=== PATIENT | female | born 2000 | race Caucasian/White ===

== ENCOUNTER → 2025-03-24 | Outpatient (CLI) | payer OTHER, SELFPAY | END | disposition home or self-care (01) | LOC: LAB 11:34 | PROVIDERS: PCP Family Medicine; Referring Provider Obstetrics & Gynecology; Visit Provider Obstetrics & Gynecology | DX: Z34.90 Encounter for supervision of normal pregnancy, unspecified, unspecified trimester (principal) | CPT/HCPCS: 36415; 84702 ==

== ENCOUNTER → 2025-03-26 | Outpatient (CLI) | payer OTHER, SELFPAY ==
--- OUTSIDE RECORDS SUMMARY | 2025-03-26 12:16 | XMS RPT_ITS | CCD ---
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 Name Role Phone JARAD CEE Unavailable Unavailable REFERRED, SELF Unavailable Unavailable ATA BOYKIN Unavailable Unavailable MARIMPIETRI, BLOSSOM Unavailable Unavailable MARIMPIETRI, BLOSSOM Unavailable Unavailable ATA BOYKIN Unavailable Unavailable LELA KHANNA Unavailable Unavailable LELA KHANNA Unavailable Unavailable ATA BOYKIN Unavailable Unavailable Anthony Mckay Primary Care Provider Anthony Mckay Primary Care Provider [phone] Anthnoy Mckay DO E Primary Care Provider Unavailable Primary Care Provider Unavailmanjula e Wancasso DO Anthony E Primary Care Provider Deidra Otero Attending Unavailable Anthony Mckay Primary Care Unavailable PROVIDER, UNKNOWN Referring Unavailable Woody MCDUFFIE Anthony Jose Primary Care Provider Unavailable Primary Care Provider Unavailmanjula e Wancasso DO Anthony E Primary Care Provider Anthony Mckay DO E Primary Care Provider Unavailable Primary Care Provider Unavailmanjula e Unavailable Primary Care Provider UnavailAlivia Carlisle DO Primary Care Provider ASHKAN SLOAN Attending Unavailable PASHA PAULSON Attending Unavailable YOON MCCARTY Attending Unavailable ALIVIA DESAI Attending Unavailable ALIVIA DESAI Primary Care Unavailable LELA CHARLES Attending Unavailable ALIVIA DESAI Primary Care Unavailable FIONA FUNES Attending Unavailable DEIDRA OTERO Attending Unavailable FIONA FUNES Referring Unavailable FLY RODRIGUEZ Attending Unavailable Allergies Allergy Classification Reported Allergen(s) Allergy Type Date of Onset Reaction(s) Facility Penicillins (antibiotic) (2 sources) Amoxicillin Drug Allergy 2 [facility] (1 source) Seafood; Translations: [SEAFOOD] Propensity to adverse reactions to drug (disorder) 7 [facility] (1 source) NUT ALLERGY; Translations: [NUT ALLERGY] Propensity to adverse reactions to drug (disorder) 7 [facility] (20 sources) Peanut-Containi ng Drug Products Propensity to adverse reactions to drug 7 Anaphylaxis [place], [place] (6 sources) Other Propensity to adverse reactions 7 Anaphylaxis, Rash [place], [place] (20 sources) Amoxicillin; Translations: [AMOXICILLIN] Drug Allergy 2 Vomiting, Nausea And Vomiting [facility] (6 sources) peanut allergenic extract Drug Allergy 5 Rash [facility] NEGATED: Highlighted row has been ruled out!Unclassified (4 sources) Other Propensity to adverse reactions 7 Anaphylaxis, Rash [facility] Medications Current Medications Medication Drug Class(es) Dates Sig (Normalized) Sig (Original) adapalene 0.001 mg/mg / benzoyl peroxide 0.025 mg/mg topical gel (2 sources) Retinoid Start: 03-15-2021 Adapalene-Benzoyl Peroxide 0.1-2.5 % GEL [id number] 200 actuat albuterol 0.09 mg/actuat metered dose inhaler (12 sources) beta2-Adrenergic Agonist Start: 05-30-2022 take 2 puff(s) by inhalation every four hours as needed albuterol HFA (PROVENTIL HFA, VENTOLIN HFA) 90 mcg/actuation inhaler Indications: SOB (shortness of breath) Inhale 2 Puffs as instructed every 4 hours as needed. 8 g 05/30/2022 Active Start: 10-06-2016 take 2 puff(s) by in halation every four hours as needed PROAIR HFA 108 (90 Base) MCG/ACT inhaler Inhale 2 puffs into the lungs every 4 hours as needed 0 10/06/2016 Active Start: 10-06-2016 take 2 puff(s) by in halation every four hours as needed PROAIR HFA 108 (90 Base) MCG/ACT inhaler Inhale 2 puffs into the lungs every 4 hours as needed 0 10/06/2016 Active Start: 10-06-2016 PROAIR HFA 108 (90 Base) MCG/ACT inhaler Comment on above: Inhale 2 Puffs as in structed every 4 hours as needed. ALPRAZolam 0.25 mg disintegrating oral tablet (2 sources) Benzodiazepine Start: 08-25-2020 ALPRAZolam (NIRAVAM) dissolvable tablet 0.25 mg Start: 06-30-2020 ALPRAZolam (NI RAVAM) dissolvable tablet 0.25 mg betamethasone 3 mg/ml / betamethasone acetate 3 mg/ml injectable suspension (2 sources) Corticosteroid Start: 08-05-2023 End: 08-04-2023 betamethasone acetate-betamethasone sodium phosphate (Celestone) injection 12 mg Start: 08-05-2023 End: 08-04-2023 betamethasone acetate-betame thasone sodium phosphate (Celestone) injection 12 mg brompheniramine maleate 0.4 mg/ml / dextromethorphan hydrobromide 2 mg/ml / pseudoephedrine hydrochloride 6 mg/ml oral solution (3 sources) alpha-Adrenergic Agonist, Uncompetitive Z-koqwba-T-aspartate Receptor Antagonist, Sigma-1 Agonist Start: 03-26-2024 take 10 mL by mouth every eight hours as needed Gqpiaxuaiftgfoh-Tjlzglrez-JQ (BROMFED DM) 2-30-10 mg/5 mL syrup Indications: Upper respiratory infection with cough and congestion Take 10 mL by mouth every 8 hours as needed. 118 mL 03/26/2024 Active Start: 05-30-2022 End: 03-26-2024 take 10 mL by mouth four times daily as needed Dyvhmxmiexjhekq-Gaxptjhyr-DI (BROMFED DM ) 2-30-10 mg/5 mL syrup Indications: Viral upper respiratory tract infection with cough Take 10 mL by mouth four times daily as needed. 118 mL 05/30/2022 03/26/2024 Discontinued Comment on above: Take 10 mL by mouth four times daily as needed. cefdinir 300 mg oral capsule (1 source) Cephalosporin Antibacterial Start: End: take 1 capsule by mouth twice daily cefdinir (Omnicef) 300 MG capsule Indications: Fever, unspecified fever cause , Upper respiratory tract infection, unspecified type Take 1 capsule (300 mg) by mouth 2 times daily for 10 days. 20 capsule 06/05/2024 06/15/2024 Active clindamycin 10 mg/ml topical lotion (2 sources) Lincosamide Antibacterial Start: clindamycin (CLEOCIN T) 1 % lotion diphenhydrAMINE hydrochloride 25 mg oral tablet (12 sources) Histamine-1 Receptor Antagonist Start: End: diphenhydrAMINE (BENADryl) tablet/capsule 25 mg Start: 08-25-2020 End: 08-25-2020 diphenhydrAMINE (BENADRYL) i njection 12.5 mg Start: 06-30-2020 End: 06-30-2020 diphenhydrAMINE (BENADRYL) i njection 12.5 mg doxycycline hyclate 100 mg oral capsule (3 sources) Tetracycline-class Drug Start: 03-26-2024 End: 04-02-2024 take 1 capsule by mouth twice daily doxycycline hyclate (VIBRAMYCIN) 100 mg capsule Indications: Upper respiratory infection with cough and congestion , Penicillin allergy Take 1 capsule (100 mg) by mouth two times a day for 7 days. 14 capsule 03/26/2024 04/02/2024 Active Start: 06-02-2022 End: 06-09-2022 take 1 capsule by mouth twice daily doxycycline hyclate (VIBRAMYCIN) 100 mg capsule Take 1 capsule by mouth twice daily for 7 days. 14 capsule 0 06/02/2022 06/09/2022 Active Start: 06-25-2021 End: 07-05-2021 take 1 capsule by mouth twice daily doxycycline monohydrate (MONODOX) 100 mg capsule Indications: Acute non-recurrent maxillary sinusitis Take 1 capsule by mouth twice daily for 10 days. 20 capsule 0 06/25/2021 07/05/2021 Active Comment on above: Take 1 capsule by mo uth twice daily for 10 days. Take 1 capsule by mo uth twice daily for 7 days. drospirenone 3 mg / ethinyl estradiol 0.02 mg oral tablet (20 sources) Progestin, Estrogen Start: 04-13-2022 End: 08-13-2023 drospirenone-ethinyl estradiol (Andrew, Gianvi) 3-0.02 MG tablet Take 1 tablet by mouth in the morning. 84 tablet 4 05/17/2022 Active Start: 04-20-2021 take 1 tablet by ambar th once daily drospirenone-ethinyl estradiol (TIMOTHY 28) 3-0.03 MG TABS Indications: Encounter for surveillance of contraceptive pills Take 1 tablet by mouth daily 3 packet 4 04/20/2021 Active End: 03-26-2024 take 1 tablet by mouth once daily Drospirenone-Ethinyl Estradiol (ANDREW 28) 3-0.02 mg per tablet Take 1 tablet by mouth once daily. 03/26/2024 Discontinued take 1 tablet by ambar th once daily Drospirenone-Ethinyl Estradiol (ANDREW 28) 3-0.02 mg per tablet Take 1 tablet by mouth once daily. 0 Active Comment on above: Take 1 tablet by ambar th once daily. Dupilumab (DUPIXENT) 100 MG/0.67ML SOSY (2 sources) Dupilumab (DUPIX ENT) 100 MG/0.67ML SOSY Inject into the skin 0 Active 21 day ethinyl estradiol 0.448875 mg/hr / etonogestrel 0.005 mg/hr vaginal ring (1 source) Progestin, Estrogen Start: 04-16-2019 etonogestrel-ethinyl estradiol (NUVARING) 0.12-0.015 MG/24HR vaginal ring Indications: Encounter for initial prescription of vaginal ring hormonal contraceptive Place 1 each vaginally See Admin Instructions 1 Ring PV 3weeks out of 4. 3 each 3 04/16/2019 Active etonogestrel 68 mg drug implant (10 sources) Progestin Start: 12-05-2019 etonogestrel (NEXPLANON) implant 68 mg End: 03-26-2024 etonogestrel (NEXPLANON) 68 mg impl subdermal implant 68 mg by SUBDERMAL route. 03/26/2024 Discontinued Comment on above: 68 mg by SUBDERMAL r oute. 2 ml fentaNYL 0.05 mg/ml injection (4 sources) Opioid Agonist Start: 08-25-2020 fentaNYL (SUBLIMAZE) injection 50 mcg Start: 08-25-2020 fentaNYL (SUBL IMAZE) injection 25 mcg Start: 06-30-2020 fentaNYL (SUBL IMAZE) injection 50 mcg Start: 06-30-2020 fentaNYL (SUBL IMAZE) injection 25 mcg 1 ml hydrALAZINE hydrochloride 20 mg/ml injection (2 sources) Arteriolar Vasodilator Start: 08-25-2020 hydrALAZINE (APRESOLINE) injection 5 mg Start: 06-30-2020 hydrALAZINE (A PRESOLINE) injection 5 mg 1 ml HYDROmorphone hydrochloride 1 mg/ml cartridge (4 sources) Opioid Agonist Start: 08-25-2020 HYDROmorphone (DILAUDID) injection 0.5 mg Start: 08-25-2020 HYDROmorphone (DILAUDID) injection 0.25 mg Start: 06-30-2020 HYDROmorphone (DILAUDID) injection 0.5 mg Start: 06-30-2020 HYDROmorphone (DILAUDID) injection 0.25 mg labetalol hydrochloride 5 mg/ml injectable solution (2 sources) beta-Adrenergic Pepe Start: 08-25-2020 labetalol (NORMODYNE;TRANDATE) injection 5 mg Start: 06-30-2020 labetalol (NOR MODYNE;TRANDATE) injection 5 mg 10 ml lidocaine hydrochloride 10 mg/ml injection (2 sources) Antiarrhythmic, Amide Local Anesthetic Start: 08-25-2020 End: 08-25-2020 lidocaine PF 1 % injection 1 mL Start: 06-30-2020 End: 06-30-2020 lidocaine PF 1 % injection 1 mL 12 hr loratadine 5 mg / pseudoephedrine sulfate 120 mg extended release oral tablet (5 sources) alpha-Adrenergic Agonist Start: 06-05-2024 End: 06-19-2024 take 5-120 mg by mouth every twelve hours loratadine-pseudoephedrine ER (Claritin-D 12-hour) 5-120 MG 12 hr tablet Indications: Fever, unspecified fever cause , Upper respiratory tract infection, unspecified type Take 1 tablet by mouth 2 times daily for 14 days. Do not crush, chew, or split. 28 tablet 06/05/2024 Active 1 ml meperidine hydrochloride 25 mg/ml cartridge (2 sources) Opioid Agonist Start: 08-25-2020 meperidine (DEMEROL) injection 12.5 mg Start: 06-30-2020 meperidine (DE MEROL) injection 12.5 mg mometasone furoate 0.05 mg/actuat metered dose nasal spray (10 sources) Corticosteroid Start: 03-04-2011 mometasone (NA SONEX) 50 MCG/ACT nasal spray 2 sprays by Nasal route daily as needed 0 03/04/2011 Active Start: 03-04-2011 mometasone (NA SONEX) 50 MCG/ACT nasal spray by Nasal route 0 03/04/2011 Active montelukast 10 mg oral tablet (20 sources) Leukotriene Receptor Antagonist End: 03-26-2024 take 1 tablet by mouth once daily montelukast (Singulair) 10 MG tablet Take 10 mg by mouth Nightly. Active Comment on above: Take 10 mg by mouth daily at bedtime. 2 ml ondansetron 2 mg/ml injection (2 sources) Serotonin-3 Receptor Antagonist Start: 08-25-2020 End: 08-25-2020 ondansetron (ZOFRAN) injection 4 mg Start: 06-30-2020 End: 06-30-2020 ondansetron (ZOFRAN) injecti on 4 mg predniSONE 20 mg oral tablet (1 source) Start: 06-05-2024 End: 06-10-2024 take 2 tablets by mouth once daily predniSONE (Deltasone) 20 MG tablet Indications: Fever, unspecified fever cause , Upper respiratory tract infection, unspecified type Take 2 tablets (40 mg) by mouth daily for 5 days. 10 tablet 06/05/2024 06/10/2024 Active 1 ml promethazine hydrochloride 25 mg/ml injection (2 sources) Phenothiazine Start: 08-25-2020 End: 08-25-2020 promethazine (PHENERGAN) injection 6.25 mg Start: 06-30-2020 End: 06-30-2020 promethazine (PHENERGAN) inj ection 6.25 mg 3 ml sodium chloride 9 mg/ml injection (8 sources) Start: 08-25-2020 sodium chlorid e flush 0.9 % injection 10 mL Start: 08-25-2020 End: 08-25-2020 0.9 % sodium chloride bolus Start: 08-25-2020 0.9 % sodium c hloride infusion Start: 08-25-2020 sodium chlorid e flush 0.9 % injection 10 mL Start: 06-30-2020 0.9 % sodium c hloride infusion Start: 06-30-2020 sodium chlorid e flush 0.9 % injection 10 mL spironolactone 100 mg oral tablet (14 sources) Aldosterone Antagonist Start: 06-05-2019 spironolactone (ALDACTONE) 100 MG tablet Take 50 mg by mouth 2 times daily Acne-50 mg morning and 100mg nightly 0 06/05/2019 Active Start: 06-05-2019 spironolactone (ALDACTONE) 100 MG tablet Take 150 mg by mouth daily 0 06/05/2019 Active Start: 06-05-2019 spironolactone (ALDACTONE) 100 MG tablet End: 03-26-2024 take 1 tablet by mouth every eight hours as needed spironolactone (ALDACTONE) 50 mg tablet Take 50 mg by mouth three times daily as needed. 03/26/2024 Discontinued Comment on above: Take 50 mg by mouth three times daily as needed. traMADol hydrochloride 50 mg oral tablet (2 sources) Opioid Agonist Start: 08-25-2020 End: 08-28-2020 traMADol (ULTRAM) 50 MG tablet Indications: Fibroadenoma of left breast , Hypertrophic scar of skin Take 1 tablet by mouth every 6 hours as needed for Pain for up to 3 days. Intended supply: 3 days. Take lowest dose possible to manage pain 5 tablet 0 08/25/2020 08/28/2020 Active Start: 06-30-2020 End: 07-03-2020 take 1 tablet by mouth every four hours as needed for pain, then take 1 tablet by mouth as needed for pain traMADol (ULTRAM) 50 MG tablet Indications: Fibroadenoma of breast, left Take 1 tablet by mouth every 4 hours as needed for Pain for up to 3 days. Intended supply: 3 days. Take lowest dose possible to manage pain 7 tablet 0 06/30/2020 07/03/2020 Active Completed/Discontinued Medications Medication Drug Class(es) Dates Sig (Normalized) Sig (Original) acetaminophen 500 mg oral tablet (16 sources) Start: 04-21-2024 End: 04-22-2024 1,000 mg, Oral, Once, On 04/21/24 at 2350, For 1 dose, Maximum dose of acetaminophen is 4000 mg from all sources in 24 hours. Start: 08-11-2023 End: 08-13-2023 take 1 tablet by mouth every six hours as needed 650 mg, Oral, Every 6 hours PRN, other, pain (1-10), Starting on Mon08/11/23 at 2311, Give in addition to any other pain medication ordered at same time for any pain indication. Maximum dose of acetaminophen is 4000 mg from all sources in 24 hours. Alternate ibuprofen and acetaminophen every 3 hours. Give ibuprofen first in the sequence. Start: 08-11-2023 End: 08-11-2023 acetaminophen (Tylenol) tabl et 1,000 mg Start: 08-25-2020 End: 08-25-2020 acetaminophen (TYLENOL) tabl et 500 mg Start: 06-30-2020 End: 06-30-2020 acetaminophen (TYLENOL) tabl et 1,000 mg End: 08-13-2023 take 1 tablet by mouth every eight hours as needed for pain acetaminophen (Tylenol 8 Hour) 650 MG ER tablet Take 650 mg by mouth every 8 hours as needed for mild pain (1-3). Do not crush, chew, or split. 0 08/13/2023 Discontinued (Stop taking at discharge) benzethonium chloride 2 mg/ml / benzocaine 200 mg/ml topical spray (2 sources) Standardized Chemical Allergen Start: 08-11-2023 End: 08-13-2023 Topical, As needed, pain, , Starting on Mon08/11/23 at 2311, , Apply to perineal area. Patient is capable and may self administer at bedside. calcium chloride 0.0014 meq/ml / potassium chloride 0.004 meq/ml / sodium chloride 0.103 meq/ml / sodium lactate 0.028 meq/ml injectable solution (4 sources) Start: 08-11-2023 End: 08-11-2023 lactated ringers infusion Start: 08-25-2020 lactated ringe rs infusion Start: 06-30-2020 lactated ringe rs infusion ceFAZolin 2000 mg injection (1 source) Cephalosporin Antibacterial Start: 08-25-2020 End: 08-25-2020 ceFAZolin (ANCEF) 2000 mg in dextrose 4 % 100 mL IVPB (premix) ceFAZolin (ANCEF) 1,000 mg in dextrose 5 % 50 mL IVPB (add-vantage) (1 source) Start: 06-30-2020 End: 06-30-2020 ceFAZolin (ANCEF) 1,000 mg in dextrose 5 % 50 mL IVPB (add-vantage) chlorhexidine gluconate 40 mg/ml medicated liquid soap (2 sources) Start: 08-11-2023 End: 08-11-2023 chlorhexidine (Hibiclens) 4 % solution 1 Application docusate sodium 100 mg oral capsule (2 sources) Start: 08-11-2023 End: 08-13-2023 take 100 mg by mouth twice daily as needed for constipation 100 mg, Oral, 2 times daily PRN, constipation, Vaginal Delivery, Starting on Mon08/11/23 at 2311, Do not crush or break. Dupilumab (Dupixent) 100 MG/0.67ML solution prefilled syringe (16 sources) End: 08-13-2023 Dupilumab (Dupixent) 100 MG/0.67ML solution prefilled syringe Inject under the skin. 0 08/13/2023 Discontinued (Stop taking at discharge) Dupilumab (Dupix ent) 100 MG/0.67ML solution prefilled syringe Inject under the skin. 0 Active [id number] 0.1 ml EPINEPHrine 1 mg/ml auto-injector (20 sources) alpha-Adrenergic Agonist, beta-Adrenergic Agonist, Catecholamine End: 08-13-2023 EPINEPHrine (AUVI-Q) 0.1 mg/0.1mL IJ solution auto-injector injection Inject into the shoulder, thigh, or buttocks. 0 08/13/2023 Discontinued (Stop taking at discharge) EPINEPHrine (EPI PEN JR) 0.15 MG/0.3ML SOAJ Inject into the muscle as needed 0 Active erythromycin 0.005 mg/mg ophthalmic ointment (5 sources) Macrolide, Macrolide Antimicrobial Start: 08-31-2021 End: 03-26-2024 erythromycin (ROMYCIN) 5 mg/gram (0.5 %) ophthalmic ointment Indications: Hordeolum internum of right lower eyelid Use 1 application in the right eye three times daily. 1 g 08/31/2021 03/26/2024 Discontinued Comment on above: Use 1 application in the right eye three times daily. famotidine 20 mg oral tablet (4 sources) Histamine-2 Receptor Antagonist Start: 08-11-2023 End: 08-13-2023 take 20 mg by mouth twice daily as needed for gastroesophageal reflux disease 20 mg, Oral, 2 times daily PRN, heartburn, Starting on 08/11/23 at 2311, , Renal dose per pharmacy for peptic ulcer prophylaxis. Start: 08-25-2020 End: 08-25-2020 famotidine (PEPCID) tablet 2 0 mg Start: 06-30-2020 End: 06-30-2020 famotidine (PEPCID) tablet 2 0 mg ferrous sulfate 325 mg oral tablet (18 sources) Start: 08-12-2023 End: 08-13-2023 325 mg, Oral, 2 times daily with meals, First dose on 08/12/23 at 0800, , Start if Hgb less than 10. Hold oral ferrous sulfate dose if receiving IV iron sucrose (Venofer) End: 10-09-2023 take 1 tablet by mouth once daily at breakfast ferrous sulfate 325 (65 Fe) MG tablet Take 325 mg by mouth daily (with breakfast). 10/09/2023 Discontinued (Therapy completed) fexofenadine (1 source) Histamine-1 Receptor Antagonist End: 04-07-2022 Fexofenadine HCl (RICARDO PO) Take by mouth. 0 04/07/2022 Discontinued (Therapy completed) fluticasone propionate 0.05 mg/actuat metered dose nasal spray (7 sources) Corticosteroid Start: 03-26-2024 End: 08-01-2024 fluticasone (Flonase) 50 MCG/ACT nasal spray 1 spray twice a day. 03/26/2024 08/01/2024 Discontinued (Med list cleanup) Start: 05-30-2022 End: 03-26-2024 take 1 spray(s) nasal route twice daily fluticasone (FLONASE ALLERGY RELIEF) 50 mcg/actuation nasal spray Indications: Upper respiratory infection with cough and congestion Use 1 Devol in each nostril two times a day. 1 Each 03/26/2024 Active Comment on above: Use 1 Devol in each nostril twice daily. gabapentin 100 mg oral capsule (2 sources) Anti-epileptic Agent Start: 08-25-2020 End: 08-25-2020 gabapentin (NEURONTIN) capsule 100 mg Start: 06-30-2020 End: 06-30-2020 gabapentin (NEURONTIN) capsu le 100 mg gadobutrol (GADAVIST) injection 5.5 mL (1 source) Start: 12-16-2021 End: 12-16-2021 gadobutrol (GADAVIST) injection 5.5 mL hydrOXYzine pamoate 25 mg oral capsule (2 sources) Antihistamine Start: 08-11-2023 End: 08-11-2023 hydrOXYzine pamoate (Vistaril) capsule 25 mg ibuprofen 600 mg oral tablet (20 sources) Nonsteroidal Anti-inflammatory Drug Start: 08-11-2023 End: 08-01-2024 take 1 tablet by mouth every six hours as needed for pain ibuprofen 600 MG tablet Take 1 tablet (600 mg) by mouth every 6 hours as needed for moderate pain (4-6). 60 tablet 08/13/2023 08/01/2024 Discontinued (Med list cleanup) End: 08-13-2023 ibuprofen 200 MG tablet Take 400 mg by mouth. 0 08/13/2023 Discontinued (Stop taking at discharge) lanolin 1000 mg/ml topical cream (2 sources) Start: 08-11-2023 End: 08-13-2023 Topical, As needed, dry skin, nipple discomfort, Starting on Mon08/11/23 at 2311, , Apply to affected area. levocetirizine dihydrochloride 5 mg oral tablet (20 sources) Histamine-1 Receptor Antagonist End: 08-01-2024 take 1 tablet by mouth once daily levocetirizine (Xyzal) 5 MG tablet Take 5 mg by mouth Nightly. 08/01/2024 Discontinued Comment on above: Take 1 tablet by ambar once daily. levonorgestrel 0.691817 mg/hr intrauterine system (14 sources) Progestin, Progestin-containi ng Intrauterine Device Start: 10-10-2023 End: 10-10-2023 levonorgestrel (Mirena) 20 MCG/DAY IUD 1 each Start: 10-10-2023 End: 10-10-2023 1 each, IntraUTERine, Once, On 7/9/24 at 0800, For 1 dose Start: 09-10-2023 Mirena, 52 MG, 20 MCG/DAY IUD 09/10/2023 Active metoclopramide 10 mg oral tablet (2 sources) Dopamine-2 Receptor Antagonist Start: 07-19-2023 End: 07-19-2023 metoclopramide (Reglan) tablet 10 mg miSOPROStol (Cytotec) split tablet 25 mcg (2 sources) Start: 08-11-2023 End: 08-11-2023 take 1 tablet vaginal route every four hours miSOPROStol (Cytotec) split tablet 25 mcg nystatin 100 unt/mg / triamcinolone acetonide 0.001 mg/mg topical ointment (2 sources) Polyene Antifungal, Corticosteroid Start: 07-23-2024 End: 08-01-2024 nystatin-triamcinol one (Mycolog II) ointment Apply pea sized amount topically daily as needed to affected area 60 g 2 07/23/2024 08/01/2024 Discontinued (Med list cleanup) ondansetron ODT (Zofran-ODT) disintegrating tablet 4 mg (2 sources) Start: 08-11-2023 End: 08-13-2023 take 1 tablet by mouth every eight hours as needed for nausea and vomiting ondansetron ODT (Zofran-ODT) disintegrating tablet 4 mg oxytocin (Pitocin) 30 units in 500 mL infusion (4 sources) Start: 08-11-2023 End: 08-13-2023 oxytocin (Pitocin) 30 units in 500 mL infusion Start: 08-11-2023 End: 08-11-2023 oxytocin (Pitocin) 30 units in 500 mL infusion oxytocin (Pitocin) 30 units infusion - Pyxis ADS Override Pull (2 sources) Start: 08-11-2023 End: 08-11-2023 oxytocin (Pitocin) 30 units infusion - Pyxis ADS Override Pull Ioprnoch-Yqy-Cv-FA (PRE-BENITA PO) (20 sources) End: 06-05-2024 Cmsbtmup-Fxt-Ps-FA (PRE- PO) Take by mouth. 06/05/2024 Discontinued (Med list cleanup) Multivi t-Min-Fe-FA (PRE-BENITA PO) Take by mouth. Active Multivi t-Min-Fe-FA (PRE-BENITA PO) Take by mouth. 0 Active witch tiffany 500 mg/ml medicated pad (2 sources) Start: 08-11-2023 End: 08-13-2023 Topical, As needed, hemorrho ids, For perineal pain or discomfort, Starting on Mon08/11/23 at 2311, , Apply to perineal area. Patient is capable and may self administer at bedside. Problems Active Problems Problem Classification Problem Date Documented Date Episodic/Chronic Allergic reactions (1 source) Allergy to penicillin; Translations: [Allergy status to penicillin] 03-26-2024 Episodic Asthma (20 sources) Asthmatic bronchitis; Translations: [Unspecified asthma, uncomplicated] Onset: 08-14-2017 08-14-2017 Chronic Contraceptive and procreative management (19 sources) IUD contraception; Translations: [Presence of (intrauterine) contraceptive device] Onset: 12-10-2024 Resolved: 12-05-2019 06-07-2019 Episodic Genitourinary congenital anomalies (1 source) Congenital uterine anomaly; 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, unspecified] Chronic Immunizations and screening for infectious disease (4 sources) Patient encounter status; Translations: [Encounter for screening for infections with a predominantly sexual mode of transmission] 10-10-2023 Episodic Inflammation; infection of eye (except that caused by tuberculosis or sexually transmitteddisease) (1 source) Internal hordeolum of right lower eyelid; Translations: [Hordeolum internum right lower eyelid] Episodic Nonmalignant breast conditions (1 source) Lump in left breast; Translations: [Left breast mass] Nonspecific chest pain (1 source) Chest pain; Translations: [Chest pain, unspecified] Episodic Other and unspecified benign neoplasm (1 source) Fibroadenoma of left breast; Translations: [Benign neoplasm of left breast] Episodic Other and unspecified benign neoplasm (1 source) Fibroadenoma of left breast; Translations: [Fibroadenoma of breast, left] Other female genital disorders (2 sources) Malposition of uterus; Translations: [Malposition of uterus] Onset: 12-16-2021 Episodic Other inflammatory condition of skin (1 source) Pruritus of vulva; Translations: [Pruritus vulvae] 07-23-2024 Episodic Other lower respiratory disease (1 source) Dyspnea; Translations: [Shortness of breath] Episodic Other skin disorders (1 source) Hypertrophic scar; Translations: [Hypertrophic scar] Episodic Other upper respiratory disease (20 sources) Allergic rhinitis due to pollen; Translations: [Allergic rhinitis due to pollen] Onset: 08-14-2017 08-14-2017 Chronic Ovarian cyst (1 source) Cyst of right ovary; Translations: [Unspecified ovarian cyst, right side] 04-29-2024 Episodic Thyroid disorders (1 source) Thyroid nodule; Translations: [Left thyroid nodule] Chronic Unclassified (2 sources) Results; Translations: [Results] Onset: 04-29-2024 Past or Other Problems Problem Classification Problem Date Documented Date Episodic/Chronic Abdominal pain (9 sources) Pain in female pelvis; Translations: [Pelvic and perineal pain] Onset: 04-21-2024 Episodic Fever of unknown origin (3 sources) Fever; Translations: [Fever, unspecified] Onset: 06-05-2024 06-05-2024 Episodic Hypertension complicating ; childbirth and the puerperium (20 sources) Pre-eclampsia; Translations: [Unspecified pre-eclampsia, third trimester] Onset: 08-11-2023 Resolved: 08-13-2023 08-13-2023 Episodic Other inflammatory condition of skin (2 sources) Pruritus vulvae; Translations: [Pruritus vulvae] Onset: 07-23-2024 Episodic Other and delivery including normal (20 sources) Vaginal delivery; Translations: [Encounter for full-term uncomplicated delivery] Onset: 08-12-2023 08-12-2023 Episodic Other upper respiratory infections (6 sources) Acute maxillary sinusitis; Translations: [Acute maxillary sinusitis, unspecified] Onset: 06-05-2024 Episodic Unclassified (6 sources) Patient encounter status; Translations: [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 Will send via [employer] [facility] 36 What is it that she needs? Typically, natural cycle contraception would be tracking cycles. Is this for ovulation supplies? Where does she need this sent? [facility] 36on 12-11-2024 36 Name of caller: Maynor son LoGuidice Contact phone number: [phone] Relationship to Patient: patient Provider: Dr. Desai Practice: [facility] Chief Complaint/Reason for Call: Patient stated she needs for Dr. Desai to send over a Rx for natural cycle contraception subscription. Patient will need this prescribed for 12 unites, billing code is: [id number] and diagnosis code is: Z30.8. Patient will call back with the fax number. Please advise. Thank you. Best time of day caller can be reached: Any Patient advised that office/PCP has 24-48 business hours to return their call: Yes Normal [facility] Progress Noteon 12-10-2024 Progress Note Zunilda Logan LoGuidice 12/10/2024 Patient's last menstrual period was 11/20/2024 (exact date). Chief Complaint Patient presents with Contraception Iud removal HPI: The patient is requesting that her IUD be removed because They are going to start trying to get . She is not planning on becoming . The patient was counseled on the procedure. Risks, benefits and alternatives were reviewed. Medical History[1] Surgical History[2] Social History[3] MEDICATIONS: Current Medications[4] ALLERGIES: Allergies as of 12/10/2024 - Reviewed 12/10/2024 Allergen Reaction Noted Peanut-containing drug products Anaphylaxis 11/09/2016 Amoxicillin Nausea And Vomiting 06/25/2021 Peanut (diagnostic) Rash 06/05/2024 PHYSICAL EXAM: Vitals: 12/10/24 1452 BP: 128/72 Weight: 130 lb 6.4 oz (59.1 kg) CONSTITUTIONAL: Well developed, well nourished, well groomed. no acute distress RESPIRATORY: Normal effort NEUROLOGICAL: no gross motor or sensory deficits noted. . SKIN: intact, dry PSYCHIATRIC Normal mood and affect, A&O x3. : Normal external genitalia, normal urethra, normal perineum, normal glands, vagina normal, cervix normal. IUD strings are present. GI: Anus normal Procedure A consent was reviewed and obtained. The patient was positioned comfortably on the exam table. A speculum was placed without incident and the string was identified at the cervical portio.The string was grasped with a ring forcep and the IUD was removed without incident. Patient tolerated the procedure well. The patient was seen with total face to face time of 20 minutes. More than 50% of this visit was on counseling and education regarding family planning. She was also counseled on her preventative health maintenance recommendations and follow-up. ASSESSMENT/PLAN: Zunilda was seen today for contraception. Diagnoses and all orders for this visit: Encounter for IUD removal (Primary) - Remove IUD Follow up if symptoms worsen or fail to improve. [1] Past Medical History: Diagnosis Date Acne Asthmatic bronchitis without complication 2017 Chronic seasonal allergic rhinitis due to pollen 2018 Contraception, device intrauterine nuva ring Fibroadenoma of breast, left [2] Past Surgical History: Procedure Laterality Date BREAST BIOPSY Left 06/30/2020 Wire localized excisional biopsy of left breast mass (Dr. Ta) BREAST LUMPECTOMY Left 06/30/2020 mass removed on left breast COLONOSCOPY 01/27/2022 unremarkable ESOPHAGOGASTRODUODENOSC OPY 01/27/2022 erythema GE junction TONSILLECTOMY AND ADENOIDECTOMY (HISTORICAL) 2006 WISDOM TOOTH EXTRACTION 2020 [3] Social History Tobacco Use Smoking status: Never Smokeless tobacco: Never Vaping Use Vaping status: Never Used Substance Use Topics Alcohol use: Yes Comment: occasionally Drug use: No [4] Current Outpatient Medications Medication Sig Dispense Refill loratadine-pseudoephedr ine ER (Claritin-D 12-hour) 5-120 MG 12 hr tablet Take 1 tablet by mouth 2 times daily for 14 days. Do not crush, chew, or split. 28 tablet 0 Mirena, 52 MG, 20 MCG/DAY IUD montelukast (Singulair) 10 MG tablet Take 10 mg by mouth Nightly. No current facility-administered medications for this visit. Normal [facility] Office Visiton 08-01-2024 Follow-up visit [id number] Zunilda Sorensen 2000 F Date Provider Department Center 08/01/2024 ALIVIA BALTAZAR [facility] Family History Problem Relation Age of Onset Breast cancer Father's Sister Uterine cancer Neg Hx No Known Problems Mother Ovarian cancer Neg Hx Colon cancer Neg Hx No Known Problems Father Family Status - Relation Status Age at Father's Sister Alive Neg Hx Mother Alive Father Alive Maternal Grandfather Other Maternal Grandmother Other Notes: adopted Father's Brother Alive Level of Service:25579 [place] PERIODIC PREVENTIVE MED EST PATIENT 18-39 YRS Reason for Visit and Comments: Establish Care [42] Normal [facility] Progress Noteon 08-01-2024 Progress Note [facility] [address] [facility] [address] Visit type: Established Patient Reason for Visit: Establish Care Assessment and Plan Diagnoses and all orders for this visit: Well adult exam Encouraged avoidance of tobacco and alcohol, safe sexual practice. Healthy diet with plenty of fruits, vegetables, whole grains, and lean proteins. Exercise 3-5 times per week for 30-45 minutes. Wear seatbelts. Wear sunscreen. Reviewed age appropriate screening tests. No follow-ups on file. Subjective HPI Zunilda is a 23 yo wf with a past medical history of asthma who presents to establish care. 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 HENT: Negative for congestion, ear pain, hearing loss, postnasal drip, sore throat and trouble swallowing. Eyes: Negative for discharge, itching and visual disturbance. Respiratory: Negative for cough, shortness of breath and wheezing. Cardiovascular: Negative for chest pain, palpitations and leg swelling. Gastrointestinal: Negative for abdominal pain, constipation, diarrhea, nausea and vomiting. Endocrine: Negative for cold intolerance, heat intolerance, polydipsia, polyphagia and polyuria. Genitourinary: Negative for difficulty urinating, frequency, urgency, vaginal bleeding, vaginal discharge and vaginal pain. Musculoskeletal: Negative for arthralgias, back pain, joint swelling and myalgias. Skin: Negative for color change, rash and wound. Neurological: Negative for dizziness, tremors, seizures, speech difficulty, weakness, numbness and headaches. Hematological: Negative for adenopathy. Does not bruise/bleed easily. Psychiatric/Behavioral: Negative for agitation, decreased concentration, dysphoric mood and sleep disturbance. The patient is not nervous/anxious. Allergies Allergen Reactions Peanut-Containing Drug Products Anaphylaxis Amoxicillin Nausea And Vomiting Other reaction(s): Vomiting Peanut (Diagnostic) Rash Current Outpatient Medications: loratadine-pseudoephedr ine ER (Claritin-D 12-hour) 5-120 MG 12 hr tablet, Take 1 tablet by mouth 2 times daily for 14 days. Do not crush, chew, or split., Disp: 28 tablet, Rfl: 0 Mirena, 52 MG, 20 MCG/DAY IUD, , Disp: , Rfl: montelukast (Singulair) 10 MG tablet, Take 10 mg by mouth Nightly., Disp: , Rfl: Past Medical History: Diagnosis Date Acne Asthmatic bronchitis without complication 2017 Chronic seasonal allergic rhinitis due to pollen 2018 Contraception, device intrauterine nuva ring Fibroadenoma of breast, left Social History Socioeconomic History Marital status: Tobacco Use Smoking status: Never Smokeless tobacco: Never Vaping Use Vaping status: Never Used Substance and Sexual Activity Alcohol use: Yes Comment: occasionally Drug use: No Sexual activity: Yes Partners: Male control/protection: I.U.D. Social History Narrative Graduated [employer] in Mar 2022. She . 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 Overall Financial Resource Strain (CARDIA) Difficulty of Paying Living Expenses: Not hard at all Food Insecurity: No Food Insecurity (08/11/2023) Hunger Vital Sign Worried About Running Out of Food in the Last Year: Never true Ran Out of Food in the Last Year: Never true Transportation Needs: No Transportation Needs (08/11/2023) PRAPARE - Transportation Lack of Transportation (Medical): No Lack of Transportation (Non-Medical): No Physical Activity: Insufficiently Active (10/09/2023) Exercise Vital Sign Days of Exercise per Week: 3 days Minutes of Exercise per Session: 20 min Stress: No Stress Concern Present (10/09/2023) [employer] [place] [employer] - Occupational Stress Questionnaire Feeling of Stress : Not at all Social Connections: Socially Integrated (10/09/2023) Social Connection and Isolation Panel [NHANES] Frequency of Communication with Friends and Family: More than three times a week Frequency of Social Gatherings with Friends and Family: More than three times a week Attends Mandaen Services: More than 4 times per year Active Member of Clubs or Organizations: Yes Attends Club or Organization Meetings: More than 4 times per year Marital Status: Intimate Partner Violence: Not At Risk (08/11/2023) Humiliation, Afraid, Rape, and Kick questionnaire Fear of Current or Ex-Partner: No Emotionally Abused: No Physically Abused: No Sexually Abused: No Housing Stability: Low Risk (08/11/2023) Housing Stability Vital Sign Unable to Pay for Housing in the Last Year: No Number of Places Lived in (more content not included)... Normal [facility] Office Visiton 07-23-2024 Follow-up visit [id number] Zunilda Sorensen 2000 F Date Provider Department Center 07/23/2024 [id number] RICHARDS [facility] Family History Problem Relation Age of Onset Breast cancer Father's Sister Uterine cancer Neg Hx No Known Problems Mother Ovarian cancer Neg Hx Colon cancer Neg Hx No Known Problems Father Family Status - Relation Status Age at Father's Sister Alive Neg Hx Mother Alive Father Alive Maternal Grandfather Other Maternal Grandmother Other Notes: adopted Father's Brother Alive Level of Service:00395 [place] OFFICE/OUTPATIENT ESTABLISHED LOW MDM 20 MIN Reason for Visit and Comments: Vaginal Discharge [[id number]] Normal [facility] Progress Noteon 07-23-2024 Progress Note HPI: Here for 1 glo h hx of worsening itching in vulvar area. Affecting intimacy with her . Happens for 1-2 wks following intercourse. Itching so bad it bothers her during routine activities. REVIEW OF SYSTEMS: Gen: denies weight loss, fatigue, fevers/chills : see HPI PHYSICAL EXAM: Vitals: 07/23/24 1102 BP: 115/71 PHYSICAL EXAM: Gen: normal appearance, NAD Neuro: AAOx3 Psych: normal affect Abd: soft, NT, ND, no masses palpated External genitalia: normal, no lesions, no skin discoloration, normal introitus Urethral meatus: normal, no diverticulum or irritation present Vagina: normal, no lesions; +discharge Zunilda was seen today for vaginal discharge. Diagnoses and all orders for this visit: Vulvar itching - Sureswab(R) Adv Jyoti Vaginitis (CV), TMA ([facility]) - SureSwab(R) Adv Bacterial Vaginosis (BV), TMA ([facility]) Other orders - nystatin-triamcinolone (Mycolog II) ointment; Apply pea sized amount topically daily as needed to affected area PLAN: -rx for topical cream for external itching -swab for BV and yeast sent -all questions answered [facility] 36on 07-22-2024 36 S: Patient called [facility] clinical access center with complaint of vaginal discharge, itching . B: started 2 weeks ago A: Pt complains of dark brown vaginal discharge, itching, redness and discomfort. She denies abdominal pain or fever. R: appt at [address] [place] [address] Mccarty on 07/23. Pt advised to bring photo ID, insurance card, medications with them to their visit if possible. Home care advise given to patient: No Sexual [place], douches or medication intravaginally 48-72 hours before examination Covid/Flu questions: 1) Current symptoms consistent with Covid/Flu-no 2) Have you tested positive for Covid/Flu in last 10 days-no, has not taken a test 3) Known exposure to Covid/Flu in the last 10 days -no 4) Traveled out of the country in the last 10 days-no Reason for Disposition Genital area looks infected (e.g., draining sore, spreading redness) Protocols used: Vaginal [id number] [facility] 36on 06-05-2024 36 Discussed with braden rosenthal scheduling error was made. Rescheduled. Pt aware at check out she will need to schedule a new pt appointment with a PCP. [facility] 36 S: Patient spoke wit [facility] nurse regarding Fever x 3 days Provider: Prior Pt of Dr Mckay and Stiven Ku last visit 04/07/22 States she has seen Dr. Bonilla a few times since as well. Practice Name: [facility] B: Onset of symptoms/concern 3 days of fever A: Patient states sinus congestion and coughing with fevers for 3 days. Cough is productive at times and dry at times. Has been taking tylenol, mucinex, and claritin. Fever has been >100. States she has noticed some blood mixed in her sinuses. R: Appointment scheduled for today at 11:[address] Voss. Patient verbalizes understanding of care advice. No further needs at this time. Patient instructed to call back with new or worsening symptoms. Reason for Disposition SEVERE sinus pain (e.g., excruciating) Protocols used: Sinus Pain or [id number] Normal [facility] Office Visiton 06-05-2024 Follow-up visit [id number] Zunilda Sorensen 2000 F Date Provider Department Center 06/05/2024 [id number] PAULSON [facility] Family History Problem Relation Age of Onset Breast cancer Father's Sister Uterine cancer Neg Hx No Known Problems Mother Ovarian cancer Neg Hx Colon cancer Neg Hx No Known Problems Father Family Status - Relation Status Age at Father's Sister Alive Neg Hx Mother Alive Father Alive Maternal Grandfather Other Maternal Grandmother Other Notes: adopted Father's Brother Alive Level of Service:45813 [place] OFFICE/OUTPATIENT ESTABLISHED LOW MDM 20 MIN Reason for Visit and Comments: Cough [28] - Head congestion Normal [facility] POCT Influenza A/Bon 025 Rapid Influenza A Ag Negative Negativ e, Indeterminate [facility] Rapid Influenza B Ag Negative Negativ e, Indeterminate [facility] Progress Noteon 06-05-2024 Progress Note [facility] - [address] [facility] [address] Dept: [phone] Dept Loc: [phone] Visit type: Established Patient Reason for Visit: Cough (Head congestion) Assessment and Plan 1. Fever, unspecified fever cause - POCT Influenza A/B - cefdinir (Omnicef) 300 MG capsule; Take 1 capsule (300 mg) by mouth 2 times daily for 10 days., Starting Mon06/05/2024, Until 06/15/2024, Normal - predniSONE (Deltasone) 20 MG tablet; Take 2 tablets (40 mg) by mouth daily for 5 days., Starting Mon06/05/2024, Until 06/10/2024, Normal - loratadine-pseudoephedr ine ER (Claritin-D 12-hour) 5-120 MG 12 hr tablet; Take 1 tablet by mouth 2 times daily for 14 days. Do not crush, chew, or split., Starting Mon06/05/2024, Until Mon06/19/2024, Normal 2. Upper respiratory tract infection, unspecified type - cefdinir (Omnicef) 300 MG capsule; Take 1 capsule (300 mg) by mouth 2 times daily for 10 days., Starting Mon06/05/2024, Until 06/15/2024, Normal - predniSONE (Deltasone) 20 MG tablet; Take 2 tablets (40 mg) by mouth daily for 5 days., Starting Mon06/05/2024, Until 06/10/2024, Normal - loratadine-pseudoephedr ine ER (Claritin-D 12-hour) 5-120 MG 12 hr tablet; Take 1 tablet by mouth 2 times daily for 14 days. Do not crush, chew, or split., Starting Mon06/05/2024, Until Mon06/19/2024, Normal Patient is having been sick over a week now has a little bit of wheezing in the right base. Certainly does not appear septic or toxic in acute distress she states she has been sick for over a week now her son was positive for RSV. Certainly she could be dealing with RSV sequelae. Flu test was done here is negative. The fact she is been sick for over a week she was placed on antibiotic to cover sinuses as well as upper respiratory symptoms with sinusitis versus sinobronchitis plenty rest plenty fluids note for work offered declined follow-up if symptoms or not improving. Follow up eventually to schedule with PCP to re establish. Subjective Fever This is a recurrent problem. The current episode started in the past 7 days. The problem occurs daily. The maximum temperature noted was 100 to 100.9 F. Associated symptoms include congestion, coughing, ear pain and sleepiness. Pertinent negatives include no chest pain, diarrhea, headaches, nausea or vomiting. Risk factors: no contaminated food, no contaminated water, no hx of cancer, no immunosuppression, no occupational exposure, no recent sickness, no recent travel and no sick contacts this is a 23-year-old female with underlying history of asthma activity induced, who has not seen her primary care physician since September 2021, contacted the call center today for immediate same-day evaluation for concerns that she has had a fever and not feeling well for 3 days. Patient reports ongoing issues with coughing and sinus congestion. Fever that has been ongoing for past week, dayquil and nyquil and tylenol, stuffy and congested and drainage down back of throat. Son has been sick recently but is better now, with RSV. Review of Systems Constitutional: Positive for fatigue and fever. Negative for chills. HENT: Positive for congestion, ear pain and postnasal drip. Negative for sinus pressure. Respiratory: Positive for cough. Negative for shortness of breath. Cardiovascular: Negative for chest pain. Gastrointestinal: Negative for diarrhea, nausea and vomiting. Musculoskeletal: Negative for myalgias. Neurological: Negative for dizziness, light-headedness and headaches. All other systems reviewed and are negative. Allergies Allergen Reactions Peanut-Containing Drug Products Anaphylaxis Amoxicillin Nausea And Vomiting Other reaction(s): Vomiting Peanut (Diagnostic) Rash Current Outpatient Medications Medication Sig Dispense Refill fluticasone (Flonase) 50 MCG/ACT nasal spray 1 spray twice a day. ibuprofen 600 MG tablet Take 1 tablet (600 mg) by mouth every 6 hours as needed for moderate pain (4-6). 60 tablet 0 levocetirizine (Xyzal) 5 MG tablet Take 5 mg by mouth Nightly. Mirena, 52 MG, 20 MCG/DAY IUD montelukast (Singulair) 10 MG tablet Take 10 mg by mouth Nightly. cefdinir (Omnicef) 300 MG capsule Take 1 capsule (300 mg) by mouth 2 times daily for 10 days. 20 capsule 0 loratadine-pseudoephedr ine ER (Claritin-D 12-hour) 5-120 MG 12 hr tablet Take 1 tablet by mouth 2 times daily for 14 days. Do not crush, chew, or split. 28 tablet 0 predniSONE (Deltasone) 20 MG tablet Take 2 tablets (40 mg) by mouth daily for 5 days. 10 tablet 0 Dahuhekj-Lej-Io-FA (PRE- PO) Take by mouth. No current facility-administered medications for this visit. Past Medical History: Diagnosis Date Acne Asthmatic bronchitis without complication 2018 Chronic seasonal allergic rhinitis due to pollen 2018 Contraception, device intrauterine nuva ring Fibr (more content not included)... Normal [facility] Office Visiton 04-29-2024 Follow-up visit [id number] Saranjose juanelenaZunilda Ford 2000 F Date Provider Department Center 04/29/2024 [id number] RODRIGUEZ [facility] Family History Problem Relation Age of Onset Breast cancer Father's Sister Uterine cancer Neg Hx No Known Problems Mother Ovarian cancer Neg Hx Colon cancer Neg Hx No Known Problems Father Family Status - Relation Status Age at Father's Sister Alive Neg Hx Mother Alive Father Alive Maternal Grandfather Other Maternal Grandmother Other Notes: adopted Father's Brother Alive Level of Service:36611 [place] OFFICE/OUTPATIENT ESTABLISHED LOW MDM 20 MIN Reason for Visit and Comments: Results [95] Normal [facility] Progress Noteon 04-29-2024 Progress Note HPI: Pt being seen f or US follow up. Was seen a few weaks ago by Dr. Otero for annual and right pelvic pain with radiation down her leg. Had a severe episode that brought her to the ED and labwork was normal. TVUS showed a right simple appearing 3x2x1 cm ovarian cyst. Pain has been improved since ER visit. Denies abnormal discharge, fevers, chills, N/V. REVIEW OF SYSTEMS: Gen: denies weight loss, fatigue, fevers/chills : see HPI PHYSICAL EXAM: Vitals: 04/29/24 0914 BP: 110/72 Physical Exam Vitals and nursing note reviewed. Constitutional: Appearance: Normal appearance. HENT: Head: Normocephalic and atraumatic. Eyes: Extraocular Movements: Extraocular movements intact. Pulmonary: Effort: Pulmonary effort is normal. No respiratory distress. Abdominal: Palpations: Abdomen is soft. Tenderness: There is no abdominal tenderness. There is no guarding or rebound. Skin: General: Skin is warm and dry. Neurological: General: No focal deficit present. Mental Status: She is alert and oriented to person, place, and time. Psychiatric: Mood and Affect: Mood normal. Behavior: Behavior normal. Thought Content: Thought content normal. Zunilda was seen today for results. Diagnoses and all orders for this visit: Cyst of right ovary (Primary) - US pelvis transvaginal; Future Pelvic pain PLAN: - Discussed TVUS findings showing simple appearing 3x2x1 cm right ovarian cyst, no evidence of torsion, IUD in uterine cavity - Labwork in ED normal, discussed possible rupture of cyst causing episode of severe pain - Discussed could consider dx lap with possible cystectomy vs expectant management with repeat TVUS in 6 weeks, given pt feeling improved will expectantly manage at this time - Scheduled for repeat TVUS in 6 weeks, advised to call if severe pain returns - Recommend PRN tylenol, motrin and heating pads Normal [facility] PELVIS TRANSVAGINALon US PELVIS TRANSVAGINAL - Gynecological Report (Signed Final 04/25/2024 02:36 pm) - PATIENT INFO: ID #: [id number] : [birth year] (23 yrs)(F) Name: ZUNILDA Ford Visit Date: 04/24/2024 04:44 pm LOGUIDICE - PERFORMED BY: Attending: Yoon Mccarty MD Performed By: Cole Orellana [id number] Referred By: FIONA FUNES Location: [facility] [place], [place] [facility] - 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 This was followed up with MRI, and the uterus was found to be normal. - HISTORY: Age: 23 Menses: Unknown - Mirena IUD - HX COMMENTS: Pelvic pain. Hx ovarian cysts. Mirena IUD. Non latex cover used. - UTERUS: Uterus: Visualized Position: Anteverted Size (cm) L: 6.99 W: 4.91 H: 3.44 Description: Normal appearance - ENDOMETRIUM: Thickness(mm): 4.6 Comment: There appears to be a Mirena IUD located midline in the endometrial cavity within the uterine fundus. - CERVIX: Normal appearance - CUL-DE-SAC: No free fluid was visualized - RIGHT OVARY: Status: Visualized Size (cm) L: 4.69 W: 3.39 H: 1.96 Vol (ml): 16.32 Type: Simple cyst Size (cm) L: 3.56 W: 2.21 H: 1.67 Vol (ml): 6.88 - LEFT OVARY: Status: Visualized Size (cm) L: 2.51 W: 2.1 H: 1.81 Vol (ml): 5 - - Yoon Mccarty MD Electronically Signed Final Report 04/25/2024 02:36 pm - IMPRESSION: ? There appears to be a Mirena IUD located midline in the endometrial cavity within the uterine fundus. The endometrium measures 4.6 mm. The right ovary contains a simple appearing cyst. A small amount of free fluid is seen adjacent to the ovary. Patient is scheduled to see Dr. Fly Rodriguez on 04/29/2024 for follow up. *Ultrasound cannot detect all pelvic or LOGISTICS MANAGEMENT SPECIALIST abnormalities and normal findings cannot guarantee the absence of a problem.* Normal [facility] CBC W Auto Differential pane l (Bld)on 04-22-2024 Basophils (Bld) [#/Vol] 0.1 10*3/uL 0.0 - 0.2 10*3/uL [facility] Basophils/100 WBC (Bld) 0.7 % 0.0 - 2.0 % [facility] Eosinophils (Bld) [#/Vol] 0.3 10*3/uL 0.0 - 0.5 10*3/uL [employer] [facility] [facility] Eosinophils/100 WBC (Bld) 4.8 % 0.0 - 6.0 % [facility] Erythrocyte distribution width (RBC) [Ratio] 12 % 11.5 - 15.0 % [facility] Hematocrit (Bld) [Volume fraction] 39 % 35.0 - 47.0 % [facility] Hemoglobin (Bld) [Mass/Vol] 13.7 g/dL 11.7 - 16.0 g/dL [facility] Immature granulocytes (Bld) [#/Vol] 0 10*3/uL NINF - 0.1 10*3/uL [facility] Immature granulocytes/100 WBC (Bld) 0.1 % 0.0 - 2.0 % [facility] Interpretation and review of laboratory results Normal [facility] Lymphocytes (Bld) [#/Vol] 2.5 10*3/uL 1.0 - 4.3 10*3/uL [facility] Lymphocytes/100 WBC (Bld) 37.6 % 15.0 - 45.0 % [facility] MCH (RBC) [Entitic mass] 31.5 pg 26.0 - 34.0 pg [facility] MCHC (RBC) [Mass/Vol] 35.1 % 30.5 - 36.0 % [facility] MCV (RBC) [Entitic vol] 89.7 fL 77.0 - 99.0 fL [facility] Monocytes (Bld) [#/Vol] 0.6 10*3/uL 0.0 - 0.9 10*3/uL [facility] Monocytes/100 WBC (Bld) 8.9 % 5.0 - 13.0 % [facility] Neutrophils (Bld) [#/Vol] 3.2 10*3/uL 1.8 - 7.5 10*3/uL [facility] Neutrophils/100 WBC (Bld) 47.9 % 38.0 - 82.0 % [facility] Nucleated RBC/100 WBC (Bld) [Ratio] 0 % [facility] Platelet mean volume (Bld) [Entitic vol] 9.5 fL 9.0 - 12.7 fL [facility] Comment on above: MPV is a calculated measurement using platelet volume ratio Platelets (Bld) [#/Vol] 240 10*3/uL 140 - 440 10*3/uL [facility] RBC (Bld) [#/Vol] 4.35 10*6/uL 3.80 - 5.2 0 10*6/uL [facility] WBC (Bld) [#/Vol] 6.7 10*3/uL 3.6 - 10.7 10*3/uL [facility] CBC WITH AUTO DIFFERENTIALon 04-22-2024 Basophils (Bld) [#/Vol] 0.1 10*3/uL Normal 0.0-0.2 [facility] Comment on above: Performed By: #### L [id number] ####Coal Trimmer Machine Operator: CATA PRAJAPATI ([phone])[facility] ([facility])[address] [place] [address] [place] Basophils/100 WBC (Bld) 0.7 % Normal 0.0-2.0 [facility] Comment on above: Performed By: #### L [id number] ####Coal Trimmer Machine Operator: CATA PRAJAPATI ([phone])[facility] [place] (SWRL[place])[address] [place] [address] Eosinophils (Bld) [#/Vol] 0.3 10*3/uL Normal 0.0-0.5 [facility] Comment on above: Performed By: #### L [id number] ####Coal Trimmer Machine Operator: CATA PRAJAPATI ([phone])[facility] [place] [place] (SWRL[place])[address] [place] [address] Eosinophils/100 WBC (Bld) 4.8 % Normal 0.0-6.0 [facility] Comment on above: Performed By: #### L [id number] ####Coal Trimmer Machine Operator: CATA PRAJAPATI ([phone])[facility] ([place])[address] [place] [address] Erythrocyte distribution width (RBC) [Ratio] 12.0 % Normal 11.5-15.0 [facility] Comment on above: Performed By: #### L [id number] ####Coal Trimmer Machine Operator: CATA PRAJAPATI ([phone])[facility] ([place])[address] [place] [address] Hematocrit (Bld) [Volume fraction] 39.0 % Normal 35.0-47.0 [facility] Comment on above: Performed By: #### L [id number] ####Coal Trimmer Machine Operator: CATA PRAJAPATI ([phone])[facility] [place] ([place])[address] [place] [address] Hemoglobin (Bld) [Mass/Vol] 13.7 g/dL Normal 11.7-16.0 [facility] Comment on above: Performed By: #### L [id number] ####Coal Trimmer Machine Operator: CATA PRAJAPATI ([phone])[facility] [place] (SWRL[place])[address] [place] [address] IMMATURE GRANS % 0.1 % Normal 0.0-2.0 [facility] Comment on above: Performed By: #### L [id number] ####Coal Trimmer Machine Operator: CATA PRAJAPATI ([phone])[facility] [place] (SWRL[place])[address] [place] [address] IMMATURE GRANS ABSOLUTE 0.0 10*3/uL Normal <0.1 [facility] Comment on above: Performed By: #### L [id number] ####Coal Trimmer Machine Operator: CATA PRAJAPATI ([phone])[facility] [place] (SWRL[place])[address] [place] [address] [place] Lymphocytes (Bld) [#/Vol] 2.5 10*3/uL Normal 1.0-4.3 [facility] Comment on above: Performed By: #### L [id number] ####Coal Trimmer Machine Operator: CATA PRAJAPATI ([phone])[facility] [place] ([place])[address] [place] [address] [place] Lymphocytes/100 WBC (Bld) 37.6 % Normal 15.0-45.0 [facility] Comment on above: Performed By: #### L [id number] ####Coal Trimmer Machine Operator: CATA PRAJAPATI ([phone])[facility] [place] ([place])[address] [place] [address] MCH (RBC) [Entitic mass] 31.5 pg Normal 26.0-34.0 [facility] Comment on above: Performed By: #### L [id number] ####Coal Trimmer Machine Operator: CATA PRAJAPATI ([phone])[facility] [place] (SW[place])[address] [place] [address] MCHC 35.1 % Normal 30.5-36.0 [facility] Comment on above: Performed By: #### L [id number] ####Coal Trimmer Machine Operator: CATA PRAJAPATI ([phone])[facility] [place] (SW[place])[address] [place] [address] MCV (RBC) [Entitic vol] 89.7 fL Normal 77.0-99.0 [facility] Comment on above: Performed By: #### L [id number] ####Coal Trimmer Machine Operator: CATA PRAJAPATI ([phone])[facility] [place] ([place]RL[place])[address] [place] [address] Monocytes (Bld) [#/Vol] 0.6 10*3/uL Normal 0.0-0.9 [facility] Comment on above: Performed By: #### L [id number] ####Coal Trimmer Machine Operator: CATA PRAJAPATI ([phone])[facility] [place] ([place])[address] [place] [address] Monocytes/100 WBC (Bld) 8.9 % Normal 5.0-13.0 [facility] Comment on above: Performed By: #### L [id number] ####Coal Trimmer Machine Operator: CATA PRAJAPATI ([phone])[facility] [place] ([place])[address] [place] [address] NEUTROPHILS ABSOLUTE 3.2 10*3/uL Normal 1.8-7.5 [facility] Comment on above: Performed By: #### L [id number] ####Coal Trimmer Machine Operator: CATA PRAJAPATI ([phone])[facility] [place] ([place])[address] [place] [address] Neutrophils/100 WBC (Bld) 47.9 % Normal 38.0-82.0 [facility] Comment on above: Performed By: #### L [id number] ####Coal Trimmer Machine Operator: CATA PRAJAPATI ([id number])[facility] [place] ([place])[address] [place] [address] NRBC 0.0 /100 WBCs Normal 0.0-2.0 [facility] Comment on above: Performed By: #### L [id number] ####Coal Trimmer Machine Operator: CATA PRAJAPATI ([phone])[facility] [place] ([place])[address] [place] [address] Platelet mean volume (Bld) [Entitic vol] 9.5 fL Normal 9.0-12.7 [facility] Comment on above: Result Comment: MPV is a calculated measurement using platelet volume ratio Performed By: #### L [id number] ####Coal Trimmer Machine Operator: CATA PRAJAPATI ([phone])[facility] [place] ([place])[address] [place] [address] [place] Platelets (Bld) [#/Vol] 240 10*3/uL Normal 140-440 [facility] Comment on above: Performed By: #### L [id number] ####Coal Trimmer Machine Operator: CATA PRAJAPATI ([id number])[facility] [place] ([place])[address] [place] [address] RBC (Bld) [#/Vol] 4.35 10*6/uL Normal 3.80-5.20 [facility] Comment on above: Performed By: #### L [id number] ####Coal Trimmer Machine Operator: CATA PRAJAPATI ([id number])[facility] [place] ([place])[address] [place] [address] [place] WBC (Bld) [#/Vol] 6.7 10*3/uL Normal 3.6-10.7 [facility] Comment on above: Performed By: #### L [id number] ####Coal Trimmer Machine Operator: CATA PRAJAPATI ([phone])[facility] [place] ([place])[address] [place] [address] CHLAMYDIA/GONORRHEAon 2024 CHLAMYDIA/GONORRHEA NEISSERIA GONORRHOEA E DNA PROBE Reference Not Detected Not Detected CHLAMYDIA TRACHOMATIS DNA PROBE Reference Not Detected Not Detected ORDER COMMENTS: Methodology: real-time PCR This test is intended for medical purposes only and is not intended for the evaluation of suspected sexual abuse or for other forensic purposes. In certain contexts, culture may be required to meet applicable laws and regulations for diagnosis of C. trachomatis and N. gonorrhoeae infections. Per 2014 CDC recommmendations, this test does not include confirmation of positive results by an alternative nucleic acid target. A negative result does not exclude the possibility of infection. A result of invalid indicates that a new specimen should be collected if clinically indicated. Normal [facility] Comment on above: Performed By: #### L [id number] #### Coal Trimmer Machine Operator: CATA PRAJAPATI ([phone]) [facility] ([facility]) [address] [place] [address] COMPLETE URINALYSISon 2024 BACTERIA (#/HPF) IN URINE Few Abnormal Negative [facility] Comment on above: Performed By: #### L [id number] ####Coal Trimmer Machine Operator: CATA PRAJAPATI ([phone])[facility] [place] (RLAB)[address] [place] [address] BILIRUBIN, TOTAL PRESENCE IN URINE Negative Normal Negative [facility] Comment on above: Performed By: #### L [id number] ####Coal Trimmer Machine Operator: CATA PRAJAPATI ([phone])[facility] [place] (SWRLAB)[address] [place] [address] Clarity (U) Clear Normal Clear [facility] Comment on above: Performed By: #### L [id number] ####Coal Trimmer Machine Operator: CATA PRAJAPATI ([phone])[facility] [place] (RLAB)[address] [place] [address] Color (U) Light Yellow Normal Lt. Yellow [facility] Comment on above: Performed By: #### L [id number] ####Coal Trimmer Machine Operator: CATA [id number])[facility])[address] [place] [address] [place] GLUCOSE (MG/DL) IN URINE Normal Normal Normal (<70) [facility] Comment on above: Performed By: #### L [id number] ####Coal Trimmer Machine Operator: CATA PRAJAPATI ([phone])[facility] [place] ([place])[address] [place] [address] [place] HEMOGLOBIN PRESENCE IN URINE Negative Normal Negative [facility] Comment on above: Performed By: #### L [id number] ####Coal Trimmer Machine Operator: CATA PRAJAPATI ([phone])[facility] [place] (SWRL[place])[address] Ketones Ql (U) Negative Normal Negative [facility] Comment on above: Performed By: #### L [id number] ####Coal Trimmer Machine Operator: CATA PRAJAPATI ([phone])[facility] [place] ([place])[address] LEUKOCYTE ESTERASE PRESENCE IN URINE BY TEST STRIP 25 Malinda/uL Abnormal Negative [facility] Comment on above: Performed By: #### L [id number] ####Coal Trimmer Machine Operator: CATA PRAJAPATI ([phone])[facility] [place] ([place])[address] [place] [address] [place] NITRITE PRESENCE IN URINE Negative Normal Negative [facility] Comment on above: Performed By: #### L [id number] ####Coal Trimmer Machine Operator: CATA PRAJAPATI ([phone])[facility] [place] ([place])[address] [place] [address] [place] pH (U) 6.5 [pH] Normal 5.0-8.0 [facility] Comment on above: Performed By: #### L [id number] ####Coal Trimmer Machine Operator: CATA PRAJAPATI ([phone])[facility] [place] ([place])[address] [place] [address] [place] Protein (U) [Mass/Vol] Negative Normal Negative [facility] Comment on above: Performed By: #### L [id number] ####Coal Trimmer Machine Operator: CATA PRAJAPATI ([phone])[facility] [place] (SW[place])[address] [place] [address] [place] RBC (#/HPF) IN URINE SEDIMENT Negative Normal 0-2 [facility] Comment on above: Performed By: #### L [id number] ####Coal Trimmer Machine Operator: CATA PRAJAPATI ([phone])[facility] [place] (SWRL[place])[address] [place] [address] Specific gravity (U) [Rel density] 1.022 Normal 1.005-1.030 [facility] Comment on above: Performed By: #### L [id number] ####Coal Trimmer Machine Operator: CATA PRAJAPATI ([phone])[facility] [place] (SWRL[place])[address] [place] [address] Specimen volume (U) 12 mL Normal [facility] Comment on above: Performed By: #### L [id number] ####Coal Trimmer Machine Operator: CATA PRAJAPATI ([phone])[facility] [place] (SWRL[place])[address] [place] [address] [place] SQUAMOUS EPITHELIAL CELLS (#/HPF) IN URINE SEDIMENT 3-5 Normal 3-5 [facility] Comment on above: Performed By: #### L [id number] ####Coal Trimmer Machine Operator: CATA PRAJAPATI ([phone])[facility] [place] (SWRL[place])[address] [place] [address] [place] UROBILINOGEN (MG/DL) IN URINE Normal Normal Normal (0-1) [facility] Comment on above: Performed By: #### L [id number] ####Coal Trimmer Machine Operator: CATA PRAJAPATI ([phone])[facility] [place] (SWRL[place])[address] [place] [address] [place] WBC (LEUKOCYTE) (#/HPF) IN URINE SEDIMENT 3-5 Normal 0-5 [facility] Comment on above: Performed By: #### L [id number] ####Coal Trimmer Machine Operator: CATA PRAJAPATI ([phone])[facility] [place] ([place])[address] COMPREHENSIVE METABOLIC PANE Adama 04-22-2024 Albumin [Mass/Vol] 3.9 g/dL Normal 3.5-5.0 [facility] Comment on above: Performed By: #### L AB99, LAB17 ####Coal Trimmer Machine Operator: CATA PRAJAPATI ([phone])[facility] [place] ([place])[address] ALP [Catalytic activity/Vol] 82 U/L Normal 40-150 [facility] Comment on above: Performed By: #### L AB99, LAB17 ####Coal Trimmer Machine Operator: CATA PRAJAPATI ([phone])[facility] [place] ([place])[address] [place] [address] [place] ALT [Catalytic activity/Vol] 11 U/L Normal <30 [facility] Comment on above: Performed By: #### L AB99, LAB17 ####Coal Trimmer Machine Operator: CATA PRAJAPATI ([phone])[facility] [place] ([place])[address] Anion gap [Moles/Vol] 4 mmol/L Normal 3-13 [facility] Comment on above: Performed By: #### L AB99, LAB17 ####Coal Trimmer Machine Operator: CATA PRAJAPATI ([phone])[facility] [place] (SWRL[place])[address] [place] [address] [place] AST [Catalytic activity/Vol] 17 U/L Normal <34 [facility] Comment on above: Performed By: #### L AB99, LAB17 ####Coal Trimmer Machine Operator: CATA PRAJAPATI ([phone])[facility] [place] ([place])[address] Bilirubin [Mass/Vol] 0.2 mg/dL Normal <1.2 [facility] Comment on above: Performed By: #### L AB99, LAB17 ####Coal Trimmer Machine Operator: CATA PRAJAPATI ([phone])[facility] [place] ([place])[address] Calcium [Mass/Vol] 9.7 mg/dL Normal 8.4-10.2 [facility] Comment on above: Performed By: #### L AB99, LAB17 ####Coal Trimmer Machine Operator: CATA PRAJAPATI ([phone])[facility] [place] (SWRL[place])[address] Chloride [Moles/Vol] 109 mmol/L High 98-107 [facility] Comment on above: Performed By: #### L AB99, LAB17 ####Coal Trimmer Machine Operator: CATA PRAJAPATI ([phone])[facility] [place] (SWRLAB)[address] [place] [address] CO2 [Moles/Vol] 25 mmol/L Normal 22-29 [facility] Comment on above: Performed By: #### L AB99, LAB17 ####Coal Trimmer Machine Operator: CATA PRAJAPATI ([phone])[facility] [place] (SWRL[place])[address] [place] [address] Creatinine [Mass/Vol] 0.74 mg/dL Normal 0.57-1.11 [facility] Comment on above: Performed By: #### L AB99, LAB17 ####Coal Trimmer Machine Operator: CATA PRAJAPATI ([phone])[facility] [place] (SWRL[place])[address] [place] [address] GLOMERULAR FILTRATION RATE ML/MIN/1.73 SQ M.PREDICTED >90.0 Normal >60.0 [facility] Comment on above: Result Comment: Calc ulation based on the Chronic Kidney Disease Epidemiology Collaboration (CKD-EPI) equation refit without adjustment for race Performed By: #### L AB99, LAB17 ####Coal Trimmer Machine Operator: CATA PRAJAPATI ([phone])[facility] ([place])[address] [place] [address] [place] Glucose [Mass/Vol] 99 mg/dL Normal 74-100 [facility] Comment on above: Performed By: #### L 99, LAB17 ####Coal Trimmer Machine Operator: CATA PRAJAPATI ([phone])[facility] [place] (SWRLAB)[address] [place] [address] [place] Potassium [Moles/Vol] 3.7 mmol/L Normal 3.5-5.1 [facility] Comment on above: Result Comment: Plas ma potassium values may be up to 0.5 mmol/L lower than serum values. Performed By: #### L NATALIA, LAB17 ####Coal Trimmer Machine Operator: CATA PRAJAPATI ([phone])[facility] [place] (SW[place])[address] Protein [Mass/Vol] 7.0 g/dL Normal 6.4-8.3 [facility] Comment on above: Performed By: #### Logan MCCLELLAND99, LAB17 ####Coal Trimmer Machine Operator: CATA PRAJAPATI ([phone])[facility] [place] (SWRL[place])[address] [place] [address] [place] Sodium [Moles/Vol] 138 mmol/L Normal 136-145 [facility] Comment on above: Performed By: #### L 99, LAB17 ####Coal Trimmer Machine Operator: CATA PRAJAPATI ([phone])[facility] [place] (SWRL[place])[address] Urea nitrogen [Mass/Vol] 14 mg/dL Normal 8-21 [facility] Comment on above: Performed By: #### L AB99, LAB17 ####Coal Trimmer Machine Operator: CATA PRAJAPATI ([phone])[facility] [place] (SWRL[place])[address] Comprehensive metabolic 1998 panelon 04-22-2024 Albumin [Mass/Vol] 3.9 g/dL 3.5 - 5.0 g/dL [facility] ALP [Catalytic activity/Vol] 82 U/L 40 - 150 U/L [facility] ALT [Catalytic activity/Vol] 11 U/L NINF - 30 U/L [facility] Anion gap [Moles/Vol] 4 mmol/L 3 - 13 mmol/L [facility] AST [Catalytic activity/Vol] 17 U/L NINF - 34 U/L [facility] Bilirubin [Mass/Vol] 0.2 mg/dL NINF - 1.2 mg/dL [facility] Calcium [Mass/Vol] 9.7 mg/dL 8.4 - 10. 2 mg/dL [facility] Chloride [Moles/Vol] 109 mmol/L High 98 - 107 mmol/L [facility] CO2 [Moles/Vol] 25 mmol/L 22 - 29 mmol/L [facility] Creatinine [Mass/Vol] 0.74 mg/dL 0.57 - 1.11 mg/dL [facility] GFR/1.73 sq M.predicted (S/P/Bld) [Vol rate/Area] - PINF [facility] Comment on above: Calculation based on the Chronic Kidney Disease Epidemiology Collaboration (CKD-EPI) equation refit without adjustment for race Glucose [Mass/Vol] 99 mg/dL 74 - 100 mg/dL [facility] Interpretation and review of laboratory results Abnormal [facility] Potassium [Moles/Vol] 3.7 mmol/L 3.5 - 5.1 mmol/L [facility] Comment on above: Plasma potassium nicolasa ues may be up to 0.5 mmol/L lower than serum values. Protein [Mass/Vol] 7 g/dL 6.4 - 8.3 g/dL [facility] Sodium [Moles/Vol] 138 mmol/L 136 - 145 mmol/L [facility] Urea nitrogen [Mass/Vol] 14 mg/dL 8 - 21 mg/dL [facility] ED Nursing Noteon 04-22-2024 ED Nursing Note Pt instructed on juliann f swab for vaginitis panel. Normal [facility] HCG QUALITATIVE URINEon 04-04 Beta HCG ( test) Ql (U) Negative Normal Negative [facility] Comment on above: Result Comment: Plea se note: Very dilute urine specimens, as indicated by a low specific gravity, may not contain advertising sales representative levels of hCG. If is still suspected, a first morning urine specimen should be collected 48 hours later and tested. ORDER COMMENTS: is the most common reason for HCG in urine, although choriocarcinoma, hydatidiform mole, and certain nontrophoblastic malignancies also result in detectable urinary HCG levels. Sensitivity = 20mIU/mL. Performed By: #### L [id number] ####Coal Tr[employer] Machine Operator: CATA PRAJAPATI ([id number])[facility] ([facility])[address] [place] [address] LIPASEon 04-22-2024 Lipase [Catalytic activity/Vol] 35 U/L Normal <55 [facility] Comment on above: Performed By: #### L [id number], [id number] ####[employer] Tr[employer] Machine Operator: CATA PRAJAPATI ([id number])[facility] Specialty [employer] ([employer])[address] [place] [address] Laboratory - Chemistry and C hemistry - challengeon 04-22-2024 Lipase [Catalytic activity/Vol] 35 U/L NINF - 55 U/L [facility] Laboratory - Chemistry and C hemistry - challengeOrdered By: Swati Rice on 04-22-2024 Beta HCG ( test) Ql Negative Negative [facility] Comment on above: Please note: Very di lute urine specimens, as indicated by a low specific gravity, may not contain advertising sales representative levels of hCG. If is still suspected, a first morning urine specimen should be collected 48 hours later and tested. Beta HCG ( test) Ql (U) is the most common reason for HCG in urine, although choriocarcinoma, hydatidiform mole, and certain nontrophoblastic malignancies also result in detectable urinary HCG levels. Sensitivity = 20mIU/mL. [facility] Lipase [Catalytic activity/V ol]on 04-22-2024 Interpretation and review of laboratory results Normal [facility] No Panel Informationon 04-22 [place] [facility] No Panel InformationOrdered By: Swati Rice on 04-22-2024 [facility] Urinalysis complete panel (U )on 04-22-2024 Bacteria LM.HPF (Urine sed) [#/Area] Few Abnormal Negative /HPF [facility] Bilirubin Ql (U) Negative Negative mg/dL [facility] Clarity (U) Clear Clear [facility] Color (U) Light Yellow Lt. Yellow [facility] Epithelial cells.squamous LM.HPF (Urine sed) [#/Area] 3-5 [facility] Glucose Ql (U) Normal Normal (<70) mg/dL [facility] Hemoglobin Ql (U) Negative Negative mg/dL [facility] Interpretation and review of laboratory results Abnormal [facility] Ketones (U) [Mass/Vol] Negative Negative mg/dL [facility] Leukocyte esterase Test strip Ql (U) 25 Abnormal Negative Malinda/uL [facility] Nitrite Ql (U) Negative Negative [facility] th pH (U) 6.5 [pH] 5.0 - 8.0 pH [facility] Protein (U) [Mass/Vol] Negative Negative mg/dL [facility] RBC LM.HPF (Urine sed) [#/Area] Negative [facility] Specific gravity (U) [Rel density] 1.022 1.005 - 1.030 [facility] Urobilinogen (U) [Mass/Vol] Normal Normal (0-1) mg/dL [facility] Volume, Urine 12 mL [facility] WBC LM.HPF (Urine sed) [#/Area] 3-5 [facility] VAGINITIS PANEL MVP PCRon VAGINITIS PANEL MVP PCR BACTERIAL VAGINOSIS MVP PCR Reference Not Detected Not Detected JYOTI SPP MVP PCR Reference Not Detected Not Detected JYOTI GLABRATA/KRUSEI MVP PCR Reference Not Detected Not Detected TRICHOMONAS VAGINALIS MVP PCR Reference Not Detected Not Detected ORDER COMMENTS: Methodology: real-time PCR A negative result does not preclude a possible infection. This assay can detect the Jyoti species C. albicans, C. tropicalis, C. parapsilosis, and C. dubliniensis but does not differentiate among them. The assay also detects C. glabrata and C. krusei, but does not differentiate between them. Results should be interpreted in conjunction with other clinical data. This test has not been validated for use with specimens collected by patients at home. This test is intended for medical purposes only and is not valid for the evaluation of suspected sexual abuse or for other forensic purposes. Normal [facility] Comment on above: Performed By: #### L [id number] ####Coal Trimmer Machine Operator: CATA PRAJAPATI ([id number])[facility] ([address] ED Provider Noteon 5 ED Provider Note [facility] ED EMERGENCY DEPARTMENT ENCOUNTER Pt Name: Zunilda Sorensen Birthdate 2000 Date of evaluation: 04/21/2024 Provider: Ashkan Sloan MD CHIEF COMPLAINT Chief Complaint Patient presents with Pelvic Pain Sharp pain lower abd/ pelvis. Previous concern for IUD misplacement/ cyst. Has US scheduled for and follow up scheduled HISTORY OF PRESENT ILLNESS I wore proper PPE for the entirety of this encounter. Zunilda Sorensen is a 23 y.o. female who presents to the emergency department with suprapubic and diffuse abdominal pain since 10:30 PM. Noted some bloody vaginal discharge recently, but patient said that she thought it was her period. Notes she has an IUD and was told that she will be able to feel the string because it is looped up and very short. Patient says she is concerned about the placement of the IUD. She has no nausea, vomiting. Nursing Notes were reviewed. REVIEW OF SYSTEMS As above PAST MEDICAL HISTORY Past Medical History: Diagnosis Date Acne Asthmatic bronchitis without complication 2018 Chronic seasonal allergic rhinitis due to pollen 2018 Contraception, device intrauterine nuva ring Fibroadenoma of breast, left SURGICAL HISTORY Past Surgical History: Procedure Laterality Date BREAST BIOPSY Left 06/30/2020 Wire localized excisional biopsy of left breast mass (Dr. Ta) BREAST LUMPECTOMY Left 06/30/2020 mass removed on left breast COLONOSCOPY 01/27/2022 unremarkable ESOPHAGOGASTRODUODENOSC OPY 01/27/2022 erythema GE junction TONSILLECTOMY AND ADENOIDECTOMY (HISTORICAL) 2006 WISDOM TOOTH EXTRACTION 2020 CURRENT MEDICATIONS Previous Medications IBUPROFEN 600 MG TABLET Take 1 tablet (600 mg) by mouth every 6 hours as needed for moderate pain (4-6). LEVOCETIRIZINE (XYZAL) 5 MG TABLET Take 5 mg by mouth Nightly. MONTELUKAST (SINGULAIR) 10 MG TABLET Take 10 mg by mouth Nightly. RNIUQUBG-KJQ-UI-FA (PRE- PO) Take by mouth. ALLERGIES Peanut-containing drug products and Amoxicillin FAMILY HISTORY Family History Problem Relation Name Age of Onset Breast cancer Father's Sister Uterine cancer Neg Hx No Known Problems Mother Mayra Ovarian cancer Neg Hx Colon cancer Neg Hx No Known Problems Father Juliocesar SOCIAL HISTORY Social History Socioeconomic History Marital status: Tobacco Use Smoking status: Never Smokeless tobacco: Never Vaping Use Vaping status: Never Used Substance and Sexual Activity Alcohol use: Yes Comment: occasionally Drug use: No Sexual activity: Yes Partners: Male control/protection: I.U.D. Social History Narrative Graduated [employer] in Mar 2022. She is single, engaged to be in September. Social Drivers of Health Financial Resource Strain: Low Risk (05/14/2021) [facility] Overall Financial Resource Strain (CARDIA) Difficulty of Paying Living Expenses: Not hard at all Food Insecurity: No Food Insecurity (08/11/2023) Hunger Vital Sign Worried About Running Out of Food in the Last Year: Never true Ran Out of Food in the Last Year: Never true Transportation Needs: No Transportation Needs (08/11/2023) PRAPARE - Transportation Lack of Transportation (Medical): No Lack of Transportation (Non-Medical): No Physical Activity: Insufficiently Active (10/09/2023) Exercise Vital Sign Days of Exercise per Week: 3 days Minutes of Exercise per Session: 20 min Stress: No Stress Concern Present (10/09/2023) [employer] [place] [employer] - Occupational Stress Questionnaire Feeling of Stress : Not at all Social Connections: Socially Integrated (10/09/2023) Social Connection and Isolation Panel [NHANES] Frequency of Communication with Friends and Family: More than three times a week Frequency of Social Gatherings with Friends and Family: More than three times a week Attends Mandaen Services: More than 4 times per year Active Member of Clubs or Organizations: Yes Attends Club or Organization Meetings: More than 4 times per year Marital Status: Intimate Partner Violence: Not At Risk (08/11/2023) Humiliation, Afraid, Rape, and Kick questionnaire Fear of Current or Ex-Partner: No Emotionally Abused: No Physically Abused: No Sexually Abused: No Housing Stability: Low Risk (08/11/2023) Housing Stability Vital Sign Unable to Pay for Housing in the Last Year: No Number of Places Lived in the Last Year: 1 Unstable Housing in the Last Year: No SCREENINGS PHYSICAL EXAM ED Triage Vitals Temp Heart Rate Resp BP 04/21/24233704/21/24233404/21/24233404/21/242334 36.7 ?C (98.1 ?F) 76 14 124/76 SpO2 Temp Source Heart Rate Source Patient Position 04/21/24233404/21/242337 -- -- 100 % Oral BP Location FiO2 (%) -- -- Constitutional: No acute distress HEENT:Head: Atraumatic Eyes: Conjunctivae normal. CV: RRR (more content not included)... Normal [facility] Cytology Cervical or vaginal smear or scraping studyOrdered By: Isis Heck on 04-18-2024 Case Report Gynecologic Cytology Case: [id number] Authorizing Provider: Deidra Otero MD Collected: 04/16/2024 0809 Ordering Location: [facility] Obstetrics Received: 04/16/2024 1813 and Gynecology - [place] First Screen: Isis Heck, [facility] Specimen: ThinPrep, Pap, Cervical/Endocervical [facility] Case Screening Location [facility], [address] [place] [address]; CLIA: [id number]; Joint Commission: [id number]; CAP: [id number] [facility] Interpretation NEGATIVE FOR [place]QUAMOU S INTRAEPITHELIAL LESION OR MALIGNANCY. [facility] Other Findings Acute inflammatory cells. [facility] Specimen Adequacy The specimen is satisfactory for examination. Endocervical/transforma tion component present. [facility] Office Visiton 04-16-2024 Follow-up visit [id number] Zunilda Sorensen 2000 F Date Provider Department Center 04/16/2024 [id number] OTERO [facility] [place] [place] OB Offi Family History Problem Relation Age of Onset Breast cancer Father's Sister Uterine cancer Neg Hx No Known Problems Mother Ovarian cancer Neg Hx Colon cancer Neg Hx No Known Problems Father Family Status - Relation Status Age at Father's Sister Alive Neg Hx Mother Alive Father Alive Maternal Grandfather Other Maternal Grandmother Other Notes: adopted Father's Brother Alive Level of Service:18880 [place] PERIODIC PREVENTIVE MED EST PATIENT 18-39 YRS Reason for Visit and Comments: Annual Exam [83] - Annual exam Normal [facility] Progress Noteon 04-16-2024 Progress Note Zunilda Sorensen 04/16/[birth year]24 23 y.o. Chief Complaint Patient presents with Annual Exam Annual exam No LMP recorded (lmp unknown). Primary Care Physician: No primary care provider on file. The patient was seen and examined. She is here for her annual. Right sided pain couple of days Has ulsd ordered to check iud 10/24 mirena inserted Rare menses with iud Sp gardasil Pap 2021 wnl No std testing desired No urintaion issues Sp vaginal delivery 2023 Not Unsure age aunt with breast cancer HPI : Zunilda Sorensen is a 23 y.o. female ___ OB History Para Term AB Living 1 1 1 0 0 1 SAB IAB Ectopic Multiple Live Births 0 0 0 0 1 # Outcome Date GA Lbr Adalberto/2nd Weight Sex Type Anes PTL Lv 1 Term 08/11/23 37w0d / 00:27 6 lb 8.2 oz (2.955 kg) M Vag-Spont EPI N ALEX Past Medical History: Diagnosis Date Acne Asthmatic bronchitis without complication 2018 Chronic seasonal allergic rhinitis due to pollen 2018 Contraception, device intrauterine nuva ring Fibroadenoma of breast, left Past Surgical History: Procedure Laterality Date BREAST BIOPSY Left 06/30/2020 Wire localized excisional biopsy of left breast mass (Dr. Ta) BREAST LUMPECTOMY Left 06/30/2020 mass removed on left breast COLONOSCOPY 01/27/2022 unremarkable ESOPHAGOGASTRODUODENOSC OPY 01/27/2022 erythema GE junction TONSILLECTOMY AND ADENOIDECTOMY (HISTORICAL) 2006 WISDOM TOOTH EXTRACTION 2020 Family History Problem Relation Name Age of Onset Breast cancer Father's Sister Uterine cancer Neg Hx No Known Problems Mother Mayra Ovarian cancer Neg Hx Colon cancer Neg Hx No Known Problems Father Juliocesar Social History Socioeconomic History Marital status: Spouse name: Not on file Number of children: Not on file Years of education: Not on file Highest education level: Not on file Occupational History Not on file Tobacco Use Smoking status: Never Smokeless tobacco: Never Vaping Use Vaping status: Never Used Substance and Sexual Activity Alcohol use: Not Currently Drug use: No Sexual activity: Yes Partners: Male control/protection: I.U.D. Other Topics Concern Not on file Social History Narrative Graduated [employer] in Mar 2022. She is single, engaged to be in September. Social Drivers of Health Financial Resource Strain: Low Risk (05/14/2021) [facility] Overall Financial Resource Strain (CARDIA) Difficulty of Paying Living Expenses: Not hard at all Food Insecurity: No Food Insecurity (08/11/2023) Hunger Vital Sign Worried About Running Out of Food in the Last Year: Never true Ran Out of Food in the Last Year: Never true Transportation Needs: No Transportation Needs (08/11/2023) PRAPARE - Transportation Lack of Transportation (Medical): No Lack of Transportation (Non-Medical): No Physical Activity: Insufficiently Active (10/09/2023) Exercise Vital Sign Days of Exercise per Week: 3 days Minutes of Exercise per Session: 20 min Stress: No Stress Concern Present (10/09/2023) [employer] - Occupational Stress Questionnaire Feeling of Stress : Not at all Social Connections: Socially Integrated (10/09/2023) Social Connection and Isolation Panel [NHANES] Frequency of Communication with Friends and Family: More than three times a week Frequency of Social Gatherings with Friends and Family: More than three times a week Attends Mandaen Services: More than 4 times per year Active Member of Clubs or Organizations: Yes Attends Club or Organization Meetings: More than 4 times per year Marital Status: Intimate Partner Violence: Not At Risk (08/11/2023) Humiliation, Afraid, Rape, and Kick questionnaire Fear of Current or Ex-Partner: No Emotionally Abused: No Physically Abused: No Sexually Abused: No Housing Stability: Low Risk (08/11/2023) Housing Stability Vital Sign Unable to Pay for Housing in the Last Year: No Number of Places Lived in the Last Year: 1 Unstable Housing in the Last Year: No MEDICATIONS: Current Outpatient Medications Medication Sig Dispense Refill ibuprofen 600 MG tablet Take 1 tablet (600 mg) by mouth every 6 hours as needed for moderate pain (4-6). 60 tablet 0 levocetirizine (Xyzal) 5 MG tablet Take 5 mg by mouth Nightly. montelukast (Singulair) 10 MG tablet Take 10 mg by mouth Nightly. Iacnpaob-Hkc-Pa-FA (PRE- PO) Take by mouth. No current facility-administered medications for this visit. ALLERGIES: Allergies as of 04/16/2024 - Reviewed 04/16/2024 Allergen Reaction Noted Peanut-containing drug products Anaphylaxis 11/09/2016 Amoxicillin 06/25/2021 Gynecologic History: Menstrual History: No LMP recorded (lmp unknown). ___ (more content not included)... [facility] 36on 04-15-2024 36 Noted. Pt has appt scheduled today [facility] 36 S: Patient spoke elvin SIERRA nurse regarding abd pain and feels the IUD is out of place. B: Onset of symptoms this weekend. A: Having pain down the R leg and pelvis and back, can't feel the IUD, pressure and cramps, can not feel the string. Rates the pain s moderate and numbness in the R leg. R: Appointment scheduled by the office after speaking with them, address given to the patient, instructed to bring photo ID, insurance info and medication list to the appointment. Patient understands care advice. No further needs at this time. Patient instructed to call back with new or worsening symptoms. Reason for Disposition Constant pelvic pain lasting > 2 hours Protocols used: Pelvic Pain - ADULT-[place] [facility] 36 S: Patient spoke elvin SIERRA nurse regarding IUD concerns. B: Onset of symptoms/concern: yesterday A: Patient reports IUD feels out place, can't feel her strings R: Patient advised to keep appointment as scheduled tomorrow, verbalized understanding. No further needs at this time. Reason for Disposition Cannot feel IUD string or worried that IUD is not in right place (e.g., string longer than usual, can feel hard plastic of IUD) Protocols used: Contraception - IUD Symptoms and [id number] [facility] Office Visiton 04-15-2024 Follow-up visit [id number] Zunilda Sorensen 2000 F Date Provider Department Center 04/15/2024 FIONA GAYTAN [facility] OB Offi Family History Problem Relation Age of Onset Breast cancer Father's Sister Uterine cancer Neg Hx No Known Problems Mother Ovarian cancer Neg Hx Colon cancer Neg Hx No Known Problems Father Family Status - Relation Status Age at Father's Sister Alive Neg Hx Mother Alive Father Alive Maternal Grandfather Other Maternal Grandmother Other Notes: adopted Father's Brother Alive Level of Service:00040 [place] OFFICE/OUTPATIENT ESTABLISHED LOW MDM 20 MIN Reason for Visit and Comments: Follow-up [541969] - Mirena inserted 10/10/23 Patient having abdominal pain radiating down right leg [facility] Progress Noteon 04-15-2024 Progress Note Chief Complaint Patient presents with Follow-up Mirena inserted 10/10/23 Patient having abdominal pain radiating down right leg HPI No bleeding Some pain Pain R side ROS: Constitutional - denies fevers or chills Resp - denies CP or SOB CV - denies CP GI - denies nausea, vomiting - denies frequency and dysuria Past Medical History: Diagnosis Date Acne Asthmatic bronchitis without complication 2018 Chronic seasonal allergic rhinitis due to pollen 2018 Contraception, device intrauterine nuva ring Fibroadenoma of breast, left Past Surgical History: Procedure Laterality Date BREAST BIOPSY Left 06/30/2020 Wire localized excisional biopsy of left breast mass (Dr. Ta) BREAST LUMPECTOMY Left 06/30/2020 mass removed on left breast COLONOSCOPY 01/27/2022 unremarkable ESOPHAGOGASTRODUODENOSC OPY 01/27/2022 erythema GE junction TONSILLECTOMY AND ADENOIDECTOMY (HISTORICAL) 2006 WISDOM TOOTH EXTRACTION 2020 Allergies Allergen Reactions Peanut-Containing Drug Products Anaphylaxis Amoxicillin Other reaction(s): Vomiting @MEDCMED@ BP 104/62 Ht 1.499 m (4' 11) Wt 63.5 kg (140 lb) LMP (LMP Unknown) No BMI 28.28 kg/m? PE: Well developed, well nourished Normocephalic, atraumatic CV - normal rate Resp - normal effort Abd - soft, ND MS - no edema Neuro - Pt A&Ox3, NAD Skin - warn and dry Psych - normal affect and behavior Spec - IUD string seen Zunilda was seen today for follow-up. 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 Normal [facility] Progress Note Building Admin was rose marie mendez to the patient for exam. Patient accepted, medical director in room during exam Normal [facility] CNOVon 03-26-2024 CNOV Office Visit ([place] ) LEROYZUNILDA HOOD ([id number]) 1 F Date Time Provider Department 03/26/24 11:05 AM ELHAM MCKEON During your visit today, we recorded the following information about you: Temperature Pulse Respiration Blood pressure 98.1 degrees 91/minute 16/minute 111/77 Weight 61.4 kg Elham Mckeon APRN.[facility] 03/26/2024 11:31 AM Addendum (J06.9) Upper respiratory infection with cough and congestion (primary encounter diagnosis) Plan: doxycycline hyclate (VIBRAMYCIN) 100 mg capsule, fluticasone (FLONASE ALLERGY RELIEF) 50 mcg/actuation nasal spray, Brompheniramine-Pseudoe ph-DM (BROMFED DM) 2-30-10 mg/5 mL syrup (Z88.0) Penicillin allergy Plan: doxycycline hyclate (VIBRAMYCIN) 100 mg capsule Education on viral vs bacterial infections. Most viral infections will last 10 days, sometimes 14. It is possible to have back to back viral infections. An antibiotic will not treat a virus. -States symptoms for 2 weeks, pcn allergy, will rx doxycycline. Doxycycline twice a day for 7 days: -drink a full glass of water with each dose - do not take with milk/dairy products - avoid sun exposure - it raises your risk for burn - if you take calcium or iron supplements, do not take them while you take this, or take them at a different time of day - stay upright for 30 minutes after taking this medicine -Bromfed for cough/congestion. -Drink lots of fluids and get plenty of rest. -Vaporizers, cool mist humidifiers, warm showers, and warm fluids help open respiratory and sinus passages. Clean humidifiers daily. -OTC tylenol as directed on the bottle. May use OTC Ibuprofen if there is no underlying blood pressure/heart disease. -Saline nasal spray as needed. Flonase twice daily can help reduce inflammation through the sinus cavities. -Cough/deep breathing education, promote clearing of the airways and good lung expansion. -Make follow up with primary care for monitoring and resolution in symptoms. -Signs that warrant an ER evaluation: Sudden change/worsening in condition, lethargy, signs of dehydration, fever greater than 102 F that is not responding to Tylenol or ibuprofen (Motrin, Advil), drooling, difficulty swallowing, difficulty breathing, shortness of breath, chest pain, evidence of airway compromise (tripod position, neck extension, retractions), seizures, changes in mental status, or other concerns. Elham Mckeon APRN.[facility] 03/26/2024 11:36 AM Signed This note was created using Oxxyriter. Subjective Zunilda Sorensen is a 23 year old female. HPI by patient: Zunilda Caban is a 23 year old presenting to the office with the complaint of viral symptoms. Started approximately 2 weeks ago. Associated symptoms include cough, congestion, dental pain, ear pain, and headache. Covid Immunization Dates Overdue - Covid-19 Vaccine () Overdue since 12/03/2023 12/09/2020 Imm Admin: COVID-19 original vaccine, age 12+ yr, monovalent (PFIZER-BIONTECH - PURPLE TOP) 11/18/2020 Imm Admin: COVID-19 original vaccine, age 12+ yr, monovalent (PFIZER-BIONTECH - PURPLE TOP) Sick contacts: yes. Smoking history/second hand smoke: none. OTC not helping. No antibiotic use in the last 60 days. ALLERGIES Amoxicillin Vomiting No family history on file. Social History Tobacco Use Smoking status: Never Smokeless tobacco: Never Vaping Use Vaping status: Never Used Alcohol use: Never Drug use: Never Active Ambulatory Problems No Active Ambulatory Problems Resolved Ambulatory Problems No Resolved Ambulatory Problems Past Medical History: No date: Acne Review of Systems Constitutional: Negative. HENT: Positive for congestion, sinus pressure and sinus pain. Negative for ear pain and sore throat. Eyes: Negative. Respiratory: Positive for cough. Cardiovascular: Negative. Gastrointestinal: Negative. Endocrine: Negative. Genitourinary: Negative. Musculoskeletal: Negative. Skin: Negative. Neurological: Positive for headaches. Hematological: Negative. Objective BP 111/77 Pulse 91 Temp 36.7 ?C (98.1 ?F) Resp 16 Wt 61.4 kg (135 lb 5.8 oz) LMP 07/31/2021 (Approximate) SpO2 97% BMI 28.30 kg/m? Physical Exam Vitals reviewed. Constitutional: General: She is not in acute distress. Appearance: She is not ill-appearing, toxic-appearing or diaphoretic. HENT: Head: Normocephalic and atraumatic. Right Ear: Tympanic membrane, ear canal and external ear normal. Left Ear: Tympanic membrane, ear canal and external ear normal. Nose: Nose normal. Right Sinus: No maxillary sinus tenderness or frontal sinus tenderness. Left Sinus: No maxillary sinus tenderness or frontal sinus tenderness. Mouth/Throat: Mouth: Mucous membranes are moist. Pharynx: Oropharynx is clear. No oropharyngeal exudate or posterior oropharyngeal erythema. Cardiovascul (more content not included)... Normal [facility] HCG ( test) Ql (U)o n 10-10-2023 Beta HCG ( test) Ql (U) . [facility] Interpretation and review of laboratory results Normal [facility] NEGATIVE QC Pass [facility] POSITIVE QC Pass [facility] [facility] Preg Test, Ur Negative Negative [facility] ABO and Rh group Confirm Nom (Bld)on 08-11-2023 ABO group Nom (Bld) A [facility] [employer] [facility] Ql (RBC) Positive [facility] Blood type and Crossmatch pa barbara (Bld)on 08-11-2023 ABO group Nom (Bld) A [facility] Blood group antibody screen GEL Ql Negative [facility] [employer] D Ag Ql (RBC) Positive [facility] [employer] [facility] CBC panel Auto (Bld)on 08-10 Erythrocyte distribution width (RBC) [Ratio] 13.3 % 11.5 - 15.0 % [facility] Hematocrit (Bld) [Volume fraction] 30.2 % Low 35.0 - 47.0 % [facility] Hemoglobin (Bld) [Mass/Vol] 10.7 g/dL Low 11.7 - 16.0 g/dL [facility] Interpretation and review of laboratory results Abnormal [facility] MCH (RBC) [Entitic mass] 31.3 pg 26.0 - 34.0 pg [facility] MCHC (RBC) [Mass/Vol] 35.4 % 30.5 - 36.0 % [facility] MCV (RBC) [Entitic vol] 88.3 fL 77.0 - 99.0 fL [facility] Platelet mean volume (Bld) [Entitic vol] 9.8 fL 9.0 - 12.7 fL [facility] Platelets (Bld) [#/Vol] 201 10*3/uL 140 - 440 10*3/uL [facility] RBC (Bld) [#/Vol] 3.42 10*6/uL Low 3.80 - 5.2 0 10*6/uL [facility] WBC (Bld) [#/Vol] 6.8 10*3/uL 3.6 - 10.7 10*3/uL [facility] Comprehensive metabolic 1998 panelon 08-11-2023 Albumin [Mass/Vol] 3.5 g/dL 3.5 - 5.0 g/dL [facility] ALP [Catalytic activity/Vol] 92 U/L 38 - 126 U/L [facility] ALT [Catalytic activity/Vol] 15 U/L 0 - 34 U/L [facility] Anion gap [Moles/Vol] 7 mmol/L 3 - 13 mmol/L [facility] AST [Catalytic activity/Vol] 23 U/L 15 - 46 U/L [facility] Bilirubin [Mass/Vol] 0.3 mg/dL 0.2 - 1.3 mg/dL [facility] Calcium [Mass/Vol] 9.1 mg/dL 8.4 - 10. 4 mg/dL [facility] Chloride [Moles/Vol] 108 mmol/L High 98 - 107 mmol/L [facility] CO2 [Moles/Vol] 19 mmol/L Low 22 - 30 mmol/L [facility] Creatinine [Mass/Vol] 0.46 mg/dL Low 0.52 - 1.04 mg/dL [facility] GFR/1.73 sq M.predicted MDRD (S/P/Bld) [Vol rate/Area] - PINF [facility] Comment on above: Calculation based on the Chronic Kidney Disease Epidemiology Collaboration (CKD-EPI) equation refit without adjustment for race Glucose [Mass/Vol] 91 mg/dL 70 - 100 mg/dL [facility] Interpretation and review of laboratory results Abnormal [facility] Potassium [Moles/Vol] 3.6 mmol/L 3.5 - 5.1 mmol/L [facility] Protein [Mass/Vol] 6.3 g/dL 6.3 - 8.2 g/dL [facility] Sodium [Moles/Vol] 134 mmol/L Low 135 - 145 mmol/L [facility] Urea nitrogen [Mass/Vol] 9 mg/dL 7 - 17 mg/dL [facility] CBC panel Auto (Bld)on 08-03 Erythrocyte distribution width (RBC) [Ratio] 13.3 % 11.5 - 15.0 % [facility] Hematocrit (Bld) [Volume fraction] 30.2 % Low 35.0 - 47.0 % [facility] Hemoglobin (Bld) [Mass/Vol] 10.4 g/dL Low 11.7 - 16.0 g/dL [facility] Interpretation and review of laboratory results Abnormal [facility] MCH (RBC) [Entitic mass] 30.8 pg 26.0 - 34.0 pg [facility] MCHC (RBC) [Mass/Vol] 34.4 % 30.5 - 36.0 % [facility] MCV (RBC) [Entitic vol] 89.3 fL 77.0 - 99.0 fL [facility] Platelet mean volume (Bld) [Entitic vol] 9.6 fL 9.0 - 12.7 fL [facility] Platelets (Bld) [#/Vol] 208 10*3/uL 140 - 440 10*3/uL [facility] RBC (Bld) [#/Vol] 3.38 10*6/uL Low 3.80 - 5.2 0 10*6/uL [facility] WBC (Bld) [#/Vol] 7.3 10*3/uL 3.6 - 10.7 10*3/uL [facility] Comprehensive metabolic 1998 panelon 08-04-2023 Albumin [Mass/Vol] 3.5 g/dL 3.5 - 5.0 g/dL [facility] ALP [Catalytic activity/Vol] 111 U/L 38 - 126 U/L [facility] ALT [Catalytic activity/Vol] 14 U/L 0 - 34 U/L [facility] Anion gap [Moles/Vol] 7 mmol/L 3 - 13 mmol/L [facility] AST [Catalytic activity/Vol] 24 U/L 15 - 46 U/L [facility] Bilirubin [Mass/Vol] 0.2 mg/dL 0.2 - 1.3 mg/dL [facility] Calcium [Mass/Vol] 8.8 mg/dL 8.4 - 10. 4 mg/dL [facility] Chloride [Moles/Vol] 107 mmol/L 98 - 107 mmol/L [facility] CO2 [Moles/Vol] 18 mmol/L Low 22 - 30 mmol/L [facility] Creatinine [Mass/Vol] 0.39 mg/dL Low 0.52 - 1.04 mg/dL [facility] GFR/1.73 sq M.predicted MDRD (S/P/Bld) [Vol rate/Area] - PINF [facility] Comment on above: Calculation based on the Chronic Kidney Disease Epidemiology Collaboration (CKD-EPI) equation refit without adjustment for race Glucose [Mass/Vol] 91 mg/dL 70 - 100 mg/dL [facility] Interpretation and review of laboratory results Abnormal [facility] Potassium [Moles/Vol] 3.5 mmol/L 3.5 - 5.1 mmol/L [facility] Protein [Mass/Vol] 6.2 g/dL Low 6.3 - 8.2 g/dL [facility] Sodium [Moles/Vol] 133 mmol/L Low 135 - 145 mmol/L [facility] Urea nitrogen [Mass/Vol] 8 mg/dL 7 - 17 mg/dL [facility] Creatinine (U) [Mass/Vol]on 08-04-2023 CREATININE, URINE 31.1 mg/dL No [facility] Laboratory - Urinalysison Protein (U) [Mass/Vol] 12 mg/dL 0 - 12 mg/dL [facility] No Panel Informationon 08-03 Interpretation and review of laboratory results Normal [facility] CBC panel Auto (Bld)on 07-18 Erythrocyte distribution width (RBC) [Ratio] 13.1 % 11.5 - 15.0 % [facility] Hematocrit (Bld) [Volume fraction] 30.9 % Low 35.0 - 47.0 % [facility] Hemoglobin (Bld) [Mass/Vol] 10.7 g/dL Low 11.7 - 16.0 g/dL [facility] Interpretation and review of laboratory results Abnormal [facility] MCH (RBC) [Entitic mass] 31.4 pg 26.0 - 34.0 pg [facility] MCHC (RBC) [Mass/Vol] 34.6 % 30.5 - 36.0 % [facility] MCV (RBC) [Entitic vol] 90.6 fL 77.0 - 99.0 fL [facility] Platelet mean volume (Bld) [Entitic vol] 9.5 fL 9.0 - 12.7 fL [facility] Platelets (Bld) [#/Vol] 196 10*3/uL 140 - 440 10*3/uL [facility] RBC (Bld) [#/Vol] 3.41 10*6/uL Low 3.80 - 5.2 0 10*6/uL [facility] WBC (Bld) [#/Vol] 7.2 10*3/uL 3.6 - 10.7 10*3/uL [facility] Comprehensive metabolic 1998 panelon 07-19-2023 Albumin [Mass/Vol] 3.5 g/dL 3.5 - 5.0 g/dL [facility] ALP [Catalytic activity/Vol] 77 U/L 38 - 126 U/L [facility] ALT [Catalytic activity/Vol] 16 U/L 0 - 34 U/L [facility] Anion gap [Moles/Vol] 7 mmol/L 3 - 13 mmol/L [facility] AST [Catalytic activity/Vol] 21 U/L 15 - 46 U/L [facility] Bilirubin [Mass/Vol] 0.2 mg/dL 0.2 - 1.3 mg/dL [facility] Calcium [Mass/Vol] 9.4 mg/dL 8.4 - 10. 4 mg/dL [facility] Chloride [Moles/Vol] 107 mmol/L 98 - 107 mmol/L [facility] CO2 [Moles/Vol] 18 mmol/L Low 22 - 30 mmol/L [facility] Creatinine [Mass/Vol] 0.43 mg/dL Low 0.52 - 1.04 mg/dL [facility] GFR/1.73 sq M.predicted MDRD (S/P/Bld) [Vol rate/Area] - PINF [facility] Comment on above: Calculation based on the Chronic Kidney Disease Epidemiology Collaboration (CKD-EPI) equation refit without adjustment for race Glucose [Mass/Vol] 90 mg/dL 70 - 100 mg/dL [facility] Interpretation and review of laboratory results Abnormal [facility] Potassium [Moles/Vol] 3.6 mmol/L 3.5 - 5.1 mmol/L [facility] Protein [Mass/Vol] 6.4 g/dL 6.3 - 8.2 g/dL [facility] Sodium [Moles/Vol] 131 mmol/L Low 135 - 145 mmol/L [facility] Urea nitrogen [Mass/Vol] 9 mg/dL 7 - 17 mg/dL [facility] Creatinine (U) [Mass/Vol]on 07-19-2023 CREATININE, URINE 30.1 mg/dL No [facility] Laboratory - Urinalysison Protein (U) [Mass/Vol] 11 mg/dL 0 - 12 mg/dL [facility] No Panel Informationon 07-18 Interpretation and review of laboratory results Normal [facility] Respiratory pathogens DNA an d RNA panel COLLINS+non-probe (Nph)on 07-19-2023 Adenovirus Not detected Not Detected [facility] th B. pertussis DNA COLLINS+probe Ql (Unsp spec) Not detected Not Detected [facility] Bordetella parapertussis Not detected Not Detected [facility] Chlamydia pneumoniae Not detected Not Detected [facility] Coronavirus 229E Not detected Not Detected [facility] Coronavirus HKU1 Not detected Not Detected [facility] Coronavirus NL63 Not detected Not Detected [facility] Coronavirus OC43 Not detected Not Detected [facility] FLUAV RNA COLLINS+non-probe Ql (Nph) Not detected Not Detected [facility] FLUBV RNA COLLINS+non-probe Ql (Nph) Not detected Not Detected [facility] Human Metapneumovirus Not detected Not Detected [facility] Human Rhinovirus/Enterovir us Not detected Not Detected [facility] Interpretation and review of laboratory results Normal [facility] Mycoplasma pneumoniae Not detected Not Detected [facility] Parainfluenza 1 Not detected Not Detected [facility] Parainfluenza 2 Not detected Not Detected [facility] Parainfluenza 3 Not detected Not Detected [facility] Parainfluenza 4 Not detected Not Detected [facility] Respiratory Syncytial Virus Not detected Not Detected [facility] SARS-CoV-2 (COVID-19) RNA COLLINS+non-probe Ql (Nph) Not detected Not Detected [facility] Methodology: Multipl ex PCR [facility] MRI Pelvis w/ + w/o Contrast on 12-16-2021 MRI Pelvis w/ + w/o Contrast Patient Name: ZUNILDA PRO [facility] ACCESSION EXAM DATE/TIME PROCEDURE ORDERING PROVIDER [id number] 12/16/2021 10:52 EDT MRI Pelvis w/ + w/o MD BRANDEN, DEIDRA Jolly IRVIN CPT code 85549 Reason For Exam (MRI Pelvis w/ + w/o Contrast) Congenital malformation of uterus and cervix, unspecified Report CLINICAL INFORMATION: Uterine anomaly. Pelvic pain. Multiecho and multiplane are images of the pelvis are provided prior to IV contrast. After the administration of 5.5 mm IV Gadavist contrast, images are repeated. There are no comparison studies. FINDINGS: The uterus is anteverted and normal in size measuring 8 x 3 x 4 cm. No uterine parenchymal masses are appreciated. The endometrial lining is not overly thickened. The cervical length is normal. The ovaries are not enlarged. No significant cysts are present. No free fluid is seen within the pelvis. After IV contrast, there is no abnormal enhancement. IMPRESSION: 1. Anteverted uterus. 2. No discrete uterine anomalies appreciated. 3. No free fluid. Report Dictated on Final Dictated: 12/18/2021 12:28 pm Dictating Physician: MD DEUTSCH JEFFREY Signed Date and Time: 12/18/2021 12:39 pm Signed by: MD DEUTSCH JEFFREY Transcribed Date and Time: 12/18/2021 12:28 Normal [facility] ECHO Complete 2D W Doppler W Coloron 10-13-2021 TRANSTHORACIC ECHOCARDIOGRAM PATIENT: Zunilda Pro STUDY DATE: 10/13/2021 : 2000 AGE: 21 HT/WT: 149.9 cm (59 54.9 kg in) (120.7 lb) GENDER: F BP: 121 / 66 LOCATION: [facility] PATIENT Outpatient [facility] STATUS: *ORDERING PHYSICIAN: * Anthony Mckay *READING PHYSICIAN: * Abdirahman Pisano, *TECHNICAL PROJECT MANAGER: * Coral Castañeda MD -- INDICATIONS: Chest pain/pressure; abnormal EKG.. -- CONCLUSIONS SUMMARY: Normal echocardiogram. -- STUDY DATA: Complete transthoracic echocardiogram. Procedure: Image quality was fair. M-mode, complete 2D, complete spectral Doppler, and color flow Doppler images were acquired and archived for permanent storage and are available for subsequent review. Study status: Routine. Patient status: Outpatient. -- FINDINGS LEFT VENTRICLE: The cavity size is normal. Wall thickness is normal. Systolic function is normal. The estimated ejection fraction is 54%. There are no regional wall motion abnormalities. The transmitral flow pattern is normal. The tissue Doppler parameters are normal. Left ventricular diastolic function parameters are normal. RIGHT VENTRICLE: The cavity size is normal. Systolic function is normal. Right ventricular systolic pressure is within the normal range. VENTRICULAR SEPTUM: There is no evidence of a ventricular septal defect. LEFT ATRIUM: The atrium is normal in size. RIGHT ATRIUM: The atrium is normal in size. ATRIAL SEPTUM: Color Doppler shows no shunt. MITRAL VALVE: Structurally normal valve. Doppler: There is no significant regurgitation. The peak diastolic gradient is 3 mm Hg. AORTIC VALVE: Structurally normal valve. Trileaflet. Doppler: There is no regurgitation. The peak systolic gradient is 8 mm Hg. The peak systolic velocity is 1.4 m/sec. TRICUSPID VALVE: Structurally normal valve. Doppler: There is trivial, less than 1+ regurgitation. PULMONIC VALVE: Structurally normal valve. Doppler: There is mild, 1+ regurgitation. AORTA: The aorta is normal. PULMONARY ARTERY: Main pulmonary artery: Normal. PERICARDIUM: There is no pericardial effusion. SYSTEMIC VEINS: Inferior vena cava: The vessel is normal. The IVC collapses by greater than 50% with inspiration. -- Measurements Value Reference Ascending aorta ID, A-P, S 2.5 cm Ascending aorta ID/bsa, A-P, S 1.7 cm/m^2 Left ventricle Value Reference LV ID, ED 4.1 cm 3.8 - 5.2 LV ID, ES 2.4 cm 2.2 - 3.5 LV ID/bsa, ED 2.7 cm/m^2 2.3 - 3.1 LV ID/bsa, ES 1.6 cm/m^2 1.3 - 2.1 LV PW thickness, ED 0.9 cm 0.6 - 0.9 LV PW/LV ID ratio, ED 0.22 LV wall mass 104 g 66 - 150 LV wall mass/bsa 68 g/m^2 44 - 88 Stroke volume/bsa, 1-p A2C 21.2 ml/m^2 LV end-diastolic volume, 1-p A4C 60 ml 48 - 140 LV end-systolic volume, 1-p A4C 32 ml 12 - 60 LV end-diastolic volume, 2-p 58 ml 46 - 106 LV end-systolic volume, 2-p 26 ml 14 - 42 LV ejection fraction, 2-p 54 % 54 - 74 LV E/e', lateral 4.8 LV E/e', medial 6.1 LV E/e', average 5.4 Ventricular septum Value Reference IVS thickness, ED 0.8 cm 0.6 - 0.9 LVOT Value Reference LVOT mean velocity, S 0.8 m/sec LVOT peak gradient, S 7 mm Hg Aortic valve Value Reference Aortic valve peak velocity, S 1.4 m/sec Aortic peak gradient, S 8 mm Hg Left atrium Value Reference LA volume/bsa, ES, 2-p 23 ml/m^2 16 - 34 Mitral valve Value Reference Mitral E-wave peak (more content not included)... [facility] Abdirahman Pisano MD - 10/13/2021 TRANSTHORACIC ECHOCARDIOGRAM PATIENT: Zunilda Pro STUDY DATE: 10/13/2021 : 2000 AGE: 21 HT/WT: 149.9 cm (59 54.9 kg in) (120.7 lb) GENDER: F BP: 121 / 66 LOCATION: [facility] PATIENT Outpatient [facility] STATUS: *ORDERING PHYSICIAN: * Anthony Mckay *READING PHYSICIAN: * Abdirahman Pisano, *TECHNICAL PROJECT MANAGER: * Coral Castañeda MD -- INDICATIONS: Chest pain/pressure; abnormal EKG.. -- CONCLUSIONS SUMMARY: Normal echocardiogram. -- STUDY DATA: Complete transthoracic echocardiogram. Procedure: Image quality was fair. M-mode, complete 2D, complete spectral Doppler, and color flow Doppler images were acquired and archived for permanent storage and are available for subsequent review. Study status: Routine. Patient status: Outpatient. -- FINDINGS LEFT VENTRICLE: The cavity size is normal. Wall thickness is normal. Systolic function is normal. The estimated ejection fraction is 54%. There are no regional wall motion abnormalities. The transmitral flow pattern is normal. The tissue Doppler parameters are normal. Left ventricular diastolic function parameters are normal. RIGHT VENTRICLE: The cavity size is normal. Systolic function is normal. Right ventricular systolic pressure is within the normal range. VENTRICULAR SEPTUM: There is no evidence of a ventricular septal defect. LEFT ATRIUM: The atrium is normal in size. RIGHT ATRIUM: The atrium is normal in size. ATRIAL SEPTUM: Color Doppler shows no shunt. MITRAL VALVE: Structurally normal valve. Doppler: There is no significant regurgitation. The peak diastolic gradient is 3 mm Hg. AORTIC VALVE: Structurally normal valve. Trileaflet. Doppler: There is no regurgitation. The peak systolic gradient is 8 mm Hg. The peak systolic velocity is 1.4 m/sec. TRICUSPID VALVE: Structurally normal valve. Doppler: There is trivial, less than 1+ regurgitation. PULMONIC VALVE: Structurally normal valve. Doppler: There is mild, 1+ regurgitation. AORTA: The aorta is normal. PULMONARY ARTERY: Main pulmonary artery: Normal. PERICARDIUM: There is no pericardial effusion. SYSTEMIC VEINS: Inferior vena cava: The vessel is normal. The IVC collapses by greater than 50% with inspiration. -- Measurements Value Reference Ascending aorta ID, A-P, S 2.5 cm Ascending aorta ID/bsa, A-P, S 1.7 cm/m^2 Left ventricle Value Reference LV ID, ED 4.1 cm 3.8 - 5.2 LV ID, ES 2.4 cm 2.2 - 3.5 LV ID/bsa, ED 2.7 cm/m^2 2.3 - 3.1 LV ID/bsa, ES 1.6 cm/m^2 1.3 - 2.1 LV PW thickness, ED 0.9 cm 0.6 - 0.9 LV PW/LV ID ratio, ED 0.22 LV wall mass 104 g 66 - 150 LV wall mass/bsa 68 g/m^2 44 - 88 Stroke volume/bsa, 1-p A2C 21.2 ml/m^2 LV end-diastolic volume, 1-p A4C 60 ml 48 - 140 LV end-systolic volume, 1-p A4C 32 ml 12 - 60 LV end-diastolic volume, 2-p 58 ml 46 - 106 LV end-systolic volume, 2-p 26 ml 14 - 42 LV ejection fraction, 2-p 54 % 54 - 74 LV E/e', lateral 4.8 LV E/e', medial 6.1 LV E/e', average 5.4 Ventricular septum Value Reference IVS thickness, ED 0.8 cm 0.6 - 0.9 LVOT Value Reference LVOT mean velocity, S 0.8 m/sec LVOT peak gradient, S 7 mm Hg Aortic valve Value Reference Aortic valve peak velocity, S 1.4 m/sec Aortic peak gradient, S 8 mm Hg Left atrium Value Reference LA volume/bsa, ES, 2-p 23 ml/m^2 16 - 34 Mitral valve Value Reference Mitral E-wave peak velocity 0.9 m/sec Mitral A-wave peak velocity 0.6 m/sec Mitral deceleration time 248 ms Mitral peak gradient, D 3 mm Hg Mitral E/A ratio, peak 1.4 Tricuspid valve Value Reference Tricuspid regurg peak velocity 2.1 m/sec <=2.8 Tricuspid peak RV-RA gradient 18 mm Hg Systemic veins Value Reference Estimated RAP 3 mm Hg Right ventricle Value Reference TAPSE, 2D 2.1 cm 1.7 - 3.1 RV pressure, S, DP 21 mm Hg RV s', lateral 11.7 cm/sec 6.0 - 13.4 Pulmonic valve Value Reference Pulmonic peak gradient, S 4 mm Hg Legend: (L) and (H) kandis values outside specified reference range. Electronically signed by Abdirahman Pisano MD 10/13/2021 17:07 Prior Signatures: [employer] Work Phone: ECHO Complete 2D W Doppler W ColorOrdered By: Abdirahman Pisano on 10-13-2021 [employer] Work Phone: Echo Complete w/wo Contrasto n 10-13-2021 Echo Complete w/wo Contrast Patient Name: ZUNILDA PRO Ultrasound ACCESSION EXAM DATE/TIME PROCEDURE ORDERING PROVIDER [id number] 10/13/2021 16:58 EDT Echo Complete w/wo DO MCKAY PAUL E. Contrast Reason For Exam (Echo Complete w/wo Contrast) . Report TRANSTHORACIC ECHOCARDIOGRAM PATIENT: Zunilda Pro STUDY DATE: 10/13/2021 : 2000 AGE: 21 HT/WT: 149.9 cm (59 54.9 kg in) (120.7 lb) GENDER: F BP: 121 / 66 LOCATION: [facility] PATIENT Outpatient [facility] STATUS: *ORDERING PHYSICIAN: * Anthony Mckay *READING PHYSICIAN: * Abdirahman Pisano, *TECHNICAL PROJECT MANAGER: * Coral Castañeda MD -- INDICATIONS: Chest pain/pressure; abnormal EKG.. -- CONCLUSIONS SUMMARY: Normal echocardiogram. -- STUDY DATA: Complete transthoracic echocardiogram. Procedure: Image quality was fair. M-mode, complete 2D, complete spectral Doppler, and color flow Doppler images were acquired and archived for permanent storage and are available for subsequent review. Study status: Routine. Patient status: Outpatient. -- FINDINGS LEFT VENTRICLE: The cavity size is normal. Wall thickness is normal. Systolic function is normal. The estimated ejection fraction is 54%. There are no regional wall motion abnormalities. The transmitral flow pattern is normal. The tissue Doppler parameters are normal. Left ventricular diastolic function parameters are normal. RIGHT VENTRICLE: The cavity size is normal. Systolic function is normal. Right ventricular systolic pressure is within the normal range. VENTRICULAR SEPTUM: There is no evidence of a ventricular septal defect. LEFT ATRIUM: The atrium is normal in size. RIGHT ATRIUM: The atrium is normal in size. ATRIAL SEPTUM: Color Doppler shows no shunt. MITRAL VALVE: Structurally normal valve. Doppler: There is no significant regurgitation. The peak diastolic gradient is 3 mm Hg. Ultrasound Report AORTIC VALVE: Structurally normal valve. Trileaflet. Doppler: There is no regurgitation. The peak systolic gradient is 8 mm Hg. The peak systolic velocity is 1.4 m/sec. TRICUSPID VALVE: Structurally normal valve. Doppler: There is trivial, less than 1+ regurgitation. PULMONIC VALVE: Structurally normal valve. Doppler: There is mild, 1+ regurgitation. AORTA: The aorta is normal. PULMONARY ARTERY: Main pulmonary artery: Normal. PERICARDIUM: There is no pericardial effusion. SYSTEMIC VEINS: Inferior vena cava: The vessel is normal. The IVC collapses by greater than 50% with inspiration. -- Measurements Value Reference Ascending aorta ID, A-P, S 2.5 cm Ascending aorta ID/bsa, A-P, S 1.7 cm/m^2 Left ventricle Value Reference LV ID, ED 4.1 cm 3.8 - 5.2 LV ID, ES 2.4 cm 2.2 - 3.5 LV ID/bsa, ED 2.7 cm/m^2 2.3 - 3.1 LV ID/bsa, ES 1.6 cm/m^2 1.3 - 2.1 LV PW thickness, ED 0.9 cm 0.6 - 0.9 LV PW/LV ID ratio, ED 0.22 LV wall mass 104 g 66 - 150 LV wall mass/bsa 68 g/m^2 44 - 88 Stroke volume/bsa, 1-p A2C 21.2 ml/m^2 LV end-diastolic volume, 1-p A4C 60 ml 48 - 140 LV end-systolic volume, 1-p A4C 32 ml 12 - 60 LV end-diastolic volume, 2-p 58 ml 46 - 106 LV end-systolic volume, 2-p 26 ml 14 - 42 LV ejection fraction, 2-p 54 % 54 - 74 LV E/e', lateral 4.8 LV E/e', medial 6.1 LV E/e', average 5.4 Ventricular septum Value Reference IVS thickness, ED 0.8 cm 0.6 - 0.9 LVOT Value Reference LVOT mean velocity, S 0.8 m/sec LVOT peak gradient, S 7 mm Hg Aortic valve Value Reference Aortic valve peak velocity, S 1.4 m/sec Aortic peak gradient, S 8 mm Hg Left atrium Value Reference LA volume/bsa, ES, 2-p 23 ml/m^2 16 - 34 Mitral valve Value Reference Mitral E-wave peak velocity 0.9 m/sec Mitral A-wave peak velocity 0.6 m/sec Mitral deceleration time 248 ms Mitral peak gradient, D 3 mm Hg Mitral E/A ratio, peak 1.4 Tricuspid valve Value Reference Ultrasound Report Tricuspid regurg peak velocity 2.1 m/sec <=2.8 Tricuspid peak RV-RA gradient 18 mm Hg Systemic veins Value Reference Estimated RAP 3 mm Hg Right ventricle Value Reference TAPSE, 2D 2.1 cm 1.7 - 3.1 RV pressure, S, DP 21 mm Hg RV s', lateral 11.7 cm/sec 6.0 - 13.4 Pulmonic valve Value Reference Pulmonic peak gradient, S 4 mm Hg Legend: (L) and (H) kandis values outside specified reference range (more content not included)... [facility] OPERATIVE REPORTOrdered By: gee Prieto on 08-25-2020 [employer] Work Phone: , urine POCTOrdered By: Rissa Ta on 08-25-2020 Beta HCG ( test) Ql (U) Negative Negative [employer] Work Phone: [phone] HCG ( test) Ql (U) [id number] [employer] Phone: [phone] Interpretation and review of laboratory results Normal [employer] Work Phone: [phone] Negative QC Pass/Fail Pass [employer] Work Phone: [phone] Positive QC Pass/Fail Pass [employer] Work Phone: [employer] Work Phone: [phone] , urineon 1 Beta HCG ( test) Ql (U) Negative Negative NA [employer] Work Phone: Comment on above: Please note: Very di lute urine specimens, as indicated by a low specific gravity, may not contain advertising sales representative levels of hCG. If is still suspected, a first morning urine specimen should be collected 48 hours later and tested. is the most common reason for HCG in urine, although choriocarcinoma, hydatidiform mole, and certain nontropho- blastic malignancies also result in detectable urinary HCG levels. Sensitivity = 20mIU/mL. Test Performed by [facility], [address] [place] [id number] [facility] Work Phone: US BREAST LOCALIZATION PREOP PLACEMENT Lefton 06-30-2020 [facility]: [id number] Ul[facility]ound ACCESSION EXAM DATE/TIME PROCEDURE ORDERING PROVIDER [id number] 06/30/2020 09:41 EDT US P-O Plcmt Tapan TA MD, RISSA Lauren RT CPT code 71463 Reason For Exam (US P-O Plcmt Ndl Lcl Wire RT) N60.22 Report PROCEDURE: US P-O PLCMT LOC DEV BREAST INITIAL: LEFT BREAST - JUNE 30, 2020 - REASON FOR EXAMINATION: Left breast fibroadenoma. CONSENT: The patient presents for Ultrasound guided localization for a tissue marker identified in the left breast. Prior to the procedure red rules were performed which included patient name, date of , and procedure type. Risks, benefits and alternatives were explained to the patient and informed consent was obtained. PROCEDURE: The patient's prior imaging was reviewed. I washed my hands and wore sterile gloves. The patient was scanned and the mass in the left breast was redemonstrated at 2:00, 2 cm from the nipple. The patient was prepped in the usual sterile fashion. 6mL of 1% Lidocaine was administered for local anesthesia. A 5 cm Kopans wire localization system was advanced to the targeted tissue marker and documented in satisfactory position with Ultrasound guidance. The localization wire was deployed. A postprocedure mammogram was deferred given the patient's young age of 19 years. The patient tolerated the procedure without immediate complications. The patient is scheduled for surgery with Dr. Rissa Ta. IMPRESSION: Technically successful Ultrasound localization of the left breast. RECOMMENDATION: Treatment plan. . Ultrasound Report Report Dictated on --- Final --- Signed Date and Time: 06/30/2020 10:18 am Signed by: MD VERONIKA, DONAL OSWALD Work Phone: [place], [facility] Incoming Radiology Results From [facility] - 06/30/2020 1:31 PM EDT Patient Name: ZUNILDA PRO Ultrasound ACCESSION EXAM DATE/TIME PROCEDURE ORDERING PROVIDER [id number] 06/30/2020 09:41 EDT US P-O Plcpa Tapan TA MD, RISSA Lauren RT CPT code 10104 Reason For Exam (US P-O Plcmt Ndl Lcl Wire RT) N60.22 Report PROCEDURE: US P-O PLCMT LOC DEV BREAST INITIAL: LEFT BREAST - JUNE 30, 2020 - REASON FOR EXAMINATION: Left breast fibroadenoma. CONSENT: The patient presents for Ultrasound guided localization for a tissue marker identified in the left breast. Prior to the procedure red rules were performed which included patient name, date of , and procedure type. Risks, benefits and alternatives were explained to the patient and informed consent was obtained. PROCEDURE: The patient's prior imaging was reviewed. I washed my hands and wore sterile gloves. The patient was scanned and the mass in the left breast was redemonstrated at 2:00, 2 cm from the nipple. The patient was prepped in the usual sterile fashion. 6mL of 1% Lidocaine was administered for local anesthesia. A 5 cm Kopans wire localization system was advanced to the targeted tissue marker and documented in satisfactory position with Ultrasound guidance. The localization wire was deployed. A postprocedure mammogram was deferred given the patient's young age of 19 years. The patient tolerated the procedure without immediate complications. The patient is scheduled for surgery with Dr. Rissa Ta. IMPRESSION: Technically successful Ultrasound localization of the left breast. RECOMMENDATION: Treatment plan. . Ultrasound Report Report Dictated on --- Final --- Signed Date and Time: 06/30/2020 10:18 am Signed by: MD VERONIKA, DONAL OSWALD Work Phone: US GUIDED LEFT BREAST BIOPSY on 04-01-2020 Patient Name: ZUNILDA PRO Ultrasound ACCESSION EXAM DATE/TIME PROCEDURE ORDERING PROVIDER [id number] 04/01/2020 10:22 EST US BX Breast 1st Lesion CYNDY MITCHELL Image LT CPT code 74939 A4648 Reason For Exam (US BX Breast 1st Lesion Image LT) Unspecified lump in the left breast, unspecified quadrant Report PROCEDURE: US BX BREAST 1ST LESION IMAGE LT: LEFT BREAST - APRIL 01, 2020 - Prior study comparison: March 30, 2020, left breast US breast limited left performed at [facility]. REASON FOR EXAMINATION: Left breast mass. CONSENT: The patient presents for ultrasound-guided core biopsy of the left breast. Prior to the procedure red rules were performed which included patient name, date of , and procedure type. Risks, benefits and alternatives were explained to the patient and informed consent was obtained. The patient's prior imaging was reviewed. PROCEDURE: An audible time out was performed. I washed my hands and wore sterile gloves. The patient was scanned and the lesion in the 2:00 position was redemonstrated. The patient was prepped in the usual sterile fashion. 10 mL of 1% Lidocaine was administered for local anesthesia. A gareth was made in the skin and a 14-gauge BARD core biopsy device was advanced into the lesion with ultrasound guidance. 4 core specimens were obtained. Following the procedure a Tumark X-shaped tissue marker was deployed at the site of biopsy. Hemostasis was obtained by holding manual pressure. The patient tolerated the procedure without immediate complications. Home-going instructions were given and the patient was discharged in good condition. IMPRESSION: Technically successful US guided biopsy of the left breast. Pathology results and recommendation will be provided as an addendum to this report following the receipt of the pathology report from the lab. Report Dictated on Ultrasound Report PATHOLOGY RESULTS: PENDING --- Final --- Signed Date and Time: 04/01/2020 11:34 am Signed by: MD VER[facility]IK[facility], [facility], [facility] Incoming Radiology Results From [facility] - 04/01/2020 2:18 PM EST Patient Name: ZUNILDA PRO Ultrasound ACCESSION EXAM DATE/TIME PROCEDURE ORDERING PROVIDER [id number] 04/01/2020 10:22 EST US BX Breast 1st Lesion CYNDY MITCHELL Image LT CPT code 66176 A4648 Reason For Exam (US BX Breast 1st Lesion Image LT) Unspecified lump in the left breast, unspecified quadrant Report PROCEDURE: US BX BREAST 1ST LESION IMAGE LT: LEFT BREAST - APRIL 01, 2020 - Prior study comparison: March 30, 2020, left breast US breast limited left performed at [facility]. REASON FOR EXAMINATION: Left breast mass. CONSENT: The patient presents for ultrasound-guided core biopsy of the left breast. Prior to the procedure red rules were performed which included patient name, date of , and procedure type. Risks, benefits and alternatives were explained to the patient and informed consent was obtained. The patient's prior imaging was reviewed. PROCEDURE: An audible time out was performed. I washed my hands and wore sterile gloves. The patient was scanned and the lesion in the 2:00 position was redemonstrated. The patient was prepped in the usual sterile fashion. 10 mL of 1% Lidocaine was administered for local anesthesia. A gareht was made in the skin and a 14-gauge BARD core biopsy device was advanced into the lesion with ultrasound guidance. 4 core specimens were obtained. Following the procedure a Tumark X-shaped tissue marker was deployed at the site of biopsy. Hemostasis was obtained by holding manual pressure. The patient tolerated the procedure without immediate complications. Home-going instructions were given and the patient was discharged in good condition. IMPRESSION: Technically successful US guided biopsy of the left breast. Pathology results and recommendation will be provided as an addendum to this report following the receipt of the pathology report from the lab. Report Dictated on Ultrasound Report PATHOLOGY RESULTS: PENDING --- Final --- Signed Date and Time: 04/01/2020 11:34 am Signed by: MD BANDA KERISTEN L [place], [place] MG Cancer Risk Survey - Patient Name: ZUNILDA PRO Mammography ACCESSION EXAM DATE/TIME PROCEDURE ORDERING PROVIDER [id number] 03/30/2020 08:45 EST [facility] Cancer Risk Survey DO SANCHEZ MEGHAN W Reason For Exam ([facility] Cancer Risk Survey) breast lump Report Cancer Risk Assessment: This risk assessment is based on patient provided information collected in a risk survey taken by the patient. Lifetime breast cancer risk: 14.62% - If greater than or equal to 20%, consider annual mammogram and annual screening Breast MRI or follow up in high risk clinic. Is the patient at elevated risk based on the HBOC criteria? No (Hereditary Breast and Ovarian Cancer) - If yes, consider genetic counseling and testing with high risk follow up. HNPCC mutation risk (Wright Syndrome): 1% - if greater than or equal to 5%, consider genetic counseling, testing and screening colonoscopy. Report Dictated on --- Final --- Dictated: 03/30/2020 8:56 am Dictating Physician: MD BANDA KERISTEN L Signed Date and Time: 03/30/2020 8:56 am Signed by: MD BANDA KERISTEN L [place], [place] Jesse, [facility]coming [facility] 03[facility]30/2020 8:58 AM EST Patient Name: ZUNILDA PRO Mammography ACCESSION EXAM DATE/TIME PROCEDURE ORDERING PROVIDER [id number] 03/30/2020 08:45 EST [facility] Cancer Risk Survey DO SANCHEZ MEGHAN W Reason For Exam ([facility] Cancer Risk Survey) breast lump Report Cancer Risk Assessment: This risk assessment is based on patient provided information collected in a risk survey taken by the patient. Lifetime breast cancer risk: 14.62% - If greater than or equal to 20%, consider annual mammogram and annual screening Breast MRI or follow up in high risk clinic. Is the patient at elevated risk based on the HBOC criteria? No (Hereditary Breast and Ovarian Cancer) - If yes, consider genetic counseling and testing with high risk follow up. HNPCC mutation risk (Wright Syndrome): 1% - if greater than or equal to 5%, consider genetic counseling, testing and screening colonoscopy. Report Dictated on --- Final --- Dictated: 03/30/2020 8:56 am Dictating Physician: MD BANDA KERISTEN L Signed Date and Time: 03/30/2020 8:56 am Signed by: MD BANDA KERISTEN L [place], [place] US BREAST LIMITED LEFTon Patient Name: ZUNILDA PRO Ultrasound ACCESSION EXAM DATE/TIME PROCEDURE ORDERING PROVIDER [id number] 03/30/2020 08:45 EST US Breast Limited Left DO SANCHEZ MEGHAN W CPT code 69063 Reason For Exam (US Breast Limited Left) breast lump Report REASON FOR EXAM: clinical finding. INDICATED PROBLEM: Indicated problem(s): left breast palpable abnormality. PROCEDURE: US BREAST LIMITED LEFT: MARCH 30, 2020 - No prior studies available for comparison. . FINDINGS: Diagnostic left breast ultrasound was performed for evaluation of a palpable mass in the left breast. Targeted scanning at the site of palpable concern at 2:00, 2 cm from nipple, reveals a 2.3 x 1.7 x 1.1 cm irregular hypervascular hypoechoic mass with increased through-transmission. Some of the margins are indistinct. Ultrasound-guided biopsy is recommended. Right axillary surveillance reveals no abnormally enlarged or thickened lymph nodes. IMPRESSION: Ultrasound-guided biopsy is recommended for an irregular palpable left breast mass at 2:00 measuring 2.3 cm. ASSESSMENT: Category 4 Suspicious RECOMMENDATION: Surgical consultation and ultrasound guided core biopsy of the left breast. I discussed the results and recommendations with the patient at the conclusion of the exam. Our nurse Navigator will notify the office of the referring clinician and facilitate scheduling of the surgical consultation and biopsy. . Ultrasound Report Report Dictated on --- Final --- Signed Date and Time: 03/30/2020 8:56 am Signed by: MD VERONIKA, [place], [place] Jesse [facility] Incoming Radiology Results From [facility] - 03/30/2020 10:10 AM EST [facility]: [id number] Ultrasound ACCESSION EXAM DATE/TIME PROCEDURE ORDERING PROVIDER [id number] 03/30/2020 08:45 EST US Breast Limited Left DO SANCHEZ MEGHAN W CPT code 72442 Reason For Exam (US Breast Limited Left) breast lump Report REASON FOR EXAM: clinical finding. INDICATED PROBLEM: Indicated problem(s): left breast palpable abnormality. PROCEDURE: US BREAST LIMITED LEFT: MARCH 30, 2020 - No prior studies available for comparison. . FINDINGS: Diagnostic left breast ultrasound was performed for evaluation of a palpable mass in the left breast. Targeted scanning at the site of palpable concern at 2:00, 2 cm from nipple, reveals a 2.3 x 1.7 x 1.1 cm irregular hypervascular hypoechoic mass with increased through-transmission. Some of the margins are indistinct. Ultrasound-guided biopsy is recommended. Right axillary surveillance reveals no abnormally enlarged or thickened lymph nodes. IMPRESSION: Ultrasound-guided biopsy is recommended for an irregular palpable left breast mass at 2:00 measuring 2.3 cm. ASSESSMENT: Category 4 Suspicious RECOMMENDATION: Surgical consultation and ultrasound guided core biopsy of the left breast. I discussed the results and recommendations with the patient at the conclusion of the exam. Our nurse Navigator will notify the office of the referring clinician and facilitate scheduling of the surgical consultation and biopsy. . Ultrasound Report Report Dictated on --- Final --- Signed Date and Time: 03/30/2020 8:56 am Signed by: MD BANDA KERISTEN L [place], [place] US THYROIDon 06-14-2019 Patient Name: ZUNILDA PRO ---Ultrasound--- Exam Date/Time 06/14/2019 10:33:37 EDT Exam US Parathyroid Ordering Physician DO BONILLA EUGENE F. Accession Number [id number] CPT4 Codes 62786 () Reason For Exam eval left lesion Report THYROID ULTRASOUND CLINICAL INDICATION: Left thyroid nodule Grayscale and color Doppler sonographic images of the thyroid were obtained. COMPARISON: None FINDINGS: The right thyroid lobe measures 0.9 x 1.2 x 4.3 cm. The left thyroid lobe measures 1.1 x 1.2 x 3.7 cm. The isthmus is approximately 1 mm in thickness. No discrete nodules are identified within the thyroid gland. IMPRESSION: Normal thyroid ultrasound. No evidence of a left thyroid nodule is identified, as questioned. Report Dictated on Workstation: [id number] --- Final --- Dictating Physician: MD PEREZ JONATHAN R Signed Date and Time: 06/14/2019 3:41 pm Signed by: MD PEREZ JONATHAN R Transcribed Date and Time: 06/14/2019 3:42 [place], [place] [facility], [facility] Incoming Radiology Results From [facility] - 06/14/2019 3:42 PM EDT Patient Name: ZUNILDA PRO ---Ultrasound--- Exam Date/Time 06/14/2019 10:33:37 EDT Exam US Parathyroid Ordering Physician DO BONILLA EUGENE MisaelAlfred Accession Number [id number] CPT4 Codes 15168 () Reason For Exam eval left lesion Report THYROID ULTRASOUND CLINICAL INDICATION: Left thyroid nodule Grayscale and color Doppler sonographic images of the thyroid were obtained. COMPARISON: None FINDINGS: The right thyroid lobe measures 0.9 x 1.2 x 4.3 cm. The left thyroid lobe measures 1.1 x 1.2 x 3.7 cm. The isthmus is approximately 1 mm in thickness. No discrete nodules are identified within the thyroid gland. IMPRESSION: Normal thyroid ultrasound. No evidence of a left thyroid nodule is identified, as questioned. Report Dictated on Workstation: [id number] --- Final --- Dictating Physician: MD PEREZ JONATHAN R Signed Date and Time: 06/14/2019 3:41 pm Signed by: MD PEREZ JONATHAN R Transcribed Date and Time: 06/14/2019 3:42 [place], [place] CT C-SPINE WO CONTRASTon CT C-SPINE WO CONTRAST Patient Name: ZUNILDA PRO STUDY: CT C-SPINE WO CONTRAST; 01/26/2019 2:05 pm INDICATION: BEATTY, visual disturbance, CHI. COMPARISON: None. ACCESSION NUMBER(S): [id number] ORDERING CLINICIAN: MACO CLEMENTE TECHNIQUE: Axial CT images of the cervical spine are obtained. Axial, coronal and sagittal reconstructions are provided for review. FINDINGS: Fractures: There is no evidence for an acute fracture of the cervical spine. Vertebral Alignment: Within normal limits. Craniocervical Junction: The odontoid process and craniocervical junction are intact. Vertebrae/Disc Spaces: The cervical vertebral body heights are intact and the disc spaces are preserved. Prevertebral/Paraspinal Soft Tissues: The prevertebral and paraspinal soft tissues are unremarkable. IMPRESSION: No evidence for an acute fracture or subluxation of the cervical spine. Electronically signed by: JAILYN TORRES MD [facility] CT HEAD WO CONTRASTon 2018 CT HEAD WO CONTRAST Patient Name: ZUNILDA PRO STUDY: CT HEAD WO CONTRAST; 01/26/2019 2:05 pm INDICATION: BEATTY, visual disturbance, CHI. COMPARISON: None. ACCESSION NUMBER(S): [id number] ORDERING CLINICIAN: MACO CLEMENTE TECHNIQUE: Noncontrast axial CT scan of head was performed. Angled reformats in brain and bone windows were generated. The images were reviewed in bone, brain, blood and soft tissue windows. FINDINGS: CSF Spaces: The ventricles, sulci and basal cisterns are within normal limits for patient's age. There is no extraaxial fluid collection. Parenchyma: The abad-white differentiation is intact. There is no mass effect or midline shift. There is no intracranial hemorrhage. Calvarium: The calvarium is unremarkable. Paranasal sinuses and mastoids: Visualized paranasal sinuses and mastoids are clear. IMPRESSION: No CT evidence for acute intracranial abnormality. If symptoms persist, further evaluation with MRI can be performed as clinically warranted. Electronically signed by: JALIYN TORRES MD [facility] Provider Note - ED v2on 01-02 Provider Note - ED v2 Provider Note - ED v2: Chart Review: ED NOTES ED NOTES: HPI: 18-year-old female presents to the emergency department concern for headache status post head injury last night When she was sitting on an ottoman when she fell backwards and hit the back of her head on the ground. No loss of consciousness but she did have a headache afterward as well as felt slightly dizzy. He reports that sometimes the room appeared to be spinning. No blurred vision or double vision. Reports that she went to bed and woke up this morning and she still a headache. The dizziness improved. No visual disturbances. Admits to nausea and vomiting. She noticed that her right pupil is larger than the left and when she called the nursing line who referred her here for evaluation. Denies paresthesias or weakness. No loss of bowel or bladder control. This pain in the neck as well. No other injury sustained. No medications taken for pain REVIEW OF SYSTEMS: Review of systems is otherwise negative unless stated above or in history of present illness. 10 systems reviewed and otherwise negative. PMH: Reviewed and noncontributory PSH: Reviewed and noncontributory Social History: Reviewed. Allergies reviewed. PHYSICAL EXAM: GENERAL: Vitals noted, no distress. Alert and oriented x 3. Non-toxic. HEAD: Normocephalic, atraumatic. No step-offs palpated over the scalp /skull. EYES: Pupils equal, round and reactive to light bilaterally, extraocular eye movements are intact bilaterally, sclera are anicteric, no nystagmus. ENT: Posterior oropharynx pink and moist, uvula is midline, no exudate or erythema. TMs without effusion, normal light reflex, no erythema or edema of the external acoustic meatus or mastoid process bilaterally. Moncada or raccoon sign negative, without hemotympanum. NECK: Normal range of motion in flexion, extension, and lateral rotation. No meningismus. No palpable cervical lymphadenopathy, trachea midline. Diffuse tenderness of the C-spine midline and paravertebral muscles bilaterally. Remainder of neck exam deferred and placed in c-collar. CARDIAC: Regular rate and rhythm. No murmurs rubs or gallops. No JVD. Radial pulses 2+ bilaterally, PULMONARY: Lungs clear bilaterally with good aeration. No wheezes rales or rhonchi. No respiratory distress. EXTREMITIES: Patient exhibits good range of motion in all 4 extremities and good muscular tone. SKIN: Warm and dry, capillary refill is less than 2 seconds, no cyanosis or pallor. NEURO: Cranial nerves II through XII intact, motor and sensory function of the upper and lower extremities is intact, proprioception and cerebellar function are within normal limits, no ataxia, dysarthria, or aphasia. Normal gait. Romberg negative. MEDICAL DECISION MAKING: Patient seen and examined by myself. Patient placed in C-spine immobilization. CT head and cervical spine showed no acute abnormality. Etiology. She is neurologically intact without deficit. No significant pupillary change in size bilaterally and normal reaction to light. She is maintaining her secretions well. GCS 15. Alert and oriented 4. Following commands. Suspect mild concussion. She'll avoid any activities at least for the head injury and avoid bright lights and screen time. She'll avoid any stressful physical or mental exertion over the next few days. She will stay well hydrated call primary care a days for surgery symptoms. Patient agreed understood and she was given rashes for approximately 5 for symptomatic relief for her suspected neck strain. Discharged stable condition. Final impression Closed head injury Neck strain HISTORY OF PRESENTING ILLNESS ZUNILDA is a 18 year old Female and was seen by me at 26-Jan-2019 12:47 for a chief complaint of head injury (fell last night, had blurred vision then, no LOC)(1). Triage Information: Most recent Vital Sign Value Date Temp (F): 99.2 01-26-2019 12:26 Temp (C): 37.3 01-26-2019 12:26 Heart Rate (beats/min): 100 01-26-2019 12:26 Respirations (breaths/min): 16 01-26-2019 12:26 SpO2 (%): 100 01-26-2019 12:26 BP Systolic (mm Hg): 135 01-26-2019 12:26 BP Diastolic (mm Hg): 85 01-26-2019 12:26 PAST MEDICAL HISTORY ATTESTATION: I have reviewed and confirmed nurse's/medic's notes for patient's medications, allergies, medical history, and surgical history ALLERGIES/INTOLERANCES: No Known Allergies HEALTH HISTORY: No documented data. OUTPATIENT MEDICATIONS: Home Medications Review Status for Reconciliation: Not Done Med Status: Patient Currently Takes Medications Drug Name: cyclobenzaprine 10 mg oral tablet Instructions: 1 tab(s) orally every 8 hours as needed for muscle spasms. Do not drive after taking. Drug Name: naproxen 500 mg oral tablet Instructions: 1 tab(s) orally every 12 hours with food as needed for pain. SIGNIFICANT EVENTS: No documented data. FITTER WELDER: Is : no(1) Is : no(1) CLINICAL IMPRESSION Diagnosis/Annotation: ED Dx Name:Closed head injury Code:S09.90XA Dispostion: discharged ATTESTATION Attestation: Supervising physician on site, available for consultation, non-participatory in the evaluation of the care of this patient. CRITICAL CARE TIME Is this a critically ill patient: no Electronic Signatures: Maco Clemente (PAC) (Signed 26-Jan-2019 14:39) Authored: Provider Note - ED v2 Mele Zamarripa) (Signed 26-Jan-2019 15:59) Co-Signer: Provider Note - ED v2 Last Updated: 26-Jan-2019 15:59 by Mele Zamarripa) References: 1. Data Referenced From Triage - ED 26-Jan-2019 12:[address] [facility] Risk Screen - Adult Emergenc yon 01-26-2019 Risk Screen - Adult Emergency Preferred Language: Preferred Language: Preferred Language for Discussing Health Care (patient/designee)Corey godinez Advanced Directives: Advance Directive/DNRno Family Violence Adult: Abuse Screen: Are you or have you been threatened or abused physically, emotionally, or sexually by anyoneno Learning Assessment (Patient): Learning Assessment (Patient): Patient is Able to be Assessed for Learningyes Factors Influencing Readiness to Learnacuteness of illness Factors that Impact Ability to Learnnone Devices/Methods Used to Communicatenone Learning Preferencesaudio; individual instruction; verbal instruction Cultural Considerationsnone Developmental Considerationsnone Mandaen Considerationsnone Learning Assessment (Other Learner): Learning Assessment (Other Learner): Other learner availableno Pressure Injury/TB/Substance: Pressure Injury: Do you have a coughno Substance Use Current or Former Historynever: Cigarette/Tobacco, e-Cigarette/Vaping, Alcohol, Street Drugs Admission Risk Screen: Significant IndicatorsComplete CAGE: CAGE: Is this an injured patient at a Trauma Center ([facility]/[place]/[facility] [place] [facility]/[place]): yes C: Have you ever felt you needed to Cut down on your drinking: no A: Have people Annoyed you by criticizing your drinking: no G: Have you ever felt Guilty about drinking: no E: Have you ever felt you needed a drink first thing in the morning (Eye-supervisor major appliance assembly) to steady your nerves or to get rid of hangover: no Electronic Signatures: Cata Scott (LYNNETTE) (Signed 26-Jan-2019 12:30) Authored: Preferred Language, Advanced Directives, Family Violence Adult, Learning Assessment (Patient), Learning Assessment (Other Learner), Pressure Injury/TB/Substance, CAGE Last Updated: 26-Jan-2019 12:30 by Cata Scott (LYNNETTE) Normal [facility] Triage - EDon 01-26-2019 Triage - ED Quick Triage: Are You no Are You Currently Breastfeedingno Chart Review: CHIEF COMPLAINT ZUNILDA PRO is a Female patient with a chief complaint of head injury (fell last night, had blurred vision then, no LOC). Triage Date/Time: 26-Jan-2019 12:26 Pain Rating (0-10): 5 = Moderate Pain location: posterior head Vital Signs: Temperature: 99.2F ( 37.3C) taken temporal Blood Pressure: 135/85 Mean: Heart Rate: 100 Respiratory Rate: 16 Pulse Oximetry: 100% on room air, no respiratory support. Height: 4 feet 11.00 inches. 149.8 CM Weight: 105.0 pounds. Calculated 47.6 kg. Calculated BMI (kg/m2): 21.212 Calculated BSA (m2) 1.41 Mascot Coma Scale: Best Eye Response: (E4) spontaneous Best Motor Response: (M6) obeys commands Best Verbal Response: (V5) oriented Mike Score: 15 Cough lasting greater than 3 weeks: no Travel outside of [facility]: no Allergies: no FITTER WELDER History: control Patient has homicidal thoughts: no JYOTI: 4 Risk Screens Suicide Risk Screen In the Past Month: Have you wished you were or wished you could go to sleep and not wake up no In the Past Month: Have you had any actual thoughts of killing yourself no In Your Lifetime: Have you ever done anything, started to do anything, or prepared to do anything to end your life no Mathew Fall Scale Screening Has the patient fallen before (or is the patient in the ED as a result of a fall) has had a fall Does the patient have an impaired gait does not have impaired gait Is the patient cognitively impaired not cognitively impaired Mathew Fall Scale History of falling (immediate or previous) yes (25) Secondary Diagnosis no (0) Intravenous Therapy/ Heparin/Saline Lock no (0 Gait/Transferring normal/bedrest/wheelcha ir (0) Ambulatory Aids none/bedrest/nurse assist (0) Mental Status oriented to own ability (0) Mathew Fall Risk Score: 25 Interventions: Moderate Risk 25 - 44 interventions: patient accompanied to diagnostic/treatment areas PAIN Pain Scale Used: BERT Pain Rating (0-10): 5 = Moderate ARRIVAL INFORMATION Means of Arrival: Ambulatory Mode of Arrival: private vehicle Arrival From: home Accompanied By: self Language: Spoken Language Preferred: Gambian Reading Language Preferred: Gambian 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 The airway is open and patent. Breathing spontaneous and unlabored with clear breath sounds bilaterally. Circulation is normal with good peripheral pulses. Skin is warm and dry and color is normal for race. TRAVEL HISTORY Travel Exposure History: NO travel to International locations in the past 30 days Past Medical History: Past Medical History Reviewedyes Electronic Signatures: Lindsay Gutierrez (LYNNETTE) (Signed 26-Jan-2019 12:28) Authored: Triage, Past Medical History Cata Scott) (Signed 26-Jan-2019 12:31) Authored: Triage Last Updated: 26-Jan-2019 12:31 by Cata Scott (LYNNETTE) Normal [place] Progress Noteon 11-09-2016 Project Engineer Authentication Interface Message Text NewReason for Visit:Chief ComplaintPatient presents with Hip Pain New Patient Left Pelvis PainAllergies: Nut allergy and Seafood.Medications:Out patient Encounter Prescriptions as of 11/09/2016Medication Sig Dispense Refill PROAIR HFA 108 (90 Base) MCG/ACT inhaler mometasone (ELOCON) 0.1 % solution FABIOR 0.1 % FOAM Levocetirizine Dihydrochloride (XYZAL PO) Take by mouth daily Tazarotene (TAZORAC) 0.05 % CREA EPINEPHrine (EPIPEN IJ) Inject as directed drospirenone-ethinyl estradiol (TIMOTHY) 3-0.03 MG per tablet Take by mouthdaily montelukast (SINGULAIR) 10 MG tablet Take 10 mg by mouth daily. ibuprofen (MOTRIN) 200 MG tablet Take 400 mg by mouth every 8 hours as neededfor Pain. Take with meals. mometasone (NASONEX) 50 MCG/ACT nasal spray use each nostril as needed. fexofenadine (RICARDO) 30 MG tablet Take by mouth as needed. [DISCONTINUED] LORYNA 3-0.02 MG tablets ondansetron (ZOFRAN) 4 MG tablet Take 1 Tab (4 mg) by mouth every 8 hours asneeded for Nausea 10 Tab 0No facility-administered encounter medications on file as of 11/09/2016.History of Present Illness (Location, Quality, Severity, Duration, Timing,Context. 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 Started out of nowhere during hill repeats on firstday of cross country practice. Tried to stretch, didn't help; didn't finishworkout. Had been doing some straw boss running leading into that day but nothingintense. Has been running but shortened workouts since; will do less reps. Noprior injury. Worse with sprinting. Overall improvingSchool: [employer] (11th grade)Current Activities: cross country;lacrosseDate of Injury:11/01/16Injured body part: pelvisInjured side: leftInjured location: lateral (Iliac Crest)Injury type: painMechanism of Injury: running;overuseActivity in which injured: cross training (1st day of Cross Country- pretty hardfast work out, pain progressed with reps)Symptoms: pain;numbness/tingling; weaknessPertinent negatives:swelling/effu colton;deformity;discolor ation;locking/catching; popping/clicking;giving out/instability;crepitu s;night painPrevious Imaging/Testing: was not doneAny Prior Treatments: a HEP;rest/activity restriction# Previous injuries: 0Back to play: has returned to modified participationPain at worst: 6/10Aggravated factors: prolonged running;prolonged walking;other (fast work out,walking to sprinting, distance running)Relieving factors: HEP;restHours of activity per week: (6 days per week, 30 miles per week on sidewalks &roads)Dominant Hand: right handedReview of System:Review of SystemsConstitutional: Negative for chills, fatigue, fever and weight loss.HENT: Negative for congestion and sore throat.Eyes: Positive for wears glasses. Negative for pain and visual disturbance.Respiratory : Negative for cough, shortness of breath and wheezing.Cardiovascular : Negative for chest pain, palpitations and leg swelling.Gastrointestin al: Negative for abdominal pain, blood in stool, indigestion andirritable bowel syndrome.Genitourinary: Negative for dysuria and menstrual problem.Musculoskeletal : Negative for joint pain, joint swelling and myalgias.Skin: Negative for color change, rash and wound.Neurological: Negative for seizures, syncope, weakness, light-headedness andheadaches.Endocrine: Negative for cold intolerance, heat intolerance and polydipsia.Hem/Lymph: Negative for adenopathy and bruises/bleeds easily.Psychiatric/Beha vioral: Negative for depressed mood. The patient is notnervous/anxious.Phys ical Exam:Physical ExamConstitutional: She appears well-developed and well-nourished. She is active.Cardiovascular: Intact distal pulses.Neurological: She is alert.Skin: Skin is warm.Psychiatric: She has a normal mood and affect.BP 108/59 (BP Site: Left Arm, Patient Position: Sitting, BP Cuff Size: Adult) Pulse 61 Ht (!) 148.2 cm Wt 47.3 kg LMP 10/15/2016 (Approximate) BMI21.52 kg/o0Fjrch Exam:Left Hip ExamTendernessThe patient is experiencing ASIS tenderness, iliac crest tenderness, hip flexorstenderness, lateral tenderness and ITB tenderness.Range of MotionExtension: normalFlexion: 120 (decreased active hip flexion; pain with full passive flexion)abnormalInterna l Rotation: normalExternal Rotation: normalAbduction: normalAdduction: normalMuscle StrengthAdduction: 4/5/5Flexion: 5/5 (pain with resisted flexion)/5TestsFABER: negativeOber: positiveFADIR: negativeComments: Glute med 4/5 bilat, core strength 3/5Right Hip ExamTendernessThe patient is experiencing no tenderness.Range of MotionThe patient has normal right hip ROM.Muscle StrengthAdduction: 4/5/5Flexion: 5/5/5TestsFABER: negativeOber: negativeFADIR: negativeLeft Knee ExamMuscle StrengthFlexion: 5/5Extension: 5/5Right Knee ExamMuscle StrengthFlexion: 5/5Extension: 5/5Radiographic Studies:NoneAssessment and Plan:Zunilda was seen today for hip pain.Diagnoses and all orders for this visit:Strain of hip flexor, left, initial encounter- Referral to Physical TherapyIT band syndrome, leftIf no visit by next visit, likely check xr to assess for growth platPatient Instructions:Patient InstructionsEDUCATION HANDOUTS PROVIDEDRun your fastest 5k training planACTIVITY RECOMMENDModified Participation (pain free) Functional progression by PTPATIENT INSTRUCTIONSPhysical Therapy as ordered.Ice as often as 20 minutes every hourAleve one pill twice daily with food, for 7-10 daysFOLLOW UP VISITFour weeksMadison Audra Pro and parent/guardian understand(s) and is/are in agreementwith the assessment and plan. Zunilda Pro's symptoms change or worsen,please call our office for earlier re-evaluation.I personally performed cueto portions of the history and physical examination ofthis patient and discussed the management plan with the fellow. I agree with thefindings as stated above. I reviewed the fellow's note and agree with thedocumented findings and plan of care, except as noted. . Normal [facility] Vital Signs Date Time Vital Sign Value Performing Clinician Facility 12-10-2024 14:52-0400 Body mass index (BMI) [Ratio] 26.34 kg/m2 LelaScanbuyN - Energy Automation System Work Phone: [facility] 12-10-2024 14:52-0400 Body weight 59.15 kg Lela [place] GLUING MACHINE FEEDER - CNRadio Waves Work Phone: [facility] 12-10-2024 14:52-0400 Diastolic blood pressure 72 mm[Hg] Lela [place] GLUING MACHINE FEEDER - CNRadio Waves Work Phone: [facility] 12-10-2024 14:52-0400 Systolic blood pressure 128 mm[Hg] Lela [place] GLUING MACHINE FEEDER - CNRadio Waves Work Phone: [facility] 08-01-2024 08:08-0400 Body height 149.9 cm Alivia Desai Tailor Made Oil Work Phone: [facility] 08-01-2024 08:08-0400 Body mass index (BMI) [Ratio] 26.86 kg/m2 Alivia Desai DO Work Phone: [facility] 08-01-2024 08:08-0400 Body temperature 98.4 [degF] Alivia Desai DO Work Phone: [facility] 08-01-2024 08:08-0400 Body weight 60.33 kg Alivia Desai DO Work Phone: [facility] 08-01-2024 08:08-0400 Diastolic blood pressure 74 mm[Hg] Alivia Desai DO Work Phone: [facility] 08-01-2024 08:08-0400 Heart rate 75 /min Alivia Desai DO Work Phone: [facility] 08-01-2024 08:08-0400 SaO2% (BldA) [Mass fraction] 98 % Alivia Desai DO Work Phone: [facility] 08-01-2024 08:08-0400 Systolic blood pressure 115 mm[Hg] Aliviasvetlana Desai DO Work Phone: [facility] 07-23-2024 11:02-0400 Body height 149.9 cm Yoon Mccarty MD Work Phone: [facility] 07-23-2024 11:02-0400 Body mass index (BMI) [Ratio] 27.27 kg/m2 Yoon Mccarty MD Work Phone: [facility] 07-23-2024 11:02-0400 Body weight 61.24 kg Yoon Mccarty MD Work Phone: [facility] 07-23-2024 11:02-0400 Diastolic blood pressure 71 mm[Hg] Yoon Mccarty MD Work Phone: [facility] 07-23-2024 11:02-0400 Systolic blood pressure 115 mm[Hg] Yoon Mccarty MD Work Phone: [facility] 06-05-2024 13:06-0500 Body height 149.9 cm Pasha WEAVER-C Work Phone: [facility] 06-05-2024 13:06-0500 Body mass index (BMI) [Ratio] 27.35 kg/m2 Pasha Paulson PA-C Work Phone: [facility] 06-05-2024 13:06-0500 Body temperature 99.1 [degF] Pasha Paulson PA-C Work Phone: [facility] 06-05-2024 13:06-0500 Body weight 61.42 kg aPsha Paulson PA-C Work Phone: [facility] 06-05-2024 13:06-0500 Diastolic blood pressure 80 mm[Hg] Pasha WEAVER-C Work Phone: [facility] 06-05-2024 13:06-0500 Heart rate 97 /min Pasha WEAVER-C Work Phone: [facility] 06-05-2024 13:06-0500 SaO2% (BldA) [Mass fraction] 98 % Pasha WEAVER-C Work Phone: [facility] 06-05-2024 13:06-0500 Systolic blood pressure 110 mm[Hg] Pasha WEAVER-C Work Phone: [facility] 04-29-2024 09:14-0500 Body height 149.9 cm Fly Eppson DO Work Phone: [facility] 04-29-2024 09:14-0500 Body mass index (BMI) [Ratio] 27.47 kg/m2 Fly Rodriguez DO Work Phone: [facility] 04-29-2024 09:14-0500 Body weight 61.69 kg Fly Rodriguez DO Work Phone: [facility] 04-29-2024 09:14-0500 Diastolic blood pressure 72 mm[Hg] Fly Rodriguez DO Work Phone: [facility] 04-29-2024 09:14-0500 Systolic blood pressure 110 mm[Hg] Fly Rodriguez DO Work Phone: [facility] 04-21-2024 23:38-0500 Body temperature 98.1 [degF] Ashkan Sloan MD Work Phone: [facility] 04-21-2024 23:35-0500 Body height 149.9 cm Ashkan Sloan MD Work Phone: [facility] 04-21-2024 23:35-0500 Body mass index (BMI) [Ratio] 26.66 kg/m2 Ashkan Sloan MD Work Phone: [facility] 04-21-2024 23:35-0500 Body weight 59.88 kg Ashkan Sloan MD Work Phone: [facility] 04-21-2024 23:35-0500 Diastolic blood pressure 76 mm[Hg] Ashkan Sloan MD Work Phone: [facility] 04-21-2024 23:35-0500 Heart rate 76 /min Ashkan Sloan MD Work Phone: [facility] 04-21-2024 23:35-0500 Respiratory rate 14 /min Ashkan Sloan MD Work Phone: [facility] 04-21-2024 23:35-0500 SaO2% (BldA) [Mass fraction] 100 % Ashkan Sloan MD Work Phone: [facility] 04-21-2024 23:35-0500 Systolic blood pressure 124 mm[Hg] Ashkan Sloan MD Work Phone: [facility] 04-16-2024 07:43-0500 Body height 149.9 cm Deidra Otero MD Work Phone: [facility] 04-16-2024 07:43-0500 Body mass index (BMI) [Ratio] 27.67 kg/m2 Deidra Otero MD Work Phone: [facility] 04-16-2024 07:43-0500 Body weight 62.14 kg Deidra Otero MD Work Phone: [facility] 04-16-2024 07:43-0500 Diastolic blood pressure 72 mm[Hg] Deidra Otero MD Work Phone: [facility] 04-16-2024 07:43-0500 Heart rate 73 /min Deidra Otero MD Work Phone: [facility] 04-16-2024 07:43-0500 Systolic blood pressure 115 mm[Hg] Deidra Otero MD Work Phone: [facility] 04-15-2024 15:09-0500 Body height 149.9 cm Fiona Funes MD Work Phone: [facility] 04-15-2024 15:09-0500 Body mass index (BMI) [Ratio] 28.28 kg/m2 Fiona Funes MD Work Phone: [facility] 04-15-2024 15:09-0500 Body weight 63.5 kg Fiona Funes MD Work Phone: [facility] 04-15-2024 15:09-0500 Diastolic blood pressure 62 mm[Hg] Fiona Funes MD Work Phone: [facility] 04-15-2024 15:09-0500 Systolic blood pressure 104 mm[Hg] Fiona Funes MD Work Phone: [facility] 03-26-2024 11:21-0500 Body mass index (BMI) [Ratio] 28.3 kg/m2 Elham Mckeon GLUING MACHINE FEEDER.CAREER SERVICES OFFICER Work Phone: [facility] 03-26-2024 11:21-0500 Body temperature 98.1 [degF] Elham Mckeon GLUING MACHINE FEEDER.CAREER SERVICES OFFICER Work Phone: [facility] 03-26-2024 11:21-0500 Body weight 61.4 kg Elham Mckeon GLUING MACHINE FEEDER.CAREER SERVICES OFFICER Work Phone: [facility] 03-26-2024 11:21-0500 Diastolic blood pressure 77 mm[Hg] Elham Mckeon GLUING MACHINE FEEDER.CAREER SERVICES OFFICER Work Phone: [facility] 03-26-2024 11:21-0500 Heart rate 91 /min Elham Mckeon GLUING MACHINE FEEDER.CAREER SERVICES OFFICER Work Phone: [facility] 03-26-2024 11:21-0500 Respiratory rate 16 /min Leham Mckeon GLUING MACHINE FEEDER.CAREER SERVICES OFFICER Work Phone: [facility] 03-26-2024 11:21-0500 SaO2% (BldA) [Mass fraction] 97 % Elham Mckeon GLUING MACHINE FEEDER.CAREER SERVICES OFFICER Work Phone: [facility] 03-26-2024 11:21-0500 Systolic blood pressure 111 mm[Hg] Elham Mckeon GLUING MACHINE FEEDER.CAREER SERVICES OFFICER Work Phone: [facility] 11-14-2023 07:36-0400 Body mass index (BMI) [Ratio] 28.32 kg/m2 Lela Charles GLUING MACHINE FEEDER - CNM Work Phone: [facility] 11-14-2023 07:36-0400 Body weight 63.59 kg Lelaephraim Montenegrok GLUING MACHINE FEEDER - CNM Work Phone: [facility] 11-14-2023 07:36-0400 Diastolic blood pressure 67 mm[Hg] Lela Lank GLUING MACHINE FEEDER - CNM Work Phone: [facility] 11-14-2023 07:36-0400 Heart rate 76 /min Lelaephraim Montenegrok GLUING MACHINE FEEDER - CNM Work Phone: [facility] 11-14-2023 07:36-0400 Systolic blood pressure 114 mm[Hg] Lelaephraim Montenegrok GLUING MACHINE FEEDER - CNM Work Phone: [facility] 10-10-2023 07:38-0400 Body height 149.9 cm Lelaephraim Montenegrok GLUING MACHINE FEEDER - CNM Work Phone: [facility] 10-10-2023 07:38-0400 Body mass index (BMI) [Ratio] 28.48 kg/m2 Lelaephraim Montenegrok GLUING MACHINE FEEDER - CNM Work Phone: [facility] 10-10-2023 07:38-0400 Body weight 63.96 kg Lelaephraim Montenegrok GLUING MACHINE FEEDER - CNM Work Phone: [facility] 10-10-2023 07:38-0400 Diastolic blood pressure 64 mm[Hg] Lelaephraim Montenegrok GLUING MACHINE FEEDER - CNM Work Phone: [facility] 10-10-2023 07:38-0400 Heart rate 79 /min Lelaephraim Montenegrok GLUING MACHINE FEEDER - CNM Work Phone: [facility] 10-10-2023 07:38-0400 Systolic blood pressure 113 mm[Hg] Lela Montenegrok GLUING MACHINE FEEDER - CNM Work Phone: [facility] 09-21-2023 10:10-0400 Body height 149.9 cm Luz Marina [place] PA-C Work Phone: [facility] 09-21-2023 10:10-0400 Body mass index (BMI) [Ratio] 28.48 kg/m2 Luz Marina [place] PA-C Work Phone: [facility] 09-21-2023 10:10-0400 Body weight 63.96 kg Luz Marina [place] PA-C Work Phone: [facility] 09-21-2023 10:10-0400 Diastolic blood pressure 72 mm[Hg] Luz Marina [place] PA-C Work Phone: [facility] 09-21-2023 10:10-0400 Heart rate 64 /min Luz Marina [place] PA-C Work Phone: [facility] 09-21-2023 10:10-0400 Systolic blood pressure 119 mm[Hg] Luz Marina [place] PA-C Work Phone: [facility] 08-22-2023 09:33-0400 Body height 149.9 cm Lela Arciniegalak GLUING MACHINE FEEDER - CNM Work Phone: [facility] 08-22-2023 09:33-0400 Body mass index (BMI) [Ratio] 28.48 kg/m2 Lela Arciniegalak GLUING MACHINE FEEDER - CNM Work Phone: [facility] 08-22-2023 09:33-0400 Body weight 63.96 kg Lela Arciniegalak GLUING MACHINE FEEDER - CNM Work Phone: [facility] 08-22-2023 09:33-0400 Diastolic blood pressure 78 mm[Hg] Lela Sedlak GLUING MACHINE FEEDER - CNM Work Phone: [facility] 08-22-2023 09:33-0400 Systolic blood pressure 118 mm[Hg] Lela Arciniegalak GLUING MACHINE FEEDER - CNM Work Phone: [facility] 08-13-2023 07:25-0400 Body temperature 98.01 [degF] Steffanie Arevalo MD Work Phone: [facility] 08-13-2023 07:25-0400 Diastolic blood pressure 71 mm[Hg] Steffanie Arevalo MD Work Phone: [facility] 08-13-2023 07:25-0400 Heart rate 70 /min Summer Viktoriya Arevalo MD Work Phone: [facility] 08-13-2023 07:25-0400 Respiratory rate 20 /min Summer Viktoriya Arevalo MD Work Phone: [facility] 08-13-2023 07:25-0400 SaO2% (BldA) [Mass fraction] 98 % Steffanie Arevalo MD Work Phone: [facility] 08-13-2023 07:25-0400 Systolic blood pressure 113 mm[Hg] Steffanie Arevalo MD Work Phone: [facility] 08-11-2023 11:30-0400 Body height 149.9 cm Steffanie Arevalo MD Work Phone: [facility] 08-11-2023 11:30-0400 Body mass index (BMI) [Ratio] 32.32 kg/m2 Steffanie Arevalo MD Work Phone: [facility] 08-11-2023 11:30-0400 Body weight 72.58 kg Steffanie Arevalo MD Work Phone: [facility] 08-04-2023 12:37-0400 Diastolic blood pressure 86 mm[Hg] Steffanie Arevalo MD Work Phone: [facility] 08-04-2023 12:37-0400 Heart rate 110 /min Steffanie Arevalo MD Work Phone: [facility] 08-04-2023 12:37-0400 Systolic blood pressure 126 mm[Hg] Steffanie Arevalo MD Work Phone: [facility] 08-02-2023 15:35-0400 Diastolic blood pressure 80 mm[Hg] Steffanie Arevalo MD Work Phone: [facility] 08-02-2023 15:35-0400 Heart rate 100 /min Steffanie Arevalo MD Work Phone: [facility] 08-02-2023 15:35-0400 Systolic blood pressure 127 mm[Hg] Steffanie Arevalo MD Work Phone: [facility] 08-02-2023 15:32-0400 Body height 149.9 cm Steffanie Arevalo MD Work Phone: [facility] 08-02-2023 15:32-0400 Body mass index (BMI) [Ratio] 31.91 kg/m2 Steffanie Arevalo MD Work Phone: [facility] 08-02-2023 15:32-0400 Body temperature 98.49 [degF] Steffanie Arevalo MD Work Phone: [facility] 08-02-2023 15:32-0400 Body weight 71.67 kg Steffanie Arevalo MD Work Phone: [facility] 08-02-2023 15:32-0400 Respiratory rate 20 /min Steffanie Arevalo MD Work Phone: [facility] 07-19-2023 17:10-0400 Diastolic blood pressure 78 mm[Hg] Steffanie Arevalo MD Work Phone: [facility] 07-19-2023 17:10-0400 Heart rate 80 /min Steffanie Arevalo MD Work Phone: [facility] 07-19-2023 17:10-0400 Systolic blood pressure 101 mm[Hg] Steffanie Arevalo MD Work Phone: [facility] 07-19-2023 15:44-0400 Body height 149.9 cm Steffanie Arevalo MD Work Phone: [facility] 07-19-2023 15:44-0400 Body temperature 99.1 [degF] Steffanie Arevalo MD Work Phone: [facility] 07-19-2023 15:44-0400 Respiratory rate 18 /min Steffanie Arevalo MD Work Phone: [facility] 07-19-2023 15:44-0400 SaO2% (BldA) [Mass fraction] 100 % Steffanie Arevalo MD Work Phone: [facility] 05-30-2022 15:32-0500 Body temperature 98.6 [degF] Elham Mckeon GLUING MACHINE FEEDER.CAREER SERVICES OFFICER Work Phone: [facility] 05-30-2022 15:32-0500 Body weight 57.61 kg Elham Mckeon GLUING MACHINE FEEDER.CAREER SERVICES OFFICER Work Phone: [facility] 05-30-2022 15:32-0500 Diastolic blood pressure 92 mm[Hg] Elham Mckeon GLUING MACHINE FEEDER.CAREER SERVICES OFFICER Work Phone: [facility] 05-30-2022 15:32-0500 Heart rate 90 /min Elham Mckeon GLUING MACHINE FEEDER.CAREER SERVICES OFFICER Work Phone: [facility] 05-30-2022 15:32-0500 SaO2% (BldA) [Mass fraction] 100 % Elham Mckeon GLUING MACHINE FEEDER.CAREER SERVICES OFFICER Work Phone: [facility] 05-30-2022 15:32-0500 Systolic blood pressure 142 mm[Hg] Elham Mckeon GLUING MACHINE FEEDER.CAREER SERVICES OFFICER Work Phone: [facility] 05-17-2022 16:14-0500 Body height 148 cm Deidra Otero MD Work Phone: [facility] 05-17-2022 16:14-0500 Body mass index (BMI) [Ratio] 26.15 kg/m2 Deidra Otero MD Work Phone: [facility] 05-17-2022 16:14-0500 Body weight 57.24 kg Deidra Otero MD Work Phone: [facility] 02-14-2023 16:14-0500 Diastolic blood pressure 77 mm[Hg] Deidra Otero MD Work Phone: [facility] 05-17-2022 16:14-0500 Heart rate 73 /min Deidra Otero MD Work Phone: [facility] 05-17-2022 16:14-0500 Systolic blood pressure 132 mm[Hg] Deidra Otero MD Work Phone: [facility] 04-07-2022 07:24-0500 Body height 149.9 cm Lana Tokie GLUING MACHINE FEEDER - MELTER SUPERVISOR OXYGEN FURNACE Work Phone: [facility] 04-07-2022 07:24-0500 Body mass index (BMI) [Ratio] 24.88 kg/m2 Lana Tokie GLUING MACHINE FEEDER - MELTER SUPERVISOR OXYGEN FURNACE Work Phone: [facility] 04-07-2022 07:24-0500 Body temperature 97.5 [degF] Lana Tokie GLUING MACHINE FEEDER - MELTER SUPERVISOR OXYGEN FURNACE Work Phone: [facility] 04-07-2022 07:24-0500 Body weight 55.88 kg Lana Tokie GLUING MACHINE FEEDER - MELTER SUPERVISOR OXYGEN FURNACE Work Phone: [facility] 04-07-2022 07:24-0500 Diastolic blood pressure 66 mm[Hg] Lana Tokie GLUING MACHINE FEEDER - MELTER SUPERVISOR OXYGEN FURNACE Work Phone: [facility] 04-07-2022 07:24-0500 Heart rate 67 /min Lana Tokie GLUING MACHINE FEEDER - MELTER SUPERVISOR OXYGEN FURNACE Work Phone: [facility] 04-07-2022 07:24-0500 SaO2% (BldA) [Mass fraction] 99 % Lana Tokie GLUING MACHINE FEEDER - MELTER SUPERVISOR OXYGEN FURNACE Work Phone: [facility] 04-07-2022 07:24-0500 Systolic blood pressure 102 mm[Hg] Lana Tokie GLUING MACHINE FEEDER - MELTER SUPERVISOR OXYGEN FURNACE Work Phone: [facility] 08-31-2021 12:51-0400 Body temperature 98.71 [degF] Alfreda Overton PA-C Work Phone: [place] [id number] 12:51-0400 Body weight 54.02 kg Alfreda Slabaugh PA-C Work Phone: [facility] 08-31-2021 12:51-0400 Diastolic blood pressure 60 mm[Hg] Alfreda Slabaugh PA-C Work Phone: [facility] 08-31-2021 12:51-0400 Heart rate 68 /min Alfreda Slabaugh PA-C Work Phone: [facility] 08-31-2021 12:51-0400 Respiratory rate 12 /min Alfreda Slabaugh PA-C Work Phone: [facility] 08-31-2021 12:51-0400 SaO2% (BldA) [Mass fraction] 99 % Alfreda Slabaugh PA-C Work Phone: [facility] 08-31-2021 12:51-0400 Systolic blood pressure 126 mm[Hg] Alfreda Slabaugh PA-C Work Phone: [facility] 06-25-2021 15:52-0400 Body height 147.3 cm Alfreda Slabaugh PA-C Work Phone: [facility] 06-25-2021 15:52-0400 Body weight 53.75 kg Alfreda Slabaugh PA-C Work Phone: [facility] 06-25-2021 15:52-0400 Diastolic blood pressure 57 mm[Hg] Alfreda Slabaugh PA-C Work Phone: [facility] 06-25-2021 15:52-0400 Heart rate 77 /min Alfreda Slabaugh PA-C Work Phone: [facility] 06-25-2021 15:52-0400 SaO2% (BldA) [Mass fraction] 100 % Alfreda Slabaugh PA-C Work Phone: [facility] 06-25-2021 15:52-0400 Systolic blood pressure 110 mm[Hg] Alfreda Slabaugh PA-C Work Phone: [facility] 08-25-2020 18:15-0400 Body temperature 98.01 [degF] Rissa Ta MD Work Phone: [facility] Work Phone: 08-25-2020 18:15-0400 Diastolic blood pressure 71 mm[Hg] Rissa Ta MD Work Phone: [facility] Work Phone: 08-25-2020 18:15-0400 Heart rate 75 /min Rissa Ta MD Work Phone: [facility] Work Phone: 08-25-2020 18:15-0400 Respiratory rate 16 /min Rissa Ta MD Work Phone: [facility] Work Phone: 08-25-2020 18:15-0400 SaO2% (BldA) [Mass fraction] 100 % Rissa Ta MD Work Phone: [facility] Work Phone: 08-25-2020 18:15-0400 Systolic blood pressure 107 mm[Hg] Rissa Ta MD Work Phone: [facility] Work Phone: 08-25-2020 12:40-0400 Body height 149.9 cm Rissa Ta MD Work Phone: [facility] Work Phone: 08-25-2020 12:40-0400 Body mass index (BMI) [Ratio] 21.21 kg/m2 Rissa Ta MD Work Phone: [facility] Work Phone: 08-25-2020 12:40-0400 Body weight 47.63 kg Rissa Ta MD Work Phone: [facility] Work Phone: 08-19-2020 09:49-0400 Body height 149.9 cm Rissa Ta MD Work Phone: [facility] Work Phone: 08-19-2020 09:49-0400 Body mass index (BMI) [Ratio] 21.21 kg/m2 Rissa Ta MD Work Phone: [facility] Work Phone: 08-19-2020 09:49-0400 Body weight 47.63 kg Rissa Ta MD Work Phone: [facility] Work Phone: 06-30-2020 18:15-0400 BP Diastolic 74 mm[Hg] Rissa TAMAYOA Work Phone: 06-30-2020 18:15-0400 BP Systolic 116 mm[Hg] Rissa TAMAYOA Work Phone: 06-30-2020 18:15-0400 Pulse (Heart Rate) 90 /min Rissatomy TAMAYOA Work Phone: 06-30-2020 18:15-0400 Pulse Oximetry 99 % Rissa OSAWLD Work Phone: 06-30-2020 18:15-0400 Respiratory Rate 16 /min Rissa OSWALD Work Phone: 06-30-2020 17:13-0400 Body Temperature 98.71 [degF] Rissa TAMAYOA Work Phone: 06-19-2020 08:58-0400 Body Temperature 98.01 [degF] Rissa TAMAYOA Work Phone: 06-19-2020 08:58-0400 BP Diastolic 64 mm[Hg] Rissa TAMAYOA Work Phone: 06-19-2020 08:58-0400 BP Systolic 100 mm[Hg] Rissa TAMAYOA Work Phone: 06-19-2020 08:58-0400 Pulse (Heart Rate) 70 /min Rissa TAMAYOA Work Phone: 06-19-2020 08:58-0400 Pulse Oximetry 100 % Rissa OSWALD Work Phone: 06-19-2020 08:58-0400 Respiratory Rate 16 /min Rissa OSWALD Work Phone: 06-19-2020 08:45-0400 BMI (Body Mass Index) 22.28 kg/m2 Rissa OSWALD Work Phone: 06-19-2020 08:45-0400 Body weight 48.35 kg Rissa OSWALD Work Phone: 06-19-2020 08:45-0400 Height 147.3 cm Rissa OSWALD Work Phone: Encounters Encounter Date Encounter Type Care Provider Facility Start: 12-10-2024 End: 12-10-2024 ambulatory LELA SEDLAK [facility] Start: 12-10-2024 End: 12-10-2024 Patient encounter procedure Lela Charles GLUING MACHINE FEEDER - CNM Work Phone: [facility] [place] Comment on above: Encounter for IUD re moval (Primary Dx) Start: 08-01-2024 End: 08-01-2024 ambulatory ALIVIASVETLANA DESAI [facility] Start: 08-01-2024 End: 08-01-2024 Encounter for general adult medical examination without abnormal findings ALIVIA DESAI [facility] Start: 08-01-2024 End: 08-01-2024 Patient encounter status Alivia Desai DO Work Phone: [facility] Work Phone: Start: 08-01-2024 End: 08-01-2024 Periodic preventive med est patient 18-39 yrs Alivia Desai DO Work Phone: [facility] [place] Comment on above: Well adult exam (Monae cole Dx) Start: 07-23-2024 End: 07-23-2024 Office outpatient visit 15 minutes Yoon Mccarty MD Work Phone: [facility] Obstetrics [facility] Gynecology [facility] Comment on above: Vulvar itching Start: 07-23-2024 End: 07-23-2024 ambulatory YOON MCCARTY [facility] Start: 07-22-2024 End: 07-23-2024 ambulatory Lakshmi Palmer RN [facility] Clinical Communication Start: 07-22-2024 End: 07-23-2024 Patient encounter procedure Lakshmi Palmer RN [facility] Start: 06-05-2024 End: 06-05-2024 ambulatory PASHA PAULSON [facility] Start: 06-05-2024 End: 06-05-2024 Office outpatient visit 15 minutes Pasha Paulson PA-C Work Phone: [facility] [place] Comment on above: Fever, unspecified f ever cause (Primary Dx); Upper respiratory tract infection, unspecified type Start: 04-29-2024 End: 04-29-2024 Office outpatient visit 15 minutes Fly Rodriguez DO Work Phone: [facility] Obstetrics [facility] Gynecology [facility] Comment on above: Cyst of right ovary (Primary Dx); Pelvic pain Start: 04-29-2024 End: 04-29-2024 ambulatory FLY RODRIGUEZ [facility] Start: 04-24-2024 End: 04-24-2024 ambulatory FIONA FUNES [facility] Start: 04-21-2024 End: 04-22-2024 Emergency department patient visit Ashkan Sloan MD Work Phone: [facility] ED Comment on above: Pelvic pain (Primary Dx) Start: 04-16-2024 End: 04-16-2024 ambulatory DEIDRA [facility] Start: 04-16-2024 End: 04-16-2024 Encounter for gynecological examination (general) (routine) without abnormal findings [facility] Start: 04-16-2024 End: 04-16-2024 Patient encounter procedure Deidra Otero MD Work Phone: [facility] Work Phone: Start: 04-16-2024 End: 04-16-2024 Periodic preventive med est patient 18-39 yrs Deidra Otero MD Work Phone: [facility] [place] Comment on above: Women's annual routi ne gynecological examination (Primary Dx); Pelvic pain in female Start: 04-15-2024 End: 04-15-2024 Office outpatient visit 15 minutes Fiona Funes MD Work Phone: [facility] [place] Comment on above: Pelvic pain (Primary Dx) Start: 04-15-2024 End: 04-15-2024 ambulatory Yumiko Morales RN [facility] Communication Start: 04-15-2024 End: 04-15-2024 Patient encounter procedure Yumiko Morales RN [facility] Start: 03-26-2024 End: 03-26-2024 ambulatory Facility:[facility] Start: 03-26-2024 End: 03-26-2024 Office outpatient visit 25 minutes Elham Mckeon APRN.CNP Work Phone: [facility] Comment on above: Upper respiratory in fection with cough and congestion (Primary Dx); Penicillin allergy Start: 11-14-2023 End: 11-14-2023 Office outpatient visit 15 minutes Lela Charles APRN - [place] Work Phone: [facility]etrics [facility] Gynecology Comment on above: IUD check up (Primar y Dx) Start: 10-10-2023 End: 10-10-2023 Patient encounter procedure Lela Charles APRN - [place] Work Phone: [facility] Gynecology Comment on above: Encounter for IUD in sertion (Primary Dx); Screen for STD (sexually transmitted disease) Start: 09-21-2023 End: 09-21-2023 care visit Luz Marina Leigh PA-C Work Phone: [facility] Comment on above: Encounter for routin e follow-up (Primary Dx) Start: 08-23-2023 Telephone encounter Fly Valentin MA [facility]necology Start: 08-22-2023 Telephone encounter Lela Charles APRN - [place] Work Phone: [facility] Comment on above: Hold on Mirena Proce ss (08/22/23 Pt calling to advise the office /provider to PLEASE put on HOLD Mirena Process until she thinks more about it pt will call back to give a ok to process pls advise [facility]); Contraception Start: 08-22-2023 End: 08-22-2023 care visit Lela Charles GLUING MACHINE FEEDER - CNM Work Phone: [facility]etrics [facility] Gynecology Comment on above: care and examination (Primary Dx) Start: 08-11-2023 End: 08-13-2023 Evaluation and management of inpatient Steffanie Arevalo MD Work Phone: [facility] Start: 08-04-2023 End: 08-04-2023 Subsequent hospital visit by physician Steffanie Arevalo MD Work Phone: [facility] Start: 08-02-2023 End: 08-02-2023 Subsequent hospital visit by physician Steffanie Arevalo MD Work Phone: [facility] Start: 07-19-2023 End: 07-19-2023 Subsequent hospital visit by physician Steffanie Arevalo MD Work Phone: [facility] Start: 07-11-2023 Refanil Otero MD Work Phone: [facility] Start: 07-06-2022 ambulatory Brina moulton RN [facility] Clinical Communication Start: 07-06-2022 Patient encounter procedure Brina Wade RN [facility] Communication Start: 05-30-2022 End: 05-30-2022 Patient encounter procedure Elham Mckeon APRN.CNP Work Phone: [facility] Comment on above: Viral upper respirat ory tract infection with cough (Primary Dx); SOB (shortness of breath) Start: 05-27-2022 ambulatory Jaki conway RN [facility] Communication Start: 05-27-2022 Patient encounter procedure Jaki Jean RN [facility] Communication Start: 05-17-2022 End: 05-17-2022 Patient encounter procedure Deidra Otero MD Work Phone: [facility] Start: 05-17-2022 End: 05-17-2022 Periodic preventive med est patient 18-39 yrs Deidra Otero MD Work Phone: [facility] Comment on above: Well woman exam with routine gynecological exam (Primary Dx); Pelvic pain in female Start: 05-11-2022 Refill Deidra Otero MD Work Phone: [facility] Clinical Communication Start: 04-13-2022 Refill Sherif Myers LPN [facility] Clinical Communication Start: 04-07-2022 End: 04-07-2022 Patient encounter procedure 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 Phone: [facility] Start: 04-07-2022 End: 04-07-2022 Periodic preventive med est patient 18-39 yrs 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 Phone: [facility] Comment on above: Annual physical exam (Primary Dx); Chronic seasonal allergic rhinitis due to pollen Start: 12-16-2021 ambulatory Deidra Oswald [facility] Start: 12-16-2021 End: 12-16-2021 Subsequent hospital visit by physician Deidra Otero MD Work Phone: [facility] MRI Comment on above: Uterine anomaly; Pelvic pain in female Start: 10-13-2021 End: 10-13-2021 Subsequent hospital visit by physician Anthony Mckay DO Work Phone: [facility] Comment on above: Chest pain, unspecif ied type Start: 08-31-2021 End: 08-31-2021 Patient encounter procedure Alfreda Overton PA-C Work Phone: [place] [facility] Comment on above: Hordeolum internum o f right lower eyelid (Primary Dx) Start: 06-25-2021 End: 06-25-2021 Patient encounter procedure Alfreda Overton PA-C Work Phone: [facility] Comment on above: Acute non-recurrent maxillary sinusitis (Primary Dx) Start: 08-25-2020 End: 08-25-2020 Subsequent hospital visit by physician Rissa Ta MD Work Phone: [facility] General Surgery Comment on above: Fibroadenoma of left breast (Primary Dx); Hypertrophic scar of skin Start: 08-19-2020 End: 08-19-2020 Subsequent hospital visit by physician Rissa Ta MD Work Phone: [facility] Pre-Admit Testing Comment on above: Arrived Start: 06-30-2020 End: 06-30-2020 Subsequent hospital visit by physician Rissa Ta Work Phone: [facility] General Surgery Comment on above: Fibroadenoma of teto st, left (Primary Dx) Start: 06-30-2020 End: 06-30-2020 Subsequent hospital visit by physician Rissa Ta Work Phone: [facility] Comment on above: Arrived Start: 06-19-2020 End: 06-19-2020 Subsequent hospital visit by physician Rissa Ta Work Phone: [facility] Pre-Admit Testing Comment on above: Arrived Start: 04-01-2020 End: 04-01-2020 Subsequent hospital visit by physician Cyndy Mitchell Work Phone: [facility] Comment on above: Left breast mass Start: 03-30-2020 End: 03-30-2020 Subsequent hospital visit by physician Marion Sanchez Work Phone: [facility] Comment on above: Arrived Start: 06-14-2019 End: 06-14-2019 Subsequent hospital visit by physician Cam Bonilla Work Phone: [facility] Comment on above: Left thyroid nodule Start: 11-16-2016 End: 11-17-2016 Ambulatory LELA KHANNA [facility] Start: 11-14-2016 End: 11-15-2016 Ambulatory JOSEPH BEATTY [facility] Start: 11-09-2016 End: 11-09-2016 Ambulatory JARAD CEE [facility] End: 03-09-2019 Patient encounter status Rissa Ta MD Work Phone: [facility] Procedures Date Procedure Procedure Detail Performing Clinician Start: 06-05-2024 Iaadiadoo influenza Blayne Paulson PA-C Work Phone: Start: 06-05-2024 Adult depression scr eening assessment Pasha Paulson PA-C Work Phone: Start: 04-22-2024 Comprehensive metabo lic panel Ashkan Sloan MD Work Phone: Start: 04-22-2024 Urinalysis complete panel - Urine Ashkan Sloan MD Work Phone: Start: 04-22-2024 Urine test visual color cmprsn meths Ashkan Sloan MD Work Phone: Start: 04-22-2024 Urnls dip stick/tabl et reagent auto microscopy Ashkan Sloan MD Work Phone: Start: 04-16-2024 Cytp cerv/vag auto t hin layer prep mnl screen Deidra Otero MD Work Phone: Start: 04-16-2024 Microscopic observat ion [Identifier] in Cervix by Cyto stain Deidra Otero MD Work Phone: Start: 10-10-2023 Urine test visual color cmprsn meths Lela Charles GLUING MACHINE FEEDER - CNM Work Phone: Start: 08-11-2023 ABO and Rh group [Ty pe] in Blood by Confirmatory method Jessenia Link MD Work Phone: Start: 08-11-2023 Blood typing serologic abo Jessenia Link MD Work Phone: Start: 08-11-2023 Comprehensive metabo lic panel Jessenia Link MD Work Phone: Start: 08-11-2023 OXYGEN THERAPY Jessenia ann MD Work Phone: Start: 08-11-2023 Adult depression scr eening assessment Steffanie Arevalo MD Work Phone: Start: 08-04-2023 Comprehensive metabo lic panel Ming Pickett DO Work Phone: Start: 07-19-2023 Respiratory pathogen s DNA and RNA panel - Nasopharynx by COLLINS with non-probe detection Brittany López DO Work Phone: Start: 07-19-2023 Comprehensive metabo lic panel Brittany López DO Work Phone: Start: 10-13-2021 Echo tthrc r-t 2d w/wom-mode compl spec&colr d Anthony Mckay DO Work Phone: Start: 10-05-2021 Microscopic observat ion [Identifier] in Cervix by Cyto stain Anthony Wanfadi DO Work Phone: Start: 08-25-2020 OPERATIVE REPORT 3m Sca nning Start: 08-25-2020 Urine test visual color cmprsn meths Gary Whitney MD Work Phone: Start: 06-30-2020 OPERATIVE REPORT 3m Sca nning Start: 06-30-2020 Urine test visual color cmprsn methriccardo Qureshi Work Phone: Start: 06-30-2020 Perq breast loc connei ce placemt 1st lesio us imag Rissa Ta Work Phone: Start: 04-01-2020 US GUIDED LEFT BREAS T BIOPSY Cyndy Mitchell Work Phone: Start: 03-30-2020 MG CANCER RISK SURVEY M mikhail Sanchez Work Phone: Start: 03-30-2020 Us breast uni real t veronika with image limited Marion Sanchez Work Phone: Start: 06-14-2019 Us soft tissue head & neck real time imge docm Cam Douglas Shamekaally Work Phone: Plan of Treatment Date Care Activity Detail Author Start: 08-28-2075 RSV Immunization for Adults (1 - 1-dose 75+ series) RSV Immunization for Adults (1 - 1-dose 75+ series) [facility] Start: 2060 RSV Immunization age d 60 or older (1 - 1-dose 60+ series) RSV Immunization aged 60 or older (1 - 1-dose 60+ series) [facility] Start: 2050 Zoster Vaccines (1 of 2) Zoste r Vaccines (1 of 2) [facility] Start: 2050 Shingles Vaccine (1 of 2) Shingles Vaccine (1 of 2) [place], [place] Start: 04-16-2027 Screening for malign ant neoplasm of cervix Pap Smear [facility] Start: 08-04-2025 End: 08-04-2025 Patient encounter procedure 08/04/2025 8:00 AM EDT Office Visit [facility] - [address] [place] [address] Alivia Desai, [address] [place] [address] [address] [place], [place] [id number] [facility] [place] Start: 06-05-2025 Depression Screening Depression Scre ening [facility] Start: 04-22-2025 Screening for Chlamy morgan trachomatis Chlamydia and Gonorrhea Screening [facility] Start: 12-02-2024 COVID-19 Vaccine ( season) COVID-19 Vaccine ( season) [facility] Start: 12-02-2024 Influenza vaccination [facility] Start: 10-09-2024 Screening for Chlamy morgan trachomatis Chlamydia and Gonorrhea Screening [facility] Start: 10-05-2024 Screening for malign ant neoplasm of cervix Pap smear [facility] Start: 09-11-2024 End: 09-11-2024 Patient encounter procedure 09/11/2024 2:00 PM EDT Office Visit [facility] - [address] [place] [address] Alivia Desai, [address] [place], [place] [id number] [facility] Start: 08-10-2024 Depression Screening Depression Scre ening [facility] Start: 08-01-2024 End: 08-01-2024 Patient encounter procedure 08/01/2024 8:00 AM EDT Office Visit [facility] [address] [place] [address] Alivia Desai DO [address] [place] [address] [facility] Start: 05-28-2024 End: 05-28-2024 Patient encounter procedure [facility] [place] Start: 04-29-2024 End: 04-29-2025 US Pelvis transvaginal US pelvis transvaginal Imaging Routine Cyst of right ovary Expected: 04/29/2024, Expires: 04/29/2025 [facility] Work Phone: Comment on above: Expected: 04/29/2024 , Expires: 04/29/2025 Start: 04-29-2024 End: 04-29-2024 Patient encounter procedure 04/29/2024 9:15 AM EST Office Visit [facility] [place] [address] [place] [address] [place] [phone] Fly Rodriguez, DO [address] [place] [address] [facility] [place] Start: 04-25-2024 End: 04-25-2024 Patient encounter procedure 04/25/2024 3:00 PM EST Office Visit [facility] [place] [address] [place] [phone] [facility] [place] Start: 04-25-2024 End: 04-25-2024 Professional / ancillary services management 04/25/2024 3:00 PM EST Ancillary Procedure [facility] [place] [address] [place] [address] [place] [phone] [facility] - [place] Start: 04-24-2024 End: 04-24-2024 Professional / ancillary services management 04/24/2024 4:00 PM EST Ancillary Procedure [facility] [place] [address] [place] [address] [place] [id number] [facility] Gy[facility] Start: 04-16-2024 End: 04-16-2024 Patient encounter procedure [facility] Start: 04-15-2024 End: 04-15-2025 US Pelvis transvaginal US pelvis transvaginal Imaging Routine Pelvic pain Expected: 04/15/2024, Expires: 04/15/2025 [facility] Work Phone: Comment on above: Expected: 04/15/2024 , Expires: 04/15/2025 Start: 12-03-2023 Covid-19 Vaccine ( season) Covid-19 Vaccine ( season) [facility] Start: 12-03-2023 Influenza vaccination [facility] Start: 11-14-2023 End: 11-14-2023 Patient encounter procedure 11/14/2023 7:30 AM EDT Office Visit [facility] Obstetrics & Gynecology [address] [place] [place] [id number] Lela Charles APRN - CNM [address] [place] [address], [address] [place], [place] [id number] [facility]s [facility]cology Start: 10-03-2023 End: 10-03-2023 Patient encounter procedure 10/03/2023 9:30 AM EDT Procedure Visit [facility]cology [address] [place] [place] [phone] Lela Charles APRN - CNM [address] [place], [address] [place] [address] [facility] Start: 09-21-2023 End: 09-21-2023 ambulatory [facility] Start: 08-15-2023 End: 08-15-2023 Patient encounter procedure 08/15/2023 11:15 AM EDT Office Visit [facility] [address] [address] [place] [id number] Deidra Otero MD [address] [place] [address] [facility] Start: 05-30-2023 End: 05-30-2023 Patient encounter procedure 05/30/2023 Office Visit Obstetrics and Gynecology Deidra Otero MD [address], [address] [place] [address] [facility] Start: 04-10-2023 End: 04-10-2023 Patient encounter procedure 04/10/2023 Office Visit Family Medicine Lana Ku, GLUING MACHINE FEEDER - MELTER SUPERVISOR [employer]URNACE [address], [place] [id number] [facility] Start: 04-07-2023 COVID-19 Vaccine (3 - Booster for Pfizer series) COVID-19 Vaccine (3 - Booster for Pfizer series) [facility] Comment on above: Postponed from 02/03 (Patient Refused) Start: 04-07-2023 Hepatitis C screening Hepatitis C Sc reening [facility] Comment on above: Postponed from 08/27 (Patient Refused) Start: 04-07-2023 HIV screening HIV Screening [facility] Comment on above: Postponed from 08/27 (Patient Refused) Start: 09-01-2023 COVID-19 Vaccine (3 - 3-24 season) COVID-19 Vaccine ( season) [facility] Start: 12-02-2022 Influenza vaccination Influenz a Vaccine (Season Ended) [facility] Start: 10-05-2022 Screening for Chlamy [place] trachomatis [facility] Start: 05-30-2022 End: 06-13-2022 Radiologic exam chest 2 views XR CHEST 2V FRONTAL/LAT Radiology STAT Viral upper respiratory tract infection with cough Expected: 05/30/2022, Expires: 06/13/2022 [facility] Work Phone: Comment on above: Expected: 05/30/2022 , Expires: 06/13/2022 Start: 05-17-2022 End: 05-17-2022 Patient encounter procedure 05/17/2022 Office Visit Obstetrics and Gynecology Deidra Otero MD [address] [place] [address] [facility] Start: 05-14-2022 Depression Screen Depression Screen [facility] Start: 04-12-2022 End: 04-12-2022 Patient encounter procedure 04/12/2022 Office Visit Obstetrics and Gynecology Deidra Otero MD [address] [place] [address] [facility] Start: 04-03-2022 DEPRESSION ASSESSMENT DEPRESSION ASS [facility] Start: 01-14-2022 End: 01-14-2022 Patient encounter procedure 01/14/2022 Office Visit Obstetrics and Gynecology Deidra Otero MD [address] [place] [address] [facility] Start: 12-02-2021 Influenza vaccination [facility] Start: 11-20-2021 DTaP/Tdap/Td vaccine (7 - Td or Tdap) DTaP/Tdap/Td vaccine (7 - Td or Tdap) [facility] Start: 11-20-2021 DTaP/Tdap/Td vaccine (7 - Td) DTaP/Tdap/Td vaccine (7 - Td) [place] Start: 11-20-2021 DTaP/Tdap/Td Vaccine s (7 - Td or Tdap) DTaP/Tdap/Td Vaccines (7 - Td or Tdap) [facility] Start: 11-20-2021 Urine microalbumin profile DTaP,Tdap,Td Vaccine (7 - Td or Tdap) [facility] Start: 11-05-2021 End: 11-05-2021 Patient encounter procedure 11/05/2021 Office Visit Obstetrics and Gynecology Deidra Otero MD [address] [place] [address] [facility] Start: 10-25-2021 End: 10-25-2021 Patient encounter procedure 10/25/2021 Procedure visit Obstetrics and Gynecology [facility] Start: 2021 PAP TESTING PAP TESTING [facility] Start: 2021 Screening for malign ant neoplasm of cervix Cervical Cancer Screening [facility] Start: 05-29-2021 Creatinine measurement Creatinine mo nitoring [facility] Work Phone: Start: 05-29-2021 Potassium monitoring Potassium monit oring [facility] Work Phone: Start: 05-11-2021 COVID-19 VACCINE (3 - Booster for Pfizer series) COVID-19 VACCINE (3 - Booster for Pfizer series) [facility] Start: 02-03-2021 COVID-19 VACCINE (3 - Booster for Pfizer series) COVID-19 VACCINE (3 - Booster for Pfizer series) [facility] Start: 12-02-2020 Influenza vaccination Flu vacc ine (Season Ended) [facility] Work Phone: Start: 09-29-2020 End: 09-29-2020 Office Visit 09/29/2020 Office Visit Breast Clinic / Breast Center Cyndy Mitchell, ADAMA - CAREER SERVICES OFFICER [address] [address] [phone] [facility] [place] Start: 09-07-2020 End: 09-07-2020 Patient encounter procedure 09/07/2020 Office Visit Breast Clinic / Breast Center Rissa Ta MD [address] [place] [address] [phone] [facility] Start: 08-25-2020 End: 08-25-2020 Patient encounter procedure 08/25/2020 Appointment General Surgery Rissa Ta MD [address] [place] [address] [phone] [facility] General Surgery Start: 07-13-2020 End: 07-13-2020 Office Visit 07/13/2020 Office Visit Breast Clinic / Breast Center Rissa Ta MD [address] [facility] [address] [place] [address] [phone] [facility] [place] Start: 06-30-2020 End: 06-30-2020 Appointment 06/30/2020 Appointment General Surgery Rissa Ta MD [address] [place] [address] [phone] [facility] General Surgery Start: 06-30-2020 End: 06-30-2020 Appointment 06/30/2020 Appointment Radiology Rissa Ta MD [address] [place] [address] [phone] [facility] Start: 04-01-2020 End: 04-01-2020 Appointment 04/01/2020 Appointment Radiology [facility] Start: 01-16-2020 End: 01-16-2020 Office Visit 01/16/2020 Office Visit Obstetrics and Gynecology Cecy Ayoub, ADAMA - CAREER SERVICES OFFICER [address] [place] [address] [place] [address] [phone] [facility] Start: 12-03-2019 Influenza vaccination Flu vaccine (# 1) [place], [place] Start: 08-28-2019 Pneumococcal Vaccine : Pediatrics (0 to 5 Years) and At-Risk Patients (6 to 49 Years) (1 of 2 - PCV) Pneumococcal Vaccine: Pediatrics (0 to 5 Years) and At-Risk Patients (6 to 49 Years) (1 of 2 - PCV) [facility] Start: 08-28-2019 Urine microalbumin profile DTAP,TDAP,TD (1 - Tdap) [facility] Start: 2018 Anxiety Screening Anxiety Screening [facility] Start: 2018 CHLAMYDIA SCREENING (18-24) CHLAMYDIA SCREENING (18-24) [facility] Start: 2018 Depression Screening Depression Scre ening [facility] Start: 2018 GC (GONORRHEA) SCREE KACY (1824) GC (GONORRHEA) SCREENING (18-24) [facility] Start: 2018 HEPATITIS C SCREENING HEPATITIS C SC REENING [facility] Start: 2018 Hepatitis C screening S [facility] Start: 2018 HIV SCREENING HIV SCREENING [facility] Start: 2018 HIV screening HIV Screening [facility] Start: 2018 Screening for Chlamy morgan trachomatis Chlamydia Screening () [facility] Start: 2016 Chlamydia screen Chlamydia screen [place], [place] Start: 2016 COVID-19 Vaccine (1) COVID-19 Vaccin e (1) [facility] Work Phone: Start: 2016 Meningococcal B Vacc ine: Consider Based On Risk (1 of 2 - Patient Seeks Protection) Meningococcal B Vaccine: Consider Based On Risk (1 of 2 - Patient Seeks Protection) [facility] Start: 2016 Screening for Chlamy morgan trachomatis Chlamydia screen [place], [place] Start: 08-28-2015 HIV screen HIV screen [place], [place] Start: 08-28-2015 HIV screening HIV screen [facility] Start: 2014 PEDS TO ADULT TRANSI TION ANNUAL ASSESSMENT PEDS TO ADULT TRANSITION ANNUAL ASSESSMENT [facility] Start: 2012 Adult depression screening assessment DEPRESSION SCREENING [facility] Start: 2012 COVID-19 Vaccine (1) COVID-19 Vaccin e (1) [facility] Work Phone: Start: 2012 PEDS TO ADULT TRANSI TION INITIAL DISCUSSION PEDS TO ADULT TRANSITION INITIAL DISCUSSION [facility] Start: 08-28-2011 HPV VACCINE (1 - 2-d ose series) HPV VACCINE (1 - 2-dose series) [facility] Start: 2010 MENINGOCOCCAL B: Consider based on risk (1 of 2 - Risk Bexsero 2-dose series) MENINGOCOCCAL B: Consider based on risk (1 of 2 - Risk Bexsero 2-dose series) [facility] Start: 2006 Pneumococcal 0-64 ye ars Vaccine (1 - PCV) Pneumococcal 0-64 years Vaccine (1 - PCV) [facility] Start: 2006 Pneumococcal 0-64 ye ars Vaccine (1 of 1 - PPSV23) Pneumococcal 0-64 years Vaccine (1 of 1 - PPSV23) [place] Start: 2006 Pneumococcal 0-64 ye ars Vaccine (1 of 2 - PPSV23) Pneumococcal 0-64 years Vaccine (1 of 2 - PPSV23) [facility] Work Phone: Start: 2006 Pneumococcal Vaccine : Pediatrics (0 to 5 Years) and At-Risk Patients (6 to 64 Years) (1 of 2 - PCV) Pneumococcal Vaccine: Pediatrics (0 to 5 Years) and At-Risk Patients (6 to 64 Years) (1 of 2 - PCV) [facility] Start: 2000 Creatinine measurement Creatinine mo nitoring [place], [place] Start: 2000 Creatinine monitoring [place] Start: 2000 HEPATITIS B (1 of 3 - 3-dose series) HEPATITIS B (1 of 3 - 3-dose series) [facility] Start: 2000 Hepatitis C screening Hepatitis C sc reen [place], [place] Start: 2000 HIV screening HIV Screening [facility] Start: 2000 Lipid panel Lipid Panel [facility] Start: 2000 Potassium monitoring Potassium monit [place], [place] End: 04-21-2024 Bacterial vaginosis and vaginitis rRNA panel - Vaginal fluid by Probe [facility] Work Phone: Comment on above: Once (Lab) for 1 Occ urrences starting 04/21/2024 until 04/21/2024 End: 06-30-2020 Blood glucose - POCT Blood glucose - POCT Point of Care Testing STAT One Time for 1 Occurrences starting 06/30/2020 until 06/30/2020 [employer] Work Phone: Comment on above: One Time for 1 Occur rences starting 06/30/2020 until 06/30/2020 End: 06-30-2020 Creatinine [Mass/Vol] Creatinine, serum Lab STAT One Time for 1 Occurrences starting 06/30/2020 until 06/30/2020 [employer] Work Phone: Comment on above: One Time for 1 Occur rences starting 06/30/2020 until 06/30/2020 End: 08-25-2020 Creatinine [Mass/volume] in Serum or Plasma Creatinine, serum Lab STAT One Time for 1 Occurrences starting 08/25/2020 until 08/25/2020 [employer] Work Phone: Comment on above: One Time for 1 Occur rences starting 08/25/2020 until 08/25/2020 Insert IUD Insert IUD Proce colten Routine Encounter for IUD insertion Ordered: 10/10/2023 [employer] Work Phone: Comment on above: Ordered: 10/10/2023 End: 06-30-2020 Intermittent pulse oximetry Pulse Oximetry Spot Check Respiratory Care Routine One Time for 1 Occurrences starting 06/30/2020 until 06/30/2020 [employer] Work Phone: Comment on above: One Time for 1 Occur rences starting 06/30/2020 until 06/30/2020 End: 08-25-2020 Intermittent pulse oximetry Pulse Oximetry Spot Check Respiratory Care Routine One Time for 1 Occurrences starting 08/25/2020 until 08/25/2020 [employer] Work Phone: Comment on above: One Time for 1 Occur rences starting 08/25/2020 until 08/25/2020 End: 12-16-2021 MRI PELVIS W WO CONTRAST [employer] Work Phone: Comment on above: 1 Occurrences starti ng 12/16/2021 until 12/16/2021 Neisseria gonorrhoea e DNA [Presence] in Cervical mucus by COLLINS with probe detection Chlamydia/Gonorrhea Microbiology Routine Screen for STD (sexually transmitted disease) Ordered: 10/10/2023 [employer] Comment on above: Ordered: 10/10/2023 End: 04-21-2024 Neisseria gonorrhoeae DNA [Presence] in Cervical mucus by COLLINS with probe detection [employer] Comment on above: Once (Lab) for 1 Occ urrences starting 04/21/2024 until 04/21/2024 Oxygen therapy [Mini [facility] Data Set] [employer] Work Phone: Comment on above: Daily until disconti nued starting 06/30/2020 Daily until disconti nued starting 08/25/2020 Phase I & II - meter ed glucose [employer] Work Phone: Comment on above: As Needed until disc ontinued starting 06/30/2020 As Needed until disc ontinued starting 08/25/2020 End: 06-30-2020 Potassium w/ Reflex to Magnesium Potassium w/ Reflex to Magnesium Lab Routine One Time for 1 Occurrences starting 06/30/2020 until 06/30/2020 [employer] Work Phone: Comment on above: One Time for 1 Occur rences starting 06/30/2020 until 06/30/2020 End: 08-25-2020 Potassium w/ Reflex to Magnesium Potassium w/ Reflex to Magnesium Lab Routine One Time for 1 Occurrences starting 08/25/2020 until 08/25/2020 [employer] Work Phone: Comment on above: One Time for 1 Occur rences starting 08/25/2020 until 08/25/2020 End: 08-25-2020 , urine , urine Lab Routine One Time for 1 Occurrences starting 08/25/2020 until 08/25/2020 [employer] Work Phone: Comment on above: One Time for 1 Occur rences starting 08/25/2020 until 08/25/2020 End: 06-30-2020 Protime-INR Protime-INR Lab STAT One Time for 1 Occurrences starting 06/30/2020 until 06/30/2020 [facility] Work Phone: Comment on above: One Time for 1 Occur rences starting 06/30/2020 until 06/30/2020 End: 08-25-2020 Protime-INR Protime-INR Lab STAT One Time for 1 Occurrences starting 08/25/2020 until 08/25/2020 [employer] Work Phone: Comment on above: One Time for 1 Occur rences starting 08/25/2020 until 08/25/2020 Remove IUD Remove IUD Proce dures Routine Encounter for IUD removal Ordered: 12/10/2024 [employer] Work Phone: Comment on above: Ordered: 12/10/2024 SARS-CoV-2 (COVID-19 ) RNA [Presence] in Respiratory specimen by COLLINS with probe detection 2019 CORONAVIRUS Microbiology Routine Viral upper respiratory tract infection with cough 05/30/2022 3:58 PM EST [facility] Work Phone: Spirometry panel [employer] Work Phone: Comment on above: Every 2hr while awak e until discontinued starting 06/30/2020 Q1H PRN until discon tinued starting 06/30/2020 Every 2hr while awak e until discontinued starting 08/25/2020 Q1H PRN until discon tinued starting 08/25/2020 SureSwab(R) Adv Bacterial Vaginosis (BV), [facility] ([facility]) SureSwab(R) Adv Bacterial Vaginosis (BV), [facility] ([facility]) Microbiology Routine Vulvar itching Ordered: 07/23/2024 [employer] Comment on above: Ordered: 07/23/2024 SURESWAB(R) ADV CAND KEYUR VAGINITIS (CV), [facility] ([facility]) Sureswab(R) Adv Jyoti Vaginitis (CV), [facility] ([facility]) Lab Routine Vulvar itching Ordered: 07/23/2024 [employer] Work Phone: Comment on above: Ordered: 07/23/2024 End: 04-01-2020 Surgical Pathology Surgical Pathology Lab STAT Once for 1 Occurrences starting 04/01/2020 until 04/01/2020 [place], [place] Comment on above: Once for 1 Occurrenc es starting 04/01/2020 until 04/01/2020 Surgical Pathology Surgical Path ology Lab STAT 04/01/2020 10:08 AM [place], [place] End: 06-30-2020 SURGICAL SPECIMEN IMAGE SURGICAL SPECIMEN IMAGE Imaging Routine Once for 1 Occurrences starting 06/30/2020 until 06/30/2020 [facility] Work Phone: Comment on above: Once for 1 Occurrenc es starting 06/30/2020 until 06/30/2020 SURGICAL SPECIMEN IMAGE SURGICAL SPECIMEN IMAGE Imaging Routine 06/30/2020 3:29 PM EDT [facility] Work Phone: Immunizations Immunization Date Immunization Notes Care Provider [facility] 08-11-2023 measles, mumps and rubella virus vaccine Steffanie Arevalo MD Work Phone: [facility] 02-01-2021 influenza, injectabl e, quadrivalent, contains preservative Anthony Mckay DO Work Phone: [facility] Work Phone: 02-01-2021 influenza virus vacc ine, unspecified formulation Lanatomy Ku GLUING MACHINE FEEDER - MELTER SUPERVISOR [employer]CE Work Phone: [facility] 12-09-2020 Pfizer SARS-CoV-2 Vaccination Lanatomy Ku GLUING MACHINE FEEDER - MELTER SUPERVISOR [employer]CE Work Phone: [facility] 11-18-2020 Pfizer SARS-CoV-2 Vaccination Lana 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[employer]NACE Work Phone: [facility] 02-07-2019 influenza, injectabl e, quadrivalent, preservative free [place], [place] 02-07-2019 tuberculin skin test ; purified protein derivative solution, intradermal [place], [place] 10-31-2017 meningococcal oligosaccharide (groups A, C, Y and W-135) diphtheria toxoid conjugate vaccine (MCV4O) [place], [place] 08-05-2016 Human Papillomavirus 9-valent vaccine [facility] 10-21-2015 hepatitis A vaccine, pediatric/adolescent dosage, 2 dose schedule 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 Phone: [facility] 10-21-2015 hepatitis A vaccine, unspecified formulation [facility] , [place] 10-21-2014 hepatitis A vaccine, pediatric/adolescent dosage, 2 dose schedule Lana Mora NP Work Phone: [facility] 10-21-2014 hepatitis A vaccine, unspecified formulation [facility] [place] 10-21-2014 HPV, unspecified formulation Anthony Mckay DO Work Phone: [facility] Work Phone: 10-21-2014 human papilloma viru s vaccine, quadrivalent [facility], [place] 12-14-2012 human papilloma viru s vaccine, quadrivalent [facility], [place] 09-25-2012 human papilloma viru s vaccine, quadrivalent [facility], [place] 11-21-2011 meningococcal polysaccharide (groups A, C, Y and W-135) diphtheria toxoid conjugate vaccine (MCV4P) [facility], [place] 11-21-2011 tetanus toxoid, redu roseann diphtheria toxoid, and acellular pertussis vaccine, adsorbed [facility], [place] 11-19-2010 influenza nasal, unspecified formulation [facility] , [place] 11-19-2010 influenza virus vacc ine, live, attenuated, for intranasal use [facility] Work Phone: 11-19-2010 influenza, live, intranasal, quadrivalent Anthony Blascasso DO Work Phone: [facility] 11-19-2010 varicella virus vaccine [facility], [place] 12-31-2008 influenza nasal, unspecified formulation [facility] [place] 12-31-2008 influenza virus vacc ine, live, attenuated, for intranasal use [facility] Work Phone: 12-31-2008 influenza, live, intranasal, quadrivalent Anthony Blascasso DO Work Phone: [facility] Work Phone: 12-17-2007 influenza nasal, unspecified formulation [facility] [place] 12-17-2007 influenza virus vacc ine, live, attenuated, for intranasal use Rissa Ta [facility] Work Phone: 12-17-2007 influenza, live, intranasal, quadrivalent Anthony Mckay DO Work Phone: [facility] Work Phone: 01-24-2005 diphtheria, tetanus toxoids and acellular pertussis vaccine [facility], [place] 01-24-2005 diphtheria, tetanus toxoids and acellular pertussis vaccine, unspecified formulation Anthony Mckay DO Work Phone: [facility] Work Phone: 01-24-2005 poliovirus vaccine, inactivated [facility], [place] 09-24-2004 measles, mumps and rubella virus vaccine [facility], [place] 01-29-2003 influenza virus vacc ine, unspecified formulation Lana 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[employer] Work Phone: [facility] Work Phone: 01-29-2003 influenza virus vacc ine, whole virus Anthony Mckay DO Work Phone: [facility] Work Phone: 01-29-2003 influenza, injectabl e, quadrivalent, contains preservative [facility], [place] 05-24-2002 poliovirus vaccine, inactivated [facility], [place] 12-20-2001 diphtheria, tetanus toxoids and acellular pertussis vaccine [facility], [place] 12-20-2001 diphtheria, tetanus toxoids and acellular pertussis vaccine, unspecified formulation Anthony Mckay DO Work Phone: [facility] Work Phone: 12-20-2001 haemophilus influenz ae type b vaccine, PRP-T conjugate [facility], [place] 09-06-2001 measles, mumps and rubella virus vaccine [facility], [place] 09-06-2001 varicella virus vaccine [facility], [place] 06-23-2001 hepatitis B vaccine, pediatric or pediatric/adolescent dosage Anthony Mckay DO Work Phone: [facility] Work Phone: 06-23-2001 hepatitis B vaccine, unspecified formulation [facility] , [place] 06-23-2001 pneumococcal conjuga te vaccine, 7 valent [facility], [place] 02-26-2001 diphtheria, tetanus toxoids and acellular pertussis vaccine [facility], [place] 02-26-2001 diphtheria, tetanus toxoids and acellular pertussis vaccine, unspecified formulation Anthony Mckay DO Work Phone: [facility] Work Phone: 02-26-2001 haemophilus influenz ae type b vaccine, PRP-T conjugate [facility], [place] 2000 diphtheria, tetanus toxoids and acellular pertussis vaccine [facility], [place] 2000 diphtheria, tetanus toxoids and acellular pertussis vaccine, unspecified formulation Anthony Mckay DO Work Phone: [facility] Work Phone: 2000 haemophilus influenz ae type b vaccine, PRP-T conjugate [facility], [place] 2000 pneumococcal conjuga te vaccine, 7 valent [facility], [place] 2000 poliovirus vaccine, inactivated [facility], [place] 2000 diphtheria, tetanus toxoids and acellular pertussis vaccine [facility], [place] 2000 diphtheria, tetanus toxoids and acellular pertussis vaccine, unspecified formulation Anthony Mckay DO Work Phone: [facility] Work Phone: 2000 haemophilus influenz ae type b vaccine, PRP-T conjugate [facility], [place] 2000 hepatitis B vaccine, pediatric or pediatric/adolescent dosage Anthony Mckay DO Work Phone: [employer] Work Phone: 2000 hepatitis B vaccine, unspecified formulation [facility] , [place] 2000 pneumococcal conjuga te vaccine, 7 valent [facility], [place] 2000 poliovirus vaccine, inactivated [facility], [place] 2000 hepatitis B vaccine, pediatric or pediatric/adolescent dosage Anthony Mckay DO Work Phone: [facility] Work Phone: 2000 hepatitis B vaccine, unspecified formulation [facility] , [place] NEGATED: Highlighted row has not occurred!08-12-2023 tetanus toxoid, reduced diphtheria toxoid, and acellular pertussis vaccine, adsorbed Summer Viktoriya Arevalo MD Work Phone: [facility] [employer] Comment on above: Deferred: Patient Re fused Payers Date Payer Category Payer Unknown [id number] 2022 Commercial Managed C are - HMO [id number] 2022 Private Health Insurance CIGNA CIGNA [id number] 2022-Present [address] [place] [address] Commercial [id number] 2022 Private Health Insurance [id number] 2019 Unknown MMO MMO [employer] [id number] 2019-Present [phone] [address] [place] [address] PPO [id number] 2019 Unknown 2018 Unknown [employer] M [employer] M[employer]UAL [address] xxxxxxxxxxxx 2018-Present [phone] [address] [place] [address] xxxxxxxxxxxx [id number] 2018 Unknown [id number] 2000 Unknown [id number] Private Health Insurance [id number] Social History Date Type Detail Facility Start: 06-07-2019 End: 05-30-2022 Tobacco smoking status NHIS Never smoker [facility] Start: 06-07-2019 End: 12-10-2024 Alcohol intake Current drinker of alcohol (finding) [place], [place] Start: 06-07-2019 End: 05-14-2021 History SDOH [employer] Phone 5 [place] Start: 06-07-2019 History SDOH Social Connections [employer] [address] [place], [place] Start: 06-07-2019 End: 12-18-2019 History SDOH Social Connections Membership 1 [place] Start: 06-07-2019 History SDOH Social Connections Meetings 3 [place] Start: 06-07-2019 History SDOH Physical Activity MPS 7 [place], [place] Start: 2000 Sex Assigned At Not on file [place] Start: 03-30-2020 End: 05-30-2022 Tobacco use and exposure Never used [place] Start: 03-24-2020 Alcohol Comment occassionally [place] Start: 06-15-2021 End: 05-17-2022 Exposure to SARS-CoV-2 (event) Not sure [place] Start: 2000 Sex Assigned At Female [employer] Phone: Start: 08-19-2020 End: 04-16-2024 Alcohol intake Ex-drinker (finding) [employer] Phone: Start: 06-25-2021 End: 05-30-2022 Alcohol intake Lifetime non-drinker (finding) [facility] Start: 05-17-2022 End: 09-21-2023 History of Social function [facility] Start: 05-17-2022 End: 09-21-2023 Tobacco use panel [facility] Start: 12-09-2022 [facility] Has the [employer], oil, or water company threatened to shut off services in your home in past 12Mo No [facility] (I/We) worried wheth er (my/our) food would run out before (I/we) got money to buy more. Never true [facility] In the past 12 month s, has lack of transportation kept you from medical appointments or from getting medications? No [facility] The thought of ramonita [place] myself has occurred to me Never [facility] Do you belong to any clubs or organizations such as islam groups, unions, fraternal or athletic groups, or school groups? Yes [facility] Are you now , , , , never or living with a partner? [facility] Do you feel stress - tense, restless, nervous, or anxious, or unable to sleep at night because your mind is troubled all the time - these days [OSQ] Not at all [facility] Start: 11-01-2021 Sex Female (finding) [facility] Start: 04-21-2024 Alcohol Comment occasionally [facility] Clinical Notes 08-25-2020 to 12-10-2024 Llea Charles APRN - [place] - 12/10/2024 2:45 PM Armando Desai DO - 08/01/2024 8:00 AM Yeimi Mccarty MD - 07/23/2024 11:00 AM Caro Paulson PA-C - 06/05/2024 1:00 PM ESTInstructions Note Date & Type Note Facility 12-10-2024 History of Presen t illness Narrative Zunilda Sorensen 12/10/2024 Patient's last menstrual period was 11/20/2024 (exact date). Chief Complaint Patient presents with Contraception Iud removal HPI: The patient is requesting that her IUD be removed because They are going to start trying to get . She is not planning on becoming . The patient was counseled on the procedure. Risks, benefits and alternatives were reviewed. Medical History[1] Surgical History[2] Social History[3] MEDICATIONS: Current Medications[4] ALLERGIES: Allergies as of 12/10/2024 - Reviewed 12/10/2024 Allergen Reaction Noted Peanut-containing drug products Anaphylaxis 11/09/2016 Amoxicillin Nausea And Vomiting 06/25/2021 Peanut (diagnostic) Rash 06/05/2024 PHYSICAL EXAM: Vitals: 12/10/24 1452 BP: 128/72 Weight: 130 lb 6.4 oz (59.1 kg) CONSTITUTIONAL: Well developed, well nourished, well groomed. no acute distress RESPIRATORY: Normal effort NEUROLOGICAL: no gross motor or sensory deficits noted. . SKIN: intact, dry PSYCHIATRIC Normal mood and affect, A&O x3. : Normal external genitalia, normal urethra, normal perineum, normal glands, vagina normal, cervix normal. IUD strings are present. GI: Anus normal Procedure A consent was reviewed and obtained. The patient was positioned comfortably on the exam table. A speculum was placed without incident and the string was identified at the cervical portio.The string was grasped with a ring forcep and the IUD was removed without incident. Patient tolerated the procedure well. The patient was seen with total face to face time of 20 minutes. More than 50% of this visit was on counseling and education regarding family planning. She was also counseled on her preventative health maintenance recommendations and follow-up. ASSESSMENT/PLAN: Zunilda was seen today for contraception. Diagnoses and all orders for this visit: Encounter for IUD removal (Primary) - Remove IUD Follow up if symptoms worsen or fail to improve. [1] Past Medical History: Diagnosis Date Acne Asthmatic bronchitis without complication 2018 Chronic seasonal allergic rhinitis due to pollen 2018 Contraception, device intrauterine nuva ring Fibroadenoma of breast, left [2] Past Surgical History: Procedure Laterality Date BREAST BIOPSY Left 06/30/2020 Wire localized excisional biopsy of left breast mass (Dr. Ta) BREAST LUMPECTOMY Left 06/30/2020 mass removed on left breast COLONOSCOPY 01/27/2022 unremarkable ESOPHAGOGASTRODUODENOSCOPY 01/27/2022 erythema GE junction TONSILLECTOMY AND ADENOIDECTOMY (HISTORICAL) 2006 WISDOM TOOTH EXTRACTION 2020 [3] Social History Tobacco Use Smoking status: Never Smokeless tobacco: Never Vaping Use Vaping status: Never Used Substance Use Topics Alcohol use: Yes Comment: occasionally Drug use: No [4] Current Outpatient Medications Medication Sig Dispense Refill loratadine-pseudoephedrine ER (Claritin-D 12-hour) 5-120 MG 12 hr tablet Take 1 tablet by mouth 2 times daily for 14 days. Do not crush, chew, or split. 28 tablet 0 Mirena, 52 MG, 20 MCG/DAY IUD montelukast (Singulair) 10 MG tablet Take 10 mg by mouth Nightly. No current facility-administered medications for this visit. documented in this encounter [facility] 08-01-2024 History of Presen t illness Narrative Images from the original note were not included. [facility] - [address] [facility] [address] Visit type: Established Patient Reason for Visit: Establish Care Assessment and Plan Diagnoses and all orders for this visit: Well adult exam Encouraged avoidance of tobacco and alcohol, safe sexual practice. Healthy diet with plenty of fruits, vegetables, whole grains, and lean proteins. Exercise 3-5 times per week for 30-45 minutes. Wear seatbelts. Wear sunscreen. Reviewed age appropriate screening tests. No follow-ups on file. Vanna Mauro is a 23 yo wf with a past medical history of asthma who presents to establish care. 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 HENT: Negative for congestion, ear pain, hearing loss, postnasal drip, sore throat and trouble swallowing. Eyes: Negative for discharge, itching and visual disturbance. Respiratory: Negative for cough, shortness of breath and wheezing. Cardiovascular: Negative for chest pain, palpitations and leg swelling. Gastrointestinal: Negative for abdominal pain, constipation, diarrhea, nausea and vomiting. Endocrine: Negative for cold intolerance, heat intolerance, polydipsia, polyphagia and polyuria. Genitourinary: Negative for difficulty urinating, frequency, urgency, vaginal bleeding, vaginal discharge and vaginal pain. Musculoskeletal: Negative for arthralgias, back pain, joint swelling and myalgias. Skin: Negative for color change, rash and wound. Neurological: Negative for dizziness, tremors, seizures, speech difficulty, weakness, numbness and headaches. Hematological: Negative for adenopathy. Does not bruise/bleed easily. Psychiatric/Behavioral: Negative for agitation, decreased concentration, dysphoric mood and sleep disturbance. The patient is not nervous/anxious. Allergies Allergen Reactions Peanut-Containing Drug Products Anaphylaxis Amoxicillin Nausea And Vomiting Other reaction(s): Vomiting Peanut (Diagnostic) Rash Current Outpatient Medications: loratadine-pseudoephedrine ER (Claritin-D 12-hour) 5-120 MG 12 hr tablet, Take 1 tablet by mouth 2 times daily for 14 days. Do not crush, chew, or split., Disp: 28 tablet, Rfl: 0 Mirena, 52 MG, 20 MCG/DAY IUD, , Disp: , Rfl: montelukast (Singulair) 10 MG tablet, Take 10 mg by mouth Nightly., Disp: , Rfl: Past Medical History: Diagnosis Date Acne Asthmatic bronchitis without complication 2018 Chronic seasonal allergic rhinitis due to pollen 2018 Contraception, device intrauterine nuva ring Fibroadenoma of breast, left Social History Socioeconomic History Marital status: Tobacco Use Smoking status: Never Smokeless tobacco: Never Vaping Use Vaping status: Never Used Substance and Sexual Activity Alcohol use: Yes Comment: occasionally Drug use: No Sexual activity: Yes Partners: Male control/protection: I.U.D. Social History Narrative Graduated [employer] in Mar 2022. She . 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 Overall Financial Resource Strain (CARDIA) Difficulty of Paying Living Expenses: Not hard at all Food Insecurity: No Food Insecurity (08/11/2023) Hunger Vital Sign Worried About Running Out of Food in the Last Year: Never true Ran Out of Food in the Last Year: Never true Transportation Needs: No Transportation Needs (08/11/2023) PRAPARE - Transportation Lack of Transportation (Medical): No Lack of Transportation (Non-Medical): No Physical Activity: Insufficiently Active (10/09/2023) Exercise Vital Sign Days of Exercise per Week: 3 days Minutes of Exercise per Session: 20 min Stress: No Stress Concern Present (10/09/2023) [employer] [place] [employer] - Occupational Stress Questionnaire Feeling of Stress : Not at all Social Connections: Socially Integrated (10/09/2023) Social Connection and Isolation Panel [NHANES] Frequency of Communication with Friends and Family: More than three times a week Frequency of Social Gatherings with Friends and Family: More than three times a week Attends Mandaen Services: More than 4 times per year Active Member of Clubs or Organizations: Yes Attends Club or Organization Meetings: More than 4 times per year Marital Status: Intimate Partner Violence: Not At Risk (08/11/2023) Humiliation, Afraid, Rape, and Kick questionnaire Fear of Current or Ex-Partner: No Emotionally Abused: No Physically Abused: No Sexually Abused: No Housing Stability: Low Risk (08/11/2023) Housing Stability Vital Sign Unable to Pay for Housing in the Last Year: No Number of Places Lived in the Last Year: 1 Unstable Housing in the Last Year: No Past Surgical History: Procedure Laterality Date BREAST BIOPSY Left 06/30/2020 Wire localized excisional biopsy of left breast mass (Dr. Ta) BREAST LUMPECTOMY Left 06/30/2020 mass removed on left breast COLONOSCOPY 01/27/2022 unremarkable ESOPHAGOGASTRODUODENOSCOPY 01/27/2022 erythema GE junction TONSILLECTOMY AND ADENOIDECTOMY (HISTORICAL) 2006 WISDOM TOOTH EXTRACTION 2020 Past Surgical History: Procedure Laterality Date BREAST BIOPSY Left 06/30/2020 Wire localized excisional biopsy of left breast mass (Dr. Ta) BREAST LUMPECTOMY Left 06/30/2020 mass removed on left breast COLONOSCOPY 01/27/2022 unremarkable ESOPHAGOGASTRODUODENOSCOPY 01/27/2022 erythema GE junction TONSILLECTOMY AND ADENOIDECTOMY (HISTORICAL) 2006 WISDOM TOOTH EXTRACTION 2020 Family History Problem Relation Name Age of Onset Breast cancer Father's Sister Uterine cancer Neg Hx No Known Problems Mother Mayra Ovarian cancer Neg Hx Colon cancer Neg Hx No Known Problems Father Juliocesar Objective BP 115/74 Pulse 75 Temp 36.9 C (98.4 F) Ht 4' 11 (1.499 m) Wt 133 lb (60.3 kg) SpO2 98% BMI 26.86 kg/m Physical Exam Vitals and nursing note reviewed. Constitutional: General: She is not in acute distress. Appearance: Normal appearance. She is not ill-appearing. HENT: Head: Normocephalic and atraumatic. Right Ear: Tympanic membrane, ear canal and external ear normal. Left Ear: Tympanic membrane, ear canal and external ear normal. Nose: Nose normal. Mouth/Throat: Mouth: Mucous membranes are dry. Eyes: Extraocular Movements: Extraocular movements intact. Conjunctiva/sclera: Conjunctivae normal. Pupils: Pupils are equal, round, and reactive to light. Cardiovascular: Rate and Rhythm: Normal rate and regular rhythm. Heart sounds: No murmur heard. No friction rub. Pulmonary: Effort: Pulmonary effort is normal. No respiratory distress. Breath sounds: Normal breath sounds. No stridor. No wheezing, rhonchi or rales. Chest: Chest wall: No tenderness. Abdominal: General: Abdomen is flat. Bowel sounds are normal. There is no distension. Palpations: Abdomen is soft. There is no mass. Tenderness: There is no abdominal tenderness. There is no guarding or rebound. Hernia: No hernia is present. Musculoskeletal: General: Normal range of motion. Cervical back: Normal range of motion and neck supple. Right lower leg: No edema. Left lower leg: No edema. Skin: General: Skin is warm and dry. Neurological: General: No focal deficit present. Mental Status: She is alert and oriented to person, place, and time. Psychiatric: Mood and Affect: Mood normal. Behavior: Behavior normal. Thought Content: Thought content normal. Judgment: Judgment normal. Data Reviewed POCT: Labs: Imaging/Testing: Chart Clean Up: Medications Discontinued During This Encounter Medication Reason fluticasone (Flonase) 50 MCG/ACT nasal spray Med list cleanup nystatin-triamcinolone (Mycolog II) ointment Med list cleanup ibuprofen 600 MG tablet Med list cleanup levocetirizine (Xyzal) 5 MG tablet Alivia Desai DO 08/01/2024 9:02 AM documented in this encounter [facility] 07-23-2024 History of Presen t illness Narrative HPI: Here for 1 month hx of worsening itching in vulvar area. Affecting intimacy with her . Happens for 1-2 wks following intercourse. Itching so bad it bothers her during routine activities. REVIEW OF SYSTEMS: Gen: denies weight loss, fatigue, fevers/chills : see HPI PHYSICAL EXAM: Vitals: 07/23/24 1102 BP: 115/71 PHYSICAL EXAM: Gen: normal appearance, NAD Neuro: AAOx3 Psych: normal affect Abd: soft, NT, ND, no masses palpated External genitalia: normal, no lesions, no skin discoloration, normal introitus Urethral meatus: normal, no diverticulum or irritation present Vagina: normal, no lesions; +discharge Zunilda was seen today for vaginal discharge. Diagnoses and all orders for this visit: Vulvar itching - Sureswab(R) Adv Jyoti Vaginitis (CV), TMA ([facility]) - SureSwab(R) Adv Bacterial Vaginosis (BV), TMA ([facility]) Other orders - nystatin-triamcinolone (Mycolog II) ointment; Apply pea sized amount topically daily as needed to affected area PLAN: -rx for topical cream for external itching -swab for BV and yeast sent -all questions answered documented in this encounter [facility] 07-22-2024 Telephone encounter Note S: Patient called the clinical access center with complaint of vaginal discharge, itching . B: started 2 weeks ago A: Pt complains of dark brown vaginal discharge, itching, redness and discomfort. She denies abdominal pain or fever. R: appt at [address] [place] [address] Mccarty on 07/23. Pt advised to bring photo ID, insurance card, medications with them to their visit if possible. Home care advise given to patient: No Sexual [place], douches or medication intravaginally 48-72 hours before examination Covid/Flu questions: 1) Current symptoms consistent with Covid/Flu-no 2) Have you tested positive for Covid/Flu in last 10 days-no, has not taken a test 3) Known exposure to Covid/Flu in the last 10 days -no 4) Traveled out of the country in the last 10 days-no Reason for Disposition Genital area looks infected (e.g., draining sore, spreading redness) Protocols used: Vaginal [id number] [facility] 07-22-2024 Miscellaneous Notes S: Patient called the clinical access center with complaint of vaginal discharge, itching . B: started 2 weeks ago A: Pt complains of dark brown vaginal discharge, itching, redness and discomfort. She denies abdominal pain or fever. R: appt at [address] [place] [address] Mccarty on 07/23. Pt advised to bring photo ID, insurance card, medications with them to their visit if possible. Home care advise given to patient: No Sexual [place], douches or medication intravaginally 48-72 hours before examination Covid/Flu questions: 1) Current symptoms consistent with Covid/Flu-no 2) Have you tested positive for Covid/Flu in last 10 days-no, has not taken a test 3) Known exposure to Covid/Flu in the last 10 days -no 4) Traveled out of the country in the last 10 days-no Reason for Disposition Genital area looks infected (e.g., draining sore, spreading redness) Protocols used: Vaginal [id number] documented in this encounter [facility] 06-05-2024 History of Presen t illness Narrative Images from the original note were not included. [facility] - [address] [facility] [address] Dept: [phone] Dept Loc: [phone] Visit type: Established Patient Reason for Visit: Cough (Head congestion) Assessment and Plan 1. Fever, unspecified fever cause - POCT Influenza A/B - cefdinir (Omnicef) 300 MG capsule; Take 1 capsule (300 mg) by mouth 2 times daily for 10 days., Starting Mon06/05/2024, Until 06/15/2024, Normal - predniSONE (Deltasone) 20 MG tablet; Take 2 tablets (40 mg) by mouth daily for 5 days., Starting Mon06/05/2024, Until Mon06/10/2024, Normal - loratadine-pseudoephedrine ER (Claritin-D 12-hour) 5-120 MG 12 hr tablet; Take 1 tablet by mouth 2 times daily for 14 days. Do not crush, chew, or split., Starting Mon06/05/2024, Until Mon06/19/2024, Normal 2. Upper respiratory tract infection, unspecified type - cefdinir (Omnicef) 300 MG capsule; Take 1 capsule (300 mg) by mouth 2 times daily for 10 days., Starting Mon06/05/2024, Until 06/15/2024, Normal - predniSONE (Deltasone) 20 MG tablet; Take 2 tablets (40 mg) by mouth daily for 5 days., Starting Mon06/05/2024, Until Mon06/10/2024, Normal - loratadine-pseudoephedrine ER (Claritin-D 12-hour) 5-120 MG 12 hr tablet; Take 1 tablet by mouth 2 times daily for 14 days. Do not crush, chew, or split., Starting Mon06/05/2024, Until Mon06/19/2024, Normal Patient is having been sick over a week now has a little bit of wheezing in the right base. Certainly does not appear septic or toxic in acute distress she states she has been sick for over a week now her son was positive for RSV. Certainly she could be dealing with RSV sequelae. Flu test was done here is negative. The fact she is been sick for over a week she was placed on antibiotic to cover sinuses as well as upper respiratory symptoms with sinusitis versus sinobronchitis plenty rest plenty fluids note for work offered declined follow-up if symptoms or not improving. Follow up eventually to schedule with PCP to re establish. Subjective Fever This is a recurrent problem. The current episode started in the past 7 days. The problem occurs daily. The maximum temperature noted was 100 to 100.9 F. Associated symptoms include congestion, coughing, ear pain and sleepiness. Pertinent negatives include no chest pain, diarrhea, headaches, nausea or vomiting. Risk factors: no contaminated food, no contaminated water, no hx of cancer, no immunosuppression, no occupational exposure, no recent sickness, no recent travel and no sick contacts this is a 23-year-old female with underlying history of asthma activity induced, who has not seen her primary care physician since September 2021, contacted the call center today for immediate same-day evaluation for concerns that she has had a fever and not feeling well for 3 days. Patient reports ongoing issues with coughing and sinus congestion. Fever that has been ongoing for past week, dayquil and nyquil and tylenol, stuffy and congested and drainage down back of throat. Son has been sick recently but is better now, with RSV. Review of Systems Constitutional: Positive for fatigue and fever. Negative for chills. HENT: Positive for congestion, ear pain and postnasal drip. Negative for sinus pressure. Respiratory: Positive for cough. Negative for shortness of breath. Cardiovascular: Negative for chest pain. Gastrointestinal: Negative for diarrhea, nausea and vomiting. Musculoskeletal: Negative for myalgias. Neurological: Negative for dizziness, light-headedness and headaches. All other systems reviewed and are negative. Allergies Allergen Reactions Peanut-Containing Drug Products Anaphylaxis Amoxicillin Nausea And Vomiting Other reaction(s): Vomiting Peanut (Diagnostic) Rash Current Outpatient Medications Medication Sig Dispense Refill fluticasone (Flonase) 50 MCG/ACT nasal spray 1 spray twice a day. ibuprofen 600 MG tablet Take 1 tablet (600 mg) by mouth every 6 hours as needed for moderate pain (4-6). 60 tablet 0 levocetirizine (Xyzal) 5 MG tablet Take 5 mg by mouth Nightly. Mirena, 52 MG, 20 MCG/DAY IUD montelukast (Singulair) 10 MG tablet Take 10 mg by mouth Nightly. cefdinir (Omnicef) 300 MG capsule Take 1 capsule (300 mg) by mouth 2 times daily for 10 days. 20 capsule 0 loratadine-pseudoephedrine ER (Claritin-D 12-hour) 5-120 MG 12 hr tablet Take 1 tablet by mouth 2 times daily for 14 days. Do not crush, chew, or split. 28 tablet 0 predniSONE (Deltasone) 20 MG tablet Take 2 tablets (40 mg) by mouth daily for 5 days. 10 tablet 0 [id number] (PRE- PO) Take by mouth. No current facility-administered medications for this visit. Past Medical History: Diagnosis Date Acne Asthmatic bronchitis without complication 2017 Chronic seasonal allergic rhinitis due to pollen 2018 Contraception, device intrauterine nuva ring Fibroadenoma of breast, left Social History Tobacco Use Smoking status: Never Smokeless tobacco: Never Substance Use Topics Alcohol use: Yes Comment: occasionally Past Surgical History: Procedure Laterality Date BREAST BIOPSY Left 06/30/2020 Wire localized excisional biopsy of left breast mass (Dr. Ta) BREAST LUMPECTOMY Left 06/30/2020 mass removed on left breast COLONOSCOPY 01/27/2022 unremarkable ESOPHAGOGASTRODUODENOSCOPY 01/27/2022 erythema GE junction TONSILLECTOMY AND ADENOIDECTOMY (HISTORICAL) 2006 WISDOM TOOTH EXTRACTION 2020 Family History Problem Relation Name Age of Onset Breast cancer Father's Sister Uterine cancer Neg Hx No Known Problems Mother Mayra Ovarian cancer Neg Hx Colon cancer Neg Hx No Known Problems Father Juliocesar Objective BP 110/80 Pulse 97 Temp 37.3 C (99.1 F) (Temporal) Ht 4' 11 (1.499 m) Wt 135 lb 6.4 oz (61.4 kg) SpO2 98% BMI 27.35 kg/m Physical Exam Vitals reviewed. Constitutional: General: She is not in acute distress. Appearance: Normal appearance. She is not ill-appearing or toxic-appearing. HENT: Right Ear: Tympanic membrane and ear canal normal. Left Ear: Tympanic membrane and ear canal normal. Mouth/Throat: Mouth: Mucous membranes are moist. Pharynx: No oropharyngeal exudate or posterior oropharyngeal erythema. Eyes: General: No scleral icterus. Conjunctiva/sclera: Conjunctivae normal. Pupils: Pupils are equal, round, and reactive to light. Cardiovascular: Rate and Rhythm: Normal rate and regular rhythm. Heart sounds: Normal heart sounds. No murmur heard. Pulmonary: Effort: Pulmonary effort is normal. No respiratory distress. Breath sounds: Wheezing present. Musculoskeletal: Cervical back: Normal range of motion and neck supple. No rigidity or tenderness. Lymphadenopathy: Cervical: No cervical adenopathy. Skin: General: Skin is warm and dry. Neurological: Mental Status: She is alert. Psychiatric: Mood and Affect: Mood normal. Data Reviewed and Summarized Labs: Imaging/Testing: Pasha Paulson PA-C 06/05/2024 Please note that portions of this note may have been completed with voice recognition software. Documentation reviewed prior to signing but minor errors in chief embalmer may have occurred. documented in this encounter [facility] 04-29-2024 History of Presen t illness Narrative HPI: Pt being seen for US follow up. Was seen a few weaks ago by Dr. Otero for annual and right pelvic pain with radiation down her leg. Had a severe episode that brought her to the ED and labwork was normal. TVUS showed a right simple appearing 3x2x1 cm ovarian cyst. Pain has been improved since ER visit. Denies abnormal discharge, fevers, chills, N/V. REVIEW OF SYSTEMS: Gen: denies weight loss, fatigue, fevers/chills : see HPI PHYSICAL EXAM: Vitals: 04/29/24 0914 BP: 110/72 Physical Exam Vitals and nursing note reviewed. Constitutional: Appearance: Normal appearance. HENT: Head: Normocephalic and atraumatic. Eyes: Extraocular Movements: Extraocular movements intact. Pulmonary: Effort: Pulmonary effort is normal. No respiratory distress. Abdominal: Palpations: Abdomen is soft. Tenderness: There is no abdominal tenderness. There is no guarding or rebound. Skin: General: Skin is warm and dry. Neurological: General: No focal deficit present. Mental Status: She is alert and oriented to person, place, and time. Psychiatric: Mood and Affect: Mood normal. Behavior: Behavior normal. Thought Content: Thought content normal. Zunilda was seen today for results. Diagnoses and all orders for this visit: Cyst of right ovary (Primary) - US pelvis transvaginal; Future Pelvic pain PLAN: - Discussed TVUS findings showing simple appearing 3x2x1 cm right ovarian cyst, no evidence of torsion, IUD in uterine cavity - Labwork in ED normal, discussed possible rupture of cyst causing episode of severe pain - Discussed could consider dx lap with possible cystectomy vs expectant management with repeat TVUS in 6 weeks, given pt feeling improved will expectantly manage at this time - Scheduled for repeat TVUS in 6 weeks, advised to call if severe pain returns - Recommend PRN tylenol, motrin and heating pads documented in this encounter [facility] 04-22-2024 Emergency department Note Pt instructed on self swab for vaginitis panel. [facility] 04-22-2024 Emergency department Note Pt instructed on self swab for vaginitis panel. [facility] ED EMERGENCY DEPARTMENT ENCOUNTER Pt Name: Zunilda Sorensen Birthdate 2000 Date of evaluation: 04/21/2024 Provider: Ashkan Sloan MD CHIEF COMPLAINT Chief Complaint Patient presents with Pelvic Pain Sharp pain lower abd/ pelvis. Previous concern for IUD misplacement/ cyst. Has US scheduled for and follow up scheduled HISTORY OF PRESENT ILLNESS I wore proper PPE for the entirety of this encounter. Zunilda Sorensen is a 23 y.o. female who presents to the emergency department with suprapubic and diffuse abdominal pain since 10:30 PM. Noted some bloody vaginal discharge recently, but patient said that she thought it was her period. Notes she has an IUD and was told that she will be able to feel the string because it is looped up and very short. Patient says she is concerned about the placement of the IUD. She has no nausea, vomiting. Nursing Notes were reviewed. REVIEW OF SYSTEMS As above PAST MEDICAL HISTORY Past Medical History: Diagnosis Date Acne Asthmatic bronchitis without complication 2018 Chronic seasonal allergic rhinitis due to pollen 2018 Contraception, device intrauterine nuva ring Fibroadenoma of breast, left SURGICAL HISTORY Past Surgical History: Procedure Laterality Date BREAST BIOPSY Left 06/30/2020 Wire localized excisional biopsy of left breast mass (Dr. Ta) BREAST LUMPECTOMY Left 06/30/2020 mass removed on left breast COLONOSCOPY 01/27/2022 unremarkable ESOPHAGOGASTRODUODENOSCOPY 01/27/2022 erythema GE junction TONSILLECTOMY AND ADENOIDECTOMY (HISTORICAL) 2006 WISDOM TOOTH EXTRACTION 2020 CURRENT MEDICATIONS Previous Medications IBUPROFEN 600 MG TABLET Take 1 tablet (600 mg) by mouth every 6 hours as needed for moderate pain (4-6). LEVOCETIRIZINE (XYZAL) 5 MG TABLET Take 5 mg by mouth Nightly. MONTELUKAST (SINGULAIR) 10 MG TABLET Take 10 mg by mouth Nightly. [id number] (PRE-BENITA PO) Take by mouth. ALLERGIES Peanut-containing drug products and Amoxicillin FAMILY HISTORY Family History Problem Relation Name Age of Onset Breast cancer Father's Sister Uterine cancer Neg Hx No Known Problems Mother Mayra Ovarian cancer Neg Hx Colon cancer Neg Hx No Known Problems Father Juliocesar SOCIAL HISTORY Social History Socioeconomic History Marital status: Tobacco Use Smoking status: Never Smokeless tobacco: Never Vaping Use Vaping status: Never Used Substance and Sexual Activity Alcohol use: Yes Comment: occasionally Drug use: No Sexual activity: Yes Partners: Male control/protection: I.U.D. Social History Narrative Graduated [employer] in Mar 2022. She is single, engaged to be in September. Social Drivers of Health Financial Resource Strain: Low Risk (05/14/2021) Received from [facility] Overall Financial Resource Strain (CARDIA) Difficulty of Paying Living Expenses: Not hard at all Food Insecurity: No Food Insecurity (08/11/2023) Hunger Vital Sign Worried About Running Out of Food in the Last Year: Never true Ran Out of Food in the Last Year: Never true Transportation Needs: No Transportation Needs (08/11/2023) PRAPARE - Transportation Lack of Transportation (Medical): No Lack of Transportation (Non-Medical): No Physical Activity: Insufficiently Active (10/09/2023) Exercise Vital Sign Days of Exercise per Week: 3 days Minutes of Exercise per Session: 20 min Stress: No Stress Concern Present (10/09/2023) [employer] - Occupational Stress Questionnaire Feeling of Stress : Not at all Social Connections: Socially Integrated (10/09/2023) Social Connection and Isolation Panel [NHANES] Frequency of Communication with Friends and Family: More than three times a week Frequency of Social Gatherings with Friends and Family: More than three times a week Attends Mandaen Services: More than 4 times per year Active Member of Clubs or Organizations: Yes Attends Club or Organization Meetings: More than 4 times per year Marital Status: Intimate Partner Violence: Not At Risk (08/11/2023) Humiliation, Afraid, Rape, and Kick questionnaire Fear of Current or Ex-Partner: No Emotionally Abused: No Physically Abused: No Sexually Abused: No Housing Stability: Low Risk (08/11/2023) Housing Stability Vital Sign Unable to Pay for Housing in the Last Year: No Number of Places Lived in the Last Year: 1 Unstable Housing in the Last Year: No SCREENINGS PHYSICAL EXAM ED Triage Vitals Temp Heart Rate Resp BP 04/21/24233704/21/24233404/21/24233404/21/242334 36.7 C (98.1 F) 76 14 124/76 SpO2 Temp Source Heart Rate Source Patient Position 04/21/24233404/21/242337 -- -- 100 % Oral BP Location FiO2 (%) -- -- Constitutional: No acute distress HEENT:Head: Atraumatic Eyes: Conjunctivae normal. CV: RRR RESP: CTAB, good respiratory effort, no increased wob GI: Abdomen soft, minimal diffuse tenderness, non-distended, +BS, no guarding or rebound tenderness MSK: Normal bulk and tone, no gross deformity BACK: No CVA tenderness EXTR: Warm and well perfused, no edema SKIN: No rash/bruising/erythema PSYCH: Appropriate affect, cooperative behavior NEURO: Alert, face symmetric, no slurred speech DIAGNOSTIC RESULTS Interpretation per the Radiologist below, if available at the time of this note: No orders to display LABS: Labs Reviewed COMPREHENSIVE METABOLIC PANEL - Abnormal Result Value SODIUM 138 POTASSIUM 3.7 CHLORIDE 109 (*) CARBON DIOXIDE 25 ANION GAP 4 UREA NITROGEN 14 CREATININE 0.74 GLUCOSE 99 CALCIUM 9.7 AST (SGOT) 17 ALT 11 ALKALINE PHOSPHATASE 82 ALBUMIN 3.9 BILIRUBIN, TOTAL 0.2 TOTAL PROTEIN 7.0 eGFR >90.0 COMPLETE URINALYSIS - Abnormal Color, Urine Light Yellow Clarity, Urine Clear pH, Urine 6.5 Leukocytes, Urine 25 (*) Nitrite, Urine Negative Protein, Urine Negative Glucose, Urine Normal Bilirubin, Urine Negative Ketones, Urine Negative Urobilinogen, Urine Normal Blood, Urine Negative Volume, Urine 12 mL RBC, Urine Negative WBC, Urine 3-5 Squamous Epithelial, Urine 3-5 Bacteria, Urine Few (*) SPECIFIC GRAVITY OF URINE (NUMERIC) 1.022 CBC WITH AUTO DIFFERENTIAL - Normal Auto WBC 6.7 RBC 4.35 Hemoglobin 13.7 Hematocrit 39.0 MCV 89.7 MCH 31.5 MCHC 35.1 RDW 12.0 Platelets 240 MPV 9.5 nRBC 0.0 Neutrophils Relative 47.9 Lymphocytes Relative 37.6 Monocytes Relative 8.9 Eosinophils Relative 4.8 Basophils Relative 0.7 Immature Grans % 0.1 Neutrophils Absolute 3.2 Lymphocytes Absolute 2.5 Monocytes Absolute 0.6 Eosinophils Absolute 0.3 Basophils Absolute 0.1 Immature Grans Absolute 0.0 LIPASE - Normal LIPASE 35 VAGINITIS PANEL MVP PCR CHLAMYDIA/GONORRHEA COMPLETE URINALYSIS WITH REFLEX TO CULTURE Narrative: The following orders were created for panel order Urinalysis Complete with reflex to Culture. Procedure Abnormality Status --------- ------ Complete Urinalysis[[id number]] Abnormal Final result Please view results for these tests on the individual orders. HCG QUALITATIVE URINE HCG,URINE QUAL Negative Narrative: is the most common reason for HCG in urine, although choriocarcinoma, hydatidiform mole, and certain nontrophoblastic malignancies also result in detectable urinary HCG levels. Sensitivity = 20mIU/mL. EMERGENCY DEPARTMENT COURSE and DIFFERENTIAL DIAGNOSIS/MDM: Vitals: Vitals: 04/21/24 2335 04/21/24 2338 BP: 124/76 Pulse: 76 Resp: 14 Temp: 36.7 C (98.1 F) TempSrc: Oral SpO2: 100% Weight: 59.9 kg (132 lb) Height: 1.499 m (4' 11) Medications ketorolac (Toradol) injection 15 mg (15 mg IntraVENous Not Given 04/22/24 0050) acetaminophen (Tylenol) tablet 1,000 mg (1,000 mg Oral Given 04/22/24 0050) I personally saw the patient and performed a substantive portion of the visit including all aspects of the medical decision making. Patient appears nontoxic and vital signs are normal. I ordered Tylenol 1 g p.o. and Toradol 15 mg IV for pain. I recommended CT abdomen pelvis to the patient but she refused. Also discussed transferring to [facility] for an ultrasound to rule out torsion but the patient also declined because she said that she felt significantly improved. I do overall have a very low suspicion for torsion given the patient's pain was diffuse rather than on 1 side of the abdomen though cannot really rule it out. Patient was concerned that her IUD might have migrated. I recommended pelvic exam check to see if the strings in place and/or CT abdomen pelvis the patient declined both. Patient said that she was seen by [facility] this week and was told that they saw the string however I do not see that in the [facility] note in the chart and I did discuss this with the patient. The urinalysis has some leuk esterase and few bacteria but no nitrates and essentially no WBCs so I doubt UTI. test is negative. CBC with no leukocytosis. CMP is normal. Lipase is normal. I have no concern for acute surgical abdominal emergency. Patient discharged home in good condition. Diagnoses as of 04/22/24102 Pelvic pain PROCEDURES: Unless otherwise noted below, none Procedures Patients symptoms are consistent with sepsis, severe sepsis, or septic shock (If yes use .sepsiscoremeasure): no FINAL IMPRESSION 1. Pelvic pain DISPOSITION/PLAN Discharge 04/22/2024 12:59:45 AM PATIENT REFERRED TO: Your OBGYN and primary care provider Schedule an appointment as soon as possible for a visit DISCHARGE MEDICATIONS: New Prescriptions No medications on file (Please note: Portions of this note were completed with a voice recognition program. Efforts were made to edit the dictations but occasionally words and phrases are mis-transcribed.) Ashkan Sloan MD LAST Emergency Medicine Physician Acute [facility] Ashkan Sloan MD 04/22/24102 documented in this encounter [facility] 04-22-2024 Hospital Discharg e instructions Ashkan Sloan MD - 04/22/2024 1:00 AM EST You were seen in the Emergency Department for pelvic pain. Your lab tests were overall reassuring. We recommended getting a CAT scan or a ultrasound but you declined. You can return at any time to get this imaging done. You should definitely come back to the ER if your pain worsens. You can take Tylenol and/or Motrin as needed for pain at home. Return to the Emergency Department if you have: - Severe pain - High fever (102F) - Any other symptoms that concern you Please sign up for MyChart and review all results from your visit today. Please follow up with your primary care provider with any questions or concerns about your results today. Thank you for choosing [facility] for your care. Sincerely, Ashkan Sloan MD documented in this encounter [facility] 04-21-2024 Physician Emergency department Note [facility] ED EMERGENCY DEPARTMENT ENCOUNTER Pt Name: Zunilda Sorensen Birthdate 2000 Date of evaluation: 04/21/2024 Provider: Ashkan Sloan MD CHIEF COMPLAINT Chief Complaint Patient presents with Pelvic Pain Sharp pain lower abd/ pelvis. Previous concern for IUD misplacement/ cyst. Has US scheduled for and follow up scheduled HISTORY OF PRESENT ILLNESS I wore proper PPE for the entirety of this encounter. Zunilda Sorensen is a 23 y.o. female who presents to the emergency department with suprapubic and diffuse abdominal pain since 10:30 PM. Noted some bloody vaginal discharge recently, but patient said that she thought it was her period. Notes she has an IUD and was told that she will be able to feel the string because it is looped up and very short. Patient says she is concerned about the placement of the IUD. She has no nausea, vomiting. Nursing Notes were reviewed. REVIEW OF SYSTEMS As above PAST MEDICAL HISTORY Past Medical History: Diagnosis Date Acne Asthmatic bronchitis without complication 2018 Chronic seasonal allergic rhinitis due to pollen 2018 Contraception, device intrauterine nuva ring Fibroadenoma of breast, left SURGICAL HISTORY Past Surgical History: Procedure Laterality Date BREAST BIOPSY Left 06/30/2020 Wire localized excisional biopsy of left breast mass (Dr. Ta) BREAST LUMPECTOMY Left 06/30/2020 mass removed on left breast COLONOSCOPY 01/27/2022 unremarkable ESOPHAGOGASTRODUODENOSCOPY 01/27/2022 erythema GE junction TONSILLECTOMY AND ADENOIDECTOMY (HISTORICAL) 2006 WISDOM TOOTH EXTRACTION 2020 CURRENT MEDICATIONS Previous Medications IBUPROFEN 600 MG TABLET Take 1 tablet (600 mg) by mouth every 6 hours as needed for moderate pain (4-6). LEVOCETIRIZINE (XYZAL) 5 MG TABLET Take 5 mg by mouth Nightly. MONTELUKAST (SINGULAIR) 10 MG TABLET Take 10 mg by mouth Nightly. [id number] (PRE- PO) Take by mouth. ALLERGIES Peanut-containing drug products and Amoxicillin FAMILY HISTORY Family History Problem Relation Name Age of Onset Breast cancer Father's Sister Uterine cancer Neg Hx No Known Problems Mother Mayra Ovarian cancer Neg Hx Colon cancer Neg Hx No Known Problems Father Juliocesar SOCIAL HISTORY Social History Socioeconomic History Marital status: Tobacco Use Smoking status: Never Smokeless tobacco: Never Vaping Use Vaping status: Never Used Substance and Sexual Activity Alcohol use: Yes Comment: occasionally Drug use: No Sexual activity: Yes Partners: Male control/protection: I.U.D. Social History Narrative Graduated [employer] in Mar 2022. She is single, engaged to be in September. Social Drivers of Health Financial Resource Strain: Low Risk (05/14/2021) Received from [facility] Overall Financial Resource Strain (CARDIA) Difficulty of Paying Living Expenses: Not hard at all Food Insecurity: No Food Insecurity (08/11/2023) Hunger Vital Sign Worried About Running Out of Food in the Last Year: Never true Ran Out of Food in the Last Year: Never true Transportation Needs: No Transportation Needs (08/11/2023) PRAPARE - Transportation Lack of Transportation (Medical): No Lack of Transportation (Non-Medical): No Physical Activity: Insufficiently Active (10/09/2023) Exercise Vital Sign Days of Exercise per Week: 3 days Minutes of Exercise per Session: 20 min Stress: No Stress Concern Present (10/09/2023) [employer] - Occupational Stress Questionnaire Feeling of Stress : Not at all Social Connections: Socially Integrated (10/09/2023) Social Connection and Isolation Panel [NHANES] Frequency of Communication with Friends and Family: More than three times a week Frequency of Social Gatherings with Friends and Family: More than three times a week Attends Mandaen Services: More than 4 times per year Active Member of Clubs or Organizations: Yes Attends Club or Organization Meetings: More than 4 times per year Marital Status: Intimate Partner Violence: Not At Risk (08/11/2023) Humiliation, Afraid, Rape, and Kick questionnaire Fear of Current or Ex-Partner: No Emotionally Abused: No Physically Abused: No Sexually Abused: No Housing Stability: Low Risk (08/11/2023) Housing Stability Vital Sign Unable to Pay for Housing in the Last Year: No Number of Places Lived in the Last Year: 1 Unstable Housing in the Last Year: No SCREENINGS PHYSICAL EXAM ED Triage Vitals Temp Heart Rate Resp BP 04/21/24233704/21/24233404/21/24233404/21/242334 36.7 C (98.1 F) 76 14 124/76 SpO2 Temp Source Heart Rate Source Patient Position 04/21/24233404/21/242337 -- -- 100 % Oral BP Location FiO2 (%) -- -- Constitutional: No acute distress HEENT:Head: Atraumatic Eyes: Conjunctivae normal. CV: RRR RESP: CTAB, good respiratory effort, no increased wob GI: Abdomen soft, minimal diffuse tenderness, non-distended, +BS, no guarding or rebound tenderness MSK: Normal bulk and tone, no gross deformity BACK: No CVA tenderness EXTR: Warm and well perfused, no edema SKIN: No rash/bruising/erythema PSYCH: Appropriate affect, cooperative behavior NEURO: Alert, face symmetric, no slurred speech DIAGNOSTIC RESULTS Interpretation per the Radiologist below, if available at the time of this note: No orders to display LABS: Labs Reviewed COMPREHENSIVE METABOLIC PANEL - Abnormal Result Value SODIUM 138 POTASSIUM 3.7 CHLORIDE 109 (*) CARBON DIOXIDE 25 ANION GAP 4 UREA NITROGEN 14 CREATININE 0.74 GLUCOSE 99 CALCIUM 9.7 AST (SGOT) 17 ALT 11 ALKALINE PHOSPHATASE 82 ALBUMIN 3.9 BILIRUBIN, TOTAL 0.2 TOTAL PROTEIN 7.0 eGFR >90.0 COMPLETE URINALYSIS - Abnormal Color, Urine Light Yellow Clarity, Urine Clear pH, Urine 6.5 Leukocytes, Urine 25 (*) Nitrite, Urine Negative Protein, Urine Negative Glucose, Urine Normal Bilirubin, Urine Negative Ketones, Urine Negative Urobilinogen, Urine Normal Blood, Urine Negative Volume, Urine 12 mL RBC, Urine Negative WBC, Urine 3-5 Squamous Epithelial, Urine 3-5 Bacteria, Urine Few (*) SPECIFIC GRAVITY OF URINE (NUMERIC) 1.022 CBC WITH AUTO DIFFERENTIAL - Normal Auto WBC 6.7 RBC 4.35 Hemoglobin 13.7 Hematocrit 39.0 MCV 89.7 MCH 31.5 MCHC 35.1 RDW 12.0 Platelets 240 MPV 9.5 nRBC 0.0 Neutrophils Relative 47.9 Lymphocytes Relative 37.6 Monocytes Relative 8.9 Eosinophils Relative 4.8 Basophils Relative 0.7 Immature Grans % 0.1 Neutrophils Absolute 3.2 Lymphocytes Absolute 2.5 Monocytes Absolute 0.6 Eosinophils Absolute 0.3 Basophils Absolute 0.1 Immature Grans Absolute 0.0 LIPASE - Normal LIPASE 35 VAGINITIS PANEL MVP PCR CHLAMYDIA/GONORRHEA COMPLETE URINALYSIS WITH REFLEX TO CULTURE Narrative: The following orders were created for panel order Urinalysis Complete with reflex to Culture. Procedure Abnormality Status --------- ------ Complete Urinalysis[[id number]] Abnormal Final result Please view results for these tests on the individual orders. HCG QUALITATIVE URINE HCG,URINE QUAL Negative Narrative: is the most common reason for HCG in urine, although choriocarcinoma, hydatidiform mole, and certain nontrophoblastic malignancies also result in detectable urinary HCG levels. Sensitivity = 20mIU/mL. EMERGENCY DEPARTMENT COURSE and DIFFERENTIAL DIAGNOSIS/MDM: Vitals: Vitals: 04/21/24 2335 04/21/24 2338 BP: 124/76 Pulse: 76 Resp: 14 Temp: 36.7 C (98.1 F) TempSrc: Oral SpO2: 100% Weight: 59.9 kg (132 lb) Height: 1.499 m (4' 11) Medications ketorolac (Toradol) injection 15 mg (15 mg IntraVENous Not Given 04/22/24 0050) acetaminophen (Tylenol) tablet 1,000 mg (1,000 mg Oral Given 04/22/24 0050) I personally saw the patient and performed a substantive portion of the visit including all aspects of the medical decision making. Patient appears nontoxic and vital signs are normal. I ordered Tylenol 1 g p.o. and Toradol 15 mg IV for pain. I recommended CT abdomen pelvis to the patient but she refused. Also discussed transferring to [facility] for an ultrasound to rule out torsion but the patient also declined because she said that she felt significantly improved. I do overall have a very low suspicion for torsion given the patient's pain was diffuse rather than on 1 side of the abdomen though cannot really rule it out. Patient was concerned that her IUD might have migrated. I recommended pelvic exam check to see if the strings in place and/or CT abdomen pelvis the patient declined both. Patient said that she was seen by [facility] this week and was told that they saw the string however I do not see that in the FITTER WELDER note in the chart and I did discuss this with the patient. The urinalysis has some leuk esterase and few bacteria but no nitrates and essentially no WBCs so I doubt UTI. test is negative. CBC with no leukocytosis. CMP is normal. Lipase is normal. I have no concern for acute surgical abdominal emergency. Patient discharged home in good condition. Diagnoses as of 04/22/24102 Pelvic pain PROCEDURES: Unless otherwise noted below, none Procedures Patients symptoms are consistent with sepsis, severe sepsis, or septic shock (If yes use .sepsiscoremeasure): no FINAL IMPRESSION 1. Pelvic pain DISPOSITION/PLAN Discharge 04/22/2024 12:59:45 AM PATIENT REFERRED TO: Your OBGYN and primary care provider Schedule an appointment as soon as possible for a visit DISCHARGE MEDICATIONS: New Prescriptions No medications on file (Please note: Portions of this note were completed with a voice recognition program. Efforts were made to edit the dictations but occasionally words and phrases are mis-transcribed.) Ashkan Sloan MD LAST Emergency Medicine Physician [facility] Ashkan Sloan MD 04/22/24102 [facility] 04-18-2024 Note Gynecologic cytology smear evaluation is subject to false positive and false negative interpretation as evidenced by published data. Your patient's Pap test results should thus be interpreted in conjunction with their clinical history and physical examination. [facility] 04-16-2024 History of Presen t illness Narrative Zunidla Sorensen 04/16/[birth year]24 23 y.o. Chief Complaint Patient presents with Annual Exam Annual exam No LMP recorded (lmp unknown). Primary Care Physician: No primary care provider on file. The patient was seen and examined. She is here for her annual. Right sided pain couple of days Has ulsd ordered to check iud 10/24 mirena inserted Rare menses with iud Sp gardasil Pap 2021 wnl No std testing desired No urintaion issues Sp vaginal delivery 2023 Not Unsure age aunt with breast cancer HPI : Zunilda Sorensen is a 23 y.o. female OB History Para Term AB Living 1 1 1 0 0 1 SAB IAB Ectopic Multiple Live Births 0 0 0 0 1 # Outcome Date GA Lbr Adalberto/2nd Weight Sex Type Anes PTL Lv 1 Term 08/11/23 37w0d / 00:27 6 lb 8.2 oz (2.955 kg) M Vag-Spont EPI N ALEX Past Medical History: Diagnosis Date Acne Asthmatic bronchitis without complication 2018 Chronic seasonal allergic rhinitis due to pollen 2018 Contraception, device intrauterine nuva ring Fibroadenoma of breast, left Past Surgical History: Procedure Laterality Date BREAST BIOPSY Left 06/30/2020 Wire localized excisional biopsy of left breast mass (Dr. Ta) BREAST LUMPECTOMY Left 06/30/2020 mass removed on left breast COLONOSCOPY 01/27/2022 unremarkable ESOPHAGOGASTRODUODENOSCOPY 01/27/2022 erythema GE junction TONSILLECTOMY AND ADENOIDECTOMY (HISTORICAL) 2006 WISDOM TOOTH EXTRACTION 2020 Family History Problem Relation Name Age of Onset Breast cancer Father's Sister Uterine cancer Neg Hx No Known Problems Mother Mayra Ovarian cancer Neg Hx Colon cancer Neg Hx No Known Problems Father Juliocesar Social History Socioeconomic History Marital status: Spouse name: Not on file Number of children: Not on file Years of education: Not on file Highest education level: Not on file Occupational History Not on file Tobacco Use Smoking status: Never Smokeless tobacco: Never Vaping Use Vaping status: Never Used Substance and Sexual Activity Alcohol use: Not Currently Drug use: No Sexual activity: Yes Partners: Male control/protection: I.U.D. Other Topics Concern Not on file Social History Narrative Graduated [employer] in Mar 2022. She is single, engaged to be in September. Social Drivers of Health Financial Resource Strain: Low Risk (05/14/2021) Received from [facility] Overall Financial Resource Strain (CARDIA) Difficulty of Paying Living Expenses: Not hard at all Food Insecurity: No Food Insecurity (08/11/2023) Hunger Vital Sign Worried About Running Out of Food in the Last Year: Never true Ran Out of Food in the Last Year: Never true Transportation Needs: No Transportation Needs (08/11/2023) PRAPARE - Transportation Lack of Transportation (Medical): No Lack of Transportation (Non-Medical): No Physical Activity: Insufficiently Active (10/09/2023) Exercise Vital Sign Days of Exercise per Week: 3 days Minutes of Exercise per Session: 20 min Stress: No Stress Concern Present (10/09/2023) [employer] - Occupational Stress Questionnaire Feeling of Stress : Not at all Social Connections: Socially Integrated (10/09/2023) Social Connection and Isolation Panel [NHANES] Frequency of Communication with Friends and Family: More than three times a week Frequency of Social Gatherings with Friends and Family: More than three times a week Attends Mandaen Services: More than 4 times per year Active Member of Clubs or Organizations: Yes Attends Club or Organization Meetings: More than 4 times per year Marital Status: Intimate Partner Violence: Not At Risk (08/11/2023) Humiliation, Afraid, Rape, and Kick questionnaire Fear of Current or Ex-Partner: No Emotionally Abused: No Physically Abused: No Sexually Abused: No Housing Stability: Low Risk (08/11/2023) Housing Stability Vital Sign Unable to Pay for Housing in the Last Year: No Number of Places Lived in the Last Year: 1 Unstable Housing in the Last Year: No MEDICATIONS: Current Outpatient Medications Medication Sig Dispense Refill ibuprofen 600 MG tablet Take 1 tablet (600 mg) by mouth every 6 hours as needed for moderate pain (4-6). 60 tablet 0 levocetirizine (Xyzal) 5 MG tablet Take 5 mg by mouth Nightly. montelukast (Singulair) 10 MG tablet Take 10 mg by mouth Nightly. Kztafhoq-Roz-Za-FA (PRE- PO) Take by mouth. No current facility-administered medications for this visit. ALLERGIES: Allergies as of 04/16/2024 - Reviewed 04/16/2024 Allergen Reaction Noted Peanut-containing drug products Anaphylaxis 11/09/2016 Amoxicillin 06/25/2021 Gynecologic History: Menstrual History: No LMP recorded (lmp unknown). Review of Systems Constitutional: Negative for fatigue, fever and unexpected weight change. HENT: Negative for congestion and sore throat. Eyes: Negative for discharge and visual disturbance. Respiratory: Negative for cough and shortness of breath. Cardiovascular: Negative for chest pain and leg swelling. Gastrointestinal: Negative for abdominal pain, constipation, diarrhea, nausea and vomiting. Genitourinary: Positive for pelvic pain. Negative for dysuria. Musculoskeletal: Negative for arthralgias and back pain. Skin: Negative for rash. Neurological: Negative for weakness and headaches. Psychiatric/Behavioral: Negative for dysphoric mood. The patient is not nervous/anxious. PHYSICAL Exam: : Vitals: 04/16/24 0743 BP: 115/72 Pulse: 73 Weight: 137 lb (62.1 kg) Height: 4' 11 (1.499 m) Physical Exam Constitutional: General: She is not in acute distress. Appearance: Normal appearance. HENT: Head: Normocephalic and atraumatic. Right Ear: External ear normal. Left Ear: External ear normal. Nose: Nose normal. Eyes: Conjunctiva/sclera: Conjunctivae normal. Neck: Thyroid: No thyromegaly. Cardiovascular: Rate and Rhythm: Normal rate. Pulmonary: Effort: Pulmonary effort is normal. No respiratory distress. Chest: Breasts: Right: No mass, nipple discharge, skin change or tenderness. Left: No mass, nipple discharge, skin change or tenderness. Abdominal: General: There is no distension. Palpations: Abdomen is soft. Tenderness: There is no abdominal tenderness. Genitourinary: General: Normal vulva. Pubic Area: No rash. Labia: Right: No rash or lesion. Left: No rash or lesion. Vagina: No vaginal discharge or bleeding. Cervix: No cervical motion tenderness. Uterus: Not enlarged and not tender. Adnexa: Right: No mass or tenderness. Left: No mass or tenderness. Rectum: Normal. Musculoskeletal: General: No swelling. Normal range of motion. Cervical back: Normal range of motion. Right lower leg: No edema. Left lower leg: No edema. Skin: General: Skin is warm and dry. Neurological: Mental Status: She is alert and oriented to person, place, and time. Mental status is at baseline. Psychiatric: Mood and Affect: Mood normal. Behavior: Behavior normal. ASSESSMENT: 23 y.o. Annual Diagnosis Plan 1. Women's annual routine gynecological examination Pap Smear 2. Pelvic pain in female Chief Complaint Patient presents with Annual Exam Annual exam Past Medical History: Diagnosis Date Acne Asthmatic bronchitis without complication 2018 Chronic seasonal allergic rhinitis due to pollen 2018 Contraception, device intrauterine nuva ring Fibroadenoma of breast, left Hereditary Breast,Ovarian, Colon and Uterine Cancer screening Done. Tobacco & Secondary smoke risks reviewed; instructedon cessation and avoidance PLAN: Follow up for as scheduled foundry worker general ulsd and fu. Repeat Annual every 1 year PAP guidelines reviewed with pt Pt declined STD testing control reviewed with pt Gardasil counseling provided Routine health maintenance per patients PCP. No orders of the defined types were placed in this encounter. documented in this encounter [facility] 04-15-2024 History of Presen t illness Narrative Building Admin was offered to the patient for exam. Patient accepted, medical director in room during exam Chief Complaint Patient presents with Follow-up Mirena inserted 10/10/23 Patient having abdominal pain radiating down right leg HPI No bleeding Some pain Pain R side ROS: Constitutional - denies fevers or chills Resp - denies CP or SOB CV - denies CP GI - denies nausea, vomiting - denies frequency and dysuria Past Medical History: Diagnosis Date Acne Asthmatic bronchitis without complication 2018 Chronic seasonal allergic rhinitis due to pollen 2018 Contraception, device intrauterine nuva ring Fibroadenoma of breast, left Past Surgical History: Procedure Laterality Date BREAST BIOPSY Left 06/30/2020 Wire localized excisional biopsy of left breast mass (Dr. Ta) BREAST LUMPECTOMY Left 06/30/2020 mass removed on left breast COLONOSCOPY 01/27/2022 unremarkable ESOPHAGOGASTRODUODENOSCOPY 01/27/2022 erythema GE junction TONSILLECTOMY AND ADENOIDECTOMY (HISTORICAL) 2006 WISDOM TOOTH EXTRACTION 2020 Allergies Allergen Reactions Peanut-Containing Drug Products Anaphylaxis Amoxicillin Other reaction(s): Vomiting @MEDCMED@ BP 104/62 Ht 1.499 m (4' 11) Wt 63.5 kg (140 lb) LMP (LMP Unknown) No BMI 28.28 kg/m PE: Well developed, well nourished Normocephalic, atraumatic CV - normal rate Resp - normal effort Abd - soft, ND MS - no edema Neuro - Pt A&Ox3, NAD Skin - warn and dry Psych - normal affect and behavior Spec - IUD string seen Zunilda was seen today for follow-up. 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 documented in this encounter [facility] 04-15-2024 Telephone encounter Note S: Patient spoke with CAC nurse regarding IUD concerns. B: Onset of symptoms/concern: yesterday A: Patient reports IUD feels out place, can't feel her strings R: Patient advised to keep appointment as scheduled tomorrow, verbalized understanding. No further needs at this time. Reason for Disposition Cannot feel IUD string or worried that IUD is not in right place (e.g., string longer than usual, can feel hard plastic of IUD) Protocols used: Contraception - IUD Symptoms and Rnbodgwrq-GZBWU-XO [facility] 04-15-2024 Miscellaneous Notes S: Patient spoke with CAC nurse regarding IUD concerns. B: Onset of symptoms/concern: yesterday A: Patient reports IUD feels out place, can't feel her strings R: Patient advised to keep appointment as scheduled tomorrow, verbalized understanding. No further needs at this time. Reason for Disposition Cannot feel IUD string or worried that IUD is not in right place (e.g., string longer than usual, can feel hard plastic of IUD) Protocols used: Contraception - IUD Symptoms and Ywqqsbnty-UHQOJ-GW documented in this encounter [facility] 03-26-2024 Note HNO ID: [id number] Author: ELHAM MCKEON APRN.CAREER SERVICES OFFICER Service: ? Author Type: Nurse Practitioner Type: Progress Notes Filed: 03/26/2024 11:36 Note Text: This note was created using Oxxyriter. Subjective Zunilda Sorensen is a 23 year old female. HPI by patient: Zunilda Caban is a 23 year old presenting to the office with the complaint of viral symptoms. Started approximately 2 weeks ago. Associated symptoms include cough, congestion, dental pain, ear pain, and headache. Covid Immunization Dates Overdue - Covid-19 Vaccine ( season) Overdue since 12/03/2023 12/09/2020 Imm Admin: COVID-19 original vaccine, age 12+ yr, monovalent (PFIZER-BIONTECH - PURPLE TOP) 11/18/2020 Imm Admin: COVID-19 original vaccine, age 12+ yr, monovalent (PFIZER-BIONTECH - PURPLE TOP) Sick contacts: yes. Smoking history/second hand smoke: none. OTC not helping. No antibiotic use in the last 60 days. ALLERGIES Amoxicillin Vomiting No family history on file. Social History Tobacco Use Smoking status: Never Smokeless tobacco: Never Vaping Use Vaping status: Never Used Alcohol use: Never Drug use: Never Active Ambulatory Problems No Active Ambulatory Problems Resolved Ambulatory Problems No Resolved Ambulatory Problems Past Medical History: No date: Acne Review of Systems Constitutional: Negative. HENT: Positive for congestion, sinus pressure and sinus pain. Negative for ear pain and sore throat. Eyes: Negative. Respiratory: Positive for cough. Cardiovascular: Negative. Gastrointestinal: Negative. Endocrine: Negative. Genitourinary: Negative. Musculoskeletal: Negative. Skin: Negative. Neurological: Positive for headaches. Hematological: Negative. Objective BP 111/77 Pulse 91 Temp 36.7 ?C (98.1 ?F) Resp 16 Wt 61.4 kg (135 lb 5.8 oz) LMP 07/31/2021 (Approximate) SpO2 97% BMI 28.30 kg/m? Physical Exam Vitals reviewed. Constitutional: General: She is not in acute distress. Appearance: She is not ill-appearing, toxic-appearing or diaphoretic. HENT: Head: Normocephalic and atraumatic. Right Ear: Tympanic membrane, ear canal and external ear normal. Left Ear: Tympanic membrane, ear canal and external ear normal. Nose: Nose normal. Right Sinus: No maxillary sinus tenderness or frontal sinus tenderness. Left Sinus: No maxillary sinus tenderness or frontal sinus tenderness. Mouth/Throat: Mouth: Mucous membranes are moist. Pharynx: Oropharynx is clear. No oropharyngeal exudate or posterior oropharyngeal erythema. Cardiovascular: Rate and Rhythm: Normal rate and regular rhythm. Pulmonary: Effort: Pulmonary effort is normal. Breath sounds: Normal breath sounds. Lymphadenopathy: Head: Right side of head: No submandibular or tonsillar adenopathy. Left side of head: No submandibular or tonsillar adenopathy. Cervical: No cervical adenopathy. Psychiatric: Behavior: Behavior is cooperative. Assessment and Plan (J06.9) Upper respiratory infection with cough and congestion (primary encounter diagnosis) Plan: doxycycline hyclate (VIBRAMYCIN) 100 mg capsule, fluticasone (FLONASE ALLERGY RELIEF) 50 mcg/actuation nasal spray, Bwmfilspcqyboii-Gmkasalzl-QI (BROMFED DM) 2-30-10 mg/5 mL syrup (Z88.0) Penicillin allergy Plan: doxycycline hyclate (VIBRAMYCIN) 100 mg capsule Education on viral vs bacterial infections. Most viral infections will last 10 days, sometimes 14. It is possible to have back to back viral infections. An antibiotic will not treat a virus. -States symptoms for 2 weeks, pcn allergy, will rx doxycycline. Doxycycline twice a day for 7 days: -drink a full glass of water with each dose - do not take with milk/dairy products - avoid sun exposure - it raises your risk for burn - if you take calcium or iron supplements, do not take them while you take this, or take them at a different time of day - stay upright for 30 minutes after taking this medicine -Bromfed for cough/congestion. -Drink lots of fluids and get plenty of rest. -Vaporizers, cool mist humidifiers, warm showers, and warm fluids help open respiratory and sinus passages. Clean humidifiers daily. -OTC tylenol as directed on the bottle. May use OTC Ibuprofen if there is no underlying blood pressure/heart disease. -Saline nasal spray as needed. Flonase twice daily can help reduce inflammation through the sinus cavities. -Cough/deep breathing education, promote clearing of the airways and good lung expansion. -Make follow up with primary care for monitoring and resolution in symptoms. -Signs that warrant an ER evaluation: Sudden change/worsening in condition, lethargy, signs of dehydration, fever greater than 102 F that is not responding to Tylenol or ibuprofen (Motrin, Advil), drooling, difficulty swallowing, difficulty breathing, shortness of breath, chest pain, evidence of airway compromise (tripod position, neck extension, r (more content not included)... [facility] 03-26-2024 History of Presen t illness Narrative This note was created using Oxxyriter. Subjective Zunilda Sorensen is a 23 year old female. HPI by patient: Zunilda Caban is a 23 year old presenting to the office with the complaint of viral symptoms. Started approximately 2 weeks ago. Associated symptoms include cough, congestion, dental pain, ear pain, and headache. Covid Immunization Dates Overdue - Covid-19 Vaccine ( season) Overdue since 12/03/2023 12/09/2020 Imm Admin: COVID-19 original vaccine, age 12+ yr, monovalent (PFIZER-BIONTECH - PURPLE TOP) 11/18/2020 Imm Admin: COVID-19 original vaccine, age 12+ yr, monovalent (PFIZER-BIONTECH - PURPLE TOP) Sick contacts: yes. Smoking history/second hand smoke: none. OTC not helping. No antibiotic use in the last 60 days. ALLERGIES Amoxicillin Vomiting No family history on file. Social History Tobacco Use Smoking status: Never Smokeless tobacco: Never Vaping Use Vaping status: Never Used Alcohol use: Never Drug use: Never Active Ambulatory Problems No Active Ambulatory Problems Resolved Ambulatory Problems No Resolved Ambulatory Problems Past Medical History: No date: Acne Review of Systems Constitutional: Negative. HENT: Positive for congestion, sinus pressure and sinus pain. Negative for ear pain and sore throat. Eyes: Negative. Respiratory: Positive for cough. Cardiovascular: Negative. Gastrointestinal: Negative. Endocrine: Negative. Genitourinary: Negative. Musculoskeletal: Negative. Skin: Negative. Neurological: Positive for headaches. Hematological: Negative. Objective BP 111/77 Pulse 91 Temp 36.7 C (98.1 F) Resp 16 Wt 61.4 kg (135 lb 5.8 oz) LMP 07/31/2021 (Approximate) SpO2 97% BMI 28.30 kg/m Physical Exam Vitals reviewed. Constitutional: General: She is not in acute distress. Appearance: She is not ill-appearing, toxic-appearing or diaphoretic. HENT: Head: Normocephalic and atraumatic. Right Ear: Tympanic membrane, ear canal and external ear normal. Left Ear: Tympanic membrane, ear canal and external ear normal. Nose: Nose normal. Right Sinus: No maxillary sinus tenderness or frontal sinus tenderness. Left Sinus: No maxillary sinus tenderness or frontal sinus tenderness. Mouth/Throat: Mouth: Mucous membranes are moist. Pharynx: Oropharynx is clear. No oropharyngeal exudate or posterior oropharyngeal erythema. Cardiovascular: Rate and Rhythm: Normal rate and regular rhythm. Pulmonary: Effort: Pulmonary effort is normal. Breath sounds: Normal breath sounds. Lymphadenopathy: Head: Right side of head: No submandibular or tonsillar adenopathy. Left side of head: No submandibular or tonsillar adenopathy. Cervical: No cervical adenopathy. Psychiatric: Behavior: Behavior is cooperative. Assessment and Plan (J06.9) Upper respiratory infection with cough and congestion (primary encounter diagnosis) Plan: doxycycline hyclate (VIBRAMYCIN) 100 mg capsule, fluticasone (FLONASE ALLERGY RELIEF) 50 mcg/actuation nasal spray, Fovtawtoelcygvv-Atxkuhdmq-XW (BROMFED DM) 2-30-10 mg/5 mL syrup (Z88.0) Penicillin allergy Plan: doxycycline hyclate (VIBRAMYCIN) 100 mg capsule Education on viral vs bacterial infections. Most viral infections will last 10 days, sometimes 14. It is possible to have back to back viral infections. An antibiotic will not treat a virus. -States symptoms for 2 weeks, pcn allergy, will rx doxycycline. Doxycycline twice a day for 7 days: -drink a full glass of water with each dose - do not take with milk/dairy products - avoid sun exposure - it raises your risk for burn - if you take calcium or iron supplements, do not take them while you take this, or take them at a different time of day - stay upright for 30 minutes after taking this medicine -Bromfed for cough/congestion. -Drink lots of fluids and get plenty of rest. -Vaporizers, cool mist humidifiers, warm showers, and warm fluids help open respiratory and sinus passages. Clean humidifiers daily. -OTC tylenol as directed on the bottle. May use OTC Ibuprofen if there is no underlying blood pressure/heart disease. -Saline nasal spray as needed. Flonase twice daily can help reduce inflammation through the sinus cavities. -Cough/deep breathing education, promote clearing of the airways and good lung expansion. -Make follow up with primary care for monitoring and resolution in symptoms. -Signs that warrant an ER evaluation: Sudden change/worsening in condition, lethargy, signs of dehydration, fever greater than 102 F that is not responding to Tylenol or ibuprofen (Motrin, Advil), drooling, difficulty swallowing, difficulty breathing, shortness of breath, chest pain, evidence of airway compromise (tripod position, neck extension, retractions), seizures, changes in mental status, or other concerns. The patient will pursue further outpatient evaluation with the primary care physician or another Urgent Care/Express Care as outlined in the after visit summary. The patient is agreeable to this plan of care and follow-up instructions have been explained in detail. The patient has received these instructions in written format and have expressed an understanding of the after visit summary. Medical Decision Making: Level: 4 - Moderate I spent a total of 20 minutes on the date of the service which included preparing to see the patient, nckw-hi-kfmz patient care, completing clinical documentation, obtaining and/or reviewing separately obtained history, performing a medically appropriate examination, counseling and educating the patient/family/caregiver, and ordering medications, tests, or procedures. documented in this encounter [facility] 03-26-2024 Instructions Ehlam Mckeon APRN.PEPE - 03/26/2024 11:10 AM EST (J06.9) Upper respiratory infection with cough and congestion (primary encounter diagnosis) Plan: doxycycline hyclate (VIBRAMYCIN) 100 mg capsule, fluticasone (FLONASE ALLERGY RELIEF) 50 mcg/actuation nasal spray, Zuocozgsstwxnnb-Yxcmopnil-BH (BROMFED DM) 2-30-10 mg/5 mL syrup (Z88.0) Penicillin allergy Plan: doxycycline hyclate (VIBRAMYCIN) 100 mg capsule Education on viral vs bacterial infections. Most viral infections will last 10 days, sometimes 14. It is possible to have back to back viral infections. An antibiotic will not treat a virus. -States symptoms for 2 weeks, pcn allergy, will rx doxycycline. Doxycycline twice a day for 7 days: -drink a full glass of water with each dose - do not take with milk/dairy products - avoid sun exposure - it raises your risk for burn - if you take calcium or iron supplements, do not take them while you take this, or take them at a different time of day - stay upright for 30 minutes after taking this medicine -Bromfed for cough/congestion. -Drink lots of fluids and get plenty of rest. -Vaporizers, cool mist humidifiers, warm showers, and warm fluids help open respiratory and sinus passages. Clean humidifiers daily. -OTC tylenol as directed on the bottle. May use OTC Ibuprofen if there is no underlying blood pressure/heart disease. -Saline nasal spray as needed. Flonase twice daily can help reduce inflammation through the sinus cavities. -Cough/deep breathing education, promote clearing of the airways and good lung expansion. -Make follow up with primary care for monitoring and resolution in symptoms. -Signs that warrant an ER evaluation: Sudden change/worsening in condition, lethargy, signs of dehydration, fever greater than 102 F that is not responding to Tylenol or ibuprofen (Motrin, Advil), drooling, difficulty swallowing, difficulty breathing, shortness of breath, chest pain, evidence of airway compromise (tripod position, neck extension, retractions), seizures, changes in mental status, or other concerns. documented in this encounter [facility] 11-14-2023 History of Presen t illness Narrative Chief Complaint Patient presents with Follow-up 6wk Mirena String check, have felt her strings, needs have them cut her partner can feel them No LMP recorded. History: Past Medical History: Diagnosis Date Acne Asthmatic bronchitis without complication 2017 Chronic seasonal allergic rhinitis due to pollen 2018 Contraception, device intrauterine nuva ring Fibroadenoma of breast, left Past Surgical History: Procedure Laterality Date BREAST BIOPSY Left 06/30/2020 Wire localized excisional biopsy of left breast mass (Dr. Ta) BREAST LUMPECTOMY Left 06/30/2020 mass removed on left breast COLONOSCOPY 01/27/2022 unremarkable ESOPHAGOGASTRODUODENOSCOPY 01/27/2022 erythema GE junction TONSILLECTOMY AND ADENOIDECTOMY (HISTORICAL) 2006 WISDOM TOOTH EXTRACTION 2020 Family History Problem Relation Name Age of Onset Breast cancer Father's Sister Uterine cancer Neg Hx No Known Problems Mother Mayra Ovarian cancer Neg Hx Colon cancer Neg Hx No Known Problems Father Juliocesar Social History Socioeconomic History Marital status: Tobacco Use Smoking status: Never Smokeless tobacco: Never Vaping Use Vaping status: Never Used Substance and Sexual Activity Alcohol use: Not Currently Drug use: No Sexual activity: Yes Partners: Male control/protection: I.U.D. Social History Narrative Graduated [employer] in Mar 2022. She is single, engaged to be in September. Social Determinants of Health Financial Resource Strain: Low Risk (05/14/2021) Received from [facility] Overall Financial Resource Strain (CARDIA) Difficulty of Paying Living Expenses: Not hard at all Food Insecurity: No Food Insecurity (08/11/2023) Hunger Vital Sign Worried About Running Out of Food in the Last Year: Never true Ran Out of Food in the Last Year: Never true Transportation Needs: No Transportation Needs (08/11/2023) PRAPARE - Transportation Lack of Transportation (Medical): No Lack of Transportation (Non-Medical): No Physical Activity: Insufficiently Active (10/09/2023) Exercise Vital Sign Days of Exercise per Week: 3 days Minutes of Exercise per Session: 20 min Stress: No Stress Concern Present (10/09/2023) [employer] [place] [employer] - Occupational Stress Questionnaire Feeling of Stress : Not at all Social Connections: Socially Integrated (10/09/2023) Social Connection and Isolation Panel [NHANES] Frequency of Communication with Friends and Family: More than three times a week Frequency of Social Gatherings with Friends and Family: More than three times a week Attends Mandaen Services: More than 4 times per year Active Member of Clubs or Organizations: Yes Attends Club or Organization Meetings: More than 4 times per year Marital Status: Intimate Partner Violence: Not At Risk (08/11/2023) Humiliation, Afraid, Rape, and Kick questionnaire Fear of Current or Ex-Partner: No Emotionally Abused: No Physically Abused: No Sexually Abused: No Housing Stability: Low Risk (08/11/2023) Housing Stability Vital Sign Unable to Pay for Housing in the Last Year: No Number of Places Lived in the Last Year: 1 Unstable Housing in the Last Year: No Allergies: Allergies Allergen Reactions Peanut-Containing Drug Products Anaphylaxis Amoxicillin Other reaction(s): Vomiting Medications: Current Outpatient Medications on File Prior to Visit Medication Sig Dispense Refill levocetirizine (Xyzal) 5 MG tablet Take 5 mg by mouth Nightly. montelukast (Singulair) 10 MG tablet Take 10 mg by mouth Nightly. Xxzumbjr-Pzd-[id number]-FA (PRE-BENITA PO) Take by mouth. ibuprofen 600 MG tablet Take 1 tablet (600 mg) by mouth every 6 hours as needed for moderate pain (4-6). 60 tablet 0 No current facility-administered medications on file prior to visit. HPI: Pt here for iud check. Has had spotting since iud was placed. She is able to feel strings. Would like them trimmed because her partner reports that they are poking him during intercourse. HPI ROS: Review of Systems Constitutional: Negative for activity change, appetite change and unexpected weight change. HENT: Negative for drooling and facial swelling. Gastrointestinal: Negative for abdominal distention, abdominal pain, constipation, diarrhea, nausea and vomiting. Genitourinary: Negative for menstrual problem, pelvic pain and vaginal bleeding. Skin: Negative for color change, pallor, rash and wound. Psychiatric/Behavioral: Negative for agitation, behavioral problems and confusion. Physical exam: BP 114/67 (BP Location: Left arm, Patient Position: Sitting, BP Cuff Size: Adult) Pulse 76 Wt 140 lb 3.2 oz (63.6 kg) Yes BMI 28.32 kg/m Physical Exam Constitutional: Appearance: She is well-developed. HENT: Head: Normocephalic and atraumatic. Pulmonary: Effort: Pulmonary effort is normal. No respiratory distress. Genitourinary: Pubic Area: No rash or pubic lice. Labia: Right: No rash, tenderness, lesion or injury. Left: No rash, tenderness, lesion or injury. Vagina: No signs of injury and foreign body. No vaginal discharge, erythema, tenderness or bleeding. Cervix: No cervical motion tenderness, discharge or friability. Uterus: Not deviated, not enlarged, not fixed and not tender. Adnexa: Right: No mass, tenderness or fullness. Left: No mass, tenderness or fullness. Comments: IUD strings visible. IUD not palpable. Strings trimmed to 3 cm. Musculoskeletal: General: Normal range of motion. Cervical back: Normal range of motion and neck supple. Skin: General: Skin is warm and dry. Neurological: Mental Status: She is alert and oriented to person, place, and time. Psychiatric: Behavior: Behavior normal. Thought Content: Thought content normal. Judgment: Judgment normal. Assessment and Plan: Zunilda was seen today for follow-up. Diagnoses and all orders for this visit: IUD check up (Primary) Follow up for Annual exam. documented in this encounter [facility] 10-10-2023 History of Presen t illness Narrative IUD Insertion Note IUD Checklist Completed with negative responses; HPI: The patient is requesting that a Mirena IUD be inserted. The patient was counseled on the procedure. Risks, benefits and alternatives were reviewed. The side effect profile of the IUD was reviewed. A consent was reviewed and obtained. The patient was counseled on the need for string checks after her menses and coital activity. She is to notify the office if she can not locate the IUD string at anytime. She is aware that she will need a speculum exam and possibly an ultrasound to confirm the proper orientation of the IUD. She has no other chief complaint today. Cultures Completed and were obtained today. The patient was positioned comfortably on the exam table. After a bi-manual exam; the uterus was found to be retroverted. There was no cervical motion tenderness or adnexal masses. The bladder was smooth, non-tender and without palpable masses. A sterile speculum was placed without incident.The site was then cleansed with betadine and the uterus was sounded to 8 cm. The Mirena IUD was opened and loaded into the delivery system. The wand was inserted to just past the internal portio and the button was retracted to the first line. The wand was held in place for 10 seconds and then the button was retracted to its final position while the IUD was moved to the fundus. The string was trimmed in standard fashion to 4cm. Post procedure restrictions were reviewed and given to the patient. She was instructed to use barrier protection for sexually transmitted disease prevention as well as string checks/timing. The patient tolerated the procedure without difficulty. She was instructed to abstain for two weeks and use rupal-pads for the first 8 weeks. She is to notify the office or go to the nearest Emergency Department if she experiences Abdominal Pain, Temperatures more than 101 F, Odiferous Vaginal Discharge, Dizziness or Shortness of breath. ASSESSMENT: IUD Insertion Diagnosis Plan 1. Encounter for IUD insertion levonorgestrel (Mirena) 20 MCG/DAY IUD 1 each Insert IUD 2. Screen for STD (sexually transmitted disease) Chlamydia/Gonorrhea @[email or web address]@ Family Planning reports that she has never smoked. She has never used smokeless tobacco. PLAN: Family Planning Counseling Completed Barrier Recommendations Removal of the Mirena IUD will be in 7 years on 10/09/2030 Return to office in 6 weeks IUD check. No tampons; rupal-pads only x 8 weeks reviewed documented in this encounter [facility] 10-10-2023 Miscellaneous Notes Addended by: SAMIA FIGUEROA on: 10/10/2023 09:44 AM Modules accepted: Orders documented in this encounter [facility] 10-10-2023 Note Addended by: SAMIA FIGUEROA on: 10/10/2023 09:44 AM Modules accepted: Orders [facility] 10-10-2023 Note Addended by: SAMIA FIGUEROA on: 10/10/2023 09:44 AM Modules accepted: Orders [facility] 10-10-2023 Note Addended by: SAMIA FIGUEROA on: 10/10/2023 09:44 AM Modules accepted: Orders [facility] 10-10-2023 Note Addended by: SAMIA FIGUEROA on: 10/10/2023 09:44 AM Modules accepted: Orders [facility] 09-21-2023 History of Presen t illness Narrative VISIT Zunilda Sorensen is a 23 y.o. female Presents today for routine visit S/P Vaginal, Spontaneous Delivery on 08/11/23 of male (Curtis) who is doing well. Patient is breast and bottle feeding without any problems. She denies any breast lumps, redness, edema or signs of infection on the breast. Patient denies any symptoms of depression or anxiety. SUBJECTIVE: Patient had a Vaginal, Spontaneous Delivery. Denies problems with voiding, BM's, eating or drinking. Patient is breast and bottle feeding. Patient's bleeding is: staining only. Patient is not sexually active. Patient plans IUD for contraception. depression screening: negative REVIEW OF SYSTEMS: Review of Systems Constitutional: Negative for chills and fever. Gastrointestinal: Negative for abdominal pain, nausea and vomiting. Genitourinary: Negative for decreased urine volume, difficulty urinating, dysuria, flank pain, frequency, genital sores, hematuria, menstrual problem, pelvic pain, urgency, vaginal bleeding, vaginal discharge and vaginal pain. Skin: Negative for color change and rash. All other systems reviewed and are negative. PHYSICAL EXAM: BP 119/72 Pulse 64 Ht 4' 11 (1.499 m) Wt 141 lb (64 kg) LMP 11/25/2022 Yes Comment: Also bottle feeding BMI 28.48 kg/m Physical Exam Vitals reviewed. Constitutional: General: She is not in acute distress. Appearance: Normal appearance. She is not ill-appearing or toxic-appearing. HENT: Head: Normocephalic and atraumatic. Pulmonary: Effort: Pulmonary effort is normal. No respiratory distress. Neurological: Mental Status: She is alert. Mental status is at baseline. Psychiatric: Mood and Affect: Mood normal. Behavior: Behavior normal. Judgment: Judgment normal. ASSESSMENT/PLAN: Zunilda was seen today for care. Diagnoses and all orders for this visit: Encounter for routine follow-up (Primary) Signs and symptoms of breast and uterine infection discussed. Advised patient to contact the office with signs of infection. To ER with any thoughts of harming herself, baby or others. RTO on 10/02 for IUD placement. Contact the office with any questions or concerns prior to next scheduled visit. Patient agrees with plan of care. Follow up in about 2 weeks (around 10/05/2023) for IUD insertion. Luz Marina Leigh PA-C documented in this encounter [facility] 09-06-2023 Miscellaneous Notes Name of caller: Zunilda Contact phone number: [phone] Relationship to Patient: patient Provider: Melvin Practice: [facility] Chief Complaint/Reason for Call: Patient would like to move forward now with getting the Mirena ordered. Please advise. Best time of day caller can be reached: Any Patient advised that office/PCP has 24-48 business hours to return their call: No Called [facility]. Unable to locate pt's Rx. Mychart mssg sent to pt Name of caller: Zunilda Loguidielena Contact phone number: [phone] Relationship to Patient: patient Provider: Lela Charles CNM Practice: [facility] location Chief Complaint/Reason for Call: 08/22/23 Pt calling to advise the office /provider to PLEASE put on HOLD Mirena Process until she thinks more about it pt will call back to give a ok to process pls advise Best time of day caller can be reached: PM Patient advised that office/PCP has 24-48 business hours to return their call: Yes documented in this encounter [facility] 09-06-2023 Telephone encounter Note Name of caller: Zunilda Contact phone number: [phone] Relationship to Patient: patient Provider: [facility]vin Practice: [facility] Chief Complaint/Reason for Call: Patient would like to move forward now with getting the Mirena ordered. Please advise. Best time of day caller can be reached: Any Patient advised that office/PCP has 24-48 business hours to return their call: No [facility] 08-23-2023 Telephone encounter Note Called [facility]. Unable to locate pt's Rx. Parallelshart mssg sent to pt [facility] 08-23-2023 Telephone encounter Note Called and spoke to Azra at [facility]. Unable to located pt's Rx. Mychart mssg sent [facility] 08-23-2023 Miscellaneous Notes Called and spoke to Azra at [facility]. Unable to located pt's Rx. Mychart mssg sent documented in this encounter [facility] 08-22-2023 Telephone encounter Note Name of caller: Zunilda Sorensen Contact phone number: [phone] Relationship to Patient: patient Provider: Lela Charles CNM Practice: [place] [facility] tech location Chief Complaint/Reason for Call: 08/22/23 Pt calling to advise the office /provider to PLEASE put on HOLD Mirena Process until she thinks more about it pt will call back to give a ok to process pls advise Best time of day caller can be reached: PM Patient advised that office/PCP has 24-48 business hours to return their call: Yes [facility] 08-22-2023 History of Presen t illness Narrative Subjective: Zunilda Sorensen is a 22 y.o. female who presents 2 weeks post following a spontaneous vaginal delivery. IOL for PEC. I have fully reviewed the and intrapartum course. The delivery was at 37 gestational weeks. Outcome: . Anesthesia: epidural. course has been uncomplicated. Baby's course has been doing well without problems. Baby is feeding breast. Bleeding thin lochia. Bowel function is normal. Bladder function is normal. Patient is not sexually active. Contraception method is Mirena iud, will order today . depression screening: negative Patient's medications, allergies, past medical, surgical, social and family histories were reviewed and updated as appropriate. Review of Systems Pertinent items are noted in HPI. Objective: LMP 11/25/2022 General: alert, appears stated age, and cooperative Breasts: Lungs: Heart: Abdomen: Vulva: Vagina: Cervix: Corpus: Adnexa: Rectal Exam: Assessment: 2 wk exam. Pap smear not done at today's visit. Plan: Contraception: Mirena ordered today Follow up: 4 weeks documented in this encounter [facility] 08-13-2023 History of Presen t illness Narrative Nutrition rescreen completed. Patient assigned a level 1. MIGUEL Fox Images from the original note were not included. VAGINAL DELIVERY POST DAY # 2 Zunilda Sorensen, 22 y.o. This patient was seen & examined today. Her was complicated by: Patient Active Problem List Diagnosis Chronic seasonal allergic rhinitis due to pollen Asthmatic bronchitis without complication Preeclampsia, third trimester Vaginal delivery Today she is doing well without any chief complaint. Her lochia is light. She denies Headache, Chest Pain, Vision Changes, and Shortness of Breath. She is ambulating well. She is tolerating solids. Vital Signs: Vitals: 08/11/23 2132 08/11/23 2250 08/12/23 0805 08/12/231958 BP: 122/85 113/78 132/82 118/80 BP Location: Right arm Left arm Patient Position: Sitting Pulse: 93 92 83 80 Resp: 18 20 16 Temp: 37 C (98.6 F) 36.7 C (98 F) 36.7 C (98.1 F) TempSrc: Temporal Temporal Temporal SpO2: 97% 98% 98% Weight: Height: Physical Exam: GENERAL APPEARANCE: alert, well appearing, in no apparent distress ABDOMEN : benign non-tender, without masses or organomegaly palpable EXTREMITIES: no redness or tenderness in the calves or thighs, trace edema NEUROLOGIC: alert, oriented, normal speech, no focal findings or movement disorder noted UTERUS : normal size, well involuted, firm, non-tender Lab: Lab Results Component Value Date HGB 10.7 (L) 08/11/2023 Lab Results Component Value Date HCT 30.2 (L) 08/11/2023 A Antibody Screen: No results found for: LABANTI No results found for: RUBELLAIGG LABOR DELIVERY ??? SCD's ONLY (labor through ambulation) SCD's PLUS Prophylactic Anticoagulation until discharge SCD's PLUS Prophylactic Anticoagulation for 6 weeks SCD's PLUS Therapeutic Anticoagulation for 6 weeks Vaginal Delivery [] BMI ? 40 kg/m2 Delivery All patients Vaginal Delivery [] BMI ? 40 kg/m2 AND [] Antepartum hospitalization ? 72 hours within the past month Delivery 1 Major Risk Factor: [] BMI ? 35 kg/m2 [] Low Risk Thrombophilia [] PPH+RBCs, IR, or operation [] Infection+Antibiotics [] Antepartum hospitalization ? 72 hours within the past month [] PMH: Sickle Cell, SLE, Cardiac Dz, Active IBD, Active Cancer, Nephrotic Syndrome OR 2 Minor Risk Factors: [] Multiple gestation [] Age > 40 [] PPH ? 1,000cc [] (+)FMH of VTE [] Smoker [] Preeclampsia [] BMI ? 40 kg/m2 AND [] Low Risk Thrombophilia OR ANY OF THE FOLLOWING: [] High Risk Thrombophilia without prior VTE [] Low Risk Thrombophilia with (+)FMH of VTE [] Any single prior VTE ANY OF THE FOLLOWING: [] Already on LMWH/UFH [] Multiple prior VTE [] High Risk Thrombophilia with prior VTE Low Risk Thrombophilia: FVL (heterozygous), Prothrombin (heterozygous), Protein C, Protein S High Risk Thrombophilia: FVL (homozygous), Prothrombin (homozygous), FVL+Prothrombin (heterozygous), Antithrombin III, APLS Assessment/Plan: Zunilda Sorensen is PPD # 2 s/p Care - Doing well, VSS - Male - breast feeding - Contraception: Per Private Attending - Encourage ambulation - VTE Prophylaxis: Not Indicated PreEwoSF - Met criteria prior to admission - PreE labs wnl - Bps NT Overnight - ASX this AM Asthma - Mild intermittent - No hospitalizations or intubations - ASX this AM Disposition: Plan for BP check within 72hr of discharge. Based on my clinical assessment, this patient is safe for self discharge (does not need transport by wheelchair) if she so chooses. Provider's Name: MD Vannessa Ramirez MD 08/13/2023, 6:04 AM Associated attestation - Jessenia Martinez DO - 08/13/2023 12:38 PM EDT Hospital Care (Independent): I independently saw and evaluated the patient. I agree with the findings and plan of care as documented in the resident's note. Images from the original note were not included. VAGINAL DELIVERY POST DAY # 1 Zunilda Sorensen, 22 y.o. This patient was seen & examined today. Her was complicated by: Patient Active Problem List Diagnosis Chronic seasonal allergic rhinitis due to pollen Asthmatic bronchitis without complication Preeclampsia, third trimester Vaginal delivery Today she is doing well without any chief complaint. Her lochia is light. She denies Headache, Chest Pain, Vision Changes, and Shortness of Breath. She is ambulating well. She is tolerating solids. Vital Signs: Vitals: 08/11/23203108/11/23204608/11/23213108/11/23 2250 BP: 122/78 124/71 122/85 113/78 BP Location: Right arm Pulse: 93 88 93 92 Resp: 18 Temp: 37 C (98.6 F) TempSrc: Temporal SpO2: 97% Weight: Height: Physical Exam: GENERAL APPEARANCE: alert, well appearing, in no apparent distress ABDOMEN : benign non-tender, without masses or organomegaly palpable EXTREMITIES: no redness or tenderness in the calves or thighs, trace edema NEUROLOGIC: alert, oriented, normal speech, no focal findings or movement disorder noted UTERUS : normal size, well involuted, firm, non-tender Lab: Lab Results Component Value Date HGB 10.7 (L) 08/11/2023 Lab Results Component Value Date HCT 30.2 (L) 08/11/2023 A Antibody Screen: No results found for: LABANTI No results found for: RUBELLAIGG LABOR DELIVERY ??? SCD's ONLY (labor through ambulation) SCD's PLUS Prophylactic Anticoagulation until discharge SCD's PLUS Prophylactic Anticoagulation for 6 weeks SCD's PLUS Therapeutic Anticoagulation for 6 weeks Vaginal Delivery [] BMI ? 40 kg/m2 Delivery All patients Vaginal Delivery [] BMI ? 40 kg/m2 AND [] Antepartum hospitalization ? 72 hours within the past month Delivery 1 Major Risk Factor: [] BMI ? 35 kg/m2 [] Low Risk Thrombophilia [] PPH+RBCs, IR, or operation [] Infection+Antibiotics [] Antepartum hospitalization ? 72 hours within the past month [] PMH: Sickle Cell, SLE, Cardiac Dz, Active IBD, Active Cancer, Nephrotic Syndrome OR 2 Minor Risk Factors: [] Multiple gestation [] Age > 40 [] PPH ? 1,000cc [] (+)FMH of VTE [] Smoker [] Preeclampsia [] BMI ? 40 kg/m2 AND [] Low Risk Thrombophilia OR ANY OF THE FOLLOWING: [] High Risk Thrombophilia without prior VTE [] Low Risk Thrombophilia with (+)FMH of VTE [] Any single prior VTE ANY OF THE FOLLOWING: [] Already on LMWH/UFH [] Multiple prior VTE [] High Risk Thrombophilia with prior VTE Low Risk Thrombophilia: FVL (heterozygous), Prothrombin (heterozygous), Protein C, Protein S High Risk Thrombophilia: FVL (homozygous), Prothrombin (homozygous), FVL+Prothrombin (heterozygous), Antithrombin III, APLS Assessment/Plan: Zunilda Bulldielena is PPD # 1 s/p Care - Doing well, VSS - Male - breast feeding - Contraception: Per Private Attending - Encourage ambulation - VTE Prophylaxis: Not Indicated PreEwSF - Met criteria prior to admission - PreE labs wnl - Bps NT overnight - ASX this AM Asthma - Mild intermittent - No hospitalizations or intubations - ASX this AM Disposition: Plan for BP check within 72hr of discharge. Based on my clinical assessment, this patient is safe for self discharge (does not need transport by wheelchair) if she so chooses. Provider's Name: MD Vannessa Ramirez MD 08/12/2023, 5:23 AM Associated attestation - Jessenia Martinez DO - 08/12/2023 7:23 AM EDT Hospital Care (Independent): I independently saw and evaluated the patient. I agree with the findings and plan of care as documented in the resident's note. Images from the original note were not included. Labor Progress Note Date: 08/11/2023 Time: 9:44 AM Subjective: Zunilda Sorensen is a 22 y.o. female at 37w0d admitted for IOL-PreEwoSF Complications: PreEwoSF Asthma SVE on admission: /-3 GBS: []Pos [x]Neg []Unknown Cx:unchanged FHP: defer FHT: Cat I [place]:none 60cc FB and cytotec placed at this time. Patient tolerated well. Cat I with moderate variability and spon accels. Continue to monitor. Cat I for rare variable deceleration. FHT overall reassuring for normal baseline, moderate variability, spontaneous accels. Bps NT, continue to monitor. FB out at this time, notified by RN. Regular dose pitocin ordered, plan to start when able, titrating per protocol. CCM. /-3. AROM for clear fluid at this time. Dr. Pérez Avery updated. FHT Cat I with normal baseline, moderate variability, spontaneous accels, and no decels. Patient otherwise augmented. Bps NT, continue to monitor. CCM 5-/-2. Comfortable with epidural. Will do peanut ball both left and right and then sit up in queens chair. Cat I with moderate variability and spon accels. Called to room by RN who states patient is feeling increased pressure. SVE 9/90/+1 with small lip posteriorly. Patient comfortable with epidural, will recheck in 30-60 minutes. FHT Cat II for rare late deceleration, overall reassuring with moderate variability, accelerations present. Dr. Hua updated, states she will make her way in. Patient is unaugmented at this time. Continue to monitor, CCM. Stephanie Miranda, DO 08/11/2023 6:04 PM Patient complete. . See labor and delivery note. Stephanie Miranda, DO 08/11/2023 7:53 PM documented in this encounter [facility] 08-13-2023 [facility] Dis[facility] mirtha Wade RN - 08/13/2023 12:46 PM EDT Images from the original note were not included. Thank you for allowing us to care of you at [facility]. This time can be one of many emotional ups and downs and many changes in your life. In these first weeks try to take good care of yourself because you will likely feel very tired. It may take 4 to 6 weeks to feel like yourself again, and possibly longer if you had a . FOLLOW-UP: Your follow-up care is a cueto part of your treatment and safety. Follow-up with your OB providerin 4 weeks or as specified by your OB provider. If you had high blood pressure, visit your OB provider within 3-5 days after being home. Most women's blood pressure will return to pre- levels after delivery. However, some patients continue to have problems with their blood pressure, and some even get worse. Very high blood pressure can lead to seizures or stroke which can be life threatening. If ordered by your provider, take your blood pressure at home and call your OB provider if you have a high reading. Your OB provider can write you a prescription for a blood pressure monitor if you do not have one. Be sure to make and go to all appointments, and call your OB provider if you are having problems. It's also a good idea to know your test results and keep a list of the medicines you take. BLEEDING Vaginal bleeding will decrease in amount over the next few weeks. Bleeding may orange picker machine operator and then decrease again around 7-10 days . Use pads instead of tampons for the bloody flow that may last as long as 2 weeks. You will notice that as your activity increases, your flow may increase. Call your provider if you are saturating one maxi pad in an hour & passing large clots for 3 hours or more. ACTIVITY NO SEXUAL activity for 6 weeks or until advised by your OB provider; Nothing in vagina: intercourse, tampons, or douching. Begin to think about your reproductive life plan. Talk to your OB provider about if and when you would like to get in the future. The recommendation for safe spacing is 18-24 months. Showering is okay; NO tub baths, swimming, or hot tubs. Gradually increase your activity. Resume exercise regimen only after advised by your )OB provider. Avoid lifting anything heavier than ten pounds or a gallon of milk for six weeks. Avoid driving 1 week for vaginal delivery and 2 weeks for section, or longer if you are on prescription pain medicine unless otherwise instructed by your OB provider. Rise slowly from a lying to sitting and then a standing position. Climb stairs carefully. You may feel tired or have a lack of energy. You may continue your vitamin to replenish nutrients post-delivery. Nap when whenever you can to catch up on sleep. EMOTIONS You may feel álvarez, sad, teary, & overwhelmed for the first 2 weeks ; however, feelings of depression may occur any time within the first year after delivery. Contact your OB provider if you feel you may be showing signs of depression, or have thoughts of harming yourself or or anyone.. WOUND CARE For Vaginal Delivery: Shower daily, and cleanse your perineum (bottom) with mild soap from front to back. Use the plastic squirt bottle until bleeding stops each time you use the restroom instead of wiping with toilet paper. Ease soreness of hemorrhoids and the area between your vagina and rectum with ice compresses or witch tiffany pads. If used, stitches will dissolve in 4-6 weeks on their own. You may use a sitz bath or soak in a clean tub with drain open and water running for comfort. Kegel exercises will help restore bladder control. To do these tighten your muscles as if you were stopping your urine flow. Hold for a few seconds and then relax. Do these throughout the day. For Section Delivery: Keep your incision clean and dry. If you had steri-strips you may remove these once they start falling off. If you have maya they need to be removed 3-10 daysafter delivery. If you have steri-strips, remove after 7 - 10 days. Do not wear clothing that irritates the incision line. If your incision is in a crease that is not dry, use a hair-dryer to dry the area 3 times a day. If you develop fever, shaking chills, redness, swelling, drainage or discharge from your wound, or if your wound looks like it is coming apart call your provider immediately. BREAST CARE If you develop a warm, red, tender area on your breast or develop a fever contact your OB provider. If your breasts become engorged ask your provider because treatment can vary according to your needs. DIET & CONSTIPATION Eat a well-balanced diet focusing on foods high in fiber and protein such as: whole grain cereals and breads, fruits and vegetables and legumes (eg, beans, lentils) Drink 8-10 glasses of fluids daily, especially water. Limit caffeine. To avoid constipation you may take a mild [id number] stool softener (such as colace) as recommended by your OB provider. SWELLING Try to keep your legs elevated when you are sitting or lying down. Stay hydrated and take walks. If you had high blood pressure, weigh yourself at the same time each day. Write down your weight and take the record to your OB provider appointment. MEDICATIONS Take all medications prescribed for you exactly as ordered. Don't take any drugs not prescribed to you or over the counter medicines unless recommended by your provider. Don't smoke. WHEN TO CALL THE OB PROVIDER Signs of infection, including fever and chills Increased bleeding: soaking more than one pad an hour or passing clots the size of an egg or larger. Wounds that become red, swollen or drain pus Vaginal discharge that smells foul New pain, swelling, or tenderness in your legs Pain that you can't control with the medications you've been given Pain, burning, urgency or frequency of urination, or persistent bleeding in the urine Cough, shortness of breath, or serious difficulty catching your breath Chest pain or pain in the upper right area of your belly Headache (very painful) or vision changes like blurry or double vision, seeing spots or 'auras' Swelling that is worse or weight gain of more than 3 pounds in 3 days Depression, suicidal thoughts, or feelings of harming someone else Breasts that are hot, red and accompanied by fever Any cracking or bleeding from the nipple or areola (the dark-colored area of the breast) SAVE YOUR LIFE: Get Care for these POST- Warning Signs: Call 911 if you have: Pain in chest Obstructed breathing or shortness of breath Seizures Thoughts of hurting yourself or your baby Call your healthcare provider if you have: (if you can't reach your healthcare provider, call 911 or go to an emergency room) Bleeding, soaking through one pad/hour, or blood clots the size of an egg or bigger Incision that is not healing Red or swollen leg, that is painful or warm to touch Temperature of 100.4 F or higher Headache that does not get better, even after taking medicine, or bad headache with vision changes. Contact your healthcare provider and tell them: I delivered on 08/11/2023 and I am having ____(specific warning signs) In case of an emergency, call 911 immediately. documented in this encounter [facility] 08-13-2023 Hospital course Narrative [facility] Delivery Discharge Summary Admission on 08/11/2023 7:49 AM Reason for admission: IOL for PreE Intrapartum Course: Uncomplicated, progressed to Surgical Operations & Procedures: Date of delivery: 08/11/23 Delivery Type: Vaginal, Spontaneous Delivery Anesthesia: Epidural anesthesia Laceration(s): none Delivery Complications: none EBL: 200 cc Delivery Blood Loss 08/11/23 0738 - 08/12/23 1938 Quantitative Blood Loss (mL) Hospital Encounter 200 mL Total 200 mL Pertinent Findings & Procedures: Information for the patient's : Bobby Sorensen [[id number]] male 2955 g (6 lb 8.2 oz) Apgars: Information for the patient's : Bobby Sorensen [[id number]] Course: Uncomplicated Infant: male Blood Type/Rh: A Antibody Screen: No results found for: LABANTI Rubella: No results found for: RUBELLAIGG Contraception: none : yes VTE Prophylaxis: Not Indicated Meds: Medication List CHANGE how you take these medications ibuprofen 600 MG tablet Take 1 tablet (600 mg) by mouth every 6 hours as needed for moderate pain (4-6). What changed: medication strength how much to take when to take this reasons to take this CONTINUE taking these medications ferrous sulfate 325 (65 Fe) MG tablet levocetirizine 5 MG tablet Commonly known as: Xyzal montelukast 10 MG tablet Commonly known as: Singulair PRE-BENITA PO STOP taking these medications acetaminophen 650 MG ER tablet Commonly known as: Tylenol 8 Hour diphenhydrAMINE 25 MG tablet Commonly known as: BENADryl drospirenone-ethinyl estradiol 3-0.02 MG tablet Commonly known as: Joann Russo Dupixent 100 MG/0.67ML solution prefilled syringe Generic drug: Dupilumab EPINEPHrine 0.1 mg/0.1mL solution auto-injector injection Commonly known as: Auvi-Q Where to Get Your Medications These medications were sent to [facility] - [address] [address] ibuprofen 600 MG tablet Activity: Activity as tolerated Diet: Regular diet Follow up Care: Follow up appointment in one week at [facility] Condition on discharge: Stable Discharge to: Home Discharge date: 08/13/23 Discharge Dx: Vaginal Delivery Preeclampsia without severe features, resolved Asthma Anemia Instructions to Patient:: Pelvic Rest (no intercourse, tampons, douching, etc) x 6 weeks Specific discharge instruction printed Preeclampsia, third trimester [O14.93] Patient Active Problem List Diagnosis Chronic seasonal allergic rhinitis due to pollen Asthmatic bronchitis without complication Vaginal delivery Comments: Home care, Follow-up care reviewed. Signs and symptoms of mastitis and Post Depression were reviewed. The patient is to notify her physician if any of these occur. JESSENIA AVERY DO on 08/13/2023 at 12:41 PM documented in this encounter [facility] 08-13-2023 Obstetrics Note Follow up visit, parents feel good about how baby has progressed with feedings. Baby is latching to both breasts now, no nipple shield needed. Good swallows heard. Discussed the pumping plan now that baby is feeding well. Discussed possible engorgement given her dense breast and the possibility of further shield use until that resolves. Shown section of Taking Care of Yourself and Baby' Booklet. Reviewed baby-led, cue based feedings (8-12x/day), how to know baby is getting enough, output parameters and milk storage guidelines. Discussed engorgement, plugged ducts and mastitis. Patient encouraged to seek help RUDY for any concerns. phone number and [facility] information shared from booklet. Mom voiced understanding. No further questions. [facility] 08-13-2023 Miscellaneous Notes Follow up visit, parents feel good about how baby has progressed with feedings. Baby is latching to both breasts now, no nipple shield needed. Good swallows heard. Discussed the pumping plan now that baby is feeding well. Discussed possible engorgement given her dense breast and the possibility of further shield use until that resolves. Shown section of Taking Care of Yourself and Baby' Booklet. Reviewed baby-led, cue based feedings (8-12x/day), how to know baby is getting enough, output parameters and milk storage guidelines. Discussed engorgement, plugged ducts and mastitis. Patient encouraged to seek help RUDY for any concerns. phone number and [facility] information shared from booklet. Mom voiced understanding. No further questions. Follow up visit, mom is attempting to latch baby. Left nipple does not protrude as well, baby having difficulty. 20mm nipple shield given and demonstrated how to apply. latched well, swallows noted. Baby latched to the rt breast without the shield, latched and swallowed well. Hospital pump set up and explained, mom will pump after each feeding to bridge gaps and support supply while using a shield. Follow up visit with mom, baby is cueing in skin to skin. Assisted mom to position infant in cross cradle, belly to belly. Mom has dense breast tissue, short nipples that protrude with stimulation. is eager to eat, nipple to nose and waited for baby to gape. Infant latched deeply with a wide gape. Rhythmic and sustained suck swallow pattern. Baby nursed for 10 min, placed back skin to skin. Reviewed feeding cues with parents, they will call again when baby cues. Reviewed feeding patterns, feeding cues, signs of milk transfer. Request from industrial staff nurse to assist with latch; 37 wk . Mom has small, firm muscular breasts with dimpled nipples, more so on the right. Infant placed grjw-[id number] with mom. Mom and Dad shown cross cradle hold. sleepy at breast but will suckle on gloved hasmukh. Mom shown how to hand express colostrum; mom and dad massaging colostrum onto baby's gums. Mom encouraged to continue skin -to-skin, to attemt to BF every 2-3 hrs. D/W RN. Suggested to RN that mom start pumping sooner than 24 hrs. Images from the original note were not included. Vaginal Delivery Note Department of Obstetrics and Gynecology Patient: Zunilda Sorensen : 2000 Date of delivery: 08/11/2023 Pre-operative Diagnosis: Zunilda Sorensen at 37w0d 1. Term 2. PreEwoSF 3. Asthma Post-operative Diagnosis: Live Born male Delivering Inside Sales Advertising Executive & Dock Superintendent(s): Dr. Hua; Dr. Miranda Information: Information for the patient's : Bobby Sorensen [[id number]] Information for the patient's : Bobby Sorensen [[id number]] Description: normal Meconium Noted: No Anesthesia: epidural anesthesia Complications: None Application and Delivery: Zunilda Sorensen at 37w0d admitted for IOL-PreEwoSF. Her labor course consisted of 1 cytotec, 60cc leon balloon, Pitocin, and AROM with clear fluid. She quickly made change to complete and felt the urge to push. She was known to be GBS negative and received no prophylaxis. After pushing with contractions for just over 30 minutes, the head delivered Cephalic, right occiput anterior over an intact perineum. A nuchal cord was not present. The anterior, then posterior shoulder delivered easily and atraumatically followed by the rest of the infant. The was placed on the maternal abdomen and attended by the RN for evaluation. The was stimulated and dried. The cord was clamped and cut. The delivery of the placenta was spontaneous and appeared intact. Pitocin was started. The vagina was swept of all clots and debris. The perineum and vagina were evaluated. No lacerations were found. All counts were correct. Mother and baby tolerated procedure well. No uterotonics were required during delivery. EBL: 200ml VTE Prophylaxis: Not Indicated LABOR DELIVERY ??? SCD's ONLY (labor through ambulation) SCD's PLUS Prophylactic Anticoagulation until discharge SCD's PLUS Prophylactic Anticoagulation for 6 weeks SCD's PLUS Therapeutic Anticoagulation for 6 weeks Vaginal Delivery [] BMI ? 40 kg/m2 Delivery All patients Vaginal Delivery [] BMI ? 40 kg/m2 AND [] Antepartum hospitalization ? 72 hours within the past month Delivery 1 Major Risk Factor: [] BMI ? 35 kg/m2 [] Low Risk Thrombophilia [] PPH+RBCs, IR, or operation [] Infection+Antibiotics [] Antepartum hospitalization ? 72 hours within the past month [] PMH: Sickle Cell, SLE, Cardiac Dz, Active IBD, Active Cancer, Nephrotic Syndrome OR 2 Minor Risk Factors: [] Multiple gestation [] Age > 40 [] PPH ? 1,000cc [] (+)FMH of VTE [] Smoker [] Preeclampsia [] BMI ? 40 kg/m2 AND [] Low Risk Thrombophilia OR ANY OF THE FOLLOWING: [] High Risk Thrombophilia without prior VTE [] Low Risk Thrombophilia with (+)FMH of VTE [] Any single prior VTE ANY OF THE FOLLOWING: [] Already on LMWH/UFH [] Multiple prior VTE [] High Risk Thrombophilia with prior VTE Low Risk Thrombophilia: FVL (heterozygous), Prothrombin (heterozygous), Protein C, Protein S High Risk Thrombophilia: FVL (homozygous), Prothrombin (homozygous), FVL+Prothrombin (heterozygous), Antithrombin III, APLS Delivery Summary: Specimen: Cord blood Blood Type and Rh: A Rubella Immunity Status: No results found for: RUBELLASADIE Coleman DO Ruth 08/11/2023, 7:56 PM Associated attestation - Jessenia Martinez DO - 08/11/2023 7:59 PM EDT Procedures or Surgery: I was present for all cueto elements of the procedure or surgery as described in the resident note. 22 year old admitted for induction of labor at 37 weeks. 1 Para 0. PreEwoSF. Asthma. documented in this encounter [facility] 08-12-2023 Obstetrics Note Follow up visit, mom is attempting to latch baby. Left nipple does not protrude as well, baby having difficulty. 20mm nipple shield given and demonstrated how to apply. latched well, swallows noted. Baby latched to the rt breast without the shield, latched and swallowed well. Hospital pump set up and explained, mom will pump after each feeding to bridge gaps and support supply while using a shield. [facility] 08-12-2023 Obstetrics Note Follow up visit with mom, baby is cueing in skin to skin. Assisted mom to position in cross cradle, belly to belly. Mom has dense breast tissue, short nipples that protrude with stimulation. is eager to eat, nipple to nose and waited for baby to gape. Infant latched deeply with a wide gape. Rhythmic and sustained suck swallow pattern. Baby nursed for 10 min, placed back skin to skin. Reviewed feeding cues with parents, they will call again when baby cues. Reviewed feeding patterns, feeding cues, signs of milk transfer. [facility] 08-12-2023 Obstetrics Note Request from industrial staff nurse to assist with latch; 37 wk . Mom has small, firm muscular breasts with dimpled nipples, more so on the right. Infant placed [id number] with mom. Mom and Dad shown cross cradle hold. Infant sleepy at breast but will suckle on gloved hasmukh. Mom shown how to hand express colostrum; mom and dad massaging colostrum onto baby's gums. Mom encouraged to continue skin -to-skin, to attemt to BF every 2-3 hrs. D/W RN. Suggested to RN that mom start pumping sooner than 24 hrs. [facility] 08-11-2023 Labor and deliver y summary note Images from the original note were not included. Vaginal Delivery Note Department of Obstetrics and Gynecology Patient: Zunilda Sorensen : 2000 Date of delivery: 08/11/2023 Pre-operative Diagnosis: Zunilda Sorensen at 37w0d 1. Term 2. PreEwoSF 3. Asthma Post-operative Diagnosis: Live Born male Delivering Inside Sales Advertising Executive & Dock Superintendent(s): Dr. Hua; Dr. Miranda Information: Information for the patient's : Bobby Sorensen [[id number]] Information for the patient's : Bobby Sorensen [[id number]] Description: normal Meconium Noted: No Anesthesia: epidural anesthesia Complications: None Application and Delivery: Zunilda Sorensen at 37w0d admitted for IOL-PreEwoSF. Her labor course consisted of 1 cytotec, 60cc leon balloon, Pitocin, and AROM with clear fluid. She quickly made change to complete and felt the urge to push. She was known to be GBS negative and received no prophylaxis. After pushing with contractions for just over 30 minutes, the head delivered Cephalic, right occiput anterior over an intact perineum. A nuchal cord was not present. The anterior, then posterior shoulder delivered easily and atraumatically followed by the rest of the . The infant was placed on the maternal abdomen and attended by the RN for evaluation. The infant was stimulated and dried. The cord was clamped and cut. The delivery of the placenta was spontaneous and appeared intact. Pitocin was started. The vagina was swept of all clots and debris. The perineum and vagina were evaluated. No lacerations were found. All counts were correct. Mother and baby tolerated procedure well. No uterotonics were required during delivery. EBL: 200ml VTE Prophylaxis: Not Indicated LABOR DELIVERY ??? SCD's ONLY (labor through ambulation) SCD's PLUS Prophylactic Anticoagulation until discharge SCD's PLUS Prophylactic Anticoagulation for 6 weeks SCD's PLUS Therapeutic Anticoagulation for 6 weeks Vaginal Delivery [] BMI ? 40 kg/m2 Delivery All patients Vaginal Delivery [] BMI ? 40 kg/m2 AND [] Antepartum hospitalization ? 72 hours within the past month Delivery 1 Major Risk Factor: [] BMI ? 35 kg/m2 [] Low Risk Thrombophilia [] PPH+RBCs, IR, or operation [] Infection+Antibiotics [] Antepartum hospitalization ? 72 hours within the past month [] PMH: Sickle Cell, SLE, Cardiac Dz, Active IBD, Active Cancer, Nephrotic Syndrome OR 2 Minor Risk Factors: [] Multiple gestation [] Age > 40 [] PPH ? 1,000cc [] (+)FMH of VTE [] Smoker [] Preeclampsia [] BMI ? 40 kg/m2 AND [] Low Risk Thrombophilia OR ANY OF THE FOLLOWING: [] High Risk Thrombophilia without prior VTE [] Low Risk Thrombophilia with (+)FMH of VTE [] Any single prior VTE ANY OF THE FOLLOWING: [] Already on LMWH/UFH [] Multiple prior VTE [] High Risk Thrombophilia with prior VTE Low Risk Thrombophilia: FVL (heterozygous), Prothrombin (heterozygous), Protein C, Protein S High Risk Thrombophilia: FVL (homozygous), Prothrombin (homozygous), FVL+Prothrombin (heterozygous), Antithrombin III, APLS Delivery Summary: Specimen: Cord blood Blood Type and Rh: A Rubella Immunity Status: No results found for: RUBELLASADIE DesaiDO nelson 08/11/2023, 7:56 PM Associated attestation - Jessenia Martinez DO - 08/11/2023 7:59 PM EDT Procedures or Surgery: I was present for all cueto elements of the procedure or surgery as described in the resident note. [facility] 08-11-2023 Note Formatting of this n ote might be different from the original. 22 year old admitted for induction of labor at 37 weeks. 1 Para 0. PreEwoSF. Asthma. [facility] 08-11-2023 Note Formatting of this n ote might be different from the original. 22 year old admitted for induction of labor at 37 weeks. 1 Para 0. PreEwoSF. Asthma. [facility] 08-11-2023 History and physical note Obstetrical History and Physical CHIEF COMPLAINT: IOL HISTORY OF PRESENT ILLNESS: The patient is a 22 y.o. female at 37w0d OB History 1 Para 0 Term 0 0 AB 0 Living 0 SAB 0 IAB 0 Ectopic 0 Multiple 0 Live Births 0 Patient presents with a chief complaint as above and is being admitted for IOL-PreEwoSF Denies DFM/VB/LOF/BEATTY/EpigastricPain/Vis ual changes Estimated Due Date: Estimated Date of Delivery: 09/01/23 CARE: Complications: See below PAST OB HISTORY: OB History Para Term AB Living 1 0 0 0 0 0 SAB IAB Ectopic Multiple Live Births 0 0 0 0 0 # Outcome Date GA Lbr Adalberto/2nd Weight Sex Delivery Anes PTL Lv 1 Current Detailed OB History G1 Current Past Medical History: Past Medical History: Diagnosis Date Acne Asthmatic bronchitis without complication 2018 Chronic seasonal allergic rhinitis due to pollen 2018 Contraception, device intrauterine nuva ring Fibroadenoma of breast, left Past Surgical History: Past Surgical History: Procedure Laterality Date BREAST BIOPSY Left 06/30/2020 Wire localized excisional biopsy of left breast mass (Dr. Ta) BREAST LUMPECTOMY Left 06/30/2020 mass removed on left breast COLONOSCOPY 01/27/2022 unremarkable ESOPHAGOGASTRODUODENOSCOPY 01/27/2022 erythema GE junction TONSILLECTOMY AND ADENOIDECTOMY (HISTORICAL) 2006 WISDOM TOOTH EXTRACTION 2020 Allergies: Peanut-containing drug products and Amoxicillin Social History: Social History Socioeconomic History Marital status: Spouse name: Not on file Number of children: Not on file Years of education: Not on file Highest education level: Not on file Occupational History Not on file Tobacco Use Smoking status: Never Smokeless tobacco: Never Vaping Use Vaping Use: Never used Substance and Sexual Activity Alcohol use: Not Currently Drug use: No Sexual activity: Yes Partners: Male Other Topics Concern Not on file Social History Narrative Graduated [employer] in Mar 2022. She is single, engaged to be in September. Social Determinants of Health Financial Resource Strain: Not on file Food Insecurity: Not on file Transportation Needs: Not on file Physical Activity: Not on file Stress: Not on file Social Connections: Not on file Intimate Partner Violence: Not At Risk (08/11/2023) Humiliation, Afraid, Rape, and Kick questionnaire Fear of Current or Ex-Partner: No Emotionally Abused: No Physically Abused: No Sexually Abused: No Housing Stability: Not on file Family History: Family History Problem Relation Name Age of Onset Breast cancer Father's Sister Uterine cancer Neg Hx No Known Problems Mother Mayra Ovarian cancer Neg Hx Colon cancer Neg Hx No Known Problems Father Juliocesar Medications Prior to Admission: Medications Prior to Admission Medication Sig Dispense Refill Last Dose acetaminophen (Tylenol 8 Hour) 650 MG ER tablet Take 650 mg by mouth every 8 hours as needed for mild pain (1-3). Do not crush, chew, or split. diphenhydrAMINE (BENADryl) 25 MG tablet Take by mouth. Unsure of mg drospirenone-ethinyl estradiol (Andrew, Gianvi) 3-0.02 MG tablet TAKE 1 TABLET IN THE MORNING (Patient not taking: Reported on 07/19/2023) 84 tablet 0 Dupilumab (Dupixent) 100 MG/0.67ML solution prefilled syringe Inject under the skin. EPINEPHrine (AUVI-Q) 0.1 mg/0.1mL IJ solution auto-injector injection Inject into the shoulder, thigh, or buttocks. ferrous sulfate 325 (65 Fe) MG tablet Take 325 mg by mouth daily (with breakfast). ibuprofen 200 MG tablet Take 400 mg by mouth. levocetirizine (Xyzal) 5 MG tablet Take 5 mg by mouth Nightly. montelukast (Singulair) 10 MG tablet Take 10 mg by mouth Nightly. Lnybhdmu-Zro-Gp-FA (PRE-BENITA PO) Take by mouth. REVIEW OF SYSTEMS: Const: Negative HEENT: Negative Resp: Negative CVS: Negative GI: Negative : Negative MSK: Negative Breast: Negative Skin: Negative Heme/Lymph:Negative Endo: Negative Neuro: Negative Psych: Negative PHYSICAL EXAM: Vitals: 08/11/23 0833 08/11/23 0855 BP: 130/82 Pulse: 107 98 Weight: 160 lb (72.6 kg) Height: 4' 11 (1.499 m) General appearance: awake, alert, cooperative, no apparent distress, and appears stated age Neurologic: Awake, alert, oriented to name, place and time. Lungs: No increased work of breathing, good air exchange Abdomen: Soft, non tender, gravid, consistent with her gestational age Cervix: 1/50/-3 Contraction frequency: none Labs: cbc, cmp pending on admission Blood Type/Rh: type and screen pending Group B Strep: No components found for: GRPBPCR Fetus: EFW: 7lbs by leopolds Presentation: vtx by U/S Desai Score: 7 0 1 2 3 Position Posterior Mid Anterior - Consistency Firm Medium Soft - Effacement 0-30% 40-50% 60-70% 80% or > Dilation 0cm 1-2cm 3-4cm 5cm or > Station -3 -2 -1, 0 +1, +2 LABOR DELIVERY ??? SCD's ONLY (labor through ambulation) SCD's PLUS Prophylactic Anticoagulation until discharge SCD's PLUS Prophylactic Anticoagulation for 6 weeks SCD's PLUS Therapeutic Anticoagulation for 6 weeks Vaginal Delivery [] BMI ? 40 kg/m2 Delivery All patients Vaginal Delivery [] BMI ? 40 kg/m2 AND [] Antepartum hospitalization ? 72 hours within the past month Delivery 1 Major Risk Factor: [] BMI ? 35 kg/m2 [] Low Risk Thrombophilia [] PPH+RBCs, IR, or operation [] Infection+Antibiotics [] Antepartum hospitalization ? 72 hours within the past month [] PMH: Sickle Cell, SLE, Cardiac Dz, Active IBD, Active Cancer, Nephrotic Syndrome OR 2 Minor Risk Factors: [] Multiple gestation [] Age > 40 [] PPH ? 1,000cc [] (+)FMH of VTE [] Smoker [] Preeclampsia [] BMI ? 40 kg/m2 AND [] Low Risk Thrombophilia OR ANY OF THE FOLLOWING: [] High Risk Thrombophilia without prior VTE [] Low Risk Thrombophilia with (+)FMH of VTE [] Any single prior VTE ANY OF THE FOLLOWING: [] Already on LMWH/UFH [] Multiple prior VTE [] High Risk Thrombophilia with prior VTE Low Risk Thrombophilia: FVL (heterozygous), Prothrombin (heterozygous), Protein C, Protein S High Risk Thrombophilia: FVL (homozygous), Prothrombin (homozygous), FVL+Prothrombin (heterozygous), Antithrombin III, APLS ASSESSMENT AND PLAN: IOL-PreEwoSF Admission: Admit to L&D FHR: Category 1 Celestone: not indicated Pain control plan: desires epidural Delivery Plan: Cytotec, FB GBS: GBS negative, No indication for GBS prophylaxis LARC: declines Intrapartum SCDs: Not Indicated VTE Prophylaxis: Not Indicated PreEwoSF - Patient met criteria prior to admission - PreE labs obtained on admission and pending - Bps normotensive on arrival - Pt asymptomatic Asthma - Mild, intermittent - Denies hospitalizations or intubations Discussed with Dr Jett, who agrees with plan. Jessenia Link MD 08/11/2023, 9:04 AM Associated attestation - Jessenia Martinez DO - 08/12/2023 4:55 AM EDT Hospital Care (Independent): I independently saw and evaluated the patient. I agree with the findings and plan of care as documented in the resident's note. [facility] [employer] Work Phone: 08-11-2023 History and physical note Obstetrical History and Physical CHIEF COMPLAINT: IOL HISTORY OF PRESENT ILLNESS: The patient is a 22 y.o. female at 37w0d OB History 1 Para 0 Term 0 0 AB 0 Living 0 SAB 0 IAB 0 Ectopic 0 Multiple 0 Live Births 0 Patient presents with a chief complaint as above and is being admitted for IOL-PreEwoSF Denies DFM/VB/LOF/BEATTY/EpigastricPain/Vis ual changes Estimated Due Date: Estimated Date of Delivery: 09/01/23 CARE: Complications: See below PAST OB HISTORY: OB History Para Term AB Living 1 0 0 0 0 0 SAB IAB Ectopic Multiple Live Births 0 0 0 0 0 # Outcome Date GA Lbr Adalberto/2nd Weight Sex Delivery Anes PTL Lv 1 Current Detailed OB History G1 Current Past Medical History: Past Medical History: Diagnosis Date Acne Asthmatic bronchitis without complication 2018 Chronic seasonal allergic rhinitis due to pollen 2018 Contraception, device intrauterine nuva ring Fibroadenoma of breast, left Past Surgical History: Past Surgical History: Procedure Laterality Date BREAST BIOPSY Left 06/30/2020 Wire localized excisional biopsy of left breast mass (Dr. Ta) BREAST LUMPECTOMY Left 06/30/2020 mass removed on left breast COLONOSCOPY 01/27/2022 unremarkable ESOPHAGOGASTRODUODENOSCOPY 01/27/2022 erythema GE junction TONSILLECTOMY AND ADENOIDECTOMY (HISTORICAL) 2006 WISDOM TOOTH EXTRACTION 2020 Allergies: Peanut-containing drug products and Amoxicillin Social History: Social History Socioeconomic History Marital status: Spouse name: Not on file Number of children: Not on file Years of education: Not on file Highest education level: Not on file Occupational History Not on file Tobacco Use Smoking status: Never Smokeless tobacco: Never Vaping Use Vaping Use: Never used Substance and Sexual Activity Alcohol use: Not Currently Drug use: No Sexual activity: Yes Partners: Male Other Topics Concern Not on file Social History Narrative Graduated [employer] in Mar 2022. She is single, engaged to be in September. Social Determinants of Health Financial Resource Strain: Not on file Food Insecurity: Not on file Transportation Needs: Not on file Physical Activity: Not on file Stress: Not on file Social Connections: Not on file Intimate Partner Violence: Not At Risk (08/11/2023) Humiliation, Afraid, Rape, and Kick questionnaire Fear of Current or Ex-Partner: No Emotionally Abused: No Physically Abused: No Sexually Abused: No Housing Stability: Not on file Family History: Family History Problem Relation Name Age of Onset Breast cancer Father's Sister Uterine cancer Neg Hx No Known Problems Mother Mayra Ovarian cancer Neg Hx Colon cancer Neg Hx No Known Problems Father Juliocesar Medications Prior to Admission: Medications Prior to Admission Medication Sig Dispense Refill Last Dose acetaminophen (Tylenol 8 Hour) 650 MG ER tablet Take 650 mg by mouth every 8 hours as needed for mild pain (1-3). Do not crush, chew, or split. diphenhydrAMINE (BENADryl) 25 MG tablet Take by mouth. Unsure of mg drospirenone-ethinyl estradiol (Andrew, Gianvi) 3-0.02 MG tablet TAKE 1 TABLET IN THE MORNING (Patient not taking: Reported on 07/19/2023) 84 tablet 0 Dupilumab (Dupixent) 100 MG/0.67ML solution prefilled syringe Inject under the skin. EPINEPHrine (AUVI-Q) 0.1 mg/0.1mL IJ solution auto-injector injection Inject into the shoulder, thigh, or buttocks. ferrous sulfate 325 (65 Fe) MG tablet Take 325 mg by mouth daily (with breakfast). ibuprofen 200 MG tablet Take 400 mg by mouth. levocetirizine (Xyzal) 5 MG tablet Take 5 mg by mouth Nightly. montelukast (Singulair) 10 MG tablet Take 10 mg by mouth Nightly. Zaqgcmot-Mek-Dw-FA (PRE- PO) Take by mouth. REVIEW OF SYSTEMS: Const: Negative HEENT: Negative Resp: Negative CVS: Negative GI: Negative : Negative MSK: Negative Breast: Negative Skin: Negative Heme/Lymph:Negative Endo: Negative Neuro: Negative Psych: Negative PHYSICAL EXAM: Vitals: 08/11/23 0833 08/11/23 0855 BP: 130/82 Pulse: 107 98 Weight: 160 lb (72.6 kg) Height: 4' 11 (1.499 m) General appearance: awake, alert, cooperative, no apparent distress, and appears stated age Neurologic: Awake, alert, oriented to name, place and time. Lungs: No increased work of breathing, good air exchange Abdomen: Soft, non tender, gravid, consistent with her gestational age Cervix: 1/50/-3 Contraction frequency: none Labs: cbc, cmp pending on admission Blood Type/Rh: type and screen pending Group B Strep: No components found for: GRPBPCR Fetus: EFW: 7lbs by leopolds Presentation: vtx by U/S Desai Score: 7 0 1 2 3 Position Posterior Mid Anterior - Consistency Firm Medium Soft - Effacement 0-30% 40-50% 60-70% 80% or > Dilation 0cm 1-2cm 3-4cm 5cm or > Station -3 -2 -1, 0 +1, +2 LABOR DELIVERY ??? SCD's ONLY (labor through ambulation) SCD's PLUS Prophylactic Anticoagulation until discharge SCD's PLUS Prophylactic Anticoagulation for 6 weeks SCD's PLUS Therapeutic Anticoagulation for 6 weeks Vaginal Delivery [] BMI ? 40 kg/m2 Delivery All patients Vaginal Delivery [] BMI ? 40 kg/m2 AND [] Antepartum hospitalization ? 72 hours within the past month Delivery 1 Major Risk Factor: [] BMI ? 35 kg/m2 [] Low Risk Thrombophilia [] PPH+RBCs, IR, or operation [] Infection+Antibiotics [] Antepartum hospitalization ? 72 hours within the past month [] PMH: Sickle Cell, SLE, Cardiac Dz, Active IBD, Active Cancer, Nephrotic Syndrome OR 2 Minor Risk Factors: [] Multiple gestation [] Age > 40 [] PPH ? 1,000cc [] (+)FMH of VTE [] Smoker [] Preeclampsia [] BMI ? 40 kg/m2 AND [] Low Risk Thrombophilia OR ANY OF THE FOLLOWING: [] High Risk Thrombophilia without prior VTE [] Low Risk Thrombophilia with (+)FMH of VTE [] Any single prior VTE ANY OF THE FOLLOWING: [] Already on LMWH/UFH [] Multiple prior VTE [] High Risk Thrombophilia with prior VTE Low Risk Thrombophilia: FVL (heterozygous), Prothrombin (heterozygous), Protein C, Protein S High Risk Thrombophilia: FVL (homozygous), Prothrombin (homozygous), FVL+Prothrombin (heterozygous), Antithrombin III, APLS ASSESSMENT AND PLAN: IOL-PreEwoSF Admission: Admit to L&D FHR: Category 1 Celestone: not indicated Pain control plan: desires epidural Delivery Plan: Cytotec, FB GBS: GBS negative, No indication for GBS prophylaxis LARC: declines Intrapartum SCDs: Not Indicated VTE Prophylaxis: Not Indicated PreEwoSF - Patient met criteria prior to admission - PreE labs obtained on admission and pending - Bps normotensive on arrival - Pt asymptomatic Asthma - Mild, intermittent - Denies hospitalizations or intubations Discussed with Dr Jett, who agrees with plan. Jessenia Link MD 08/11/2023, 9:04 AM Associated attestation - Jessenia Martinez DO - 08/12/2023 4:55 AM EDT Hospital Care (Independent): I independently saw and evaluated the patient. I agree with the findings and plan of care as documented in the resident's note. documented in this encounter [facility] 08-04-2023 Hospital Discharg e instructions Ming Pickett DO - 08/04/2023 3:29 PM EDT Follow up appointment with your doctor/greige goods examiner - Keep next scheduled appointment Activity - Normal Activity Call your doctor/greige goods examiner if you have: - leaking fluid - vaginal bleeding - regular contractions: Every 5 minutes or closer for one hour - decreased movement - worsening abdominal (belly) pain - headache, blurry vision, increased swelling, upper abdominal pain If you are going home with contractions that are uncomfortable/painful- we recommend these coping strategies: rhythmic breathing, hydrotherapy, imagery or visualization, gentle massage, walking and changing your position. Treatment Verification: Zunilda Logan Noonanstanford was assessed on Labor and Delivery for a related visit on 08/04/23 . Ming Pickett DO [facility] documented in this encounter [facility] 08-04-2023 History of Presen t illness Narrative Department of Obstetrics and Gynecology Labor and Delivery Triage Note CHIEF COMPLAINT: Vision Changes HISTORY OF PRESENT ILLNESS: The patient is a 22 y.o. 36w0d. OB History 1 Para 0 Term 0 0 AB 0 Living 0 SAB 0 IAB 0 Ectopic 0 Multiple 0 Live Births 0 Patient presents with a chief complaint as above. She was sent in from the office due to vision changes she describes as floaters. States she has spots that are like flashes of light and some that are dark. Denies loss of vision, loss of peripheral vision, and dark areas of her vision. Denies BEATTY, chest pain, shortness of breath, RUQ pain. Is scheduled for an induction next Monday for PreEwoSF as she has had an elevated UPC. Denies DFM/VB/LOF/CTX Estimated Due Date: Estimated Date of Delivery: 09/01/23 PAST MEDICAL HISTORY: Past Medical History: Diagnosis Date Acne Asthmatic bronchitis without complication 2018 Chronic seasonal allergic rhinitis due to pollen 2018 Contraception, device intrauterine nuva ring Fibroadenoma of breast, left PAST SURGICAL HISTORY: Past Surgical History: Procedure Laterality Date BREAST BIOPSY Left 06/30/2020 Wire localized excisional biopsy of left breast mass (Dr. Ta) BREAST LUMPECTOMY Left 06/30/2020 mass removed on left breast COLONOSCOPY 01/27/2022 unremarkable ESOPHAGOGASTRODUODENOSCOPY 01/27/2022 erythema GE junction TONSILLECTOMY AND ADENOIDECTOMY (HISTORICAL) 2006 WISDOM TOOTH EXTRACTION 2020 SOCIAL HISTORY: reports that she has never smoked. She has never used smokeless tobacco. She reports that she does not currently use alcohol. She reports that she does not use drugs. MEDICATIONS: Prior to Admission medications Medication Sig Start Date End Date Taking? Authorizing Provider ferrous sulfate 325 (65 Fe) MG tablet Take 325 mg by mouth daily (with breakfast). Yes Historical Provider, Nnlhxopx-Ncl-Pq-FA (PRE- PO) Take by mouth. Yes Historical Provider, acetaminophen (Tylenol 8 Hour) 650 MG ER tablet Take 650 mg by mouth every 8 hours as needed for mild pain (1-3). Do not crush, chew, or split. Historical Provider, diphenhydrAMINE (BENADryl) 25 MG tablet Take by mouth. Unsure of mg Historical Provider, drospirenone-ethinyl estradiol (Andrew, Gianvi) 3-0.02 MG tablet TAKE 1 TABLET IN THE MORNING Patient not taking: Reported on 07/19/2023 07/12/23 Deidra Otero MD Dupilumab (Dupixent) 100 MG/0.67ML solution prefilled syringe Inject under the skin. Historical Provider, EPINEPHrine (AUVI-Q) 0.1 mg/0.1mL IJ solution auto-injector injection Inject into the shoulder, thigh, or buttocks. Historical Provider, ibuprofen 200 MG tablet Take 400 mg by mouth. Historical Provider, levocetirizine (Xyzal) 5 MG tablet Take 5 mg by mouth Nightly. Historical Provider, montelukast (Singulair) 10 MG tablet Take 10 mg by mouth Nightly. Historical Provider, CARE: Complicated by: PreEwoSF REVIEW OF SYSTEMS: Pertinent items are noted in HPI. APPEARANCE: Pain: No PHYSICAL EXAM: Vital Signs: VS wnl-reviewed/Respirations normal effort Vitals: 08/04/23 1237 BP: 126/86 Pulse: 110 Abdomen: soft, NT, ND, no rebound/guarding Uterus: gravid/non-tender LE Edema: trace Speculum Exam: Defer heart rate: Category I, reactive with moderate variability and accelerations Cervix: Defer Contraction frequency: irregular, every 5-8 minutes Membranes: Intact RESULTS: NST: Reactive Procedures GENERAL LABS: No results found for this or any previous visit (from the past 24 hour(s)). TRIAGE COURSE: Seen and examined. Vertex on BSUS. Intermittently has floaters. Denies BEATTY, loss of vision, chest pain, shortness of breath, and RUQ pain. PreE labs ordered, pending. Normotensive x2 in triage. Ming Pickett, DO 08/04/2023 1:34 PM PreE labs neg. Ming Pickett, DO 08/04/2023 3:06 PM Reevaluated, floaters resolved. Still denies BEATTY, chest pain, shortness of breath. Discussed plan of care with Dr. Jett. She recommends BMZ at this time for lung maturity. Discussed plan of care with patient. Instructed her to return to OB triage tomorrow 24 hrs after receiving the first shot to receive the second shot of BMZ. Return precautions given. Questions and concerns addressed. Patient stable for discharge after BMZ. Ming Pickett DO 08/04/2023 3:26 PM Discussed risks/benefits of BMZ with patient including risks/benefits including facilitating lung maturity, maternal hyperglycemia, and neurologic adverse effects. Questions and concerns were addressed. Patient discussed BMZ with her she decided to decline BMZ at this time. Dr. Viktoriya Arevalo updated via text. Stable for discharge. Ming Pickett DO 08/04/2023 4:13 PM IMPRESSION: PreEwoSF Pain assessment and plan: None DISCUSSED WITH [facility] PROVIDER: Dr. Jett DISPOSITION: Discharge to Home Associated attestation - Daniela Shepherd MD - 08/04/2023 4:17 PM EDT Hospital Care (Independent): I independently saw and evaluated the patient. I agree with the findings and plan of care as documented in the resident's note. documented in this encounter [facility] 08-02-2023 Hospital Discharg e instructions Ming Pickett DO - 08/02/2023 4:24 PM EDT Follow up appointment with your doctor/greige goods examiner - Keep next scheduled appointment Activity - Normal Activity Call your doctor/greige goods examiner if you have: - leaking fluid - vaginal bleeding - regular contractions: Every 5 minutes or closer for one hour - decreased movement - worsening abdominal (belly) pain - headache, blurry vision, increased swelling, upper abdominal pain If you are going home with contractions that are uncomfortable/painful- we recommend these coping strategies: rhythmic breathing, hydrotherapy, imagery or visualization, gentle massage, walking and changing your position. Treatment Verification: Zunilda Sorensen was assessed on Labor and Delivery for a related visit on 08/02/23 . Ming Pickett DO [facility] documented in this encounter [facility] 08-02-2023 History of Presen t illness Narrative Department of Obstetrics and Gynecology Labor and Delivery Triage Note CHIEF COMPLAINT: Contractions HISTORY OF PRESENT ILLNESS: The patient is a 22 y.o. 35w5d. OB History 1 Para 0 Term 0 0 AB 0 Living 0 SAB 0 IAB 0 Ectopic 0 Multiple 0 Live Births 0 Patient presents with a chief complaint as above. Started having contractions last night and irregularly throughout the day today. Was seen in office yesterday and . Recently diagnosed with PreE outpatient due to elevated Bps and proteinuria. Denies BEATTY, vision changes, chest pain, shortness of breath, and RUQ pain. BP normotensive in triage. Denies DFM/VB/LOF Estimated Due Date: Estimated Date of Delivery: 09/01/23 PAST MEDICAL HISTORY: Past Medical History: Diagnosis Date Acne Asthmatic bronchitis without complication 2018 Chronic seasonal allergic rhinitis due to pollen 2018 Contraception, device intrauterine nuva ring Fibroadenoma of breast, left PAST SURGICAL HISTORY: Past Surgical History: Procedure Laterality Date BREAST BIOPSY Left 06/30/2020 Wire localized excisional biopsy of left breast mass (Dr. Ta) BREAST LUMPECTOMY Left 06/30/2020 mass removed on left breast COLONOSCOPY 01/27/2022 unremarkable ESOPHAGOGASTRODUODENOSCOPY 01/27/2022 erythema GE junction TONSILLECTOMY AND ADENOIDECTOMY (HISTORICAL) 2006 WISDOM TOOTH EXTRACTION 2020 SOCIAL HISTORY: reports that she has never smoked. She has never used smokeless tobacco. She reports that she does not currently use alcohol. She reports that she does not use drugs. MEDICATIONS: Prior to Admission medications Medication Sig Start Date End Date Taking? Authorizing Provider diphenhydrAMINE (BENADryl) 25 MG tablet Take by mouth. Unsure of mg Yes Historical Provider, ferrous sulfate 325 (65 Fe) MG tablet Take 325 mg by mouth daily (with breakfast). Yes Historical Provider, Fgklwedz-Ott-Ds-FA (PRE- PO) Take by mouth. Yes Historical Provider, acetaminophen (Tylenol 8 Hour) 650 MG ER tablet Take 650 mg by mouth every 8 hours as needed for mild pain (1-3). Do not crush, chew, or split. Historical Provider, drospirenone-ethinyl estradiol (Andrew, Gianvi) 3-0.02 MG tablet TAKE 1 TABLET IN THE MORNING Patient not taking: Reported on 07/19/2023 07/12/23 Deidra Otero MD Dupilumab (Dupixent) 100 MG/0.67ML solution prefilled syringe Inject under the skin. Historical Provider, EPINEPHrine (AUVI-Q) 0.1 mg/0.1mL IJ solution auto-injector injection Inject into the shoulder, thigh, or buttocks. Historical Provider, ibuprofen 200 MG tablet Take 400 mg by mouth. Historical Provider, levocetirizine (Xyzal) 5 MG tablet Take 5 mg by mouth Nightly. Historical Provider, montelukast (Singulair) 10 MG tablet Take 10 mg by mouth Nightly. Historical Provider, CARE: Complicated by: PreEwoSF REVIEW OF SYSTEMS: Pertinent items are noted in HPI. APPEARANCE: Pain: Yes: contractions PHYSICAL EXAM: Vital Signs: VS wnl-reviewed/Respirations normal effort Vitals: 08/02/23 1532 Resp: 20 Temp: 36.9 C (98.5 F) TempSrc: Oral Weight: 158 lb (71.7 kg) Height: 4' 11 (1.499 m) Abdomen: soft, NT, ND, no rebound/guarding Uterus: gravid/non-tender LE Edema: trace Speculum Exam: No pooling, nitrizine negative, friable cervix, physiologic discharge heart rate: Category I and reactive with moderate variability and accelerations Cervix: /-3, unchanged Contraction frequency: irregular, every 3-5 minutes Membranes: Intact RESULTS: Procedures GENERAL LABS: No results found for this or any previous visit (from the past 24 hour(s)). TRIAGE COURSE: Seen and examined. Vertex on BSUS. SVE unchanged from office, 50/-3. SSE no pooling, nitrizine negative, friable appearing cervix. Since unchanged from office, low concern for PTL at this time. Return precautions provided, questions and concerns addressed, stable for discharge. Ming Márquez DO [facility] 08/02/2023 4:22 PM IMPRESSION: Threatened Pre-Term Labor Pain assessment and plan: Present: pain is perceived as mild (1-3 pain scale) DISCUSSED WITH [facility] PROVIDER: Dr. Viktoriya Arevalo DISPOSITION: Discharge to Home Associated attestation - Kimberly Marquez DO - 08/02/2023 4:54 PM EDT Hospital Care (Independent): I independently saw and evaluated the patient. I agree with the findings and plan of care as documented in the resident's note. I reviewed exam findings with the patient and her significant other. All questions were answered to their satisfaction. documented in this encounter [facility] 07-19-2023 Hospital Discharg e instructions Zeina Kingsley DO - 07/19/2023 6:47 PM EDT Follow up appointment with your doctor/greige goods examiner - Keep next scheduled appointment Activity - Normal Activity Call your doctor/greige goods examiner if you have: - leaking fluid - vaginal bleeding - regular contractions: More than 6 contractions in one hour - decreased movement - worsening abdominal (belly) pain - headache, blurry vision, increased swelling, upper abdominal pain If you are going home with contractions that are uncomfortable/painful- we recommend these coping strategies: rhythmic breathing, hydrotherapy, imagery or visualization, gentle massage, walking and changing your position. Treatment Verification: Zunilda Sorensen was assessed on Labor and Delivery for a related visit on 07/19/23 . Zeina Kingsley DO [facility] documented in this encounter [facility] 07-11-2023 Telephone encounter Note BALTAZAR: 05/17/22 NOV: 08/15/23 Refill pended for approval Andrew 28 tabs with 1 refills. [facility] 07-11-2023 Miscellaneous Notes BALTAZAR: 05/17/22 NOV: 08/15/23 Refill pended for approval Andrew 28 tabs with 1 refills. documented in this encounter [facility] 07-20-2022 Telephone encounter Note Pt called and counseling provided [facility] 07-20-2022 Miscellaneous Notes Pt called and counseling provided Pt would like to call her. She states she wants to make sure she is doing her control pills right. Please call patient at [phone] She should go ahead and start new pack S: Patient spoke with [facility] nurse regarding medication issue B: Onset of symptoms/concern today A: Patient prior dose pack included 7 placebo pills, current pack only has 4 placebo pills. Patient question when to start new dose pack. Patient currently has completed the 4 placebo pills with out start of menstrual cycle. Patient question does she start new pack now or wait until after her menstrual cycle. R: Patient instructed will send message to office for further recommendations. Patient advised to call local pharmacist for guidance. No further needs at this time. Patient instructed to call back with new or worsening symptoms. Reason for Disposition Irregular or unexpected bleeding or spotting [1] Caller has NON-URGENT question AND [2] triager unable to answer question Protocols used: Contraception - Control Pills - Wfwrwhiw-TGTLF-OR documented in this encounter [facility] 07-19-2022 Telephone encounter Note Pt would like to call her. She states she wants to make sure she is doing her control pills right. Please call patient at [phone] [facility] 07-07-2022 Telephone encounter Note She should go ahead and start new pack [facility] 07-06-2022 Telephone encounter Note S: Patient spoke with [facility] nurse regarding medication issue B: Onset of symptoms/concern today A: Patient prior dose pack included 7 placebo pills, current pack only has 4 placebo pills. Patient question when to start new dose pack. Patient currently has completed the 4 placebo pills with out start of menstrual cycle. Patient question does she start new pack now or wait until after her menstrual cycle. R: Patient instructed will send message to office for further recommendations. Patient advised to call local pharmacist for guidance. No further needs at this time. Patient instructed to call back with new or worsening symptoms. Reason for Disposition Irregular or unexpected bleeding or spotting [1] Caller has NON-URGENT question AND [2] triager unable to answer question Protocols used: Contraception - Control Pills - Dagdivas-ZILSL-WE [facility] 05-30-2022 History of Presen t illness Narrative This note was created using Oxxyriter. Subjective Zunilda Pro is a 21 year old female. HPI by patient: Zunilda Pro is a 21 year old presenting to the office with the complaint of viral symptoms. CC: (Pt co sxs for over a wk, coughing up phlegm, and not sure if there was a fever, no nausea or vomiting. Concerned congestion is in her chest.) Started approximately 6-7 days prior, states I'm not sure when symptoms started. Associated symptoms include congestion, cough, shortness of breath, a sore throat that resolved, and ear pain that has also gone away. Denies fevers, chills, body aches, and gi symptoms. Covid Immunization Dates Overdue - COVID-19 VACCINE (3 - Booster for Pfizer series) Overdue since 02/03/2021 12/09/2020 Imm Admin: COVID-19 vaccine, age 12+ yr (PFIZER-BIONTECH - PURPLE TOP) 11/18/2020 Imm Admin: COVID-19 vaccine, age 12+ yr (PFIZER-BIONTECH - PURPLE TOP) Flu/RSV contacts: none. Strep contacts: mother a few weeks ago. Sick contacts: yes, mother a few weeks ago. Covid + contacts: none. Travel in the last 14 days: none. Smoking history/second hand smoke: none. OTC zyrtec, xyzal, Singulair, and Nyquil last night. No antibiotic use in the last 60 days. ALLERGIES Amoxicillin Vomiting No family history on file. Social History Tobacco Use Smoking status: Never Smokeless tobacco: Never Vaping Use Vaping Use: Never used Alcohol use: Never Drug use: Never Active Ambulatory Problems No Active Ambulatory Problems Resolved Ambulatory Problems No Resolved Ambulatory Problems Past Medical History: No date: Acne Review of Systems Constitutional: Negative. HENT: Positive for congestion and ear pain (states yes but then not right now). Negative for sore throat (at first, more dry). Eyes: Negative. Respiratory: Positive for cough and shortness of breath. Negative for wheezing. Cardiovascular: Negative. Gastrointestinal: Negative. Endocrine: Negative. Genitourinary: Negative. Musculoskeletal: Negative. Skin: Negative. Neurological: Positive for headaches. Hematological: Negative. Objective Wt 57.6 kg (127 lb) LMP 07/31/2021 (Approximate) BMI 26.55 kg/m Physical Exam Vitals reviewed. Constitutional: General: She is not in acute distress. Appearance: She is not ill-appearing, toxic-appearing or diaphoretic. HENT: Head: Normocephalic and atraumatic. Right Ear: Tympanic membrane, ear canal and external ear normal. Left Ear: Tympanic membrane, ear canal and external ear normal. Nose: No rhinorrhea. Right Sinus: Maxillary sinus tenderness and frontal sinus tenderness present. Left Sinus: Maxillary sinus tenderness and frontal sinus tenderness present. Mouth/Throat: Mouth: Mucous membranes are moist. Pharynx: Oropharynx is clear. No oropharyngeal exudate or posterior oropharyngeal erythema. Cardiovascular: Rate and Rhythm: Normal rate and regular rhythm. Pulmonary: Effort: Pulmonary effort is normal. Breath sounds: Normal breath sounds. Lymphadenopathy: Head: Right side of head: No submandibular or tonsillar adenopathy. Left side of head: No submandibular or tonsillar adenopathy. Cervical: No cervical adenopathy. Psychiatric: Behavior: Behavior is cooperative. Assessment and Plan (J06.9) Viral upper respiratory tract infection with cough (primary encounter diagnosis) Plan: XR CHEST 2V FRONTAL/LAT, 2019 CORONAVIRUS, fluticasone (FLONASE ALLERGY RELIEF) 50 mcg/actuation nasal spray, Epqrolzgefabznh-Rptqwtynh-UH (BROMFED DM) 2-30-10 mg/5 mL syrup (R06.02) SOB (shortness of breath) Plan: albuterol HFA (PROVENTIL HFA, VENTOLIN HFA) 90 mcg/actuation inhaler Education on viral vs bacterial infections. Most viral infections will last 10 days, sometimes 14. It is possible to have back to back viral infections. An antibiotic will not treat a virus. May go to any [facility] outpatient radiology department to have chest xray done, is active for 2 weeks in [facility] system and normal result goes to [facility]. -Covid test for rule out, results in 48 hours, isolation in the interim. [facility] -Viral symptoms for just 6-7 days, recommending supportive care: If no improvement after a full 10 days of symptoms my fill paper script for antibiotics. -Drink lots of fluids and get plenty of rest. -Vaporizers, cool mist humidifiers, warm showers, and warm fluids help open respiratory and sinus passages. Clean humidifiers daily. -OTC tylenol as directed on the bottle. -Saline nasal spray as needed. Flonase twice daily can help reduce inflammation through the sinus cavities. -Bromfed for cough/congestion. -Cough/deep breathing education, promote clearing of the airways and good lung expansion. -Make follow up with primary care for monitoring and resolution in symptoms. -Signs that warrant an ER evaluation: Sudden change/worsening in condition, lethargy, signs of dehydration, fever greater than 102 F that is not responding to Tylenol or ibuprofen (Motrin, Advil), drooling, difficulty swallowing, difficulty breathing, shortness of breath, chest pain, evidence of airway compromise (tripod position, neck extension, retractions), seizures, changes in mental status, or other concerns. The patient will pursue further outpatient evaluation with the primary care physician or another Urgent Care/Express Care as outlined in the after visit summary. The patient is agreeable to this plan of care and follow-up instructions have been explained in detail. The patient has received these instructions in written format and have expressed an understanding of the after visit summary. Medical Decision Making: Level: 4 - Moderate I spent a total of 20 minutes on the date of the service which included preparing to see the patient, [id number] patient care, completing clinical documentation, obtaining and/or reviewing separately obtained history, performing a medically appropriate examination, counseling and educating the patient/family/caregiver, and ordering medications, tests, or procedures. This patient encounter involved the screening or treatment of novel coronavirus infection (COVID-19). documented in this encounter [facility] 05-30-2022 Instructions Elham Mckeon APRN.CNP - 05/30/2022 3:34 PM EST (J06.9) Viral upper respiratory tract infection with cough (primary encounter diagnosis) Plan: XR CHEST 2V FRONTAL/LAT, 2019 CORONAVIRUS, fluticasone (FLONASE ALLERGY RELIEF) 50 mcg/actuation nasal spray, Xoyclraduiwzpeb-Zqfmpavrc-IV (BROMFED DM) 2-30-10 mg/5 mL syrup (R06.02) SOB (shortness of breath) Plan: albuterol HFA (PROVENTIL HFA, VENTOLIN HFA) 90 mcg/actuation inhaler Education on viral vs bacterial infections. Most viral infections will last 10 days, sometimes 14. It is possible to have back to back viral infections. An antibiotic will not treat a virus. May go to any [facility] outpatient radiology department to have chest xray done, is active for 2 weeks in [facility] and normal result goes to [facility]. -Covid test for rule out, results in 48 hours, isolation in the interim. Result to mychart. -Viral symptoms for just 6-7 days, recommending supportive care: If no improvement after a full 10 days of symptoms my fill paper script for antibiotics. -Drink lots of fluids and get plenty of rest. -Vaporizers, cool mist humidifiers, warm showers, and warm fluids help open respiratory and sinus passages. Clean humidifiers daily. -OTC tylenol as directed on the bottle. -Saline nasal spray as needed. Flonase twice daily can help reduce inflammation through the sinus cavities. -Bromfed for cough/congestion. -Cough/deep breathing education, promote clearing of the airways and good lung expansion. -Make follow up with primary care for monitoring and resolution in symptoms. -Signs that warrant an ER evaluation: Sudden change/worsening in condition, lethargy, signs of dehydration, fever greater than 102 F that is not responding to Tylenol or ibuprofen (Motrin, Advil), drooling, difficulty swallowing, difficulty breathing, shortness of breath, chest pain, evidence of airway compromise (tripod position, neck extension, retractions), seizures, changes in mental status, or other concerns. Clear. You re in the normal range. Straight mucus is mostly water, with proteins, antibodies and dissolved salts. Your nasal tissues produce it 24/7. Most of it flows down the back of your throat to be dissolved in the stomach. White. You re congested. Swollen, inflamed tissues in your nose are slowing the flow of mucus, causing it to lose moisture and become thick and cloudy. This can be a sign of a nasal infection or cold. Yellow. Your cold or infection is progressing. Infection-fighting cells might be rushing to the site of the microbial infection. White blood cells are among them as well. Once exhausted, they re carried off on the mucosal tide, lending it a yellowish tinge. Colds inevitably last 10 to 14 days. [place] down and wait it out. Green. Your immune system is really fighting back. The mucus is thick with white cells and other wreckage from the [place]. If you re still sick after about 12 days, you may want to see a doctor. It could be sinusitis, a bacterial infection. If you re feverish or nauseated, see a doctor soon. [place] or red. This is blood. Your nasal tissue in the nose has somehow become broken -- perhaps because it s dry, irritated or suffered some kind of impact. Brown. This shade could be blood, but likely it s something inhaled, like dirt, snuff or paprika. documented in this encounter [facility] 05-27-2022 Telephone encounter Note Patient called and counseling provided [facility] 05-27-2022 Miscellaneous Notes Patient called and counseling provided S: Patient spoke with [facility] nurse regarding vaginal bleeding. B: Onset of symptoms started today. A: Skipped her placebo pills started new pac and today started vaginal bleeding heavy. Started at 11am today and heavier today than her normal no dozziness or lighthead. R: Asking if she should continue her BC pills even though she is bleeding? Or stop and start a new pac when her period stops? Instructed to encourage fluids and refer question to the MD for advice. Patient understands care advice. No further needs at this time. Patient instructed to call back with new or worsening symptoms. Reason for Disposition Normal menstrual flow Protocols used: Vaginal Bleeding - [id number] documented in this encounter [facility] 05-27-2022 Telephone encounter Note S: Patient spoke with [facility] nurse regarding vaginal bleeding. B: Onset of symptoms started today. A: Skipped her placebo pills started new pac and today started vaginal bleeding heavy. Started at 11am today and heavier today than her normal no dozziness or lighthead. R: Asking if she should continue her BC pills even though she is bleeding? Or stop and start a new pac when her period stops? Instructed to encourage fluids and refer question to the MD for advice. Patient understands care advice. No further needs at this time. Patient instructed to call back with new or worsening symptoms. Reason for Disposition Normal menstrual flow Protocols used: Vaginal Bleeding - [id number]-OLMFK-EV [facility] 05-27-2022 Telephone encounter Note S: The patient is calling the [facility] about a questions regarding control B: She hung up prior to talking with a nurse R: Left a message on an identified line for her to call back if she continues to need assistance. Reason for Disposition Message left on identified voicemail Protocols used: No Contact or Duplicate Contact Dhze-XOUCI-RN [facility] 05-27-2022 Miscellaneous Notes S: The patient is calling the [facility] about a questions regarding control B: She hung up prior to talking with a nurse R: Left a message on an identified line for her to call back if she continues to need assistance. Reason for Disposition Message left on identified voicemail Protocols used: No Contact or Duplicate Contact [id number]-VKOBE-DI documented in this encounter [facility] 05-17-2022 History of Presen t illness Narrative Zunilda Pro 05/17/2022 21 y.o. Chief Complaint Patient presents with Follow-up Results US and MRI No LMP recorded. Primary Care Physician: Anthony Mckay, The patient was seen and examined. She is here for her annual. She is doing well. Concern for uterine anomaly sp normal pelvic mri. Doing ok with andrew. Getting . Considering going off ocp. Sp gardasil. 10/22 pap ok Recent colonoscopy. Sp gi eval. HPI : Zunilda Pro is a 21 y.o. female OB History Para Term AB Living 0 0 0 0 0 0 SAB IAB Ectopic Multiple Live Births 0 0 0 0 0 Past Medical History: Diagnosis Date Acne Asthmatic bronchitis without complication 2018 Chronic seasonal allergic rhinitis due to pollen 2018 Contraception, device intrauterine nuva ring Fibroadenoma of breast, left Past Surgical History: Procedure Laterality Date BREAST BIOPSY Left 06/30/2020 Wire localized excisional biopsy of left breast mass (Dr. Ta) BREAST LUMPECTOMY Left 06/30/2020 mass removed on left breast COLONOSCOPY 01/27/2022 unremarkable ESOPHAGOGASTRODUODENOSCOPY 01/27/2022 erythema GE junction TONSILLECTOMY AND ADENOIDECTOMY (HISTORICAL) 2006 WISDOM TOOTH EXTRACTION 2020 Family History Problem Relation Name Age of Onset Breast cancer Father's Sister Uterine cancer Neg Hx No Known Problems Mother Mayra Ovarian cancer Neg Hx Colon cancer Neg Hx No Known Problems Father Juliocesar Social History Socioeconomic History Marital status: Single Spouse name: Not on file Number of children: Not on file Years of education: Not on file Highest education level: Not on file Occupational History Not on file Tobacco Use Smoking status: Never Smokeless tobacco: Never Vaping Use Vaping Use: Never used Substance and Sexual Activity Alcohol use: Not Currently Drug use: No Sexual activity: Yes Partners: Male Other Topics Concern Not on file Social History Narrative Graduated [employer] in Mar 2022. She is single, engaged to be in September. Social Determinants of Health Financial Resource Strain: Not on file Food Insecurity: Not on file Transportation Needs: Not on file Physical Activity: Not on file Stress: Not on file Social Connections: Not on file Intimate Partner Violence: Not on file Housing Stability: Not on file MEDICATIONS: Current Outpatient Medications Medication Sig Dispense Refill Dupilumab (Dupixent) 100 MG/0.67ML solution prefilled syringe Inject under the skin. EPINEPHrine (AUVI-Q) 0.1 mg/0.1mL IJ solution auto-injector injection Inject into the shoulder, thigh, or buttocks. ibuprofen 200 MG tablet Take 400 mg by mouth. levocetirizine (Xyzal) 5 MG tablet Take 5 mg by mouth Nightly. montelukast (Singulair) 10 MG tablet Take 10 mg by mouth Nightly. drospirenone-ethinyl estradiol (Andrew, Gianvi) 3-0.02 MG tablet Take 1 tablet by mouth in the morning. 84 tablet 4 No current facility-administered medications for this visit. ALLERGIES: Allergies as of 05/17/2022 - Reviewed 05/17/2022 Allergen Reaction Noted Peanut-containing drug products Anaphylaxis 11/09/2016 Amoxicillin 06/25/2021 Gynecologic History: Menstrual History: No LMP recorded. Review of Systems Constitutional: Negative for fatigue, fever and unexpected weight change. HENT: Negative for congestion and sore throat. Eyes: Negative for discharge and visual disturbance. Respiratory: Negative for cough and shortness of breath. Cardiovascular: Negative for chest pain and leg swelling. Genitourinary: Negative for dysuria. Musculoskeletal: Negative for arthralgias and back pain. Skin: Negative for rash. Neurological: Negative for weakness and headaches. Psychiatric/Behavioral: Negative for dysphoric mood. The patient is not nervous/anxious. PHYSICAL Exam: : Vitals: 05/17/22 1614 BP: 132/77 Pulse: 73 Weight: 126 lb 3.2 oz (57.2 kg) Height: 4' 10.25 (1.48 m) Physical Exam Constitutional: General: She is not in acute distress. Appearance: Normal appearance. HENT: Head: Normocephalic and atraumatic. Right Ear: External ear normal. Left Ear: External ear normal. Nose: Nose normal. Eyes: Conjunctiva/sclera: Conjunctivae normal. Neck: Thyroid: No thyromegaly. Cardiovascular: Rate and Rhythm: Normal rate. Pulmonary: Effort: Pulmonary effort is normal. No respiratory distress. Chest: Breasts: Right: No mass, nipple discharge, skin change or tenderness. Left: No mass, nipple discharge, skin change or tenderness. Abdominal: General: There is no distension. Palpations: Abdomen is soft. Tenderness: There is no abdominal tenderness. Genitourinary: General: Normal vulva. Pubic Area: No rash. Labia: Right: No rash or lesion. Left: No rash or lesion. Vagina: No vaginal discharge or bleeding. Cervix: No cervical motion tenderness. Uterus: Not enlarged and not tender. Adnexa: Right: No mass or tenderness. Left: No mass or tenderness. Rectum: Normal. Musculoskeletal: General: No swelling. Normal range of motion. Cervical back: Normal range of motion. Right lower leg: No edema. Left lower leg: No edema. Skin: General: Skin is warm and dry. Neurological: Mental Status: She is alert and oriented to person, place, and time. Mental status is at baseline. Psychiatric: Mood and Affect: Mood normal. Behavior: Behavior normal. ASSESSMENT: 21 y.o. Annual Diagnosis Plan 1. Well woman exam with routine gynecological exam 2. Pelvic pain in female Chief Complaint Patient presents with Follow-up Results US and MRI Past Medical History: Diagnosis Date Acne Asthmatic bronchitis without complication 2018 Chronic seasonal allergic rhinitis due to pollen 2018 Contraception, device intrauterine nuva ring Fibroadenoma of breast, left Hereditary Breast,Ovarian, Colon and Uterine Cancer screening Done. Tobacco & Secondary smoke risks reviewed; instructedon cessation and avoidance PLAN: Follow up in 1 year (on 05/17/2023) for annual. Repeat Annual every 1 year PAP guidelines reviewed with pt Pt declined STD testing control reviewed with pt Routine health maintenance per patients PCP. No orders of the defined types were placed in this encounter. documented in this encounter [facility] 04-13-2022 Telephone encounter Note Medication name: drospirenone-ethinyl estradiol (TIMOTHY 28) 3-0.03 MG TABS Monthly quantity needed: 30 How many day supply requestin days Medication route: oral (PO) Medication administration time(s): daily If taking medication PRN, reason for taking medication: N/A If this is a controlled substance do you receive this or any other controlled medication from any other doctor or facility: N/A Ordering provider: Branden Date of last office visit: 01/08/21 Date of next office visit: 05/17/22 Date of last refill: (see medication tab): 04/20/21 Updated/Validated preferred pharmacy: Yes Patient instructed to contact the pharmacy prior to picking up the medication: Yes [facility] 04-13-2022 Miscellaneous Notes Medication name: drospirenone-ethinyl estradiol (TIMOTHY 28) 3-0.03 MG TABS Monthly quantity needed: 30 How many day supply requestin days Medication route: oral (PO) Medication administration time(s): daily If taking medication PRN, reason for taking medication: N/A If this is a controlled substance do you receive this or any other controlled medication from any other doctor or facility: N/A Ordering provider: Branden Date of last office visit: 01/08/21 Date of next office visit: 05/17/22 Date of last refill: (see medication tab): 04/20/21 Updated/Validated preferred pharmacy: Yes Patient instructed to contact the pharmacy prior to picking up the medication: Yes documented in this encounter [facility] 04-07-2022 History of Presen t illness Narrative Images from the original note were not included. [facility] [address] [facility] [address] Dept: [phone] Dept Loc: [phone] Visit type: Established Patient Reason for Visit: Annual Exam Assessment/Plan 1. Annual physical exam 2. Chronic seasonal allergic rhinitis due to pollen Comments: Chronic, controlled cont singulair, Xyzal during allergy season Follow up in about 1 year (around 04/07/2023) for annual physical. Reviewed use, side effects, and benefits of prescribed medication. Barriers to compliance addressed. All questions answered. Verbalized understanding Educated on follow up criteria Subjective HPI Needs physical for new job at [employer]. 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 PATIENT CONCERNS TODAY: No acute concerns today CHRONIC CONDITION MANAGEMENT: Allergic rhinitis: Mostly seasonal, is not using any of her allergy medicines at this time Eczema: Uses Dupixent for flareups. Is currently on control, ordered by [facility]NA[facility]. Sees them for her female health HEALTH MAINTENANCE: Screenings: - Cervical Cancer Cancer Screening: Up-to-date with [facility] MANAGEMENT [facility] - Breast Cancer Screening: Up-to-date with [facility]IST[facility] MANAGEMENT SPECIALIST - Colon Cancer Screening: Not due. Negative family history - Osteoporosis Screening: Not due - STI Screening: Declines. Is sexually active - Eye: Been awhile. 2 years ago. Glasses prn - Dental: Few months ago. Every 6 months - BMI: No issues Immunizations: Immunization History Administered Date(s) Administered DTaP 2000, 2000, 02/26/2001, 12/20/2001, 01/24/2005 DTaP, Unspecified 2000, 2000, 02/26/2001, 12/20/2001, 01/24/2005 HPV 9-Valent 08/05/2016 HPV, Quadrivalent 09/25/2012, 12/14/2012, 10/21/2014 HPV, Unspecified 10/21/2014 Hep A, Unspecified 10/21/2014, 10/21/2015 Hep A, ped/adol, 2 dose 10/21/2014, 10/21/2015 Hep B, Adolescent or Pediatric 2000, 2000, 06/23/2001 Hep B, Unspecified 2000, 2000, 06/23/2001 Hib (PRP-T) 2000, 2000, 2000, 2000, 02/26/2001, 02/26/2001, 12/20/2001, 12/20/2001 IPV 2000, 2000, 2000, 2000, 05/24/2002, 05/24/2002, 01/24/2005, 01/24/2005 Influenza Whole 01/29/2003 Influenza, Unspecified 01/29/2003 Influenza, injectable, quadrivalent 01/29/2003, 02/01/2021 Influenza, injectable, quadrivalent, preservative free 02/07/2019 Influenza, live, intranasal 12/17/2007, 12/31/2008, 11/19/2010 Influenza, live, intranasal, quadrivalent 12/17/2007, 12/31/2008, 11/19/2010 MMR 09/06/2001, 09/06/2001, 09/24/2004, 09/24/2004 Meningococcal MCV4O 10/31/2017 Meningococcal MCV4P 11/21/2011 PPD Test 02/07/2019 [place] SARS-CoV-2 Vaccination 11/18/2020, 12/09/2020 Pneumococcal Conjugate PCV 7 2000, 2000, 2000, 2000, 06/23/2001, 06/23/2001 Tdap 11/21/2011 Varicella 09/06/2001, 09/06/2001, 11/19/2010 Tdap - will think about booster Influenza - Will think about flu shot Review of Systems Constitutional: Negative for fever. Respiratory: Negative for shortness of breath. Cardiovascular: Negative for chest pain. Gastrointestinal: Negative for abdominal pain, diarrhea, nausea and vomiting. All other systems reviewed and are negative. Allergies Allergen Reactions Peanut-Containing Drug Products Anaphylaxis Amoxicillin Other reaction(s): Vomiting Other reaction(s): Vomiting Outpatient Medications Prior to Visit Medication Sig Dispense Refill drospirenone-ethinyl estradiol (Andrew, Gianvi) 3-0.02 MG tablet Take 1 tablet by mouth in the morning. Dupilumab (Dupixent) 100 MG/0.67ML solution prefilled syringe Inject under the skin. EPINEPHrine (AUVI-Q) 0.1 mg/0.1mL IJ solution auto-injector injection Inject into the shoulder, thigh, or buttocks. ibuprofen 200 MG tablet Take 400 mg by mouth. levocetirizine (Xyzal) 5 MG tablet Take 5 mg by mouth Nightly. montelukast (Singulair) 10 MG tablet Take 10 mg by mouth Nightly. Fexofenadine HCl (RICARDO PO) Take by mouth. No facility-administered medications prior to visit. Past Medical History: Diagnosis Date Acne Asthmatic bronchitis without complication 2018 Chronic seasonal allergic rhinitis due to pollen 2018 Contraception, device intrauterine nuva ring Fibroadenoma of breast, left Social History Tobacco Use Smoking status: Never Smokeless tobacco: Never Substance Use Topics Alcohol use: Not Currently Past Surgical History: Procedure Laterality Date BREAST BIOPSY Left 06/30/2020 Wire localized excisional biopsy of left breast mass (Dr. Ta) BREAST LUMPECTOMY Left 06/30/2020 mass removed on left breast COLONOSCOPY 01/27/2022 unremarkable ESOPHAGOGASTRODUODENOSCOPY 01/27/2022 erythema GE junction TONSILLECTOMY AND ADENOIDECTOMY (HISTORICAL) 2006 WISDOM TOOTH EXTRACTION 2020 Family History Problem Relation Name Age of Onset Breast cancer Father's Sister Uterine cancer Neg Hx No Known Problems Mother Mayar Ovarian cancer Neg Hx Colon cancer Neg Hx No Known Problems Father Juliocesar Objective Physical Exam Vitals reviewed. Constitutional: General: She is not in acute distress. Appearance: Normal appearance. HENT: Right Ear: Tympanic membrane, ear canal and external ear normal. Left Ear: Tympanic membrane, ear canal and external ear normal. Mouth/Throat: Mouth: Mucous membranes are moist. Pharynx: No oropharyngeal exudate or posterior oropharyngeal erythema. Eyes: Extraocular Movements: Extraocular movements intact. Conjunctiva/sclera: Conjunctivae normal. Pupils: Pupils are equal, round, and reactive to light. Cardiovascular: Rate and Rhythm: Normal rate and regular rhythm. Pulses: Normal pulses. Pulmonary: Effort: Pulmonary effort is normal. No respiratory distress. Breath sounds: Normal breath sounds. No wheezing. Abdominal: General: Abdomen is flat. Bowel sounds are normal. Palpations: Abdomen is soft. Tenderness: There is no abdominal tenderness. Musculoskeletal: General: Normal range of motion. Skin: General: Skin is warm and dry. Neurological: General: No focal deficit present. Mental Status: She is alert. Psychiatric: Mood and Affect: Mood normal. Behavior: Behavior normal. BP 102/66 Pulse 67 Temp 36.4 C (97.5 F) (Temporal) Ht 4' 11 (1.499 m) Wt 123 lb 3.2 oz (55.9 kg) SpO2 99% BMI 24.88 kg/m Data Reviewed and Summarized Labs: Imaging/Testing: ADAMA Padgett NP 04/07/2022 documented in this encounter [facility] 08-31-2021 Instructions Alfreda Overton PA-C - 08/31/2021 1:02 PM EDT ASSESSMENT/PLAN: 1. Hordeolum internum of right lower eyelid - - ERYTHROMYCIN 5 MG/GRAM (0.5 %) EYE OINTMENT - Wash hands frequently. - Wash all linens (wash cloths) after each use. Do not share linens.. - To remove crusting, wash eyes with no tears baby shampoo.. Call PCP if sx worsen or no better. If you get eye pain or vision changes- go to ER If symptoms worsen, or new symptoms develop go to ER. If you have worsening of breathing or breathing changes- go to ER. If you have persistent fever unrelieved by Tylenol/Motrin- go to the ER. Follow up as needed. Pt agreeable with plan and verbalized understanding. Barriers to learning: none. Alfreda Overton PA-C documented in this encounter [facility] 08-31-2021 History of Presen t illness Narrative Images from the original note were not included. 08/31/2021 Patient presents with: Eye Problem: onset today SUBJECTIVE: This is a 21 year old that is here today here for a possible stye to the right lower lid that started yesterday. She a tender, red spot in the medial right lower lid. She does not wear contacts. No eyeball symptoms. No discharge. No vision changes or eye pain. No concern for foreign object or trauma. No itchy or watery eyes. No other allergy or sinus symptoms. Denies fever, chills, sweats, or fatigue. Patient denies wheezing, shortness of breath, increased WOB, or chest pain. No other URI or sick symptoms. Pain on scale of 0-10 with 0 being no pain and 10 being greatest pain: 1-2 Nothing makes the symptoms better. Nothing makes them worse. Self-treatment:. Warm compressess The severity is mild and the symptoms are not improving. The patient did not have a similar problem in the last 3 months. The patient did not take any antibiotics in the last 3 months. Barriers to learning: none. Reviewed meds, OTCs, herbals or supplements. Reviewed allergies, medications, social history, and past medical history. PAST MEDICAL HISTORY Diagnosis Date Acne ALLERGIES Amoxicillin MEDICATIONS Current Outpatient Medications Medication Sig Drospirenone-Ethinyl Estradiol (ANDREW 28) 3-0.02 mg per tablet Take 1 tablet by mouth once daily. levocetirizine (XYZAL) 5 mg tablet Take 1 tablet by mouth once daily. montelukast (SINGULAIR) 10 mg tablet Take 10 mg by mouth daily at bedtime. spironolactone (ALDACTONE) 50 mg tablet Take 50 mg by mouth three times daily as needed. etonogestrel (NEXPLANON) 68 mg impl subdermal implant 68 mg by SUBDERMAL route. (Patient not taking: Reported on 06/25/2021 ) No current facility-administered medications for this visit. Medications and allergies reviewed by this provider SOCIAL HISTORY Social History Tobacco Use Smoking status: Never Smoker Smokeless tobacco: Never Used Vaping Use Vaping Use: Never used Substance Use Topics Alcohol use: Never Drug use: Never REVIEW OF SYSTEMS Review of Systems ROS: constitutional-neg, HENT-neg, Eyes- eye complaint, heart-neg, respiratory-neg, skin-neg, lymph-neg, neuro- neg, Allergy- neg- All systems neg except as noted above in HPI. OBJECTIVE: BP 126/60 Pulse 68 Temp 37.1 C (98.7 F) (Temporal) Resp 12 Wt 54 kg (119 lb 1.6 oz) LMP 07/31/2021 (Approximate) SpO2 99% BMI 24.90 kg/m . Vital signs reviewed by this provider. Physical Exam Vitals reviewed. Constitutional: General: She is not in acute distress. Appearance: Normal appearance. She is well-developed and normal weight. She is not ill-appearing, toxic-appearing or diaphoretic. HENT: Head: Normocephalic and atraumatic. No right periorbital erythema or left periorbital erythema. Right Ear: Tympanic membrane, ear canal and external ear normal. Left Ear: Tympanic membrane, ear canal and external ear normal. Nose: Nose normal. No congestion or rhinorrhea. Right Sinus: No maxillary sinus tenderness or frontal sinus tenderness. Left Sinus: No maxillary sinus tenderness or frontal sinus tenderness. Eyes: General: No scleral icterus. Right eye: Hordeolum present. No foreign body or discharge. Left eye: No foreign body, discharge or hordeolum. Extraocular Movements: Extraocular movements intact. Right eye: Normal extraocular motion and no nystagmus. Left eye: Normal extraocular motion. Conjunctiva/sclera: Conjunctivae normal. Right eye: Right conjunctiva is not injected. No chemosis, exudate or hemorrhage. Left eye: Left conjunctiva is not injected. No chemosis, exudate or hemorrhage. Pupils: Pupils are equal, round, and reactive to light. Lymphadenopathy: Head: Right side of head: No submental, submandibular, tonsillar, preauricular or posterior auricular adenopathy. Left side of head: No submental, submandibular, tonsillar, preauricular or posterior auricular adenopathy. Cervical: No cervical adenopathy. Skin: General: Skin is warm. Capillary Refill: Capillary refill takes less than 2 seconds. Findings: No erythema, lesion or rash. Neurological: General: No focal deficit present. Mental Status: She is alert and oriented to person, place, and time. Cranial Nerves: No cranial nerve deficit. Psychiatric: Behavior: Behavior is cooperative. ASSESSMENT/PLAN: 1. Hordeolum internum of right lower eyelid - ICD9: 373.12, ICD10: H00.022 - ERYTHROMYCIN 5 MG/GRAM (0.5 %) EYE OINTMENT - Wash hands frequently. - Wash all linens (wash cloths) after each use. Do not share linens.. - To remove crusting, wash eyes with no tears baby shampoo.. Call PCP if sx worsen or no better. If you get eye pain or vision changes- go to ER If symptoms worsen, or new symptoms develop go to ER. If you have worsening of breathing or breathing changes- go to ER. If you have persistent fever unrelieved by Tylenol/Motrin- go to the ER. Follow up as needed. Pt agreeable with plan and verbalized understanding. Barriers to learning: none. Alfreda Overton PA-C I spent a total of 20 minutes on the date of the service which included preparing to see the patient, [id number] patient care, completing clinical documentation, performing a medically appropriate examination, counseling and educating the patient/family/caregiver and ordering medications, tests, or procedures. Medical Decision Making: Problems: Low: Acute, uncomplicated illness or injury Risk: Low: Low risk from testing/treatment Moderate: Drug management Medical Decision Making Level: 3 - Low documented in this encounter [facility] 06-25-2021 Instructions Alfreda Overton PA-C - 06/25/2021 4:10 PM EDT ASSESSMENT/PLAN: 1. Acute non-recurrent maxillary sinusitis - - DOXYCYCLINE MONOHYDRATE 100 MG CAPSULE Continue Flonase and Claritin Encourage fluids, rest. Tylenol and Motrin for pain and fever Saline Nasil spray, Neti Pot, vaporizer, Vicks. Try Cepocol lozenges or Chloraseptic throat spray. Warm salt water gargles. Cough and deep breath- 10x/hr while awake. Call PCP if sx worsen or no better. If symptoms worsen, or new symptoms develop go to ER. If you have worsening of breathing or breathing changes- go to ER. If you have persistent fever unrelieved by Tylenol/Motrin- go to the ER. Follow up as needed. Barriers to learning: none. The patient verbalizes understanding and is in agreement with plan of care. - Red flags for in person care discussed - All questions answered Alfreda Overton PA-C documented in this encounter [facility] 06-25-2021 History of Presen t illness Narrative Surgical mask, face shield, N95, and gloves worn for all in-person care. 06/25/2021 Patient presents with: Sinus Problem: x 1 month was given amoxicillian had reation. congestion green drainage Pain, Sinus: pain started today SUBJECTIVE: This is a 20 year old that is here today for concern for URI symptoms x 5 weeks or more. . She complains of sinus pressure/congestion/draiange x 5-6 weeks. New sinus pain today. She was seen for these same sinus symptoms about 4 weeks ago. She was given a course of Augmentin 4 weeks ago (05/31/21) for >1 week of sinus symptoms at that time. She states that she had sever n/v/d with the Augmentin, and so, she did not complete the course. Sinus congestion/drainage have persisted, and today she has sinus pain. Pain in the cheeks is 8/10. Denies fever, chills, sweats, or fatigue. Patient denies wheezing, shortness of breath, increased WOB, or chest pain. She has tried Flonase and Claritin OTC. COVID vaccine: yes History of COVID: none Influenza vaccine: none Asthma: none Pneumonia: none Tobacco: none Pain on scale of 0-10 with 0 being no pain and 10 being greatest pain: 8 Nothing makes the symptoms better. Nothing makes them worse. Self-treatment:. See HPI The severity is mild and the symptoms are not improving. The patient did not have a similar problem in the last 3 months. The patient did not take any antibiotics in the last 3 months. Barriers to learning: none. Reviewed meds, OTCs, herbals or supplements. Reviewed allergies, medications, social history, and past medical history. PAST MEDICAL HISTORY Diagnosis Date Acne ALLERGIES Patient has no known allergies. MEDICATIONS Current Outpatient Medications Medication Sig spironolactone (ALDACTONE) 50 mg tablet Take 50 mg by mouth three times daily as needed. etonogestrel (NEXPLANON) 68 mg impl subdermal implant 68 mg by SUBDERMAL route. No current facility-administered medications for this visit. Medications and allergies reviewed by this provider. SOCIAL HISTORY Social History Tobacco Use Smoking status: Never Smoker Smokeless tobacco: Never Used Vaping Use Vaping Use: Never used Substance Use Topics Alcohol use: Never Drug use: Never REVIEW OF SYSTEMS Review of Systems ROS: constitutional: neg, HENT-sinus symptoms, Eyes- neg, heart-neg, respiratory-Cough, GI-neg, -neg, skin-neg, Allergy- neg, lymph-neg, neuro-neg, psych-neg- All systems neg except as noted above in HPI. OBJECTIVE: BP 110/57 Pulse 77 Ht 147.3 cm (4' 9.99) Wt 53.8 kg (118 lb 8 oz) LMP 06/25/2021 SpO2 100% BMI 24.77 kg/m . Vital signs reviewed by this provider. Physical Exam AAOx3, no acute distress, patient is pleasant, well groomed, dressed appropriately. General: WD, WN, NAD, alert. HEENT: No facial erythema or swelling. Eyes: PERRL. EOMI. No erythema or discharge. -Ears: TMs pearly kerr with light reflex, ear canals not red or swollen. +Clear, effusion bilaterally. -Nose-nasal mucosa erythematous and raw. +thick discharge. No polyps, nasal septum midline. -Throat: pharynx pink with no edema/mass/exudate/erythema, buccal mucosa pink and moist with no lesions. +thick post nasal drainage present on posterior pharynx. Tonsils are not enlarged. No erythema or exudate. Palate is equal. Uvula is midline- no erythema or edema. Head: + maxillary tenderness noted upon palpation. Neck: no masses or lymphadenopathy. Chest: CTA bilaterally with equal breath sounds; good air exchange throughout. No wheezing, rhonchi, or crackles; no retractions, tripoding, or nasal flaring noted. Heart: RRR, no murmur, rub, or gallop.. ASSESSMENT/PLAN: 1. Acute non-recurrent maxillary sinusitis - ICD9: 461.0, ICD10: J01.00 - DOXYCYCLINE MONOHYDRATE 100 MG CAPSULE Continue Flonase and Claritin Encourage fluids, rest. Tylenol and Motrin for pain and fever Saline Nasil spray, Neti Pot, vaporizer, Vicks. Try Cepocol lozenges or Chloraseptic throat spray. Warm salt water gargles. Cough and deep breath- 10x/hr while awake. Call PCP if sx worsen or no better. If symptoms worsen, or new symptoms develop go to ER. If you have worsening of breathing or breathing changes- go to ER. If you have persistent fever unrelieved by Tylenol/Motrin- go to the ER. Follow up as needed. Barriers to learning: none. The patient verbalizes understanding and is in agreement with plan of care. - Red flags for in person care discussed - All questions answered Alfreda Overton PA-C Medical Decision Making: Problems: Moderate: Acute illness with systemic symptoms Risk: Low: Low risk from testing/treatment Moderate: Drug management Medical Decision Making Level: 4 - Moderate I spent a total of 20 minutes on the date of the service which included preparing to see the patient, [id number] patient care, completing clinical documentation, performing a medically appropriate examination, counseling and educating the patient/family/caregiver and ordering medications, tests, or procedures. documented in this encounter [facility] 08-25-2020 History of Presen t illness Narrative Discharge information given to the patient. Patient and family verbalized understanding of information. All questions were answered before discharge. Patient ambulated, denies dizziness or nausea. Tolerating PO fluids and crackers. Vital signs are stable. Patient has changed and is being discharged home in a wheelchair with valuables. IV discontinued, catheter intact. Manual pressure held. Site benign documented in this [facility] Work Phone: 08-25-2020 Hospital Discharg Ivonne Mccarthy MD - 08/25/2020 POSTOPERATIVE INSTRUCTIONS FOR EXCISIONAL BREAST BIOPSY Apply covered ice pack to the incision site for the remainder of the day following surgery. Remove the outer dressing the day after surgery. You may shower the day after surgery. Avoiding lifting over 20 lbs. for two weeks after surgery. Dermabond will slowly fall off on its own. Wash the site gently with soap and water then keep the area clean and dry. Call the office if you have fever, drainage from the incision, redness, or swelling at the incision site/ breast. Take Tylenol and Motrin as directed for pain, alternating every 6 hours for the first four days after surgery, careful not to exceed the recommended amount. If breakthrough pain occurs, take the prescribed medication as directed. documented in this encounter [facility] Work Phone: Evaluation note Diagnosis Fibroadenoma of left breast- Primary Hypertrophic scar of skin Keloid scar documented in this encounter [facility] Work Phone: Evaluation note* Diagnosis Acute non-recurrent maxillary sinusitis- Primary [facility] Hordeolum internum of right lower eyelid- Primary Hordeolum internum [facility] Diagnosis Chest pain, unspecified type documented in this encounter [facility] Work Phone: Evaluation note* Diagnosis Uterine anomaly Other anomalies of uterus Pelvic pain in female Unspecified symptom associated with female genital organs documented in this encounter [facility] Work Phone: Evaluation note* Diagnosis Viral upper respiratory tract infection with cough- Primary Acute upper respiratory infections of unspecified site SOB (shortness of breath) Shortness of breath documented in this encounter [facility] note* Diagnosis Preeclampsia, third trimester- Primary Vaginal delivery [facility]* Diagnosis care and examination- Primary documented in this [facility]* Diagnosis Encounter for routine follow-up- Primary documented in this encounter [facility]* Diagnosis Encounter for IUD insertion- Primary Insertion of intrauterine contraceptive device Screen for STD (sexually transmitted disease) Screening examination for venereal disease documented in this encounter [facility]* Diagnosis IUD check up- Primary documented in this encounter [facility]* Diagnosis Annual physical exam- Primary Routine general medical examination at a health care facility Chronic seasonal allergic rhinitis due to pollen documented in this encounter [facility]* Diagnosis Well woman exam with routine gynecological exam- Primary Routine gynecological examination Pelvic pain in female Unspecified symptom associated with female genital organs documented in this encounter [facility] note* Diagnosis Upper respiratory infection with cough and congestion- Primary Acute upper respiratory infections of unspecified site Penicillin allergy Personal history of allergy to penicillin documented in this encounter [facility] note* Diagnosis Pelvic pain- Primary documented in this encounter [facility]* Diagnosis Women's annual routine gynecological examination- Primary Pelvic pain in female Unspecified symptom associated with female genital organs documented in this [facility]* Diagnosis Pelvic pain- Primary documented in this [facility]* Diagnosis Cyst of right ovary- Primary Other and unspecified ovarian cyst Pelvic pain documented in this [facility]* Diagnosis Fever, unspecified fever cause- Primary Upper respiratory tract infection, unspecified type documented in this [facility]* Diagnosis Vulvar itching documented in this [facility]* Diagnosis Well adult exam- Primary Routine general medical examination at a health care facility documented in this [facility]* Diagnosis Encounter for IUD removal- Primary documented in this encounter [facility] Summary Purpose Family History No Family History Records FoundNo Family History Records FoundNo Family History Records FoundNo Family History Records FoundNo Family History Records FoundNo Family History Records Found Advance Directives No Advanced Directives Records FoundDocuments on File Type Date Recorded Patient Cup Setter Lockstitch Expl anation Advance Directives and Living Will Power of Lead Auditor Documents on File Type Date Recorded Patient Cup Setter Lockstitch Expl anation ACP-Advance Directive ACP-Power of Lead Auditor Documents on File Type Date Recorded Patient Cup Setter Lockstitch Expl anation ACP-Advance Directive ACP-Power of Lead Auditor Latest Code Status on File Code Status Date Activated Date Inactivated Comments Full Code 06/30/2020 11:03 AM Latest Code Status on File Code Status Date Activated Date Inactivated Comments Full Code 06/30/2020 11:03 AM 06/30/2020 8:46 PM Latest Code Status on File Code Status Date Activated Date Inactivated Comments Full Code 08/25/2020 12:33 PM Full Code 06/30/2020 11:03 AM 06/30/2020 8:46 PM Latest Code Status on File Code Status Date Activated Date Inactivated Comments Full Code 08/25/2020 12:33 PM 08/25/2020 8:24 PM Full Code 06/30/2020 11:03 AM 06/30/2020 8:46 PM Latest Code Status on File Code Status Date Activated Date Inactivated Comments Full Code 08/11/2023 7:53 AM 08/13/2023 7:02 PM Date Activated Date Inactivated Comments 08/11/2023 7:53 AM 08/13/2023 7:02 PM Date Activated Date Inactivated Comments 08/11/2023 7:53 AM 08/13/2023 7:02 PM Reason for Referral Status Reason Specialty Diagnoses / Procedures Referre d By Contact Referred To Contact [facility] Diagnoses Left thyroid nodule Procedures US Thyroid Cam Bonilla, DO [address] [place] [address] Status Reason Specialty Diagnoses / Procedures Referre d By Contact Referred To Contact [facility] Diagnoses Left breast mass Procedures US GUIDED LEFT BREAST BIOPSY Cyndy Mitchell, ADAMA - CAREER SERVICES OFFICER [address] [place] [address] Specialty Diagnoses / Procedures Referred By Conchis arriaga Referred To Contact Cardiology Diagnoses Chest pain, unspecified type Procedures ECHO Complete 2D W Doppler W Color Anthony Mckay, DO [address] [place] [address] Referral ID Status Reason Start Date Expiration Date Visits Re quested Visits Authorized [id number] Open 10/07/2021 10/07/2022 1 1 Specialty Diagnoses / Procedures Referred By Contac t Referred To Contact Radiology Diagnoses Uterine anomaly Pelvic pain in female Procedures MRI PELVIS W WO CONTRAST Deidra Otero MD [address] [place] [address] Referral ID Status Reason Start Date Expiration Date V isits Requested Visits Authorized [id number] Authorized 12/14/2021 12/14/2022 1 1 Specialty Diagnoses / Procedures Referred By Contac t Referred To Contact Diagnoses Encounter for IUD insertion Lela Charlse APRN - CNM [address] [place] [address] Referral ID Status Reason Start Date Expiration Date V isits Requested Visits Authorized [id number] Pending Review 10/10/2023 10/04/2024 1 1 Assessments Diagnosis Left thyroid nodule Nontoxic uninodular goiter Diagnosis Left breast mass Lump or mass in breast Diagnosis Fibroadenoma of breast, left- Primary Discharge Instructions * Instructions* Darlene Spencer RN - 06/19/2020 No Motrin, Ibuprofen, or Advil 24 hours prior to surgery, or longer if instructed by your surgeon. No Aleve or Naprosyn 3 days prior to surgery, or longer if instructed by your surgeon. Do NOT take the following medications on the morning of surgery-Spironolactone. You may take Mometasone, Proair if needed the morning of surgery. You will receive a reminder call the day before surgery with your Same Day Surgery arrival time. If you have specific questions, please call your surgeon. Please bring your [facility] Information folder on the day of surgery. Please kandis the last dose taken (date and time ) on your Daily Medications List provided in your After Visit Summary. Please bring a photo ID and insurance information to [facility] Ground Floor and then to [id number] floor. Pre-operative information - Control and Anesthesia Drug Interactions During your upcoming anesthesia care, you may receive one of a few drugs that may reduce the effectiveness of your control medications. Possible medications given may include Emend and/or Sugammadex. You need to be aware of this if you are on any type of hormonal contraceptive control medication as this could be affected. If you have any further questions about this information, including which type of control is best for you, please speak with your [facility] provider. * Attachments The following attachments cannot be sent through Care Everywhere. * Breast Biopsy: Open: Pre-op (Gambian) * Breast Biopsy: Open: Post-op (Gambian) documented in this encounter* Instructions* Ivonne Ryder MD - 06/30/2020 POSTOPERATIVE INSTRUCTIONS FOR EXCISIONAL BREAST BIOPSY Apply covered ice pack to the incision site for the remainder of the day following surgery. Remove the outer dressing the day after surgery. You may shower the day after surgery. Avoiding lifting over 20 lbs. for two weeks after surgery. Dermabond will slowly fall off on its own. Wash the site gently with soap and water then keep the area clean and dry. Call the office if you have fever, drainage from the incision, redness, or swelling at the incisionsite/ breast. Take Tylenol and Motrin as directed for pain, alternating every 6 hours for the first four days after surgery, careful not to exceed the recommended amount. If breakthrough pain occurs, take the prescribed medication as directed. documented in this encounter History of Present Illness * Sharad Ochoa RN - 06/30/2020 6:27 PM EDT Pt states not yet ready to get up and go for a walk * Sharad Ochoa RN - 06/30/2020 6:12 PM EDT Discharge instructions given to pt and mom. Both verbalized understanding and denied questions at this time * Sharad Ochoa RN - 06/30/2020 6:05 PM EDT Mom is at bedside documented in this encounter Additional Source Comments INFORMATION SOURCE (unrecogn ized section and content) DATE CREATED AUTHOR 09/25/2017 [facility] DATE CREATED AUTHOR AUTHOR'S ORGANIZ ATION 10/25/2019 [facility] DATE CREATED AUTHOR AUTHOR'S ORGANIZ ATION 12/08/2021 [facility] DATE CREATED AUTHOR AUTHOR'S ORGANIZ ATION 12/28/2021 [facility] DATE CREATED AUTHOR AUTHOR'S ORGANIZ ATION 03/28/2024 [facility] DATE CREATED AUTHOR AUTHOR'S ORGANIZ ATION 12/12/2024 [facility] Ordered Prescriptions (unrec ognized section and content) Prescription Sig Dispensed Refills Start Date End Da te traMADol (ULTRAM) 50 MG tabletIndications:Fibroa denoma of breast, left Take 1 tablet by mouth every 4 hours as needed for Pain for up to 3 days. Intended supply: 3 days. Take lowest dose possible to manage pain 7 tablet 0 06/30/2020 07/03/2020 Prescription Sig Dispensed Refills Start Date End Da te traMADol (ULTRAM) 50 MG tabletIndications:Fibroa denoma of left breast,Hypertrophic scar of skin Take 1 tablet by mouth every 6 hours as needed for Pain for up to 3 days. Intended supply: 3 days. Take lowest dose possible to manage pain 5 tablet 0 08/25/2020 08/28/2020 Scheduled Active and Recently Administ ered Medications (unrecognized section and content) Medication Order 08/23/2020 08/24/2020 08/25/2020 acetaminophen (TYLENOL) tablet 500 mg (COMPLETED) 500 mg, Oral, ONCE, On Mon08/25/20 at 1300, For 1 dose, Maximum dose of acetaminophen is 4000 mg from all sources in 24 hours. Do not administer if patient has taken tylenol <4 hours earlier. Do not give if contraindicated ie. patient has active liver disease or cirrhosis., Pre-op (day of surgery) 1259 (Given - Provid er: Jessenia Vasquez RN) ceFAZolin (ANCEF) 2000 mg in dextrose 4 % 100 mL IVPB (premix) (COMPLETED) 2,000 mg, Intravenous, PROPERTY CLAIM REP TO O.R., 1 dose, On Mon08/25/20 at 1300, Administer within 1 hour prior to incision. Recommend to repeat in 3-4 hours after initial dose if still intra-op., Pre-op (day of surgery) 1536 (Given by Other Clinician - Provider: Clare Andrews RN - Comment: given in or) famotidine (PEPCID) tablet 20 mg (COMPLETED) 20 mg, Oral, ONCE, On Mon08/25/20 at 1300, For 1 dose, Pre-op (day of surgery) 1259 (Given - Provid er: Jessenia Vasquez RN) gabapentin (NEURONTIN) capsule 100 mg (COMPLETED) 100 mg, Oral, ONCE, On Mon08/25/20 at 1300, For 1 dose, For Age >69, or Low GFR, Pre-op (day of surgery) 1259 (Given - Provid er: Jessenia Vasquez RN) sodium chloride flush 0.9 % injection 10 mL 10 mL, Intravenous, EVERY 12 HOURS SCHEDULED (2 times per day), First dose on Mon08/25/20 at 2100, Pre-op (day of surgery) 2100 (Due) Continuous Medication Order 08/23/2020 08/24/2020 08/25/2020 0.9 % sodium chloride infusion Intravenous, at 100 mL/hr, CONTINUOUS, Starting on Mon08/25/20 at 1300, Pre-op (day of surgery) 1300 (Due) lactated ringers infusion Intravenous, at 50 mL/hr, CONTINUOUS, Starting on Mon08/25/20 at 1300, Upon admission to sameday - please start iv if patient does not have iv access. Use 500ml NS for patients on dialysis., Pre-op (day of surgery) 1300 (New Bag - Prov ider: Jessenia Vasquez RN) PRN Medication Order 08/23/2020 08/24/2020 08/25/2020 0.9 % sodium chloride bolus 500 mL (10.5 mL/kg), Intravenous, at 250 mL/hr, Administer over 2 Hours, ONCE PRN, Nausea, Starting on Mon08/25/20 at 1335, For 1 dose, PACU only 0.9 % sodium chloride infusion 25 mL, Intravenous, at 100 mL/hr, PRN, If patient receiving piggyback infusions without ordered maintenance IV fluids or with frequent/long duration piggyback infusions, Starting on Mon08/25/20 at 1233, Administer at the same rate as the piggyback being infused., Pre-op (day of surgery) ALPRAZolam (NIRAVAM) dissolvable tablet 0.25 mg 0.25 mg, Oral, PRN, Anxiety, Starting on Mon08/25/20 at 1233, Pre-op (day of surgery) 1259 (Given - Provid er: Jessenia Vasquez RN) diphenhydrAMINE (BENADRYL) injection 12.5 mg 12.5 mg, Intravenous, ONCE PRN, Itching, Starting on Mon08/25/20 at 1335, For 1 dose, for use Sameday and, PACU only fentaNYL (SUBLIMAZE) injection 25 mcg 25 mcg, Intravenous, EVERY 5 MIN PRN, Pain Moderate (4-6), Starting on Mon08/25/20 at 1335, For 3 doses, Phase I and Phase II- Initial therapy for moderate pain (4-6). Restricted to a 50 minute time frame starting when the patient can verbally state their pain score. If after 2 doses the pain score does not decrease by more than one point, then go to secondary medication. Ifsecondary medications are utilized, do not return to initial therapy medications. SDS and, PACU only fentaNYL (SUBLIMAZE) injection 50 mcg 50 mcg, Intravenous, EVERY 5 MIN PRN, Pain Severe (7-10), Starting on Mon08/25/20 at 1335, For 3 doses, Phase I or Phase II- Initial therapy for severe pain (7-10). Restricted to a 50 minute time frame starting when the patient can verbally state their pain score. If after 2 doses the pain score does not decrease by more than one point, then go to secondary medication. If secondary medications are utilized, do not return to initial therapy medications.Sameday and, PACU only hydrALAZINE (APRESOLINE) injection 5 mg 5 mg, Intravenous, EVERY 10 MIN PRN, High Blood Pressure, Starting on Mon08/25/20 at 1335, PRN for SBP > 160 for 2 consecutive measurements, and if one of the following conditions is met: 1) If IV labetolol is ineffective. 2) If HR is under 60. 3) If patient has heart block, COPD or asthma. If both labetalol and hydralazine ineffective, notify anesthesiologist. for use Sameday and, PACU only HYDROmorphone (DILAUDID) injection 0.25 mg 0.25 mg, Intravenous, EVERY 5 MIN PRN, Pain Moderate (4-6), Starting on Mon08/25/20 at 1335, For 4 doses, Phase I - Secondary therapy to be used after initial therapy medication doses are ineffective (pain score does not decrease by more than 1 point). If secondary medications are utilized, do not return to initial therapy medications., PACU only HYDROmorphone (DILAUDID) injection 0.5 mg 0.5 mg, Intravenous, EVERY 5 MIN PRN, Pain Severe (7-10), Starting on Mon08/25/20 at 1335, For 4 doses, Phase I - Secondary therapy to be used after initial therapy medication doses are ineffective (pain score does not decrease by more than 1 point). If secondary medications are utilized, do not return to initial therapy medications., PACU only labetalol (NORMODYNE;TRANDATE) injection 5 mg 5 mg, Intravenous, EVERY 10 MIN PRN, High Blood Pressure, Starting on Mon08/25/20 at 1335, PRN for SBP >160 for 2 consecutive measurements, if HR is 60 or greater. If beta pepe is contraindicated (HR less than 60, heart block, COPD or asthma) use hydralazine IV order. for use Sameday and, PACU only lidocaine PF 1 % injection 1 mL 1 mL, Intradermal, ONCE PRN, IV start, Starting on Mon08/25/20 at 1233, For 1 dose, Pre-op (day of surgery) meperidine (DEMEROL) injection 12.5 mg 12.5 mg, Intravenous, EVERY 5 MIN PRN, Shivering, , Starting on Mon08/25/20 at 1335, May give every 5 minutes to max of 50mg. for use Sameday and, PACU only ondansetron (ZOFRAN) injection 4 mg 4 mg, Intravenous, ONCE PRN, Nausea, Starting on Mon08/25/20 at 1335, For 1 dose, Initial antiemetic therapy. For use sameday and, PACU only oxyCODONE (ROXICODONE) immediate release tablet 10 mg (COMPLETED) 10 mg, Oral, PRN, Pain Severe (7-10), Starting on Mon08/25/20 at 1335, For 1 dose, PHASE II, PACU only 1803 (Given - Provid er: Lana Patterson RN) promethazine (PHENERGAN) injection 6.25 mg 6.25 mg, Intravenous, ONCE PRN, Nausea, Starting on Mon08/25/20 at 1335, For 1 dose, Caution if used IV:Check IV site for infiltrate prior to and during administration. Secondary antiemetic therapy. For use sameday and For IV administration, dilute to 10ml with normal saline. Must be administered over at least 10 minutes., PACU only sodium chloride flush 0.9 % injection 10 mL 10 mL, Intravenous, PRN, Line Care, After every IV line use, Starting on Mon08/25/20 at 1233, Pre-op (day of surgery) Scheduled Medication Order 07/17/2023 07/18/2023 07/19/2023 Acetaminophen-Caffeine (Excedrin Tension Headache) 2 tablet 2 tablet, Oral, Once, On Mon07/19/23 at 1700, For 1 dose 1700 (Not Given - Pr ovider: Mercedez Hoskins RN - Reason: Patient/family refused) diphenhydrAMINE (BENADryl) tablet/capsule 25 mg (COMPLETED) 25 mg, Oral, Once, On Mon07/19/23 at 1615, For 1 dose 1615 (Given - Provid er: Zunilda Wheeler RN) metoclopramide (Reglan) tablet 10 mg (COMPLETED) 10 mg, Oral, Once, On Mon07/19/23 at 1615, For 1 dose 1615 (Given - Provid er: Zunilda Wheeler RN) Scheduled Medication Order 08/02/2023 08/03/2023 08/04/2023 betamethasone acetate-betamethasone sodium phosphate (Celestone) injection 12 mg 12 mg, IntraMUSCular, Daily, First dose on Mon08/05/23 at 0600, For 2 doses Scheduled Medication Order 08/11/2023 08/12/2023 08/13/2023 acetaminophen (Tylenol) tablet 1,000 mg (COMPLETED) 1,000 mg, Oral, Once, On Mon08/11/23 at 1045, For 1 dose, Maximum dose of acetaminophen is 4000 mg from all sources in 24 hours. 1059 (Given - Provider: Lizzy Rodriguez RN) chlorhexidine (Hibiclens) 4 % solution 1 Application (CANCELED) 1 Application, Topical, Daily, First dose on Mon08/11/23 at 0800, Pre-Delivery, Use solution to clean abdomen upon admission then once daily until delivered 0844 (Given - Provider: Lizzy Rodriguez RN) ferrous sulfate tablet 325 mg 325 mg, Oral, 2 times daily with meals, First dose on Mon08/12/23 at 0800, , Start if Hgb less than 10. Hold oral ferrous sulfate dose if receiving IV iron sucrose (Venofer) 0800 (Not Given - Provider: Cyndy Rice RN - Reason: Order parameters not met)1700 (Not Given - Provider: Cyndy Rice RN - Reason: Order parameters not met) 0800 (Not Given - Provider: Cyndy Rice RN - Reason: Order parameters not met)1700 (Canceled Entry - Provider: Automatic Discharge Provider - Comment: Automatically canceled at discontinue of medication order) hydrOXYzine pamoate (Vistaril) capsule 25 mg (COMPLETED) 25 mg, Oral, Once, On Mon08/11/23 at 1045, For 1 dose 1058 (Given - Provider: Lizzy Rodriguez RN) measles, mumps and rubella (MMR) vaccine 0.5 mL 0.5 mL, SubCUTAneous, Prior to discharge, Starting on Mon08/11/23 at 2311, For 1 dose, , Administer if Rubella non-immune or equivocal Vaccine is a vial of powder. Reconstitute with the available diluent for this vaccine. Barcode scan vaccine vial for Vaccine Record miSOPROStol (Cytotec) split tablet 25 mcg (CANCELED) 25 mcg, Vaginal, Every 4 hours, First dose on Mon08/11/23 at 0900 0900 (Due)0935 (Given - Provider: Lizzy Rodriguez RN - Comment: not entire barcode scannable)1300 (Not Given - Provider: Lizzy Rodriguez RN - Reason: Order parameters not met)1700 (Not Given - Provider: Ayala Navarro RN - Reason: Contraindicated)2100 (Not Given - Provider: Ayala Navarro RN - Reason: Contraindicated) Continuous Medication Order 08/11/2023 08/12/2023 08/13/2023 lactated ringers infusion (CANCELED) 125 mL/hr, IntraVENous, Continuous, Starting on Mon08/11/23 at 0800, Pre-Delivery 0845 (New Bag - Provider: Lizzy Rodriguez RN)1315 (New Bag - Provider: Lizzy Rodriguez RN)1500 (Rate/Dose Change - Provider: Ayala Navarro RN) ropivacaine (Naropin) 0.2 % (OB) epidural infusion (CANCELED)(Linked Group 1) 10 mL/hr, Epidural, Continuous, Starting on Mon08/11/23 at 1430, Pre-Delivery, PCEA Basal Infusion 1455 (New Bag - Provider: Edna Durant APRN - FOAMING MACHINE OPERATOR)1950 (Stopped - Provider: Ayala Navarro RN) PRN Medication Order 08/11/2023 08/12/2023 08/13/2023 acetaminophen (Tylenol) tablet 650 mg 650 mg, Oral, Every 6 hours PRN, other, pain (1-10), Starting on Mon08/11/23 at 2311, Give in addition to any other pain medication ordered at same time for any pain indication. Maximum dose of acetaminophen is 4000 mg from all sources in 24 hours. Alternate ibuprofen and acetaminophen every 3 hours. Give ibuprofen first in the sequence. 0112 (Given - Provider: Lana Reynaga RN)0804 (Given - Provider: Cyndy Rice RN)1703 (Given - Provider: Cyndy Rice RN) 0004 (Given - Provider: Lana Reynaga RN)0632 (Given - Provider: Lana Reynaga, LYNNETTE) benzocaine 20% containing (Dermoplast) spray Topical, As needed, pain, , Starting on Mon08/11/23 at 2311, , Apply to perineal area. Patient is capable and may self administer at bedside. docusate sodium (Colace) capsule 100 mg 100 mg, Oral, 2 times daily PRN, constipation, Vaginal Delivery, Starting on Mon08/11/23 at 2311, Do not crush or break. 0804 (Given - Provider: Cyndy Rice RN) 1053 (Given - Provider: Cyndy Rice RN) famotidine (Pepcid) tablet 20 mg 20 mg, Oral, 2 times daily PRN, heartburn, Starting on Mon08/11/23 at 2311, , Renal dose per pharmacy for peptic ulcer prophylaxis. ibuprofen tablet 600 mg (COMPLETED) 600 mg, Oral, Once PRN, mild pain (1-3), Starting on Mon08/11/23 at 0752, For 1 dose, Post-Delivery 2143 (Given - Provider: Ayala Navarro, LYNNETTE) ibuprofen tablet 600 mg 600 mg, Oral, Every 6 hours PRN, other, pain (1-10), Starting on Mon08/11/23 at 2311, Alternate ibuprofen and acetaminophen every 3 hours. Give ibuprofen first in the sequence. 0608 (Given - Provider: Lana Reynaga RN)1423 (Given - Provider: Cyndy Rice RN)2117 (Given - Provider: Lana Reynaga RN) 0450 (Given - Provider: Lana Reynaga RN)1053 (Given - Provider: Cyndy Rice RN) lactated Ringer's bolus (CANCELED)(Linked Group 2) 1,000 mL, IntraVENous, PRN, Give prior to epidural placement. May be repeated if a second epidural/spinal procedure is performed., Starting on Mon08/11/23 at 0752, Pre-Delivery 1417 (Rate/Dose Change - Provider: Lizzy Rodriguez, LYNNETTE) lanolin (Lansinoh) cream Topical, As needed, dry skin, nipple discomfort, Starting on Mon08/11/23 at 2311, , Apply to affected area. ondansetron (Zofran) injection 4 mg(Linked Group 3) 4 mg, IntraVENous, Every 6 hours PRN, nausea, vomiting, Starting on Mon08/11/23 at 2311, 1st Line. Give IV if patient is unable to take orally. If inadequate response within 60 minutes, proceed to next-line agent or contact provider if no further options ordered. ondansetron ODT (Zofran-ODT) disintegrating tablet 4 mg(Linked Group 3) 4 mg, Oral, Every 8 hours PRN, nausea, vomiting, Starting on Mon08/11/23 at 2311, 1st Line. If inadequate response within 60 minutes, proceed to next-line agent or contact provider if no further options ordered. Patient should allow tablet to dissolve on tongue. Do not remove from blister pack until just before administering. oxytocin (Pitocin) 30 units in 500 mL infusion (CANCELED) 250-999 marvin-units/min (250-999 mL/hr), IntraVENous, Continuous PRN, bleeding, Starting on Mon08/11/23 at 0752, Post-Delivery, For Immediate Post Use Only. Give after delivery of placenta. Bag 1 of 2: Bolus for bag to infuse at 999 ml/hour for 15 minutes (15 units in 250cc). After initial bolus then decrease rate to 250cc/hr for 1 hour. Then discontinue 1937 (Rate/Dose Change - Provider: Ayala Navarro, LYNNETTE)1940 (New Bag - Provider: Ayala Navarro RN) oxytocin (Pitocin) 30 units in 500 mL infusion 125 marvin-units/min (125 mL/hr), IntraVENous, Continuous PRN, bleeding, Starting on Mon08/11/23 at 2001, For 48 hours, , For Immediate Post Use Only. Give after delivery of placenta and initial 30 unit bolus. Bag 2 of 2: 125cc/hr (125 mu/min) for an additional infusion of 500cc (30 units). 2100 (New Bag - Provider: Ayala Navarro RN)2250 (Rate/Dose Verify - Provider: Kelsey Vaughn RN) witch tiffany-glycerin (Tucks) pad Topical, As needed, hemorrhoids, For perineal pain or discomfort, Starting on Mon08/11/23 at 2311, , Apply to perineal area. Patient is capable and may self administer at bedside. Linked Groups Order Group 1: ropivacaine (Naropin) 0.2 % (OB) epidural infusion (CANCELED)Jump to med 10 mL/hr, Epidural, Continuous, Starting on Mon08/11/23 at 1430, Pre-Delivery, PCEA Basal Infusion And ropivacaine 0.2 % in sodium chloride 0.9 % (OB) epidural syringe (CANCELED) Epidural, Continuous, Starting on Mon08/11/23 at 1430, Pre-Delivery, PCEA patient controlled syringe Pt. Controlled Dose: 5 ml Lockout Interval: 10 min One Hour Limit: 15 mL Group 2: lactated Ringer's bolus (CANCELED) 500 mL, IntraVENous, Administer over 61 Minutes, PRN, Intrauterine resuscitation for hypertonus, tachysystole, non-ressuring status, or as prescribed by the physician. Every hour as needed, nurse may repeat bolus., Starting on Mon08/11/23 at 0752, Pre-Delivery Or lactated Ringer's bolus (CANCELED)Jump to med 1,000 mL, IntraVENous, PRN, Give prior to epidural placement. May be repeated if a second epidural/spinal procedure is performed., Starting on Mon08/11/23 at 0752, Pre-Delivery Group 3: ondansetron ODT (Zofran-ODT) disintegrating tablet 4 mgJump to med 4 mg, Oral, Every 8 hours PRN, nausea, vomiting, Starting on Mon08/11/23 at 2311, 1st Line. If inadequate response within 60 minutes, proceed to next-line agent or contact provider if no further options ordered. Patient should allow tablet to dissolve on tongue. Do not remove from blister pack until just before administering. Or ondansetron (Zofran) injection 4 mgJump to med 4 mg, IntraVENous, Every 6 hours PRN, nausea, vomiting, Starting on Mon08/11/23 at 2311, 1st Line. Give IV if patient is unable to take orally. If inadequate response within 60 minutes, proceed to next-line agent or contact provider if no further options ordered. Scheduled Medication Order 04/20/2024 04/21/2024 04/22/2024 acetaminophen (Tylenol) tablet 1,000 mg (COMPLETED) 1,000 mg, Oral, Once, On 04/21/24 at 2350, For 1 dose, Maximum dose of acetaminophen is 4000 mg from all sources in 24 hours. 0050 (Given - Provid er: Lindsay Beltran RN) ketorolac (Toradol) injection 15 mg 15 mg, IntraVENous, Once, On 04/21/24 at 2350, For 1 dose 0050 (Not Given - Pr ovider: Lindsay Beltran RN - Reason: Patient/family refused) Source Comments (unrecognize d section and content) In the event this informatio n is protected by the Federal Confidentiality of Alcohol and Drug Abuse Patient Records regulations: The Federal rules restrict any use of the information to criminally investigate or prosecute any alcohol or drug abuse patient.[facility] the event this information is protected by the Federal Confidentiality of Alcohol and Drug Abuse Patient Records regulations: The Federal rules restrict any use of the information to criminally investigate or prosecute any alcohol or drug abuse patient.[facility] the event this information is protected by the Federal Confidentiality of Alcohol and Drug Abuse Patient Records regulations: The Federal rules restrict any use of the information to criminally investigate or prosecute any alcohol or drug abuse patient.[facility] the event this information is protected by the Federal Confidentiality of Alcohol and Drug Abuse Patient Records regulations: The Federal rules restrict any use of the information to criminally investigate or prosecute any alcohol or drug abuse patient.[facility] Reason for Visit (unrecogniz ed section and content) Reason Comments Sinus Problem x 1 month was given amoxicillian had reation. congestion green drainage Pain, Sinus pain started today Reason Comments Eye Problem onset today Reason Comments Viral Syndrome Pt co sxs for over a wk, coughing up phlegm, and not sure if there was a fever, no nausea or vomiting. Concerned congestion is in her chest. Reason Onset Date Comments Contraception 07/06/2022 Reason Comments Med Refill Reason Comments Headache Reason Comments Contractions Reason Comments vision changes Pt states she has be en diagnosed with Pre E in office around 34 weeks due to abnormal labs and headaches. Pt states she started seeing spots in her vision yesterday and was sent in from the office today. Reason Comments Scheduled Induction preeclampsia Specialty Diagnoses / Procedures Referred By Contac t Referred To Contact Diagnoses Preeclampsia, third trimester Procedures . Steffanie Aponte MD [address] [address] [facility] [address] [place] [address] Referral ID Status Reason Start Date Expiration Date Visits Re quested Visits Authorized [id number] 1 1 Reason Comments Care Reason Onset Date Comments Hold on Mirena Process 08/22/2023 08/22/23 Pt calling to advise the office /provider to PLEASE put on HOLD Mirena Process until she thinks more about it pt will call back to give a ok to process pls advise wlm Contraception 08/22/2023 Reason Comments Care No C/O Reason Comments Procedure Mirena insert, no un protected sex within the last 2 weeks, gave urine for test Specialty Diagnoses / Procedures Referred By Contac t Referred To Contact Diagnoses Encounter for IUD insertion Lela Charles APRN - [facility] [address] [place] [address] Referral ID Status Reason Start Date Expiration Date V isits Requested Visits Authorized [id number] Pending Review 10/10/2023 10/04/2024 1 1 Reason Comments Follow-up 6wk Mirena String ch deborah, have felt her strings, needs have them cut her partner can feel them Reason Comments Annual Exam Reason Onset Date Comments Med Refill 04/13/2022 Pt calling refil l line to request refill on the drospirenone-ethinyl estradiol (TIMOTHY 28) 3-0.03 MG TABS Reason Comments Follow-up Results US and MRI Reason Onset Date Comments Medication Question 05/27/2022 Reason Onset Date Comments Vaginal Bleeding 05/27/2022 Reason Comments Viral Syndrome Sinus pressure, stuf fy, ears plugged. Has been 2 weeks Reason Onset Date Comments Contraception 04/15/2024 Reason Comments Follow-up Mirena inserted Patient having abdominal pain radiating down right leg Reason Comments Annual Exam Annual exam Reason Comments Pelvic Pain Sharp pain lower abd / pelvis. Previous concern for IUD misplacement/ cyst. Has US scheduled for and follow up scheduled Reason Comments Results Reason Comments Cough Head congestion Reason Comments Vaginal Discharge Reason Onset Date Comments Vaginal Discharge 07/22/2024 Reason Comments Establish Care Reason Comments Contraception Iud removal Care Teams (unrecognized sec tion and content) Fringe Weaver Relationship Specialty Start Date End Date Anthony Mckay DO [address] [place], [place] [id number] PCP - General Family Medicine 04/19/17 Fringe Weaver Relationship Specialty Start Date End Date Anthony Mckay DO [address] [place], [place] [id number] PCP - General Family Medicine 04/19/17 Fringe Weaver Relationship Specialty Start Date End Date Anthony Mckay DO [address] [place], [place] [phone] PCP - General 04/19/17 Fringe Weaver Relationship Specialty Start Date End Date Anthony Mckay DO [address] [place], [place] [phone] PCP - General 04/19/17 Fringe Weaver Relationship Specialty Start Date End Date Anthony Mckay DO [address] [place] [address] PCP - General 04/19/17 Fringe Weaver Relationship Specialty Start Date End Date WanisisAnthony dailey DO [address] [place] [address] PCP - General 04/19/17 Fringe Weaver Relationship Specialty Start Date End Date Anthony Mckay DO [address] [place] [address] PCP - General 04/19/17 Fringe Weaver Relationship Specialty Start Date End Date WanisisAnthony dailey DO [address] [place] [address] PCP - General 04/19/17 Fringe Weaver Relationship Specialty Start Date End Date Anthony Mckay DO [address] [place] [address] PCP - General 04/19/17 Fringe Weaver Relationship Specialty Start Date End Date Anthony Mckay DO [address] [place] [address] PCP - General 04/19/17 Fringe Weaver Relationship Specialty Start Date End Date Anthony Mckay DO [address] [place] [address] PCP - General 04/19/17 Fringe Weaver Relationship Specialty Start Date End Date Alivia Desai DO [address] [place] [id number] PCP - General Internal Medicine 08/01/24 Fringe Weaver Relationship Specialty Start Date End Date Alivia Desai DO [phone] [address] [id number] PCP - General Internal Medicine 08/01/24 FOR RECORDS PERTAINING TO PATIENTS WHO ARE OR HAVE BEEN ENROLLED IN A CHEMICAL DEPENDENCY/SUBSTANCEABUSE PROGRAM, SOME INFORMATION MAY BE OMITTED. This clinical summary was aggregated from multiple sources. Caution should be exercised in using it in the provision of clinical care. This summary normalizes information from multiple sources, and as a consequence, information in this document may materially change the coding, format and clinical context of patient data. In addition, data may be omitted in some cases. CLINICAL DECISIONS SHOULD BE BASED ON THE PRIMARY CLINICAL RECORDS. [facility]. provides no warranty or guarantee of the accuracy or completeness of information in this document.
== END | disposition home or self-care (01) ==
PROVIDERS: PCP Family Medicine; Referring Provider Obstetrics & Gynecology; Visit Provider Obstetrics & Gynecology
DX: Z34.90 Encounter for supervision of normal pregnancy, unspecified, unspecified trimester (principal)
CPT/HCPCS: 36415; 84702